=== PATIENT | male | born 1975 | race Hispanic/Latino ===

== ENCOUNTER → 2020-11-17 10:11 | Outpatient (CLI) | payer BC, SELFPAY ==
[2020-11-03 13:02] VITALS: BMI 36.0
--- NOTE | 2020-11-17 10:12 | MRI_ITS ---
STUDY: MRI LUMBAR SPINE WITHOUT CONTRAST REASON FOR EXAM: Male, 45 years old. back pain -- pain low back and bilat legs, feet numb x 2 months TECHNIQUE: Standardized fat and water weighted pulse sequences were obtained in the sagittal and axial planes. COMPARISON: X-ray 11/03/2020, MRI 05/08/2014 FINDINGS: T12-L1: Normal endplates. Normal disc height, hydration and morphology. Normal bilateral facet joints. Normal central canal and bilateral lateral recesses. Normal bilateral intervertebral neural foramina. Normal lumbar lordosis. There is no substantial scoliosis. Normal conus medullaris that terminates at the L1. L1-2: Normal endplates. Normal disc height, hydration and morphology. Normal bilateral facet joints. Normal central canal and bilateral lateral recesses. Normal bilateral intervertebral neural foramina. L2-3: Normal endplates. Normal disc height, hydration and morphology. Normal bilateral facet joints. Normal central canal and bilateral lateral recesses. Normal bilateral intervertebral neural foramina. L3-4: Mild disc desiccation but no disc protrusion, spinal stenosis, or neural foraminal stenosis. L4-5: Mild bilateral facet hypertrophy with fluid in the facet joints consistent with instability. 2 mm retrolisthesis of L4 on L5 but no disc protrusion or extrusion. No spinal stenosis or the neural foraminal stenosis. L5-S1: Moderate bilateral facet hypertrophy and mild ligament flavum hypertrophy. Interval development of a mild broad disc protrusion which produces mild spinal stenosis, moderate right neural foraminal stenosis with abutment of the right L5 nerve root laterally and mild left neural foraminal stenosis. Normal visualized sacral ala. Moderate friction related edema of the posterior subcutaneous fat. MRI/Spine Lumbar (Routine) IMPRESSION: Worsening degenerative disc disease at L4/L5 and L5/S1 as described above. Electronically Signed: Paxton Galloway MD at 12:51 EST Tel , Service support ,
== END ==
PROVIDERS: PCP Preventive Medicine Occupational Medicine; Referring Provider Orthopaedic Surgery; Visit Provider Orthopaedic Surgery
DX: M54.16 Radiculopathy, lumbar region (principal)
CPT/HCPCS: 72148

== ENCOUNTER 2021-10-03 16:55 | Emergency (ER) | payer BC, SELFPAY ==
[2021-10-03 16:56] VITALS: BP 162/98; PULSE 100; RESP 19; TEMP 36.1; O2SAT 92; BMI 43.8
--- NOTE | 2021-10-03 17:16 | EKG12_ITS ---
Test Reason : SOB/PALPS Blood Pressure : / mmHG Vent. Rate : 096 BPM Atrial Rate : 096 BPM P-R Int : 152 ms QRS Dur : 090 ms QT Int : 366 ms P-R-T Axes : 027 007 042 degrees QTc Int : 462 ms Normal sinus rhythm Poor R wave progression Confirmed by SAROJ KIM, JODI ([id number]), continuity editor ELDER MENDOZA ([id number]) on 10/05/2021 10:45:31 AM Referred By: MARY Confirmed By:JODI KYLE MD
--- NOTE | 2021-10-03 17:18 | EDS_ITS ---
HPI History of Present Illness Chief Complaint: Shortness of Breath Informant: patient Narrative Narrative: Patient presents with palpitations and dyspnea that were worse than his normal. He states he normally wakes up in the morning with palpitations. He did this about 11:00 this morning. He took his blood pressure medicine. It is listed as lisinopril/hydrochlorothiazide but it is actually a different medicine that he does not recall. He went back to bed. He was awoken at 3 PM gasping for breath. He had palpitations. He had dyspnea. He states he might of had some sharp chest pain but he is not sure. The symptoms are better now. He also, when specifically asked, does state that he has a history of sleep apnea but because his nose is always congested he cannot use a mask. He has not been sick recently. He has no recent travel surgery immobilization personal or family history of DVT or PE. No family history of early heart disease. He is a smoker. He has high blood pressure. He has had some borderline glucose levels in the past but never been diagnosed diabetic or high cholesterol. Nothing specifically makes his symptoms better other than time. Nothing specifically made them worse. [facility] Medical History HTN (hypertension) Home Medications omeprazole 40 mg PO DAILY 07/06/14 [History Last Taken 08/10/15 05:00] bisoprolol fumarate 5 mg tablet 5 mg PO DAILY tab 11/03/20 [History Last Taken Unknown] diclofenac sodium 75 mg tablet,delayed release 75 mg PO BID tab 11/03/20 [History Last Taken Unknown] valsartan-hydrochlorothiazide 1 tab PO DAILY 10/03/21 [History Last Taken Unknown] Allergy/AdvReac Type Severity Reaction Status Date / Time No Known Allergies Allergy Verified 10/03/21 16:58 Family History Mother Breast cancer Father Hypertension Surgical History H/O arthroscopy of right knee H/O repair of rotator cuff Social History household members: spouse and children housing: house current occupational status: employed Smoking Status: Heavy Smoker (>10/day) Tobacco: How many years used: 9 alcohol intake: current alcohol intake frequency: holidays/special occasions only substance use type: does not use what type of physical activity do you participate in: additional details: stretching seatbelt use: always do you feel safe at home: Yes ROS ROS ED Constitutional Constitutional ED: Denies chills, fever(s) or sweats Eyes Eyes: Denies blurry vision ENT ENT ED: Denies rhinorrhea or sore throat Cardiovascular Cardiovascular: Reports palpitations and racing heartbeat Respiratory/Chest Respiratory/Chest: Reports dyspnea; Denies cough, dyspnea on exertion or sputum Gastrointestinal Gastrointestinal: Denies nausea or vomiting Genitourinary Genitourinary ED: Denies dysuria or hematuria Musculoskeletal Musculoskeletal: Denies arthralgias, back pain, myalgias or neck pain Integumentary Denies rash Neurologic Neurologic: Denies headache(s), paresthesias or weakness Endocrine Endocrinology: Denies polydipsia or polyuria Allergic/Immunologic Allergic/Immunologic ED: Denies mouth swelling or urticaria EXAM Physical Exam Const Vital Signs: 10/03/21 16:56 10/03/21 17:22 10/03/21 17:54 Temperature 97 F L Temperature Source Temporal Pulse Rate 100 Respiratory Rate 19 H 20 H Respiratory Effort Non-Labored Short of Breath Blood Pressure 162/98 H Blood Pressure Mean 119 Pulse Ox 92 96 Oxygen Delivery Method Room Air Room Air 10/03/21 18:00 Temperature Temperature Source Pulse Rate 94 Respiratory Rate 18 Respiratory Effort Blood Pressure 152/114 H Blood Pressure Mean 126 Pulse Ox 97 Oxygen Delivery Method Room Air Patient walked back from triage without difficulty. No obvious dyspnea. Positive well nourished, well developed and obese General Appearance ED: well developed and NAD Nutritional Appearance: obese HEENT Negative for trauma Eyes General Eye ED: Negative for pale conjunctiva or scleral icterus Neck no JVD Chest Wall inspection of chest normal Resp normal respiratory effort and clear to auscultation bilaterally Resp Narrative: No pain with a deep breath. No palpable pain. Effort and Inspection: Negative for pain with movement Auscultation: Negative for rales, rhonchi or wheezes Cardio regular rate, regular rhythm and no murmurs GI normal to inspection, nondistended, normoactive bowel sounds and non-tender Palpation: soft Back/Spine no CVA tenderness Extremity normal to inspection General Extremety ED: Negative for edema or tenderness General Extremity: Negative for edema Neuro Sensorium / Orientation: alert Psych mental status grossly normal Skin no rashes or lesions noted MDM MDM MDM Narrative Medical decision making narrative: Patient's chest x-ray showed no acute process. EKG showed no acute process. Electrolytes were essentially normal other than very minimal elevation of his glucose and very mild decrease of his potassium that should self correct. CBC was normal other than high hemoglobin. He has had this in the past. My suspicion is that this comes from a combination of smoking and likely sleep apnea causing recurrent hypoxia at night. His troponin is negative. He is feeling better now. He has had symptoms like this before but they were a little bit worse. He woke up gasping for air. I think this is likely an episode of sleep apnea. He also had some palpitations but this is not too uncommon for him. I do not think he needs to stay in the hospital. We did discuss weight loss and importance of follow-up. Lab Data Attestation: I reviewed the patient's lab results. Labs: Laboratory Results - last 24 hr 10/03/21 10/03/21 17:30 17:30 WBC 10.8 RBC 5.63 Hgb 17.1 H Hct 50.4 MCV 89.5 MCH 30.4 MCHC 33.9 RDW Std Deviation 46.7 H RDW Coeff of Angel 14.4 Plt Count 264 MPV 8.9 Immature Gran % (Auto) 0.700 Neut % (Auto) 67.7 Lymph % (Auto) 17.1 L Montague % (Auto) 11.5 H Eos % (Auto) 1.9 Baso % (Auto) 1.1 H Absolute Neuts (auto) 7.3 Absolute Lymphs (auto) 1.84 Nucleated RBC % 0 Sodium 140 Potassium 3.3 L Chloride 104 Carbon Dioxide 29.0 Anion Gap 7 BUN 10 Creatinine 0.96 Estim Creat Clear Calc 89.89 Est GFR (MDRD) Af Amer 109 Est GFR (MDRD) Non-Af 90 BUN/Creatinine Ratio 10.5 Glucose 111 H Calcium 9.0 Troponin I High Sens 6 Radiography Diagnostic Testing: Clinical Impression(s) from Imaging Studies Chest X-Ray 10/03/21 17:46 IMPRESSION: Normal x-ray examination of the chest. Electronically Signed: Dalton Mancilla MD at 18:19 EST , Service support , EKG Initial EKG: Comments: EKG done for palpitations dyspnea read by me shows sinus rhythm with a rate of 96. Mild nonspecific baseline changes but no acute ST elevation or depression. No ectopy. NV interval, QRS duration and QTc normal. This is similar to prior in the computer. Discharge Plan Triage Chief Complaint: Shortness of Breath ED Provider: Sam Rashid Dx/Rx/DC Orders Clinical Impression: Heart palpitations, Apnea, sleep Instructions: ED Palpitations, ED Sleep Apnea, Obstructive Prescriptions: No Action diclofenac sodium 75 mg tablet,delayed release (DR/EC) 75 mg PO BID RF: 0 bisoprolol fumarate 5 mg tablet 5 mg PO DAILY RF: 0 omeprazole 40 MG capsule 40 mg PO DAILY RF: 0 valsartan-hydrochlorothiazide 320-25 mg Tablet 1 tab PO DAILY RF: 0 Primary Care Provider: Benoit Benton Referrals: Benoit Benton DO [Primary Care Provider] - As soon as possible Disposition Disposition: Home, Self Care
[2021-10-03 17:22] VITALS: O2SAT 96
[2021-10-03] MEDS: Aspirin 81 MG TAB.CHEW 324 MG PO (17:25)
--- NOTE | 2021-10-03 17:46 | RAD_ITS ---
STUDY: X-RAY CHEST REASON FOR EXAM: Male, 46 years old. Chest pain TECHNIQUE: Single AP portable view of the chest. COMPARISON: 2013 FINDINGS: EKG leads overlie the chest The lungs are clear and expanded. There is no demonstrated pleural abnormality. Normal size heart. Normal mediastinum and ashish. Normal visualized pulmonary arteries. Normal visualized aortic arch and descending thoracic aorta. Normal visualized thoracic spine. Normal visualized ribs, clavicles, and shoulders. There is no demonstrated abnormality of the visualized soft tissue structures of the upper abdomen. RAD/Chest 1 View (Portable) IMPRESSION: Normal x-ray examination of the chest. Electronically Signed: Dalton Mancilla MD at 18:19 EST , Service support ,
[2021-10-03 17:47] LABS: Absolute Lymphocyte Count 1.84 X10^3/uL (0.83-4.51); Absolute Neutrophil Count 7.3 X10^3/uL (2.0-7.7); Basophil# 0.12 X10^3/uL; Basophil% 1.1 % (0-1); Eosinophils% 1.9 % (0-5); Hematocrit 50.4 % (40-54); Hemoglobin 17.1 g/dL (13.0-16.5); Lymphocyte # 1.84 X10^3/ul (0.83-4.51); Lymphocyte % 17.1 % (19-41); Mean Corp Hgb Conc 33.9 g/dL (32-36); Mean Corpuscular Hgb 30.4 pg (27.0-32.0); Mean Corpuscular Volume 89.5 fL (80-94); Mean Platelet Vol. 8.9 fl (6.2-12.0); Monocyte# 1.24 X10^3/uL; Monocyte% 11.5 % (0-10); NRBC Flagged by Analyzer 0 % (0-5); Neutrophil % 67.7 % (47-70); Platelet Count 264 K/mm3 (150-450); RBC Distribution Width CV 14.4 % (11.6-14.6); RBC Distribution Width SD 46.7 fl (35.1-43.9); Red Blood Count 5.63 M/mm3 (4.6-6.2); White Blood Count 10.8 K/mm3 (4.4-11.0)
[2021-10-03 17:54] VITALS: RESP 20; O2SAT 96
[2021-10-03 18:00] VITALS: BP 152/114; PULSE 94; RESP 18; O2SAT 97
[2021-10-03 18:05] LABS: Anion Gap 7 (5-15); BUN 10 mg/dL (7-18); BUN/Creat Ratio 10.5 RATIO (10-20); Chloride 104 mmol/L (98-107); Creatinine, Serum 0.96 mg/dL (0.70-1.30); EST Glomerular Filtration Rate 90 mL/min (>60); Est Glom Filt Rate - Afr Amer 109 mL/min (>60); Estimated Creatinine Clearance 89.89 ml/min; Glucose 111 mg/dL (74-106); Potassium 3.3 mmol/L (3.5-5.1); Sodium Level 140 mmol/L (136-145); Troponin-I HS 6 pg/mL (3.0-78.0)
[2021-10-03 19:18] VITALS: BP 145/89; PULSE 87; RESP 18; O2SAT 98
== END 2021-10-03 19:18 | disposition home or self-care (01) ==
PROVIDERS: Emergency Provider Emergency Medicine; PCP Preventive Medicine Occupational Medicine
DX: R00.2 Palpitations (principal); G47.30 Sleep apnea, unspecified; E66.9 Obesity, unspecified; Z68.41 Body mass index [BMI] 40.0-44.9, adult; I10 Essential (primary) hypertension; Z79.899 Other long term (current) drug therapy; F17.200 Nicotine dependence, unspecified, uncomplicated
CPT/HCPCS: 71045; 80048; 84484; 85025; 93005; 99283; A4216

== ENCOUNTER 2022-06-02 16:46 | Emergency (ER) | payer BC, SELFPAY ==
[2022-06-02 16:47] VITALS: BP 129/97; PULSE 97; RESP 20; TEMP 36.5; O2SAT 95; BMI 43.9
--- NOTE | 2022-06-02 18:42 | EDS_ITS ---
HPI History of Present Illness Chief Complaint: Back Informant: patient Narrative Narrative: 47-year-old male presenting to the emergency department chief complaint of back pain. Patient states that yesterday at work he twisted and immediately felt his back tighten up and have pain. He notes that there is a pain on the right side of his back that travels down into the buttock and down onto his thigh. Is worse with movements. He denies any bowel or bladder dysfunction. No muscle strength loss or sensation changes. No red flag history such as immunocompromise chronic injections or IVDA. No saddle anesthesia. [facility] Medical History Encounter for screening for COVID-19 Encounter for screening for COVID-19 HTN (hypertension) Infected sebaceous cyst of skin URI (upper respiratory infection) Home Medications omeprazole 40 mg capsule,delayed release 40 mg PO DAILY 07/06/14 [History Last Taken 08/10/15 05:00] bisoprolol fumarate 5 mg tablet 5 mg PO DAILY 11/03/20 [History Last Taken Unknown] diclofenac sodium 75 mg tablet,delayed release 75 mg PO BID 11/03/20 [History Last Taken Unknown] valsartan 320 mg-hydrochlorothiazide 25 mg tablet 1 tab PO DAILY 10/03/21 [History Last Taken Unknown] benzonatate 200 mg capsule 200 mg PO TID PRN cough #30 caps 11/02/21 [Rx Last Taken Unknown] doxycycline monohydrate 100 mg capsule 100 mg PO BID #20 caps 12/07/21 [Rx Last Taken Unknown] methylprednisolone 4 mg tablets in a dose pack (Medrol (Kelvin)) 4 mg PO DAILY Pain #21 tabs 02/06/22 [Rx Last Taken Unknown] diazepam 5 mg tablet 5 mg PO Q8 PRN Muscle Spasm #15 tabs 06/02/22 [Rx Last Taken Unknown] oxycodone 10 mg tablet 10 mg PO TID PRN pain 5 days #20 tabs 06/02/22 [Rx Last Taken Unknown] Allergy/AdvReac Type Severity Reaction Status Date / Time lisinopril Allergy throat Verified 06/02/22 16:47 itchy Family History Mother Breast cancer Father Hypertension Surgical History H/O arthroscopy of right knee H/O repair of rotator cuff Social History household members: spouse and children housing: house current occupational status: employed Smoking Status: Heavy Smoker (>10/day) Tobacco: How many years used: 9 alcohol intake: current alcohol intake frequency: holidays/special occasions only substance use type: does not use what type of physical activity do you participate in: additional details: stretching seatbelt use: always do you feel safe at home: Yes ROS ROS ED Constitutional Constitutional ED: Denies chills or weight loss Eyes Eyes: Denies change in vision or diplopia ENT ENT ED: Denies ear pain, rhinorrhea or sore throat Cardiovascular Cardiovascular: Denies chest pain, orthopnea, palpitations or racing heartbeat Respiratory/Chest Respiratory/Chest: Denies cough, dyspnea or orthopnea Gastrointestinal Gastrointestinal: Denies abdominal pain, diarrhea, nausea or vomiting Genitourinary Genitourinary ED: Denies dysuria, hematuria or urinary frequency Musculoskeletal Musculoskeletal: Reports back pain; Denies arthralgias or myalgias Integumentary Denies abscess or rash Neurologic Neurologic: Reports paresthesias; Denies headache(s) or weakness Psychiatric Psychiatric: Denies anxiety, depression, suicidal ideation or suicidal thoughts Endocrine Endocrinology: Denies polydipsia, polyphagia or polyuria Allergic/Immunologic Allergic/Immunologic ED: Denies mouth swelling, tongue swelling or urticaria EXAM Physical Exam Const Vital Signs: 06/02/22 16:47 Temperature 97.7 F L Temperature Source Temporal Pulse Rate 97 Respiratory Rate 20 H Blood Pressure 129/97 H Blood Pressure Mean 107 Pulse Ox 95 Oxygen Delivery Method Room Air Positive well nourished, well developed and obese General Appearance ED: well developed Nutritional Appearance: obese HEENT Reports normocephalic, head/scalp atraumatic and moist mucous membranes Eyes PERRL and EOMs intact bilaterally Neck no lymphadenopathy, supple and no JVD Resp normal respiratory effort and clear to auscultation bilaterally Cardio regular rate, regular rhythm and no murmurs GI normal to inspection, nondistended, normoactive bowel sounds and non-tender Palpation: soft Back/Spine no CVA tenderness Back/Spine Narrative: Patient is tenderness palpation in the right paraspinal lumbar musculature down onto the buttock and over the piriformis muscle. No tissue texture changes to suggest abscess. Lumbar Spine / Lower Back: ROM limited Extremity normal to inspection General Extremety ED: Negative for edema General Extremity: Negative for edema Neuro oriented x3 and CN's II-XII intact bilaterally Sensorium / Orientation: alert Motor Exam: strength 5/5 throughout Deep Tendon Reflexes: Rt Patellar (L4): 2+, Lt Patellar (L4): 2+, Rt Ankle (S1): 2+ and Lt Ankle (S1): 2+ Deep Tendon Reflexes Back: Rt Patellar (L4): 2+, Lt Patellar (L4): 2+, Rt Ankle (S1): 2+ and Lt Ankle (S1): 2+ Psych mental status grossly normal Mood & Affect: Negative for depressed or tearful Skin no rashes or lesions noted and no wounds MDM MDM MDM Narrative Medical decision making narrative: I believe this to be a lumbar myofascial spasm/strain There is a radicular component. Patient will be treated with anti-inflammatories muscle relaxants and pain medicine. I requested he schedule follow-up with his doctor. Discharge Plan Triage Chief Complaint: Back ED Provider: Oscar Brooke Dx/Rx/DC Orders Clinical Impression: Acute left lumbar radiculopathy, Lumbar paraspinal muscle spasm Instructions: ED Sciatica Prescriptions: New diazepam [diazepam] 5 mg tablet 5 mg PO Q8 PRN (Reason: Muscle Spasm) Qty: 15 0RF oxycodone 10 mg tablet 10 mg PO TID PRN (Reason: pain) 5 Days Qty: 20 0RF No Action diclofenac sodium 75 mg tablet,delayed release (DR/EC) 75 mg PO BID Label Comments: TAKE 1 TABLET BY MOUTH TWICE DAILY bisoprolol fumarate 5 mg tablet 5 mg PO DAILY benzonatate 200 mg capsule 200 mg PO TID PRN (Reason: cough) Qty: 30 0RF doxycycline monohydrate 100 mg capsule 100 mg PO BID Qty: 20 0RF methylprednisolone [Medrol (Kelvin)] 4 mg tablets,dose pack 4 mg PO DAILY Qty: 21 0RF omeprazole 40 MG capsule 40 mg PO DAILY valsartan-hydrochlorothiazide 320-25 mg Tablet 1 tab PO DAILY Primary Care Provider: Benoit Benton Referrals: Benoit Benton DO [Primary Care Provider] - 1-2 Weeks Disposition Disposition: Home, Self Care
[2022-06-02] MEDS: oxyCODONE 5 MG Tablet 10 MG PO (18:46)
[2022-06-02] MEDS: diazePAM 5 MG Tablet PO (18:46)
[2022-06-02] MEDS: Ketorolac 60 MG/2 ML Vial IM (18:46)
== END 2022-06-02 19:30 | disposition home or self-care (01) ==
PROVIDERS: Emergency Provider Emergency Medicine; PCP Preventive Medicine Occupational Medicine; Visit Provider Emergency Medicine
DX: M54.16 Radiculopathy, lumbar region (principal); Z68.41 Body mass index [BMI] 40.0-44.9, adult; I10 Essential (primary) hypertension; Z79.899 Other long term (current) drug therapy; F17.200 Nicotine dependence, unspecified, uncomplicated; X50.1XXA Overexertion from prolonged static or awkward postures, initial encounter; E66.9 Obesity, unspecified; M62.830 Muscle spasm of back
CPT/HCPCS: 96372; 99283

== ENCOUNTER → 2023-08-27 | Outpatient (CLI) | payer BC, SELFPAY ==
--- NOTE | 2023-08-27 16:15 | MRI_ITS ---
STUDY: MRI LUMBAR SPINE WITHOUT CONTRAST REASON FOR EXAM: Male, 48 years old. Chronic low back pain. TECHNIQUE: Standardized fat and water weighted pulse sequences were obtained in the sagittal and axial planes. COMPARISON: MRI lumbar spine without contrast 11/17/2020. Lumbar spine radiographs 08/01/2023. FINDINGS: T11-T12 and T12-L1: (Sagittal only). Normal endplates. Normal disc height, hydration and morphology. No ventral extradural defects. Normal central canal and bilateral intervertebral neural foramina. Normal lumbar lordosis. There is no substantial scoliosis. Normal conus medullaris that terminates at the T12-L1 disc space level. L1-2: Normal endplates. Normal disc height, hydration and morphology. Normal bilateral facet joints. Normal central canal and bilateral lateral recesses. Normal bilateral intervertebral neural foramina. L2-3: Normal endplates. Normal disc height, hydration and morphology. Normal bilateral facet joints. Normal central canal and bilateral lateral recesses. Normal bilateral intervertebral neural foramina. L3-4: Normal endplates. Normal disc height, hydration and morphology. Normal bilateral facet joints. Normal central canal and bilateral lateral recesses. Normal bilateral intervertebral neural foramina. L4-5: Normal endplates. Normal disc height, hydration and morphology. Normal bilateral facet joints. Normal central canal and bilateral lateral recesses. Normal bilateral intervertebral neural foramina. L5-S1: Normal endplates. Normal disc height. Small posterior bulging annulus without ventral extradural defect due to presence of ventral epidural fat. Moderately pronounced bilateral degenerative facet arthropathy. Moderate central canal stenosis with an AP canal diameter of 7.4 mm is identified epidural lipomatosis. Normal left lateral recess. Moderate stenosis of the right lateral recess due to Normal visualized sacral ala mild stenosis of the right intervertebral neural foramen. Normal left intervertebral neural foramen. Normal visualized paraspinous soft tissue structures. MRI/Spine Lumbar (Routine) IMPRESSION: 1. Moderately pronounced bilateral L5-S1 degenerative facet arthropathy, moderate central canal stenosis with an AP canal diameter of 7.4 mm surrounded by epidural lipomatosis, mild stenosis of the right lateral recess due to osteophyte arising from the right facet joint and mild stenosis of the right intervertebral neural foramen. This level is unchanged. 2. No MRI evidence of lumbar extruded disc fragment, disc protrusion or nerve root displacement. 3. No significant interval change when compared to 11/17/2020. Electronically Signed: Fredo Johnson MD at 8:43 EDT ,
== END | disposition home or self-care (01) ==
PROVIDERS: PCP Preventive Medicine Occupational Medicine; Referring Provider Orthopaedic Surgery; Visit Provider Orthopaedic Surgery
DX: M51.26 Other intervertebral disc displacement, lumbar region (principal)
CPT/HCPCS: 72148

== ENCOUNTER 2023-10-25 14:51 | Outpatient (RCR) | payer BC, SELFPAY ==
--- NOTE | 2023-10-26 09:08 | HP.FCE ---
Task Lift Floor (Occasional 1-33% of Day): max weight 15# Floor (Frequent 34-66% of Day): max weight 7.5# Floor (Constant 67-100% of Day): max weight 3.15# Floor PDL: Sedentary Knee (Occasional 1-33% of Day): max weight 15# Knee (Frequent 34-66% of Day): max weight 7.5# Knee (Constant 67-100% of Day): max weight 3.15# Knee PDL: Sedentary Waist (Occasional 1-33% of Day): max weight 15# Waist (Frequent 34-66% of Day): max weight 7.5# Waist (Constant 67-100% of Day): max weight 3.15# Waist PDL: Sedentary Shoulder (Occasional 1-33% of Day): max weight 15# Shoulder (Frequent 34-66% of Day): max weight 7.5# Shoulder (Constant 67-100% of Day): max weight 3.15# Shoulder PDL: Sedentary Overhead (Occasional 1-33% of Day): max weight 15# Overhead (Frequent 34-66% of Day): max weight 7.5# Overhead (Constant 67-100% of Day): max weight 3.15# Overhead PDL: Sedentary Comments: increased pain throughout, patient trying to push through and complete the task but wincing and holding breath. Poor lifting mechanics, needing breaks between lifts. Pt reports 06/07 pain Work Activity/Posture Bending: Occasional Ability (1-33% of day) Squatting: Occasional Ability (1-33% of day) Kneeling: No Ablility (0% of day) Reaching out: Occasional Ability (1-33% of day) Reaching up: Occasional Ability (1-33% of day) Sitting: Occasional Ability (1-33% of day) Walking: Occasional Ability (1-33% of day) Standing: Occasional Ability (1-33% of day) Comments: constant need to reposition, unable to kneel. Incr pain with squat 06/07 Reference Reference: Duration Sedentary Sedentary Light Light Light Medium Medium Medium Heavy Very Heavy Heavy Occasional (0-33% of day) Frequent (34-66% of day) Constant (67-100% of day) 10 # Negligible Negligible 15 # 8 # Negligible 20 # 10# Negli. 35 # 18 # 7 # 50 # 25 # 10 # 75 # 100 # >100 # 38 # 50 # >50 # 15 # 20 # >20 # Patient Information Height: 1.7 m Weight:: 127.139 kg Hand Dominance: right Medical History Medical History Including Restrictions: Patient reports he has had back pain and nerve pain for more than ten years but started seeking medical treatment 2009. At that time, he had MRI's done which resulted in pinched nerves. He participated in physical therapy but then went to pain management. Reports pain mgmt and PT didn't help much at the time. Patient reports he had a procedure 2020 to burn nerves/nerve blockers which relief lasted less than a year. Patient had an MRI Jun 2023, results indicated he has arthritis in his spine, meaning he cannot have surgery. He has most issues in his lumbar spine but also some pain in his thoracic and cervical spine. Patient had shoulder surgery ~5 years ago after tearing rotator cuff and biceps, physical therapy after the surgery. Patient had a R knee meniscal tear ~2009, resulting in surgery and physical therapy. Patient has a history of high blood pressure. Patient has history of arthritis and reports feeling more arthritis in knees and elbows. Patient recently rolled ankle at work. Patient reports at times he will trip/fumble over things at home due to numbness in feet and has fallen to his knees in the past. medication: muscle relaxor, blood pressure medication, anxiety med Diagnoses Diagnoses: high blood pressure lower back pain arthritis Symptoms Symptoms: pain burning sensation in back tightening in back tingling in bilateral feet some numbness in the feet some tingling and numbness in hands, pain in L elbow Pain Pain: at rest 4-5/10 at it's worst its 09/07 Work History Work History: Patient has been working for [employer] since 2011. 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 Patient is required to lift 75 pounds from the floor, sometimes overhead lifting. Patient reports he was working five 10 hour days and standing about 75% of the time. When sitting, it would just be for rest periods. Patient reports he has to do multiple stairs throughout the day and bending down/up. He's been on medical leave since Jul 17 2023. Behavioral Behavioral: Patient is alert and cooperative, good historian of medical history. Patient reports he wants to work but is having a hard time with work. He reports his back pain and debility because of it is affecting his mental health overall. He is the type of person that likes to stay busy and work. ADLS ADLS: Patient lives with and sons at home. Patient is able to complete basic self-care independently. Patient is able to complete shower/step over tub independently. Patient indep with functional transfers but needs assistance getting up from the ground. He cannot sit for prolonged periods of time in a car. Patient has 3 ALISE, no hand rail. He will use support from his for the stairs. Single level home with basement but patient does not go to basement. Patient participates in housecare things but is limited by the back pain. For example, cannot stand prolonged periods of time for washing dishes. And the vibration from a conference services coordinator hurts his back. Physical Examination Physical Examination: Ambulated around rehab department without assistive device or assistance but required to sit after walking short distances due to increased pain in his back. Patient demonstrates functional range of motion with stiffness noted when moving due to pain in his back and right shoulder. 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 Average: 61.00 Right [employer] Middleware Developer Strength Percentile: between 1-2 percentile Left [employer] Middleware Developer Strength Average: 59.00 Left [employer] Middleware Developer Strength Percentile: less than 1 percentile Right Lateral Pinch Average: 14.66 Right Lateral Pinch Percentile: less than 10th percentile Left Lateral Pinch Average: 12.66 Left Lateral Pinch Percentile: less than 10th percentile Right Tripod Pinch Average: 12.66 Right Tripod Pinch Percentile: less than 10th percentile Left Tripod Pinch Average: 12.00 Left Tripod Pinch Percentile: less than 10th percentile Comments: 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 Sensation: monofilament test indicating normal sensation bilateral hands at level 3.84. He reports he will have some numbness and tingling in his hands that comes and goes. He feels it is related to the increased pain in his back. Fine Motor: 9 hole peg test L 34.6 (tripod grasp) <1 percentile R 24.8 (tripod grasp) - between 0 - 10th percentile Balance: Patient's balance is good overall. His gait will be affected by the level of back pain, more of a wide base of support and antalgic gait. He has fallen to knees in the past due to severe back pain. Non Material Handling Activities Bending: Able to complete 2x then increased pain 7-8/10 Squatting: Able to complete 2x then increased pain Kneeling: unable to kneel Reaching out/up: completed reaching up and out x 10 while standing increased pain in R shoulder and back 7/10, needing a break after this. Wincing and holding his breath. Walking: Able to walk ~3 min at a time before needing seated rest break. Standing: able to stand for 1 min at a time while doing functional tests before needing to sit, then standing again a few minutes later. Needing to constantly reposition due to pain in his back Sitting: able to sit ~10 min at a time before needing to stand to reposition due to increased pain in his back Climbing Stairs: able to go up/down flight of stairs using bilateral hand rails, increased pain after to 8/10. Patient wincing and holding breath, having difficulty verbally answering questions. Provided patient with ice pack after this. Dynamic Occasional Lifting Capacity Floor Lift: 15# max lift, holding breath and wincing in pain during this lift Knee Lift: 15# max lift Waist Lift: 15# max lift Shoulder Lift: 15# max lift Overhead Lift: 15# max lift Carryin# max lift - needing to sit immediately after for a rest break due to increased back pain Comments: increased pain throughout, holding breath, trying to complete tasks, antalgic gait
--- NOTE | 2023-10-26 09:08 | HP.OTFCE.D ---
FCE D/C Summary Discharge text: CAROL POLLARD was seen for a one time visit for an FCE on 10/25/23 and is discharged.
== END 2023-10-25 19:00 | disposition home or self-care (01) ==
LOC: OT 14:51
PROVIDERS: PCP Preventive Medicine Occupational Medicine; Referring Provider Anesthesiology Pain Medicine; Visit Provider Anesthesiology Pain Medicine
DX: M47.817 Spondylosis without myelopathy or radiculopathy, lumbosacral region (principal)
CPT/HCPCS: 97750

== ENCOUNTER → 2024-06-09 | Outpatient (CLI) | payer MEDICAID, SELFPAY ==
--- NOTE | 2024-06-09 13:59 | VDLE_ITS ---
Reason For Study: Bilateral leg pain/swelling RIGHT LEFT GSV is normal. GSV is normal. CFV is compressible, spontaneous, phasic, CFV is compressible, spontaneous, phasic, competent and demonstrates normal competent, and demonstrates normal augmentation. augmentation. FV is compressible, spontaneous, phasic, FV is compressible, spontaneous, phasic, competent and demonstrates normal competent and demonstrates normal augmentation. augmentation. POP V is compressible, spontaneous, phasic, POP V is compressible, spontaneous, phasic, competent and demonstrates normal competent and demonstrates normal augmentation. augmentation. T/P Trunk is compressible. T/P Trunk is compressible. PTV is compressible. PTV is compressible. RT PerV is compressible. LT PerV is compressible. Procedure This is a venous duplex using B-mode, color flow and spectral Doppler. Exam performed in department. A preliminary report was called and/or faxed to Dr. Novak. VL/Venous Duplex US - Dani Extrem Interpretation Summary Deep veins of the bilateral lower extremities are patent and compressible segme ntally. There is no evidence of bilateral lower extremity deep vein thrombosis. The bilateral great saphenous veins appear patent and compressible segmentally. Ordering Physician: Oscar Novak Referring Physician: Benoit Benton Performed By: Kaylyn Kemp RVT
== END | disposition home or self-care (01) ==
LOC: CVS 13:58
PROVIDERS: PCP Preventive Medicine Occupational Medicine; Referring Provider Podiatrist; Visit Provider Podiatrist
DX: M79.604 Pain in right leg (principal); M79.605 Pain in left leg; R22.41 Localized swelling, mass and lump, right lower limb; R22.42 Localized swelling, mass and lump, left lower limb
CPT/HCPCS: 93970

== ENCOUNTER 2024-07-16 10:39 | Emergency (ER) | payer MEDICAID, SELFPAY ==
[2024-07-16 10:40] VITALS: BP 141/94; PULSE 98; RESP 22; TEMP 36.9; O2SAT 91
--- NOTE | 2024-07-16 11:04 | VDLE_ITS ---
Reason For Study: Left leg swelling Procedure LEFT This is a venous duplex using B-mode, color GSV is normal. flow and spectral Doppler. CFV is compressible, spontaneous, phasic, Exam performed portable in ED. competent, and demonstrates normal Calf veins technically difficult to augmentation. visualize due to pt body habitus and edema. FV is compressible, spontaneous, phasic, A preliminary report was called and/or faxed competent and demonstrates normal to Dr. Dinero. augmentation. POP V is compressible, spontaneous, phasic, competent and demonstrates normal augmentation. T/P Trunk is compressible. PTV is compressible. LT PerV is compressible. VL/Venous Duplex US, Unilateral Interpretation Summary Deep veins of the left lower extremity are patent and compressible segmentally. There is no evidence of left lower extremity deep vein thrombosis. The left great saphenous vein severo ears patent and compressible segmentally. Ordering Physician: Farzad Dinero Referring Physician: Benoit Benton Performed By: Kaylyn Kemp RVT
[2024-07-16 11:06] VITALS: BMI 51.6
--- NOTE | 2024-07-16 11:12 | EX.ED.DYSGE1 ---
HPI History of Present Illness Chief Complaint: Lower Extremity Injury Narrative Narrative: Patient is a 49-year-old male past medical history of hypertension, BMI of 51.7 who presents to the emergency department with chief complaint of left lower extremity swelling and redness. Patient states that he followed up with his patient assistant/foot and ankle physician today and noted that he needs a ultrasound of his left lower extremity to rule out a blood clot. According to the patient he had not had any new injuries he states that he had old injury a year ago where he rolled his ankle and that is why he was following up with this particular provider in the outpatient setting today. Patient denies any history of blood clots denies any recent travel history. According to significant other at bedside they noted that his left lower leg has been red for the past 2 to 3 days now. [facility] Medical History Acute myofascial strain of lumbar region Bee sting reaction Acute conjunctivitis, left eye COVID-19 Contact with and (suspected) exposure to other viral communicable diseases Infected sebaceous cyst of skin Encounter for screening for COVID-19 Encounter for screening for COVID-19 URI (upper respiratory infection) HTN (hypertension) Home Medications ?Medication ?Instructions ?Recorded ?Last Taken ?Type omeprazole 40 mg capsule,delayed 40 mg PO DAILY 07/06/14 08/10/15 05:00 History release bisoprolol fumarate 5 mg tablet 5 mg PO DAILY 11/03/20 Unknown History valsartan 320 1 tab PO DAILY 10/03/21 Unknown History mg-hydrochlorothiazide 25 mg tablet tizanidine 6 mg capsule 6 mg PO QHS PRN muscle spasticity 07/17/23 Unknown Rx #30 caps furosemide 20 mg tablet 20 mg PO DAILY PRN swelling 07/16/24 Unknown History sertraline 100 mg tablet 100 mg PO DAILY 07/16/24 Unknown History Allergy/AdvReac Type Severity Reaction Status Date / Time lisinopril Allergy throat Verified 07/16/24 10:40 itchy Family History Mother Breast cancer Father Hypertension Surgical History H/O arthroscopy of right knee H/O repair of rotator cuff Social History household members: spouse and children housing: house current occupational status: employed Smoking Status: Current every day smoker tobacco type: cigarettes Tobacco: How many years used: 9 alcohol intake: current alcohol intake frequency: holidays/special occasions only substance use type: does not use what type of physical activity do you participate in: additional details: stretching seatbelt use: always do you feel safe at home: Yes ROS ROS ED ROS Narrative Constitutional: Denies any fevers, chills, headaches, lightness, dizziness Eyes: Denies any change in vision double vision blurry vision Cardiovascular: Denies chest pain or palpitations Respiratory: Denies coughing wheezing shortness of breath Abdomen: Denies abdominal pain nausea vomit diarrhea : Denies any urinary symptoms Neurological: Denies numbness, weakness, tingling Musculoskeletal: Complains of left lower extremity swelling as noted above Skin: Complains of redness of the left lower extremity as noted above EXAM Physical Exam Narrative Exam Narrative: General: Patient lying in bed rest comfortably did not appear to be in acute distress Head: Atraumatic, normocephalic Eyes: PERRL bilaterally, EOMI bilateral, no conjunctival injection noted Neck: Soft, supple, trachea midline Cardiovascular: Regular rate and rhythm no murmurs gallops rubs noted Respiratory: Clear to auscultation bilaterally Musculoskeletal: Left lower extremity compartments are soft and compressible Extremities: +5/5 strength noted in the bilateral upper and lower extremities, patient has increased swelling on the left lower extremity when compared to the right lower extremity, no pedal edema neuroexam Neurological: Patient following commands knew that he was at [facility] year is 2023, sensation grossly intact Skin: Warm, dry, patient does have erythema to the left lower extremity is warm to the touch Const Vital Signs: 07/16/24 10:40 Temperature 98.4 F Temperature Source Oral Pulse Rate 98 Respiratory Rate 22 H Blood Pressure 141/94 H Blood Pressure Mean 109 Pulse Ox 91 Oxygen Delivery Method Room Air MDM MDM MDM Narrative Medical decision making narrative: Patient is a 49-year-old male who presents to the emergency department with chief complaint of left lower extremity swelling and redness. Patient was at work performed here on the differential diagnose includes but not limited to DVT, cellulitis. Once workup is obtained reviewed he will be reevaluated. Patient be given IV fluids for hydration based on ideal body weight as BMI is greater than 30. Discharge Plan Triage Chief Complaint: Lower Extremity Injury ED Provider: Farzad Dinero Dx/Rx/DC Orders Prescriptions: No Action bisoprolol fumarate 5 mg tablet 5 mg PO DAILY tizanidine 6 mg capsule 6 mg PO QHS PRN (Reason: muscle spasticity) Qty: 30 0RF omeprazole 40 MG capsule 40 mg PO DAILY valsartan-hydrochlorothiazide 320-25 mg Tablet 1 tab PO DAILY furosemide 20 mg tablet 20 mg PO DAILY PRN (Reason: swelling) sertraline 100 mg tablet 100 mg PO DAILY Primary Care Provider: Benoit Benton Referrals: Benoit Benton DO [Primary Care Provider] - Print Language: Macedonian
[2024-07-16] MEDS: 0.9% Normal Saline (1000mL) 1,000 ML 999 ML IV (11:24)
[2024-07-16 12:07] LABS: Absolute Lymphocyte Count 2.29 X10^3/uL (0.83-4.51); Basophil# 0.11 X10^3/uL; Basophil% 1.1 % (0-1); Eosinophil# 0.27 X10^3/uL; Eosinophils% 2.7 % (0-5); Hematocrit 48.1 % (40-54); Hemoglobin 15.6 g/dL (13.0-16.5); Lymphocyte # 2.29 X10^3/ul (0.83-4.51); Lymphocyte % 22.9 % (19-41); Mean Corp Hgb Conc 32.4 g/dL (32-36); Mean Corpuscular Hgb 28.7 pg (27.0-32.0); Mean Corpuscular Volume 88.6 fL (80-94); NRBC Flagged by Analyzer 0 % (0-5); Neutrophil # 6.04 X10^3/uL (2.7-7.7); Neutrophil % 60.3 % (47-70); Platelet Count 241 K/mm3 (150-450); RBC Distribution Width CV 15.3 % (11.6-14.6); RBC Distribution Width SD 49.2 fl (35.1-43.9); Red Blood Count 5.43 M/mm3 (4.6-6.2)
[2024-07-16 12:24] LABS: Anion Gap 8 (5-15); BUN 13 mg/dL (7-18); BUN/Creat Ratio 12.5 RATIO (10-20); Calcium,Total 8.9 mg/dL (8.5-10.1); Chloride 92 mmol/L (98-107); Creatinine, Serum 1.04 mg/dL (0.70-1.30); EST Glomerular Filtration Rate 81 mL/min (>60); Est Glom Filt Rate - Afr Amer 98 mL/min (>60); Estimated Creatinine Clearance 120.92 ml/min; Glucose 183 mg/dL (74-106); Potassium 3.5 mmol/L (3.5-5.1); Sodium Level 132 mmol/L (136-145)
--- NOTE | 2024-07-16 12:30 | RAD_ITS ---
STUDY: X-RAY - LEFT TIBIA AND FIBULA REASON FOR EXAM: Male, 49 years old. Redness and pain TECHNIQUE: 2 view(s) of the tibia and fibula were obtained. COMPARISON: None. FINDINGS: Normal visualized tibia. Normal visualized fibula. Diffuse soft tissue swelling. RAD/Tibia & Fibula 2 Views IMPRESSION: Diffuse soft tissue swelling. Electronically Signed: Juve Bowens MD at 12:48 EDT ,
[2024-07-16 12:36] LABS: Lactic Acid 1.4 mmol/L (0.4-1.9)
[2024-07-16 12:40] VITALS: BP 121/70; PULSE 62; RESP 20; TEMP 36.9; O2SAT 93
[2024-07-16 13:33] VITALS: BP 132/91; PULSE 69; RESP 18; TEMP 36.9; O2SAT 93
== END 2024-07-16 13:34 | disposition home or self-care (01) ==
PROVIDERS: Emergency Provider Emergency Medicine; PCP Preventive Medicine Occupational Medicine; Visit Provider Emergency Medicine
DX: M79.89 Other specified soft tissue disorders (principal); I10 Essential (primary) hypertension; F17.210 Nicotine dependence, cigarettes, uncomplicated; Z79.899 Other long term (current) drug therapy
CPT/HCPCS: 73590; 80048; 83605; 85025; 87040; 93971; 96360; 99283; J7030; A4216

== ENCOUNTER 2024-08-26 09:58 | Outpatient (RCR) | payer MEDICAID, SELFPAY | END 2024-08-28 23:59 | LOC: NS 09:58 | PROVIDERS: PCP Family Medicine; Referring Provider Orthopaedic Surgery; Visit Provider Orthopaedic Surgery | DX: Z71.3 Dietary counseling and surveillance (principal); E66.01 Morbid (severe) obesity due to excess calories; Z68.43 Body mass index [BMI] 50.0-59.9, adult | CPT/HCPCS: 97802 ==

== ENCOUNTER 2024-08-27 23:05 | Observation (INO) | payer MEDICAID, SELFPAY ==
[2024-08-27 23:06] VITALS: BP 129/104; PULSE 87; RESP 20; TEMP 37.3; O2SAT 98
[2024-08-27 23:07] VITALS: BMI 55.7
[2024-08-28] VITALS (29 sets, daily range): BP systolic 118–178; BP diastolic 43–136; PULSE 64–98; RESP 12–29; TEMP 36.1–37.3; O2SAT 80–96; BMI 54.6; BMI 54.8
--- NOTE | 2024-08-28 01:06 | CT_ITS ---
EXAM: CT NECK WITH INTRAVENOUS CONTRAST CLINICAL INDICATION: ? right peritonsillar abscess TECHNIQUE: Helically acquired images were obtained of the neck with intravenous contrast. CTDIvol = ( 31.28 ) mGy, DLP = ( 991.96 ) mGycm This CT exam was performed using one or more of the following dose reduction techniques: automated exposure control, adjustment of the mA and/or kV according to patient size, and/or use of iterative reconstruction technique. CONTRAST: IV 75mL [id number] COMPARISON: No relevant prior studies available. FINDINGS: NASOPHARYNX: Unremarkable. SUPRAHYOID NECK: Fullness of the tonsillar beds may represent inflammation/tonsillitis, bilaterally symmetric. There is associated marked oropharyngeal airway narrowing (image 71 series 2). No peritonsillar or retropharyngeal abscess identified. INFRAHYOID NECK: Unremarkable. The larynx, hypopharynx and supraglottis are unremarkable. SUBMANDIBULAR/PAROTID GLANDS: Unremarkable. Glands are normal in size. THYROID: Unremarkable. No enlarged or calcified nodules. BONES/JOINTS: No acute fracture. SOFT TISSUES: Unremarkable. VASCULATURE: No acute findings. LYMPH NODES: Unremarkable. No lymphadenopathy. LUNG APICES: Unremarkable as visualized. CT/Soft Tissue Neck WITH Contrast IMPRESSION: Fullness of the tonsillar beds may represent inflammation/tonsillitis, bilaterally symmetric. There is associated marked oropharyngeal airway narrowing (image 71 series 2). Electronically Signed: Levar Adan MD at 3:18 EDT ,
[2024-08-28] MEDS: dexAMETHasone 10 MG/ML Vial IV (01:27)
[2024-08-28] MEDS: Ketorolac 30 MG/ML Syringe IV (01:27)
[2024-08-28] MEDS: 0.9% Normal Saline (1000mL) 1,000 ML 999 ML IV (01:27)
[2024-08-28 01:33] LABS: Absolute Lymphocyte Count 1.78 X10^3/uL (0.83-4.51); Absolute Neutrophil Count 10.8 X10^3/uL (2.0-7.7); Basophil% 0.7 % (0-1); Eosinophil# 0.19 X10^3/uL; Eosinophils% 1.3 % (0-5); Hematocrit 44.6 % (40-54); Hemoglobin 14.5 g/dL (13.0-16.5); Lymphocyte # 1.78 X10^3/ul (0.83-4.51); Lymphocyte % 12.5 % (19-41); Mean Corp Hgb Conc 32.5 g/dL (32-36); Mean Corpuscular Hgb 29.2 pg (27.0-32.0); Mean Corpuscular Volume 89.7 fL (80-94); Mean Platelet Vol. 8.6 fl (6.2-12.0); Monocyte# 1.18 X10^3/uL; Monocyte% 8.3 % (0-10); NRBC Flagged by Analyzer 0.2 % (0-5); Neutrophil # 10.81 X10^3/uL (2.7-7.7); Neutrophil % 76.1 % (47-70); Platelet Count 265 K/mm3 (150-450); RBC Distribution Width CV 15.6 % (11.6-14.6); RBC Distribution Width SD 49.8 fl (35.1-43.9); Red Blood Count 4.97 M/mm3 (4.6-6.2); White Blood Count 14.2 K/mm3 (4.4-11.0)
[2024-08-28] MEDS: Piperacil/Tazobactam 3.375 GM in 0.9% Normal Saline (50mL MB+) 50 ML IV (01:45)
[2024-08-28 01:53] LABS: Anion Gap 7 (5-15); BUN 11 mg/dL (7-18); Calcium,Total 8.9 mg/dL (8.5-10.1); Chloride 94 mmol/L (98-107); Creatinine, Serum 0.85 mg/dL (0.70-1.30); EST Glomerular Filtration Rate 102 mL/min (>60); Est Glom Filt Rate - Afr Amer 123 mL/min (>60); Estimated Creatinine Clearance 154.97 ml/min; Glucose 125 mg/dL (74-106); Potassium 3.8 mmol/L (3.5-5.1); Sodium Level 132 mmol/L (136-145)
[2024-08-28 01:55] LABS: Lactic Acid 1.2 mmol/L (0.4-1.9)
--- NOTE | 2024-08-28 03:48 | EDS_ITS ---
HPI History of Present Illness Chief Complaint: Sore Throat Informant: patient and spouse/S.O. Narrative Narrative: Patient is a 49-year-old male with past medical history of hypertension GERD and [id number] diabetes. He states for the past 2 weeks he has had cold- like symptoms with congestion and sore throat. He states however in the last 2 to 3 days his sore throat has worsened and he now has difficulty swallowing his saliva and a change in voice. With the worsening symptoms he is concern for potential infection and therefore comes in for evaluation [facility] Medical History GERD (gastroesophageal reflux disease) IBS (irritable bowel syndrome) Hearing problem Back problem Asthma Arthritis Acute myofascial strain of lumbar region Bee sting reaction Acute conjunctivitis, left eye COVID-19 Contact with and (suspected) exposure to other viral communicable diseases Infected sebaceous cyst of skin Encounter for screening for COVID-19 Encounter for screening for COVID-19 URI (upper respiratory infection) HTN (hypertension) Home Medications ?Medication ?Instructions ?Recorded ?Last Taken ?Type omeprazole 40 mg capsule,delayed 40 mg PO DAILY PRN stomach upset 07/06/14 08/10/15 05:00 History release furosemide 20 mg tablet 20 mg PO DAILY PRN swelling 07/16/24 Unknown History sertraline 100 mg tablet 50 mg PO DAILY 07/16/24 Unknown History albuterol sulfate 90 mcg/actuation 2 puff inhalation Q6H PRN 08/13/24 Unknown History aerosol inhaler shortness of breath or wheezing fluticasone 250 mcg-salmeterol 50 1 inh inhalation BID 08/13/24 Unknown History mcg/dose blistr powdr for inhalation (Advair Diskus) handicap placard #1 ea 08/13/24 Unknown Rx hydroxyzine pamoate 25 mg capsule 25 mg PO QHS 08/13/24 Unknown History metformin 500 mg tablet 500 mg PO BID #180 tabs 08/13/24 Unknown Rx tizanidine 6 mg capsule 4 mg PO QHS PRN muscle spasticity 08/13/24 Unknown History valsartan 320 1 tab PO DAILY 08/28/24 Unknown History mg-hydrochlorothiazide 25 mg tablet valsartan 40 mg tablet 25 mg PO ONCE 08/28/24 Unknown History Allergy/AdvReac Type Severity Reaction Status Date / Time lisinopril Allergy throat Verified 08/27/24 23:06 itchy Family History Mother Breast cancer Angina at rest Father Hypertension Alcoholism Surgical History H/O arthroscopy of right knee H/O repair of rotator cuff Social History household members: spouse and children housing: house current occupational status: disabled Smoking Status: Current every day smoker tobacco type: cigarettes Tobacco: How many years used: 9 alcohol intake: current alcohol intake frequency: 0-2 drinks per day Alcohol type: beer substance use type: does not use what type of physical activity do you participate in: additional details: stretching seatbelt use: always do you feel safe at home: Yes ROS ROS ED Constitutional Constitutional ED: Denies chills or fever(s) Eyes Eyes: Denies blurry vision or change in vision ENT ENT ED: Reports rhinorrhea and sore throat Cardiovascular Cardiovascular: Denies chest pain Respiratory/Chest Respiratory/Chest: Denies cough or dyspnea Gastrointestinal Gastrointestinal: Reports nausea; Denies abdominal pain, diarrhea or vomiting Genitourinary Genitourinary ED: Denies dysuria Musculoskeletal Musculoskeletal: Reports neck pain Integumentary Denies rash Neurologic Neurologic: Denies headache(s) Hematologic/Lymphatic Hematologic/Lymphatic: Denies easy bleeding or easy bruising Allergic/Immunologic Allergic/Immunologic ED: Denies mouth swelling or tongue swelling EXAM Physical Exam Const Vital Signs: 08/27/24 23:06 08/28/24 01:30 08/28/24 01:40 Temperature 99.2 F H Temperature Source Oral Pulse Rate 87 95 Respiratory Rate 20 H 22 H Blood Pressure 129/104 H 164/78 H Blood Pressure Mean 112 106 Pulse Ox 98 94 80 Oxygen Delivery Method Room Air Nasal Cannula Oxygen Flow Rate (L/min) 4 08/28/24 01:47 08/28/24 03:30 Temperature Temperature Source Pulse Rate 88 95 Respiratory Rate 18 18 Blood Pressure Blood Pressure Mean Pulse Ox 91 93 Oxygen Delivery Method Nasal Cannula Nasal Cannula Oxygen Flow Rate (L/min) 4 4 Positive well nourished, well developed and obese General Appearance ED: well developed; Negative for pallor Nutritional Appearance: obese HEENT HEENT Narrative: No tongue or lip swelling noted Patient has erythema in the posterior pharynx with bilateral tonsillar for trophy at +2 slightly greater on the right. No obvious exudates or hard palate petechiae noted. No trismus present. However patient does have a muffled/change in voice and difficulty with secretions. Eyes PERRL and EOMs intact bilaterally General Eye ED: Negative for scleral icterus Neck supple Neck Narrative: No brawny edema in the submental space to suggest Odin's angina Resp normal respiratory effort and clear to auscultation bilaterally Resp Narrative: Breath sounds are diminished throughout but overall clear to auscultation without nasal flaring retractions tachypnea or accessory muscle use Cardio regular rate and regular rhythm Extremity normal to inspection Neuro oriented x3, CN's II-XII intact bilaterally and no sensory deficits noted Sensorium / Orientation: alert Motor Exam: strength 5/5 throughout Psych mental status grossly normal Skin no rashes or lesions noted General Skin Exam: Negative for jaundice or pallor MDM MDM MDM Narrative Medical decision making narrative: Patient arrived to the ER with low-grade fever and was hypertensive but has a past medical history of this. Symptoms are concerning for viral URI that could have been caused by COVID versus influenza versus RSV. However now with the muffled/change in voice and difficulty of secretions there is concern for perito nsillar abscess versus strep pharyngitis. Therefore basic labs were obtained and patient underwent a CT of the neck to check for potential peritonsillar abscess versus epiglottitis. The patient's labs showed elevation to his white blood cell count of 14.2 but no lactic acidosis. CT scan showed bilateral tonsil hypertrophy consistent with tonsillitis without obvious abscess formation. However it did document severe airway narrowing. The patient did drop his pulse ox to 80 to 85% on room air while in the ER and states he does not have a history or need for supplemental oxygen. Therefore at this time with the patient's hypoxia and CT scan documenting airway narrowing I do have concern that if sent home the airway compromise could worsen. Therefore the case was discussed with the hospitalist in order that the patient watch in the hospital to ensure there is no worsening of his airway compromise or respiratory drive. The hospitalist agrees with observation at this time. The patient was given a dose of Zosyn in order to cover for potential bacterial infection as well as Decadron to help reduce inflammation. History & Record Review Discussion w/independent historian: Patient and Significant other Lab Data Attestation: I reviewed the patient's lab results. Labs: Laboratory Results - last 24 hr 08/28/24 01:22 WBC 14.2 H RBC 4.97 Hgb 14.5 Hct 44.6 MCV 89.7 MCH 29.2 MCHC 32.5 RDW Std Deviation 49.8 H RDW Coeff of Angel 15.6 H Plt Count 265 MPV 8.6 Immature Gran % (Auto) 1.100 H Neut % (Auto) 76.1 H Lymph % (Auto) 12.5 L [place] % (Auto) 8.3 Eos % (Auto) 1.3 Baso % (Auto) 0.7 Absolute Neuts (auto) 10.8 H Absolute Lymphs (auto) 1.78 Nucleated RBC % 0.2 Sodium 132 L Potassium 3.8 Chloride 94 L Carbon Dioxide 32.0 Anion Gap 7 BUN 11 Creatinine 0.85 Estim Creat Clear Calc 154.97 Est GFR (MDRD) Af Amer 123 Est GFR (MDRD) Non-Af 102 BUN/Creatinine Ratio 13.0 Glucose 125 H Lactic Acid 1.2 Calcium 8.9 Radiography Diagnostic Testing: Clinical Impression(s) from Imaging Studies Soft Tissue Neck CT 08/28/24 01:06 IMPRESSION: Fullness of the tonsillar beds may represent inflammation/tonsillitis, bilaterally symmetric. There is associated marked oropharyngeal airway narrowing (image 71 series 2). Electronically Signed: Levar Adan MD at 3:18 EDT , Management Discussion w/another healthcare provider: Hospitalist Discharge Plan Dx/Rx/DC Orders Clinical Impression: Acute tonsillitis, Hypoxia, Hypertension, Non-insulin dependent diabetes mellitus Disposition Disposition: Acute Care [facility] Discharge Date/Time: 08/28/24 04:13
--- NOTE | 2024-08-28 03:48 | PCM.HP.STD ---
HPI - General General Date of Admission: 08/28/24 Date of Service: 08/28/24 Chief Complaint: Sore throat for 2 weeks with instances of choking and difficulty swallowing, cough HPI Narrative CAROL POLLARD, is a 49 M came to ED with sore throat for about 2 weeks. Patient also has fever and chills for last 2 to 3 days. Symptoms started with sore throat, intermittent cough 2 weeks ago. This worsened with difficulty in swallowing or delayed swallowing water or solid food and change in voice, raspy voice difficult to understand. Patient has history of snoring chronic from sleep apnea but is getting more loud snoring last 2 weeks. Patient also felt sometimes difficulty in swallowing saliva. He has history of sleep apnea and was prescribed CPAP but is not using it. Sometimes he states he wakes up feeling like cold or difficulty breathing. In ED, patient had CT soft tissue throat which shows compromised airway with moderate oropharyngeal airway narrowing. Patient further admitted. [facility] Medical History GERD (gastroesophageal reflux disease) IBS (irritable bowel syndrome) Hearing problem Back problem Asthma Arthritis Acute myofascial strain of lumbar region Bee sting reaction Acute conjunctivitis, left eye COVID-19 Contact with and (suspected) exposure to other viral communicable diseases Infected sebaceous cyst of skin Encounter for screening for COVID-19 Encounter for screening for COVID-19 URI (upper respiratory infection) HTN (hypertension) Home Medications ?Medication ?Instructions ?Recorded ?Last Taken ?Type omeprazole 40 mg capsule,delayed 40 mg PO DAILY PRN stomach upset 07/06/14 08/10/15 05:00 History release furosemide 20 mg tablet 20 mg PO DAILY PRN swelling 07/16/24 Unknown History sertraline 100 mg tablet 50 mg PO DAILY 07/16/24 Unknown History albuterol sulfate 90 mcg/actuation 2 puff inhalation Q6H PRN 08/13/24 Unknown History aerosol inhaler shortness of breath or wheezing fluticasone 250 mcg-salmeterol 50 1 inh inhalation BID 08/13/24 Unknown History mcg/dose blistr powdr for inhalation (Advair Diskus) handicap placard #1 ea 08/13/24 Unknown Rx hydroxyzine pamoate 25 mg capsule 25 mg PO QHS 08/13/24 Unknown History metformin 500 mg tablet 500 mg PO BID #180 tabs 08/13/24 Unknown Rx tizanidine 6 mg capsule 4 mg PO QHS PRN muscle spasticity 08/13/24 Unknown History valsartan 320 1 tab PO DAILY 08/28/24 Unknown History mg-hydrochlorothiazide 25 mg tablet valsartan 40 mg tablet 25 mg PO ONCE 08/28/24 Unknown History Allergy/AdvReac Type Severity Reaction Status Date / Time lisinopril Allergy throat Verified 08/27/24 23:06 itchy Family History Mother Breast cancer Angina at rest Father Hypertension Alcoholism Surgical History H/O arthroscopy of right knee H/O repair of rotator cuff Social History household members: spouse and children housing: house current occupational status: disabled Smoking Status: Current every day smoker tobacco type: cigarettes Tobacco: How many years used: 9 alcohol intake: current alcohol intake frequency: 0-2 drinks per day Alcohol type: beer substance use type: does not use what type of physical activity do you participate in: additional details: stretching seatbelt use: always do you feel safe at home: Yes ROS ROS Narrative Constitutional: Reports fatigue and weakness. No fever. HEENT: Reports systems reviewed and no addt'l complaints, except as documented Respiratory/Chest: As described in HPI CVS: Denies history of [place]. No chest pain. Gastrointestinal: Denies coffee ground emesis, hematemesis or vomiting Genitourinary: Denies burning urination or new urinary tract symptoms Musculoskeletal: Denies acute joint pain or limited range of motion. No acute injury Neurologic: Denies seizure-like symptoms. skin: No ulcer. No rash Endocrinology: Reports systems reviewed and no addt'l complaints, except as documented Hematologic/Lymphatic: Reports systems reviewed and no addt'l complaints, except as documented Rest 14 ROS are negative except as mentioned in HPI Vital Signs Vital Signs Vital Signs: 08/27/24 23:06 08/28/24 01:30 08/28/24 01:40 Temperature 99.2 F H Temperature Source Oral Pulse Rate 87 95 Respiratory Rate 20 H 22 H Blood Pressure 129/104 H 164/78 H Blood Pressure Mean 112 106 Pulse Ox 98 94 80 Oxygen Delivery Method Room Air Nasal Cannula Oxygen Flow Rate (L/min) 4 08/28/24 01:47 Temperature Temperature Source Pulse Rate 88 Respiratory Rate 18 Blood Pressure Blood Pressure Mean Pulse Ox 91 Oxygen Delivery Method Nasal Cannula Oxygen Flow Rate (L/min) 4 Weight Weight: 355 lb 13.217 oz Body Mass Index (BMI) 55.7 Physical Exam Narrative General: Alert, Oriented x3, Cooperative, morbid obesity BMI 54.7 kg/m? HEENT: Atraumatic, PERRLA, EOMI, Normocephalic Oral: Base of tongue, uvula not visualized. With tongue depressor, uvula is visualized on deep in breathing. Redness, tenderness and induration on the right more than left angle of mandible. Neck: Right upper neck cervical lymphadenopathy. Supple, No JVD, Negative Carotid Bruits Chest wall/Lungs: Air entry diminished in bilateral lung bases. No crepitation/rhonchi Cardiovascular: Regular rate, Regular Rhythm, Normal S1, Normal S2, No M/G/R Abdomen: Bowel Sounds Present, Soft, Non Tender, Non-Distended : No dysuria. No renal angle tenderness. No suprapubic tenderness. Extremities: Mild pedal edema edema, Capillary Refill Less than 3 Seconds Skin: No rashes, No breakdown Musculoskeletal: No Tenderness to Palpation of Joints or Extremities Neurological: Cranial nerves II-XII grossly intact, DTR 2+/4. No acute focal neurological deficit. Psych/Mental Status: Flat affect Results Lab / Micro Data 08/28/24 01:22 08/28/24 01:22 Labs: Laboratory Results - last 24 hr 08/28/24 01:22: WBC 14.2 H, RBC 4.97, Hgb 14.5, Hct 44.6, MCV 89.7, MCH 29.2, MCHC 32.5, RDW Std Deviation 49.8 H, RDW Coeff of Angel 15.6 H, Plt Count 265, MPV 8.6, Immature Gran % (Auto) 1.100 H, Neut % (Auto) 76.1 H, Lymph % (Auto) 12.5 L, [place] % (Auto) 8.3, Eos % (Auto) 1.3, Baso % (Auto) 0.7, Absolute Neuts (auto) 10.8 H, Absolute Lymphs (auto) 1.78, Nucleated RBC % 0.2, Sodium 132 L, Potassium 3.8, Chloride 94 L, Carbon Dioxide 32.0, Anion Gap 7, BUN 11, Creatinine 0.85, Estim Creat Clear Calc 154.97, Est GFR (MDRD) Af Amer 123, Est GFR (MDRD) Non-Af 102, BUN/Creatinine Ratio 13.0, Glucose 125 H, Lactic Acid 1.2, Calcium 8.9 Micro: Microbiology 08/28/24 01:22 Mucosa - Throat Streptococcus pyogenes (PCR) - Final 08/27/24 23:15 Mucosa - Nose SARS-CoV-2, Influenza & RSV (PCR) - Final Imaging Radiology Impression Soft Tissue Neck CT 08/28/24 01:06 IMPRESSION: Fullness of the tonsillar beds may represent inflammation/tonsillitis, bilaterally symmetric. There is associated marked oropharyngeal airway narrowing (image 71 series 2). Electronically Signed: Levar Adan MD at 3:18 EDT Reading Location ID and State: [facility] / [place] Tel , Service support , Assessment & Plan Assessment/Plan (1) Narrow pharyngeal airway: PLAN: Plan This is 49-year-old gentleman with morbid obesity came to ED with worsening cough, voice and bilateral throat pain right worse than left. 1. Bilateral tonsillitis right worse than left with fullness of tonsillar beds resulting into mild oropharyngeal airway narrowing: Patient is admitted in the ICU. CT soft tissue neck initially reviewed and shows fullness of tonsillar bed and mild oropharyngeal airway narrowing. Patient started on IV antibiotic Unasyn after 1 dose of Zosyn in ED. On dexamethasone 4 mg every [address] Grant consult. BiPAP ordered. [facility] consulted for further opinion. Speech therapy evaluation. N.p.o. ordered until evaluated by speech therapist. 2. Obstructive sleep apnea possible obesity hypoventilation syndrome: Patient was prescribed CPAP many years ago but not using it. BiPAP ordered as patient desaturate when he falls asleep. 3. Hypertension: Blood pressure in variable 129/104, 160/78. Monitor BP. Home medication continued with holding parameters. 4. GERD: On PPI 5. Multiple other comorbidities which include IBS, hearing problem, degenerative arthritis: No acute issues. 6. Morbid obesity: BMI 54.7 kg/m?. [employer] consult. Living will/advanced directive/end of life care: Patient does not have living will or advanced directive. He does not have dated power of deputy county attorney for health. After discussion of benefits/risks procedures involved with full code, DNR CC arrest and DNR CC, the patient opted for full code. Patient does want artificial life support including intubation, tube feed, ventilator and/chest compression, central venous catheter, vasopressor and DC shock if needed Total time spent in [id number] encounter in discussion of advanced directive 17 minutes. Clinical Impression(s) from Imaging Studies Soft Tissue Neck CT 08/28/24 01:06 IMPRESSION: Fullness of the tonsillar beds may represent inflammation/tonsillitis, bilaterally symmetric. There is associated marked oropharyngeal airway narrowing (image 71 series 2). Electronically Signed: Levar Adan MD at 3:18 EDT Reading Location ID and State: [facility] / [place] Tel , Service support , Charges/Coding Visit Charges Inpatient E&M: 06277 Init Hosp L3 Procedures Hospitalists Procedures: 49860 Advncd Care Plan 30 Min
[2024-08-28] MEDS: Ampicillin/Sulbactam 3 GM in 0.9% Normal Saline (100mL MB+) 100 ML IV ×3 (06:18→18:38)
[2024-08-28] MEDS: dexAMETHasone 4 MG/ML Vial IV ×3 (06:18→20:39)
[2024-08-28] MEDS: 0.9% Saline Lock 10 ML Syringe IV (06:19)
[2024-08-28 06:24] LABS: Absolute Lymphocyte Count 1.06 X10^3/uL (0.83-4.51); Absolute Neutrophil Count 12.3 X10^3/uL (2.0-7.7); Basophil# 0.06 X10^3/uL; Basophil% 0.4 % (0-1); Eosinophil# 0.02 X10^3/uL; Eosinophils% 0.1 % (0-5); Hematocrit 45.2 % (40-54); Hemoglobin 14.7 g/dL (13.0-16.5); Lymphocyte # 1.06 X10^3/ul (0.83-4.51); Lymphocyte % 7.6 % (19-41); Mean Corp Hgb Conc 32.5 g/dL (32-36); Mean Corpuscular Hgb 29.2 pg (27.0-32.0); Mean Corpuscular Volume 89.7 fL (80-94); Mean Platelet Vol. 9.2 fl (6.2-12.0); Monocyte% 2.2 % (0-10); NRBC Flagged by Analyzer 0.1 % (0-5); Neutrophil # 12.26 X10^3/uL (2.7-7.7); Neutrophil % 88.5 % (47-70); Platelet Count 259 K/mm3 (150-450); RBC Distribution Width CV 15.7 % (11.6-14.6); RBC Distribution Width SD 49.9 fl (35.1-43.9); Red Blood Count 5.04 M/mm3 (4.6-6.2); White Blood Count 13.9 K/mm3 (4.4-11.0)
[2024-08-28 06:57] LABS: Anion Gap 6 (5-15); BUN 13 mg/dL (7-18); Calcium,Total 8.4 mg/dL (8.5-10.1); Chloride 93 mmol/L (98-107); Creatinine, Serum 1.08 mg/dL (0.70-1.30); EST Glomerular Filtration Rate 77 mL/min (>60); Est Glom Filt Rate - Afr Amer 93 mL/min (>60); Estimated Creatinine Clearance 120.51 ml/min; Glucose 229 mg/dL (74-106); Potassium 4.5 mmol/L (3.5-5.1); Sodium Level 128 mmol/L (136-145)
[2024-08-28] MEDS: Ipratropium/Albuterol Sulfate 3 ML AMPUL.NEB INHALATION (07:33)
--- NOTE | 2024-08-28 07:36 | PN.HOSP_ITS ---
Reason for Visit Reason for Visit: Diagnoses Other diseases of pharynx (08/28/24) Subjective Subjective Patient is a 49-year-old gentleman who presented with sore throat. Patient was diagnosed with bilateral tonsillitis with mild oropharyngeal airway narrowing. Admitted to the intensive care unit with consultation placed to ENT Objective Data Objective Data Vital Signs: Vital Signs Temp Pulse Resp BP Pulse Ox O2 Del Method O2 Flow Rate 99.1 F 73 22 H 126/71 H 93 Bi-pap 4 08/28/24 07:00 08/28/24 07:31 08/28/24 07:31 08/28/24 07:00 08/28/24 07:31 08/28/24 07:00 08/28/24 04:30 FiO2 40 08/28/24 07:31 Oxygen Flow Rate (L/min) 4 Oxygen Delivery Method Bi-pap Weight: 158.3 kg Body Mass Index (BMI) 54.8 Intake & Output: Intake and Output for Last 24 Hours 08/26/24 08/27/24 08/28/24 23:59 23:59 23:59 Intake Total 1050 / 1050 Output Total 0 / 0 Balance 1050 / 1050 Lab / Micro Data 08/28/24 06:12 08/28/24 06:12 Labs: Laboratory Results - last 24 hr 08/28/24 01:22: WBC 14.2 H, RBC 4.97, Hgb 14.5, Hct 44.6, MCV 89.7, MCH 29.2, MCHC 32.5, RDW Std Deviation 49.8 H, RDW Coeff of Angel 15.6 H, Plt Count 265, MPV 8.6, Immature Gran % (Auto) 1.100 H, Neut % (Auto) 76.1 H, Lymph % (Auto) 12.5 L , [place] % (Auto) 8.3, Eos % (Auto) 1.3, Baso % (Auto) 0.7, Absolute Neuts (auto) 10.8 H, Absolute Lymphs (auto) 1.78, Nucleated RBC % 0.2, Sodium 132 L, Potassium 3.8, Chloride 94 L, Carbon Dioxide 32.0, Anion Gap 7, BUN 11, Creatinine 0.85, Estim Creat Clear Calc 154.97, Est GFR (MDRD) Af Amer 123, Est GFR (MDRD) Non-Af 102, BUN/Creatinine Ratio 13.0, Glucose 125 H, Lactic Acid 1.2, Calcium 8.9 08/28/24 06:12: WBC 13.9 H, RBC 5.04, Hgb 14.7, Hct 45.2, MCV 89.7, MCH 29.2, MCHC 32.5, RDW Std Deviation 49.9 H, RDW Coeff of Angel 15.7 H, Plt Count 259, MPV 9.2, Immature Gran % (Auto) 1.200 H, Neut % (Auto) 88.5 H, Lymph % (Auto) 7.6 L, [place] % (Auto) 2.2, Eos % (Auto) 0.1, Baso % (Auto) 0.4, Absolute Neuts (auto) 12.3 H, Absolute Lymphs (auto) 1.06, Nucleated RBC % 0.1, Sodium 128 L, Potassium 4.5, Chloride 93 L, Carbon Dioxide 29.0, Anion Gap 6, BUN 13, Creatinine 1.08, Estim Creat Clear Calc 120.51, Est GFR (MDRD) Af Amer 93, Est GFR (MDRD) Non-Af 77, BUN/Creatinine Ratio 12.0, Glucose 229 H, Calcium 8.4 L, TSH 0.440 Micro: Microbiology 08/28/24 01:22 Mucosa - Throat Streptococcus pyogenes (PCR) - Final 08/27/24 23:15 Mucosa - Nose SARS-CoV-2, Influenza & RSV (PCR) - Final Radiography Diagnostic Testing: Radiology Impression Soft Tissue Neck CT 08/28/24 01:06 IMPRESSION: Fullness of the tonsillar beds may represent inflammation/tonsillitis, bilaterally symmetric. There is associated marked oropharyngeal airway narrowing (image 71 series 2). Electronically Signed: Levar Adan MD at 3:18 EDT , Physical Exam Narrative GENERAL: cooperative HEENT: Atraumatic; enlarged and erythematous tonsils EYES; Anicteric, Normal Conjunctiva NECK; supple, normal thyroid, RESPIRATORY: Diminished to auscultation CARDIOVASCULAR: Regular S1 S2, GI: soft, normoactive bowel sounds, : No Renal angle tenderness; EXTREMITIES: No edema, no clubbing, MUSCULOSKELETAL: no muscle wasting NEURO: Awake; no lateralizing signs. SKIN: No Rash PSYCH; Flat affect Assessment & Plan Assessment/Plan (1) Narrow pharyngeal airway: PLAN: Plan Patient is a 49-year-old gentleman who presented with sore throat. Patient was diagnosed with bilateral tonsillitis with mild oropharyngeal airway narrowing. Admitted to the intensive care unit with consultation placed to ENT 1. Bilateral tonsillitis ? With compromised airway CT of the neck obtained did show Fullness of the tonsillar beds may represent inflammation/tonsillitis, bilaterally symmetric. There is associated marked oropharyngeal airway narrowing. Patient was started on Unasyn steroids and admitted to the intensive care unit with consultation placed to ENT 2. Obstructive sleep apnea ? Consistent use of PAP therapy encourage 4. Obesity hypoventilation syndrome ? Complicating care 4. Hypertension ? Blood pressure controlled, home medications continued with dose adjustment as needed 5. Class III obesity with BMI of 54.7 ? Weight loss advised 6. GERD ? On PPI 7. Depression with anxiety ? Patient is on sertraline as well as hydroxyzine as needed 8. Diabetes mellitus type II -patient's oral hypoglycemics held. Placed on long acting insulin, Accu-Cheks a.c. and at bedtime and covered with sliding scale insulin 9.DVT prophylaxis ? On enoxaparin
[2024-08-28] MEDS: Enoxaparin 40 MG/0.4 ML Syringe SC ×2 (09:42→20:38)
--- NOTE | 2024-08-28 10:36 | CASEMGMT ---
RIRI LIEBERMAN Assessment Face to Face with patient for initial transition planning/care coordination assessment. RIRI LIEBERMAN introduced self and role at [facility], pt voices understanding. Pt is A&Ox4 and is resting comfortably in bed and is calm. Care providers, pharmacy, and demographics verified. Admitting dx: Bilateral Tonsillitis LACE Strata: 2 PCP: Artur Pena Specialists: Pt states that he sees a yoga coordinator in [place] but is unsure of the name. Pt also sees Dr. Garcia with [facility] Preferred Pharmacy: [email or web address] Insurance: [employer] Prescription Benefit: Yes LNOK: Lorelei Roberts (W) Living Arrangements: Pt lives with his and 3 adult children in a 2 story home with 3 steps to enter ADLs/IADLs: Pt reports that he has back pain/issues at this time and that his has been needing to assist the pt Transportation: Pt states that if he drives it is short distances. Pt drives DME: Pt denies all oxygen/ PAP use at home. Pt is currently requiring additional oxygen and may qualify for home oxygen needs. A verbal list of local in-network DME companies provided to the pt at this time. Pt prefers [employer]. Pt also states that he is a new diabetic and found out about a week ago. Pt states that he does not have a glucometer or supplies. CM to follow and provided Rx. Pt reports that he has a cane at home. HHC/SNF: Denies history. Pt has been to in the past for OP Tx Pt?s goal: Home Plan: Anticipate DC home with family once medically ready. Follow for oxygen needs as well as BGM and supplies. Follow therapy recommendations for potential HHC or OP Tx. PT/OT evaluations are pending. CM to follow. Sharlene Sheridan RN, CM
[2024-08-28] MEDS: Insulin Lispro 100 UNIT/ML INSULN.PEN SC ×3 (11:51→20:42)
--- NOTE | 2024-08-28 13:46 | CON.PCM.CC_ITS ---
HPI Consult Data Date of Consult: 08/28/24 HPI Narrative HPI Narrative: CAROL POLLARD, is a 49 M who presents [facility] Medical History GERD (gastroesophageal reflux disease) IBS (irritable bowel syndrome) Hearing problem Back problem Asthma Arthritis Acute myofascial strain of lumbar region Bee sting reaction Acute conjunctivitis, left eye COVID-19 Contact with and (suspected) exposure to other viral communicable diseases Infected sebaceous cyst of skin Encounter for screening for COVID-19 Encounter for screening for COVID-19 URI (upper respiratory infection) HTN (hypertension) Home Medications ?Medication ?Instructions ?Recorded ?Last Taken ?Type omeprazole 40 mg capsule,delayed 40 mg PO DAILY PRN stomach upset 07/06/14 08/10/15 05:00 History release furosemide 20 mg tablet 20 mg PO DAILY PRN swelling 07/16/24 Unknown History sertraline 100 mg tablet 50 mg PO DAILY 07/16/24 Unknown History albuterol sulfate 90 mcg/actuation 2 puff inhalation Q6H PRN 08/13/24 Unknown History aerosol inhaler shortness of breath or wheezing fluticasone 250 mcg-salmeterol 50 1 inh inhalation BID 08/13/24 Unknown History mcg/dose blistr powdr for inhalation (Advair Diskus) handicap placard #1 ea 08/13/24 Unknown Rx hydroxyzine pamoate 25 mg capsule 25 mg PO QHS 08/13/24 Unknown History metformin 500 mg tablet 500 mg PO BID #180 tabs 08/13/24 Unknown Rx tizanidine 6 mg capsule 4 mg PO QHS PRN muscle spasticity 08/13/24 Unknown History valsartan 320 1 tab PO DAILY 08/28/24 Unknown History mg-hydrochlorothiazide 25 mg tablet valsartan 40 mg tablet 25 mg PO ONCE 08/28/24 Unknown History Allergy/AdvReac Type Severity Reaction Status Date / Time lisinopril Allergy throat Verified 08/27/24 23:06 itchy Family History Mother Breast cancer Angina at rest Father Hypertension Alcoholism Surgical History H/O arthroscopy of right knee H/O repair of rotator cuff Social History household members: spouse and children housing: house current occupational status: disabled Smoking Status: Current every day smoker tobacco type: cigarettes Tobacco: How many years used: 9 alcohol intake: current alcohol intake frequency: 0-2 drinks per day Alcohol type: beer substance use type: does not use what type of physical activity do you participate in: additional details: stretching seatbelt use: always do you feel safe at home: Yes Objective Data Objective Data Vital Signs: Vital Signs Last response 3 Temperature 36.4 C L 08/28/24 13:00 Temperature Source Temporal 08/28/24 13:00 Pulse Rate 78 08/28/24 13:00 Pulse Strength Normal (2+) 08/28/24 10:00 Respiratory Rate 19 H 08/28/24 13:00 Respiratory Effort Normal, Non-Labored 08/28/24 12:00 Respiratory Depth Normal 08/28/24 12:00 Respiratory Pattern Normal 08/28/24 12:00 Blood Pressure 152/79 H 08/28/24 13:00 Blood Pressure Mean 103 08/28/24 13:00 Blood Pressure Source Monitor 08/28/24 12:00 Blood Pressure Position Semi-Fowlers 08/28/24 12:00 Blood Pressure Location Right Forearm 08/28/24 12:00 Pulse Ox 94 08/28/24 13:00 Oxygen Delivery Method Nasal Cannula 08/28/24 13:00 Oxygen Flow Rate (L/min) 5 08/28/24 13:00 Fraction of Inspired Oxygen (FIO2) 40 08/28/24 09:00 I&O: I&O Last 24 Hours 3 08/27/24 08/28/24 08/28/24 23:59 11:59 23:59 Intake Total 1162 / 1274 112 / 1274 Output Total 500 / 500 Balance 662 / 774 112 / 774 I&O: Total Stay 3 08/27/24 23:05 thru 08/28/24 12:50 Intake Total 1274 Output Total 500 Balance 774 Current Meds Ordered / Administered: Current meds ordered / Administered 3 Generic Name Dose Route Start Last Admin Trade Name Freq PRN Reason Stop Dose Admin Acetaminophen 650 mg 08/28/24 05:48 Acetaminophen 325 Mg Tablet PO Q6H PRN PRN Pain 1-10 Or Fever>100.7 Albuterol/Ipratropium 3 ml 08/28/24 06:08 08/28/24 07:33 Ipratropium/Albuterol Sulfate 3 Ml Ampul.Neb INHALATION 3 ml Q4H.RT PRN Administration SHORTNESS OF BREATH Dexamethasone Sodium Phosphate 4 mg 08/28/24 06:00 08/28/24 06:18 Dexamethasone 4 Mg/Ml Vial IV 4 mg Q8 LIBBY Administration Enoxaparin Sodium 40 mg 08/28/24 10:00 08/28/24 09:42 Enoxaparin 40 Mg/0.4 Ml Syringe SC 40 mg BID LIBBY Administration Furosemide 20 mg 08/28/24 13:41 Furosemide 20 Mg Tablet PO DAILY PRN swelling Protocol Glucagon 1 mg 08/28/24 07:40 Glucagon 1 Mg/Ml Syringe IM X1 PRN Hypoglycemia Protocol Hydroxyzine Pamoate 25 mg 08/28/24 22:00 Hydroxyzine Audra 25 Mg Capsule PO QHS LIBBY Sodium Chloride 500 mls @ 15 mls/hr 08/28/24 04:33 IV .[id number] PRN Saline Flush Sodium Chloride 500 mls @ 15 mls/hr 08/28/24 04:33 IV .[id number] PRN Additional IVPB Infusion Ampicillin Sodium/Sulbactam 112 mls @ 150 mls/hr 08/28/24 06:00 08/28/24 12:50 Sodium 3 gm/ Sodium Chloride IV Infused Q6 LIBBY Infusion Dextrose 250 mls @ 0 mls/hr 08/28/24 07:40 Dextrose 10%-Water IV .Q0M PRN HYPOGLYCEMIA Protocol As Directed Influenza Virus Vaccine 45 mcg 08/29/24 10:00 Flu Vacc (6mos Up)/Pf 45 Mcg/0.5 Ml Syringe IM 08/29/24 10:01 .ONCE ONE Insulin Human Lispro 0 unit 08/28/24 11:00 08/28/24 11:51 Insulin Lispro 100 Unit/Ml Insuln.Pen SC 4 u ACHS LIBBY Administration Protocol Morphine Sulfate 2 mg 08/28/24 05:48 Morphine 2 Mg/Ml Syringe IV Q3H PRN PRN Pain Score 4-10 or Pre PT/OT Non-Formulary Medication 1 tablet 08/28/24 13:45 Valsartan-Hydrochlorothiazide PO DAILY LIBBY Ondansetron HCl 4 mg 08/28/24 05:48 Ondansetron 4 Mg/2 Ml Vial IV Q8H PRN PRN NAUSEA/VOMITING Pantoprazole Sodium 40 mg 08/28/24 13:45 Pantoprazole Sodium 40 Mg Tablet PO DAILY LIBBY Fluticasone/Salmeterol 1 puff 08/28/24 22:00 Fluticasone Propion/Salmeterol 250-50 Inhaler INHALATION BID LIBBY Senna/Docusate Sodium 2 tablet 08/28/24 05:48 Senna/Docusate Sodium 1 Tablet PO BID PRN PRN Constipation Sertraline HCl 50 mg 08/28/24 13:45 Sertraline 50 Mg Tablet PO DAILY LIBBY Sodium Chloride 10 - 40 ml 08/28/24 04:33 08/28/24 06:19 0.9% Saline Lock 10 Ml Syringe IV 10 ml UD PRN Administration SALINE FLUSH Tizanidine HCl 4 mg 08/28/24 13:45 Tizanidine Hcl 2 Mg Tablet PO QHS PRN muscle spasticity Lab / Micro Data 08/28/24 06:12 08/28/24 06:12 Labs: Laboratory Results - last 24 hr 08/28/24 01:22: WBC 14.2 H, RBC 4.97, Hgb 14.5, Hct 44.6, MCV 89.7, MCH 29.2, MCHC 32.5, RDW Std Deviation 49.8 H, RDW Coeff of Angel 15.6 H, Plt Count 265, MPV 8.6, Immature Gran % (Auto) 1.100 H, Neut % (Auto) 76.1 H, Lymph % (Auto) 12.5 L , [place] % (Auto) 8.3, Eos % (Auto) 1.3, Baso % (Auto) 0.7, Absolute Neuts (auto) 10.8 H, Absolute Lymphs (auto) 1.78, Nucleated RBC % 0.2, Sodium 132 L, Potassium 3.8, Chloride 94 L, Carbon Dioxide 32.0, Anion Gap 7, BUN 11, Creatinine 0.85, Estim Creat Clear Calc 154.97, Est GFR (MDRD) Af Amer 123, Est GFR (MDRD) Non-Af 102, BUN/Creatinine Ratio 13.0, Glucose 125 H, Lactic Acid 1.2, Calcium 8.9 08/28/24 06:12: WBC 13.9 H, RBC 5.04, Hgb 14.7, Hct 45.2, MCV 89.7, MCH 29.2, MCHC 32.5, RDW Std Deviation 49.9 H, RDW Coeff of Angel 15.7 H, Plt Count 259, MPV 9.2, Immature Gran % (Auto) 1.200 H, Neut % (Auto) 88.5 H, Lymph % (Auto) 7.6 L, [place] % (Auto) 2.2, Eos % (Auto) 0.1, Baso % (Auto) 0.4, Absolute Neuts (auto) 12.3 H, Absolute Lymphs (auto) 1.06, Nucleated RBC % 0.1, Sodium 128 L, Potassium 4.5, Chloride 93 L, Carbon Dioxide 29.0, Anion Gap 6, BUN 13, Creatinine 1.08, Estim Creat Clear Calc 120.51, Est GFR (MDRD) Af Amer 93, Est GFR (MDRD) Non-Af 77, BUN/Creatinine Ratio 12.0, Glucose 229 H, Calcium 8.4 L, TSH 0.440 Micro: Microbiology 08/28/24 06:05 Mucosa - Nasopharyngeal Respiratory Panel (PCR) - Final 08/28/24 01:22 Mucosa - Throat Streptococcus pyogenes (PCR) - Final 08/27/24 23:15 Mucosa - Nose SARS-CoV-2, Influenza & RSV (PCR) - Final Imaging Radiology Impression Soft Tissue Neck CT 08/28/24 01:06 IMPRESSION: Fullness of the tonsillar beds may represent inflammation/tonsillitis, bilaterally symmetric. There is associated marked oropharyngeal airway narrowing (image 71 series 2). Electronically Signed: Levar Adan MD at 3:18 EDT , Assessment and Plan . Assessment and plan: 49 yo morbidly obese male smoker admitted 08/28/24 w/ sore throat and dysphagia. He required O2 via N/C in ED. CT neck revealed enlarged tonsillar tissue as well as narrowed pharyngeal airway. He has received steroids and ABX. Admitted to ICU for observation. ENT evaluation noted - no airway compromise noted He appears comfortable - no stridor or e/o upper airway compromise EXAM Gen: Awake and alert, NAD Eyes: PERRL ENT: MMM, no stridor CV: S1S2 reg Pulm: diminished Abd: Soft/nt/nd Extrem: minimal edema GRACE: NF ASSESSMENT 1. Likely infectious pharyngitis 2. Morbid obesity w/ INDRA 3. Tobacco use PLAN -supplemental O2 as needed -course of ABX and steroids reasonable -VTE ppx -CPAP for chronic INDRA We will be available as needed. The entirety of this encounter was done via Telemedicine
[2024-08-28] MEDS: Pantoprazole Sodium 40 MG Tablet PO (14:42)
[2024-08-28] MEDS: Sertraline 50 MG Tablet PO (14:42)
--- NOTE | 2024-08-28 15:50 | CON.PCM_ITS ---
Assessment & Plan Assessment/Plan (1) Tonsillitis: PLAN: 49 year old male admitted for pharyngeal infectious concerns -likely has routine tonsillitis. WBC 14k. fell asleep in ED and desaturated due to severe morbid obesity, smoking and known INDRA. -pulmonary / INDRA management by primary team. may follow up with ENT after discharge. HPI Consult Data Date of Consult: 08/28/24 HPI Narrative Reason for Consultation: tonsillitis HPI Narrative: CAROL POLLARD, is a 49 M who presents with tonsillitis. Presented to the ED last night with sore thorat / chills. WBC 14k. CT was obtained which showed tonsillitis and concern for pharyngeal narrowing. BMI 55, history of smoking and noncompliant INDRA. desaturated (while sleeping) in ED into the 80s, deemed appropriate to watch overnight. feels well currently, mild sore throat, normal voice per family, tolerating clear liquids. [facility] Medical History GERD (gastroesophageal reflux disease) IBS (irritable bowel syndrome) Hearing problem Back problem Asthma Arthritis Acute myofascial strain of lumbar region Bee sting reaction Acute conjunctivitis, left eye COVID-19 Contact with and (suspected) exposure to other viral communicable diseases Infected sebaceous cyst of skin Encounter for screening for COVID-19 Encounter for screening for COVID-19 URI (upper respiratory infection) HTN (hypertension) Home Medications ?Medication ?Instructions ?Recorded ?Last Taken ?Type omeprazole 40 mg capsule,delayed 40 mg PO DAILY PRN stomach upset 07/06/14 08/10/15 05:00 History release furosemide 20 mg tablet 20 mg PO DAILY PRN swelling 07/16/24 Unknown History sertraline 100 mg tablet 50 mg PO DAILY 07/16/24 Unknown History albuterol sulfate 90 mcg/actuation 2 puff inhalation Q6H PRN 08/13/24 Unknown History aerosol inhaler shortness of breath or wheezing fluticasone 250 mcg-salmeterol 50 1 inh inhalation BID 08/13/24 Unknown History mcg/dose blistr powdr for inhalation (Advair Diskus) handicap placard #1 ea 08/13/24 Unknown Rx hydroxyzine pamoate 25 mg capsule 25 mg PO QHS 08/13/24 Unknown History metformin 500 mg tablet 500 mg PO BID #180 tabs 08/13/24 Unknown Rx tizanidine 6 mg capsule 4 mg PO QHS PRN muscle spasticity 08/13/24 Unknown History valsartan 320 1 tab PO DAILY 08/28/24 Unknown History mg-hydrochlorothiazide 25 mg tablet valsartan 40 mg tablet 25 mg PO ONCE 08/28/24 Unknown History Allergy/AdvReac Type Severity Reaction Status Date / Time lisinopril Allergy throat Verified 08/27/24 23:06 itchy Family History Mother Breast cancer Angina at rest Father Hypertension Alcoholism Surgical History H/O arthroscopy of right knee H/O repair of rotator cuff Social History household members: spouse and children housing: house current occupational status: disabled Smoking Status: Current every day smoker tobacco type: cigarettes Tobacco: How many years used: 9 alcohol intake: current alcohol intake frequency: 0-2 drinks per day Alcohol type: beer substance use type: does not use what type of physical activity do you participate in: additional details: stretching seatbelt use: always do you feel safe at home: Yes ROS Constitutional Constitutional: Reports systems reviewed and no addt'l complaints, except as documented Physical Exam Const alert and oriented x3 General Appearance: cooperative Orientation / Consciousness: awake HEENT normocephalic HEENT Narrative: 2+ tonsils, symmetric. Lab / Micro Data 08/28/24 06:12 08/28/24 06:12 Labs: Laboratory Results - last 24 hr 08/28/24 01:22: WBC 14.2 H, RBC 4.97, Hgb 14.5, Hct 44.6, MCV 89.7, MCH 29.2, MCHC 32.5, RDW Std Deviation 49.8 H, RDW Coeff of Angel 15.6 H, Plt Count 265, MPV 8.6, Immature Gran % (Auto) 1.100 H, Neut % (Auto) 76.1 H, Lymph % (Auto) 12.5 L , [place] % (Auto) 8.3, Eos % (Auto) 1.3, Baso % (Auto) 0.7, Absolute Neuts (auto) 10.8 H, Absolute Lymphs (auto) 1.78, Nucleated RBC % 0.2, Sodium 132 L, Potassium 3.8, Chloride 94 L, Carbon Dioxide 32.0, Anion Gap 7, BUN 11, Creatinine 0.85, Estim Creat Clear Calc 154.97, Est GFR (MDRD) Af Amer 123, Est GFR (MDRD) Non-Af 102, BUN/Creatinine Ratio 13.0, Glucose 125 H, Lactic Acid 1.2, Calcium 8.9 08/28/24 06:12: WBC 13.9 H, RBC 5.04, Hgb 14.7, Hct 45.2, MCV 89.7, MCH 29.2, MCHC 32.5, RDW Std Deviation 49.9 H, RDW Coeff of Angel 15.7 H, Plt Count 259, MPV 9.2, Immature Gran % (Auto) 1.200 H, Neut % (Auto) 88.5 H, Lymph % (Auto) 7.6 L, [place] % (Auto) 2.2, Eos % (Auto) 0.1, Baso % (Auto) 0.4, Absolute Neuts (auto) 12.3 H, Absolute Lymphs (auto) 1.06, Nucleated RBC % 0.1, Sodium 128 L, Potassium 4.5, Chloride 93 L, Carbon Dioxide 29.0, Anion Gap 6, BUN 13, Creatinine 1.08, Estim Creat Clear Calc 120.51, Est GFR (MDRD) Af Amer 93, Est GFR (MDRD) Non-Af 77, BUN/Creatinine Ratio 12.0, Glucose 229 H, Calcium 8.4 L, TSH 0.440 Micro: Microbiology 08/28/24 06:05 Mucosa - Nasopharyngeal Respiratory Panel (PCR) - Final 08/28/24 01:22 Mucosa - Throat Streptococcus pyogenes (PCR) - Final 08/27/24 23:15 Mucosa - Nose SARS-CoV-2, Influenza & RSV (PCR) - Final Imaging Radiology Impression Soft Tissue Neck CT 08/28/24 01:06 IMPRESSION: Fullness of the tonsillar beds may represent inflammation/tonsillitis, bilaterally symmetric. There is associated marked oropharyngeal airway narrowing (image 71 series 2). Electronically Signed: Levar Adan MD at 3:18 EDT ,
[2024-08-28] MEDS: Losartan Potassium 100 MG Tablet PO (16:47)
[2024-08-28 17:11] LABS: Bedside Glucose 268 mg/dL (74-106)
[2024-08-28] MEDS: Albuterol 2.5 MG/3 ML VIAL.NEB. INHALATION (18:59)
[2024-08-28] MEDS: hydrOXYzine PAM 25 MG Capsule PO (20:38)
[2024-08-28 21:06] LABS: Bedside Glucose 261 mg/dL (74-106)
[2024-08-29] VITALS (20 sets, daily range): BP systolic 110–143; BP diastolic 57–105; PULSE 55–91; RESP 12–28; TEMP 35.9–36.5; O2SAT 91–97; BMI 55.0
[2024-08-29] MEDS: Ampicillin/Sulbactam 3 GM in 0.9% Normal Saline (100mL MB+) 100 ML IV ×2 (00:06→06:16)
[2024-08-29 03:26] LABS: Absolute Lymphocyte Count 1.33 X10^3/uL (0.83-4.51); Absolute Neutrophil Count 14.4 X10^3/uL (2.0-7.7); Basophil# 0.04 X10^3/uL; Basophil% 0.2 % (0-1); Hematocrit 45.8 % (40-54); Hemoglobin 14.5 g/dL (13.0-16.5); Lymphocyte # 1.33 X10^3/ul (0.83-4.51); Lymphocyte % 7.8 % (19-41); Mean Corp Hgb Conc 31.7 g/dL (32-36); Mean Corpuscular Hgb 28.9 pg (27.0-32.0); Mean Corpuscular Volume 91.4 fL (80-94); Mean Platelet Vol. 9.1 fl (6.2-12.0); Monocyte# 1.03 X10^3/uL; Monocyte% 6.1 % (0-10); NRBC Flagged by Analyzer 0 % (0-5); Neutrophil # 14.39 X10^3/uL (2.7-7.7); Neutrophil % 84.8 % (47-70); Platelet Count 251 K/mm3 (150-450); RBC Distribution Width CV 15.6 % (11.6-14.6); RBC Distribution Width SD 51.2 fl (35.1-43.9); Red Blood Count 5.01 M/mm3 (4.6-6.2)
[2024-08-29 03:58] LABS: Anion Gap 5 (5-15); BUN 11 mg/dL (7-18); BUN/Creat Ratio 14.1 RATIO (10-20); Calcium,Total 8.6 mg/dL (8.5-10.1); Chloride 99 mmol/L (98-107); Creatinine, Serum 0.78 mg/dL (0.70-1.30); EST Glomerular Filtration Rate 112 mL/min (>60); Est Glom Filt Rate - Afr Amer 136 mL/min (>60); Estimated Creatinine Clearance 167.25 ml/min; Glucose 217 mg/dL (74-106); Magnesium 2.4 mg/dL (1.6-2.6); Sodium Level 132 mmol/L (136-145); Thyroid Stim Hormone (TSH) 0.197 uIU/mL (0.358-3.740)
[2024-08-29 04:04] LABS: Phosphorus 2.9 mg/dL (2.5-4.9)
[2024-08-29] MEDS: dexAMETHasone 4 MG/ML Vial IV (06:16)
[2024-08-29] MEDS: Albuterol 2.5 MG/3 ML VIAL.NEB. INHALATION ×2 (06:38→13:54)
[2024-08-29 06:46] LABS: Bedside Glucose 247 mg/dL (74-106)
--- NOTE | 2024-08-29 07:14 | PCM.PN.HOSP ---
Reason for Visit Reason for Visit: Diagnoses Acute tonsillitis, unspecified (08/28/24) Other diseases of pharynx (08/28/24) Subjective Subjective Patient seen had a relatively uneventful night. Plan is for patient to be assessed for possible discharge. Case was discussed with ENT Dr. Brooks today Objective Data Objective Data Vital Signs: Vital Signs Temp Pulse Resp BP Pulse Ox O2 Del Method O2 Flow Rate 96.7 F L 55 L 19 H 143/75 H 96 Bi-pap 4 08/29/24 07:00 08/29/24 07:00 08/29/24 07:00 08/29/24 07:00 08/29/24 07:00 08/29/24 07:00 08/29/24 03:00 FiO2 40 08/29/24 07:00 Oxygen Flow Rate (L/min) 4 Oxygen Delivery Method Bi-pap Weight: 158.9 kg Body Mass Index (BMI) 55.0 Intake & Output: Intake and Output for Last 24 Hours 08/27/24 08/28/24 08/29/24 23:59 23:59 23:59 Intake Total 1586 / 1586 312 / 312 Output Total 2550 / 2550 1000 / 1000 Balance -964 / -964 -688 / -688 Lab / Micro Data 08/29/24 03:13 08/29/24 03:13 Labs: Laboratory Results - last 24 hr 08/28/24 11:49: POC Glucose 247 H 08/28/24 16:49: POC Glucose 268 H 08/28/24 20:41: POC Glucose 261 H 08/29/24 03:13: WBC 17.0 H, RBC 5.01, Hgb 14.5, Hct 45.8, MCV 91.4, MCH 28.9, MCHC 31.7 L, RDW Std Deviation 51.2 H, RDW Coeff of Angel 15.6 H, Plt Count 251, MPV 9.1, Immature Gran % (Auto) 1.100 H, Neut % (Auto) 84.8 H, Lymph % (Auto) 7.8 L, [place] % (Auto) 6.1, Eos % (Auto) 0.0, Baso % (Auto) 0.2, Absolute Neuts (auto) 14.4 H, Absolute Lymphs (auto) 1.33, Nucleated RBC % 0, Sodium 132 L, Potassium 4.0, Chloride 99, Carbon Dioxide 28.0, Anion Gap 5, BUN 11, Creatinine 0.78, Estim Creat Clear Calc 167.25, Est GFR (MDRD) Af Amer 136, Est GFR (MDRD) Non-Af 112, BUN/Creatinine Ratio 14.1, Glucose 217 H, Calcium 8.6, Phosphorus 2.9, Magnesium 2.4, TSH 0.197 L Micro: Microbiology 08/28/24 06:05 Mucosa - Nasopharyngeal Respiratory Panel (PCR) - Final 08/28/24 01:22 Mucosa - Throat Streptococcus pyogenes (PCR) - Final 08/27/24 23:15 Mucosa - Nose SARS-CoV-2, Influenza & RSV (PCR) - Final Physical Exam Narrative GENERAL: cooperative HEENT: Atraumatic; enlarged and erythematous tonsils EYES; Anicteric, Normal Conjunctiva NECK; supple, normal thyroid, RESPIRATORY: Diminished to auscultation CARDIOVASCULAR: Regular S1 S2, GI: soft, normoactive bowel sounds, : No Renal angle tenderness; EXTREMITIES: No edema, no clubbing, MUSCULOSKELETAL: no muscle wasting NEURO: Awake; no lateralizing signs. SKIN: No Rash PSYCH; Flat affect Assessment & Plan Assessment/Plan (1) Narrow pharyngeal airway: PLAN: Plan Patient is a 49-year-old gentleman who presented with sore throat. Patient was diagnosed with bilateral tonsillitis with mild oropharyngeal airway narrowing. Admitted to the intensive care unit with consultation placed to ENT 1. Bilateral tonsillitis ? With compromised airway CT of the neck obtained did show Fullness of the tonsillar beds may represent inflammation/tonsillitis, bilaterally symmetric. There is associated marked oropharyngeal airway narrowing. Patient was started on Unasyn steroids and admitted to the intensive care unit with consultation placed to ENT ? 08/29/2024 Case was discussed with Dr. Brooks with the ENT was of the opinion that supposedly narrowing of the oropharyngeal airway was due to patient habitus. He recommended for patient to be discharged home on oral antibiotics for patient to follow-up with him as 2. Obstructive sleep apnea ? Consistent use of PAP therapy encourage 4. Obesity hypoventilation syndrome ? Complicating care 4. Hypertension ? Blood pressure controlled, home medications continued with dose adjustment as needed 5. Class III obesity with BMI of 54.7 ? Weight loss advised 6. GERD ? On PPI 7. Depression with anxiety ? Patient is on sertraline as well as hydroxyzine as needed 8. Diabetes mellitus type II -patient's oral hypoglycemics held. Placed on long acting insulin, Accu-Cheks a.c. and at bedtime and covered with sliding scale insulin 9.DVT prophylaxis ? On enoxaparin
--- NOTE | 2024-08-29 08:02 | PCM.DC.SUM ---
Providers Date of Admission: 08/28/24 Date of Discharge: 08/29/24 Primary Care Physician: Dr. Artur Pena, DO Consultations 08/28/24 05:48 Consult: ENT Routine Consulting Provider: Antonio Grant Reason for Consult: Bilateral tonsillitis with narrow airway EMERGENT Consult: No Notified: Yes Date Notified: 08/28/24 Time Notified: 05:53 Method of Notification: ED Physician Initiated 08/28/24 05:54 Consult: Environmental Quality Analyst / Pulmonary Medicine Routine Consulting Provider: Intensivists/Pulmonary Med Reason for Consult: Intermittent hypoxia on sleep EMERGENT Consult: No Notified: Yes Date Notified: 08/28/24 Time Notified: 05:54 Method of Notification: Text Reason For Visit: BILATERAL TONSILITIS Diagnosis Discharge Diagnosis (1) Narrow pharyngeal airway: Status: Acute Code(s): J39.2 - Other diseases of pharynx Plan Patient is a 49-year-old gentleman who presented with sore throat. Patient was diagnosed with bilateral tonsillitis with mild oropharyngeal airway narrowing. Admitted to the intensive care unit with consultation placed to ENT 1. Bilateral tonsillitis ? With compromised airway CT of the neck obtained did show Fullness of the tonsillar beds may represent inflammation/tonsillitis, bilaterally symmetric. There is associated marked oropharyngeal airway narrowing. Patient was started on Unasyn steroids and admitted to the intensive care unit with consultation placed to ENT ? 08/29/2024 Case was discussed with Dr. Brooks with the ENT was of the opinion that supposedly narrowing of the oropharyngeal airway was due to patient habitus. He recommended for patient to be discharged home on oral antibiotics for patient to follow-up with him as outpatient 2. Obstructive sleep apnea ? Consistent use of PAP therapy encourage. Patient states that he currently does not have any CPAP machine he did not like the one he was previously prescribed. He was instructed to schedule an appointment with his primary care physician for a sleep study as outpatient as soon as possible. Patient was assessed for home oxygen he did not qualify 4. Obesity hypoventilation syndrome ? Complicating care 4. Hypertension ? Blood pressure controlled, home medications continued with dose adjustment as needed 5. Class III obesity with BMI of 54.7 ? Weight loss advised 6. GERD ? On PPI 7. Depression with anxiety ? Patient is on sertraline as well as hydroxyzine as needed 8. Diabetes mellitus type II -patient's oral hypoglycemics held. Placed on long acting insulin, Accu-Cheks a.c. and at bedtime and covered with sliding scale insulin 9.DVT prophylaxis ? On enoxaparin Medications at Discharge Home Medications omeprazole 40 mg capsule,delayed release 40 mg PO DAILY PRN stomach upset 07/06/14 furosemide 20 mg tablet 20 mg PO DAILY PRN swelling 07/16/24 sertraline 100 mg tablet 50 mg PO DAILY 07/16/24 albuterol sulfate 90 mcg/actuation aerosol inhaler 2 puff inhalation Q6H PRN shortness of breath or wheezing 08/13/24 fluticasone 250 mcg-salmeterol 50 mcg/dose blistr powdr for inhalation (Advair Diskus) 1 inh inhalation BID 08/13/24 handicap placard #1 ea 08/13/24 hydroxyzine pamoate 25 mg capsule 25 mg PO QHS 08/13/24 metformin 500 mg tablet 500 mg PO BID #180 tabs 08/13/24 tizanidine 6 mg capsule 4 mg PO QHS PRN muscle spasticity 08/13/24 valsartan 320 mg-hydrochlorothiazide 25 mg tablet 1 tab PO DAILY 08/28/24 valsartan 40 mg tablet 25 mg PO ONCE 08/28/24 acetaminophen 325 mg tablet 650 mg (2 x 325 mg) PO Q6H PRN PRN Pain 1-10 Or Fever>100.7 #0 tabs 08/29/24 amoxicillin 875 mg-potassium clavulanate 125 mg tablet 1 tab PO BID #28 tabs 08/29/24 prednisone 20 mg tablet 20 mg PO BID #10 tabs 08/29/24 Hospital Course Summary of Care Provided Minutes Spent on Discharge: 35 Physical Exam Narrative GENERAL: cooperative HEENT: Atraumatic; EYES; Anicteric, Normal Conjunctiva NECK; supple, normal thyroid, RESPIRATORY: Diminished to auscultation CARDIOVASCULAR: Regular S1 S2, GI: soft, normoactive bowel sounds, : No Renal angle tenderness; EXTREMITIES: No edema, no clubbing, MUSCULOSKELETAL: no muscle wasting NEURO: Awake; no lateralizing signs. SKIN: No Rash PSYCH; Flat affect Weight / BMI Weight Weight: 158.9 kg Body Mass Index (BMI) 55.0 ABG / Lab / Microbiology Data 08/29/24 03:13 08/29/24 03:13 Laboratory: Laboratory Results - last 24 hr 08/28/24 11:49: POC Glucose 247 H 08/28/24 16:49: POC Glucose 268 H 08/28/24 20:41: POC Glucose 261 H 08/29/24 03:13: WBC 17.0 H, RBC 5.01, Hgb 14.5, Hct 45.8, MCV 91.4, MCH 28.9, MCHC 31.7 L, RDW Std Deviation 51.2 H, RDW Coeff of Angel 15.6 H, Plt Count 251, MPV 9.1, Immature Gran % (Auto) 1.100 H, Neut % (Auto) 84.8 H, Lymph % (Auto) 7.8 L, [place] % (Auto) 6.1, Eos % (Auto) 0.0, Baso % (Auto) 0.2, Absolute Neuts (auto) 14.4 H, Absolute Lymphs (auto) 1.33, Nucleated RBC % 0, Sodium 132 L, Potassium 4.0, Chloride 99, Carbon Dioxide 28.0, Anion Gap 5, BUN 11, Creatinine 0.78, Estim Creat Clear Calc 167.25, Est GFR (MDRD) Af Amer 136, Est GFR (MDRD) Non-Af 112, BUN/Creatinine Ratio 14.1, Glucose 217 H, Calcium 8.6, Phosphorus 2.9, Magnesium 2.4, TSH 0.197 L Microbiology: Microbiology 08/28/24 06:05 Mucosa - Nasopharyngeal Respiratory Panel (PCR) - Final 08/28/24 01:22 Mucosa - Throat Streptococcus pyogenes (PCR) - Final 08/27/24 23:15 Mucosa - Nose SARS-CoV-2, Influenza & RSV (PCR) - Final D/C Instructions Discharge Diet: 1800 Calorie Control Diet Discharge Activity: Return to Normal Activity Call your doctor if you observe: Fever of 101 or Higher, Shortness of breath, Fainting spells and Chest pain Meaningful Use Info Meaningful Use Meaningful Use Diagnoses (Choose all that apply): None applicable Ischemic Stroke Statin Dosing Therapy Reference: STATIN DOSE THERAPY REFERENCE: * Patients > 75 years receive moderate or high dose statin therapy. * Patients 75 years or YOUNGER should receive HIGH intensity statin dose unless contraindicated. You will be required to document reason for non-treatment if statin daily dose does not meet guidelines. HIGH DOSE STATIN THERAPY DAILY Atorvastatin > than or = to 40 mg Rosuvastatin > than or = to 20 mg Amlodipine + Atorvastatin > than or = to 2.5/40 mg Ezetimibe + Simvastatin 10/80 mg Simvastatin 80mg Discharge Plan Admission Admit Date/Time: 08/28/24 03:47 Attending Provider: Duane Bruce Primary Care Provider: Artur Pena Consulting Providers: Antonio Grant; Tone Breaux; Arsenio Valencia; Kyle Sidhu; Shaun Pena; Duane Brunson; Roberto Ferraro; Marcelo Duarte; Nadege Fonseca; Nicholas Berger; Charly Garcia; Cayla Castillo; Vivek Mcfarland; Thai Muniz; Alcides Franco; Jos Anton; Darius Palma; Angel Saeed; Myke Christianson; Anthony Luong Discharge Orders/Prescriptions Prescriptions: New prednisone 20 mg tablet 20 mg PO BID Qty: 10 0RF amoxicillin-pot clavulanate 875-125 mg tablet 1 tab PO BID Qty: 28 0RF acetaminophen 325 mg Tablet 650 mg PO Q6H PRN PRN (Reason: Pain 1-10 Or Fever>100.7) Qty: 0 0RF Continued tizanidine 6 mg capsule 4 mg PO QHS PRN (Reason: muscle spasticity) hydroxyzine pamoate 25 mg capsule 25 mg PO QHS fluticasone propion-salmeterol [Advair Diskus] 250-50 mcg/dose blister with device 1 inh inhalation BID albuterol sulfate 90 mcg/actuation HFA aerosol inhaler 2 puff inhalation Q6H PRN (Reason: shortness of breath or wheezing) (DME) handicap placard See Rx Instructions .ROUTE .MEDSUPPLY Qty: 1 0RF Rx Instructions: 5 Years duration metformin 500 mg tablet 500 mg PO BID Qty: 180 0RF omeprazole 40 MG capsule 40 mg PO DAILY PRN (Reason: stomach upset) furosemide 20 mg tablet 20 mg PO DAILY PRN (Reason: swelling) sertraline 100 mg tablet 50 mg PO DAILY valsartan 40 mg tablet 25 mg PO ONCE valsartan-hydrochlorothiazide 320-25 mg tablet 1 tab PO DAILY Referrals / Follow Up: Rudi Brooks MD [Med Staff - Active Staff] - Within 1 Week Artur Pena DO [Primary Care Provider] - Within 1 Week (To set up an outpatient sleep study for his severe sleep apnea) Disposition Disposition (needs filled in before D/C Order can be placed): Home, Self Care Charges/Coding Visit Charges Inpatient E&M: 75188 Disch Hosp >30min
[2024-08-29 08:06] LABS: Hemoglobin A1c 8.1 % (3.8-5.6)
[2024-08-29] MEDS: Insulin Lispro 100 UNIT/ML INSULN.PEN SC ×2 (08:10→12:00)
[2024-08-29 08:29] LABS: Bedside Glucose 241 mg/dL (74-106)
[2024-08-29] MEDS: Losartan Potassium 100 MG Tablet PO (09:49)
[2024-08-29] MEDS: Sertraline 50 MG Tablet PO (09:50)
[2024-08-29] MEDS: Pantoprazole Sodium 40 MG Tablet PO (09:50)
[2024-08-29] MEDS: Enoxaparin 40 MG/0.4 ML Syringe SC (09:50)
--- NOTE | 2024-08-29 10:53 | CASEMGMT ---
Dr. Bruce states that the pt will be getting discharged today. Per the mail reader, pt does not qualify for home oxygen. Pt also did well with therapy. Rx for BGM and supplies signed by Dr. Bruce. RN CM to pt room at this time. BGM Rx handed to pt. Pt states that he feels safe discharging home today with his family. Pt denies the need for HHC, OP Tx, CCN, or Pt Link. Pt states that he may need a sleep study competed and a CPAP potentially. Pt states that he plans to f/u with his PCP to complete this. Pt denies further questions or concerns at this time.
[2024-08-29 12:20] LABS: Bedside Glucose 228 mg/dL (74-106)
== END 2024-08-29 15:00 | disposition home or self-care (01) | DRG 153 ==
LOC: ED 08-28 03:48 → ICU 08-28 07:00
PROVIDERS: Admitting Provider Internal Medicine; Emergency Provider Emergency Medicine; PCP Family Medicine; Visit Provider Internal Medicine
DX: J03.90 Acute tonsillitis, unspecified (principal); E66.2 Morbid (severe) obesity with alveolar hypoventilation; Z68.43 Body mass index [BMI] 50.0-59.9, adult; E11.9 Type 2 diabetes mellitus without complications; I10 Essential (primary) hypertension; F17.210 Nicotine dependence, cigarettes, uncomplicated; F41.8 Other specified anxiety disorders; K21.9 Gastro-esophageal reflux disease without esophagitis; M48.02 Spinal stenosis, cervical region; G47.33 Obstructive sleep apnea (adult) (pediatric); Z79.84 Long term (current) use of oral hypoglycemic drugs; Z79.51 Long term (current) use of inhaled steroids; R09.02 Hypoxemia; Z86.16 Personal history of COVID-19; E66.813 Obesity, class 3; Z79.899 Other long term (current) drug therapy
CPT/HCPCS: 70491; 80048; 82962; 83036; 83605; 83735; 84100; 84443; 85025; 87631; 87633; 87651; 92526; 92610; 94002; 94003; 94640; 94668; 94762; 96365; 96366; 96372; 96375; 99221; 99283; Q9967; A4216; G0378; J0295

== ENCOUNTER → 2024-09-03 | Outpatient (CLI) | payer MEDICAID, SELFPAY | END | disposition home or self-care (01) | LOC: MRI 06:41 | PROVIDERS: PCP Family Medicine; Referring Provider Podiatrist; Visit Provider Podiatrist | DX: M25.372 Other instability, left ankle (principal) | CPT/HCPCS: 73721 ==

== ENCOUNTER 2024-09-24 03:17 | Emergency (ER) | payer MEDICAID, SELFPAY ==
[2024-09-24] VITALS (14 sets, daily range): BP systolic 144–181; BP diastolic 66–102; PULSE 65–101; RESP 17–29; TEMP 36.5–37.4; O2SAT 82–96; BMI 54.5
--- NOTE | 2024-09-24 03:43 | RAD_ITS ---
EXAM: XR CHEST, 2 VIEWS CLINICAL INDICATION: cough sob fever TECHNIQUE: Frontal and lateral views of the chest. COMPARISON: October 03, 2021. FINDINGS: LUNGS AND PLEURAL SPACES: Unremarkable. No pneumothorax. No effusion. No acute cardiopulmonary disease. HEART: Unremarkable. Cardiac silhouette not enlarged. MEDIASTINUM: Central airways and mediastinal contour are unremarkable. BONES/JOINTS: Degenerative changes of the spine. No acute fracture. SOFT TISSUES: Unremarkable. RAD/Chest PA and Lateral IMPRESSION: No acute findings in the chest. Electronically Signed: Lvear Adan MD at 5:12 EST ,
--- NOTE | 2024-09-24 03:44 | EX.ED.DYSGE1 ---
HPI History of Present Illness Chief Complaint: General Illness Informant: patient and spouse/S.O. Narrative Narrative: 49-year-old male has had URI symptoms for the past several days, 3-5, cough, runny nose and congestion, now with sore throat and bilateral earache worse on the left, a little bit of dyspnea, with subjective fevers and chills this morning. Son currently has COVID. [facility] Medical History GERD (gastroesophageal reflux disease) IBS (irritable bowel syndrome) Hearing problem Back problem Asthma Arthritis Acute myofascial strain of lumbar region Bee sting reaction Acute conjunctivitis, left eye COVID-19 Contact with and (suspected) exposure to other viral communicable diseases Infected sebaceous cyst of skin Encounter for screening for COVID-19 Encounter for screening for COVID-19 URI (upper respiratory infection) HTN (hypertension) Home Medications ?Medication ?Instructions ?Recorded ?Last Taken ?Type omeprazole 40 mg capsule,delayed 40 mg PO DAILY PRN stomach upset 07/06/14 08/10/15 05:00 History release furosemide 20 mg tablet 20 mg PO DAILY swelling 07/16/24 Unknown History sertraline 100 mg tablet 50 mg PO DAILY 07/16/24 Unknown History albuterol sulfate 90 mcg/actuation 2 puff inhalation Q6H PRN 08/13/24 Unknown History aerosol inhaler shortness of breath or wheezing fluticasone 250 mcg-salmeterol 50 1 inh inhalation BID 08/13/24 Unknown History mcg/dose blistr powdr for inhalation (Advair Diskus) handicap placard #1 ea 08/13/24 Unknown Rx hydroxyzine pamoate 25 mg capsule 25 mg PO QHS 08/13/24 Unknown History metformin 500 mg tablet 500 mg PO BID #180 tabs 08/13/24 Unknown Rx acetaminophen 325 mg tablet 650 mg (2 x 325 mg) PO Q6H PRN PRN 08/29/24 Unknown Rx Pain 1-10 Or Fever>100.7 #0 tabs valsartan 320 1 tab PO DAILY #90 tabs 09/09/24 Unknown Rx mg-hydrochlorothiazide 25 mg tablet dexamethasone 6 mg tablet 6 mg PO DAILY #4 tabs 09/24/24 Unknown Rx Allergy/AdvReac Type Severity Reaction Status Date / Time lisinopril Allergy throat Verified 09/24/24 03:17 itchy Family History Mother Breast cancer Angina at rest Father Hypertension Alcoholism Surgical History H/O arthroscopy of right knee H/O repair of rotator cuff Social History household members: spouse and children housing: house current occupational status: disabled Smoking Status: Current every day smoker tobacco type: e-cigarettes Tobacco: How many years used: 9 alcohol intake: current alcohol intake frequency: 0-2 drinks per day Alcohol type: beer substance use type: does not use what type of physical activity do you participate in: additional details: stretching seatbelt use: always do you feel safe at home: Yes ROS ROS ED Constitutional Constitutional ED: Reports chills, fever(s) and subjective ENT ENT ED: Reports ear pain bilateral, nasal congestion, rhinorrhea and sore throat Cardiovascular Cardiovascular: Denies chest pain or palpitations Respiratory/Chest Respiratory/Chest: Reports cough and dyspnea Gastrointestinal Gastrointestinal: Denies abdominal pain, diarrhea, nausea or vomiting Genitourinary Genitourinary ED: Denies dysuria or hematuria Musculoskeletal Musculoskeletal: Denies myalgias or neck pain Integumentary Denies abscess or rash Neurologic Neurologic: Reports headache(s); Denies paresthesias or weakness Endocrine Endocrinology: Denies polydipsia or polyuria EXAM Physical Exam Const Vital Signs: 09/24/24 03:17 09/24/24 03:17 09/24/24 03:22 Temperature 97.7 F L 97.7 F L Temperature Source Oral Oral Pulse Rate 98 94 Respiratory Rate 22 H 20 H Respiratory Effort Short of Breath Respiratory Pattern Tachypnea Blood Pressure 181/102 H 181/102 H Blood Pressure Mean 128 128 Pulse Ox 88 95 Oxygen Delivery Method Room Air Nasal Cannula Oxygen Flow Rate (L/min) 2 09/24/24 03:48 09/24/24 04:03 09/24/24 04:05 Temperature Temperature Source Pulse Rate 99 Respiratory Rate 28 H Respiratory Effort Respiratory Pattern Tachypnea Blood Pressure Blood Pressure Mean Pulse Ox 95 96 Oxygen Delivery Method Room Air Nasal Cannula Oxygen Flow Rate (L/min) 2 2 09/24/24 04:22 09/24/24 04:52 09/24/24 04:55 Temperature 99.3 F H Temperature Source Oral Pulse Rate 97 Respiratory Rate 25 H Respiratory Effort Respiratory Pattern Blood Pressure 144/66 H Blood Pressure Mean 92 Pulse Ox 94 82 92 Oxygen Delivery Method Room Air Room Air Nasal Cannula Oxygen Flow Rate (L/min) 2 09/24/24 05:00 09/24/24 06:00 Temperature 99.3 F H 99.3 F H Temperature Source Oral Oral Pulse Rate 82 101 H Respiratory Rate 25 H 29 H Respiratory Effort Respiratory Pattern Blood Pressure 171/95 H 152/93 H Blood Pressure Mean 120 112 Pulse Ox 93 95 Oxygen Delivery Method Nasal Cannula Nasal Cannula Oxygen Flow Rate (L/min) 2 2 Positive well nourished, well developed and obese General Appearance ED: well developed and NAD Nutritional Appearance: obese HEENT Reports moist mucous membranes HEENT Narrative: Right TM erythema without bulging or abnormal light reflex. Normal left. Normal EAC bilaterally. No otorrhea. normocephalic and atraumatic Throat: Negative for posterior oropharynx abnormal Eyes PERRL and EOMs intact bilaterally Neck no lymphadenopathy, supple and no meningeal signs Resp normal respiratory effort Resp Narrative: Slight end expiratory wheezes, otherwise clear but diffusely diminished due to body habitus. Cardio no murmurs Rate: regular rate Rhythm: regular rhythm GI normal to inspection, nondistended, normoactive bowel sounds and non-tender Palpation: soft Back/Spine no CVA tenderness Extremity normal to inspection General Extremety ED: Yes edema; Negative for tenderness General Extremity: edema Neuro oriented x3, CN's II-XII intact bilaterally and no sensory deficits noted Sensorium / Orientation: alert Motor Exam: strength 5/5 throughout Psych mental status grossly normal Skin Lesions: no lesions Rashes: no rashes MDM MDM MDM Narrative Medical decision making narrative: Patient states he has a history of asthma, he has some very slight end expiratory wheezes but based on the history he is given me really has not been having much in the way of chest symptoms. He states he is feeling a little dyspneic but thinks it may be because of nasal congestion. He is hypoxic. However he is fairly obese and is diabetic and has a very high blood pressure 181/102 without a fever so also considering congestive heart failure or other noninfectious etiology so in addition to a chest x-ray obtaining labs and an EKG and given the patient a breathing treatment while he is on oxygen at this time. He is at 95% on O2 liter nasal cannula but after multiple attempts to get him off of it before treatment, he went on the 87-88% on room air. After the treatment later we tried again, and the patient ended up desatting down to 83% on room air. He states he has a sleep study scheduled and may have sleep apnea but he does not have a machine or oxygen at home for any reason right now. His COVID test came back positive. With this degree of hypoxemia, CTA indicated to rule out pulmonary embolus and/or occult infiltrate. This was done. I reviewed the images and the result which I agree with, it is negative for PE. Given this, we will discharge patient home on Decadron, first dose given here, and oxygen; he is only requiring 2 L nasal cannula to keep his saturations in the 90s. Lab Data Attestation: I reviewed the patient's lab results. Labs: Laboratory Results - last 24 hr 09/24/24 03:51 WBC 8.3 RBC 5.17 Hgb 14.9 Hct 45.9 MCV 88.8 MCH 28.8 MCHC 32.5 RDW Std Deviation 47.6 H RDW Coeff of Angel 14.6 Plt Count 208 MPV 9.0 Immature Gran % (Auto) 0.800 Neut % (Auto) 77.1 H Lymph % (Auto) 7.2 L [place] % (Auto) 11.4 H Eos % (Auto) 2.7 Baso % (Auto) 0.8 Absolute Neuts (auto) 6.4 Absolute Lymphs (auto) 0.60 L Nucleated RBC % 0 Sodium 137 Potassium 3.4 L Chloride 97 L Carbon Dioxide 33.0 H Anion Gap 6 BUN 12 Creatinine 1.00 Estim Creat Clear Calc 130.00 Est GFR (MDRD) Af Amer 102 Est GFR (MDRD) Non-Af 85 BUN/Creatinine Ratio 12.0 Glucose 172 H Calcium 8.6 Troponin I High Sens 10 B-Natriuretic Peptide 44.6 Radiography Diagnostic Testing: Clinical Impression(s) from Imaging Studies Chest X-Ray 09/24/24 03:43 IMPRESSION: No acute findings in the chest. Electronically Signed: Levar Adan MD at 5:12 EST , Chest CTA 09/24/24 05:35 IMPRESSION: 1. No pulmonary embolism. 2. No evidence of cardiopulmonary disease. Electronically Signed: Remington Molina, at 6:28 EST , Rhythm Strip Rhythm Strip: Sinus Rhythm Rate: 95 Ectopy: None EKG Initial EKG: Attestation: I personally reviewed and interpreted this EKG as follows: Interpretation: Sinus Rhythm and No Acute Injury Pattern Comments: Nml axis & intervals; nml EKG Discharge Plan Triage Chief Complaint: General Illness ED Provider: Mesfin Dunham Dx/Rx/DC Orders Clinical Impression: COVID-19, Hypoxemia Instructions: Coronavirus Disease 2019 (COVID-19): Caring for Yourself or Others Prescriptions: New dexamethasone 6 mg tablet 6 mg PO DAILY Qty: 4 0RF Rx Instructions: start AM of 09/25 Continued hydroxyzine pamoate 25 mg capsule 25 mg PO QHS fluticasone propion-salmeterol [Advair Diskus] 250-50 mcg/dose blister with device 1 inh inhalation BID albuterol sulfate 90 mcg/actuation HFA aerosol inhaler 2 puff inhalation Q6H PRN (Reason: shortness of breath or wheezing) (DME) handicap placard See Rx Instructions .ROUTE .MEDSUPPLY Qty: 1 0RF Rx Instructions: 5 Years duration metformin 500 mg tablet 500 mg PO BID Qty: 180 0RF omeprazole 40 MG capsule 40 mg PO DAILY PRN (Reason: stomach upset) furosemide 20 mg tablet 20 mg PO DAILY sertraline 100 mg tablet 50 mg PO DAILY acetaminophen 325 mg Tablet 650 mg PO Q6H PRN PRN (Reason: Pain 1-10 Or Fever>100.7) Qty: 0 0RF valsartan-hydrochlorothiazide 320-25 mg tablet 1 tab PO DAILY Qty: 90 1RF Discontinued prednisone 20 mg tablet 20 mg PO BID Qty: 10 0RF Primary Care Provider: Artur Pena Referrals: Artur Pena, DO [Primary Care Provider] - 1 Week if not improving Activity Restrictions/Additional Instructions: Try to get a home portable pulse oximeter and closely watch your oxygen levels periodically. If you stay below 90% for more than a minute or so, and/or you are feeling like your breathing is getting worse despite turning your oxygen at maximum up to 4 L, return to the emergency department for further evaluation. Currently, CDC recommendations state that you should stay home through day 5 of symptoms, then as long as symptoms are improving, if you need to go to work or somewhere else you may for days 6-10 as long as you are wearing a mask the entire time. If you are feeling better after day 10 you may resume life is normal. Print Language: Nigerian Disposition Disposition: Home, Self Care
[2024-09-24] MEDS: Ipratropium/Albuterol Sulfate 3 ML AMPUL.NEB INHALATION (04:02)
[2024-09-24 04:10] LABS: Absolute Neutrophil Count 6.4 X10^3/uL (2.0-7.7); Basophil# 0.07 X10^3/uL; Basophil% 0.8 % (0-1); Eosinophil# 0.22 X10^3/uL; Eosinophils% 2.7 % (0-5); Hematocrit 45.9 % (40-54); Hemoglobin 14.9 g/dL (13.0-16.5); Lymphocyte % 7.2 % (19-41); Mean Corp Hgb Conc 32.5 g/dL (32-36); Mean Corpuscular Hgb 28.8 pg (27.0-32.0); Mean Corpuscular Volume 88.8 fL (80-94); Monocyte# 0.95 X10^3/uL; Monocyte% 11.4 % (0-10); NRBC Flagged by Analyzer 0 % (0-5); Neutrophil # 6.39 X10^3/uL (2.7-7.7); Neutrophil % 77.1 % (47-70); POSITIVE DIFFERENTIAL YES; Platelet Count 208 K/mm3 (150-450); RBC Distribution Width CV 14.6 % (11.6-14.6); RBC Distribution Width SD 47.6 fl (35.1-43.9); Red Blood Count 5.17 M/mm3 (4.6-6.2); White Blood Count 8.3 K/mm3 (4.4-11.0)
[2024-09-24 04:27] LABS: Anion Gap 6 (5-15); BUN 12 mg/dL (7-18); Calcium,Total 8.6 mg/dL (8.5-10.1); Chloride 97 mmol/L (98-107); EST Glomerular Filtration Rate 85 mL/min (>60); Est Glom Filt Rate - Afr Amer 102 mL/min (>60); Glucose 172 mg/dL (74-106); Potassium 3.4 mmol/L (3.5-5.1); Sodium Level 137 mmol/L (136-145); Troponin-I HS 10 pg/mL (3.0-78.0)
[2024-09-24 05:04] LABS: BNP,B-Type NATRIURETIC PEPTIDE 44.6 pg/mL (0-100)
--- NOTE | 2024-09-24 05:35 | CT_ITS ---
INDICATION: cough, hypoxia, leg edema, nml CXR EXAMINATION: CT CHEST WITH CONTRAST - CTA Chest WO/W Contrast Injection TECHNIQUE: Helically acquired images were obtained of the chest following IV contrast timed in the pulmonary arterial phase with sagittal and coronal reconstructed images. Post-processing of the angiographic images was performed with multiplanar reformation and 3D reconstruction. Individualized dose optimization techniques were used for this CT. IV contrast dosage and agent: 100 mL of Isovue-370. COMPARISON: None. FINDINGS: LUNGS, PLEURA AND LARGE AIRWAYS: No consolidation or edema. No pulmonary nodule. No pleural effusion. No pneumothorax. THYROID: Unremarkable. HEART AND PERICARDIUM: No evidence of coronary artery calcification. No pericardial effusion. No evidence of right heart strain. Right ventricle to left ventricle ratio measures less than 1. MEDIASTINUM AND JOSE L: No mediastinal or hilar adenopathy. Esophagus is unremarkable. No hiatal hernia. VESSELS: No pulmonary embolism. No thoracic aortic aneurysm. Bovine arch. UPPER ABDOMEN: The visualized upper abdomen is unremarkable. BONES: No acute abnormality. CT/CTA Chest W/WO Contrast IMPRESSION: 1. No pulmonary embolism. 2. No evidence of cardiopulmonary disease. Electronically Signed: Remington Molina DO at 6:28 EST ,
[2024-09-24] MEDS: dexAMETHasone 10 MG/ML Vial 6 MG IV (06:01)
--- NOTE | 2024-09-24 10:48 | ED.RN ---
PT IS NOT NORMALLY ON HOME O2. AT REST ON ROOM AIR PULSE OX IS 88%. AT REST ON 2L NC PULSE OX IS 95%. WITH AMBULATION ON 2L NC PULSE OX IS 93%.
--- NOTE | 2024-09-24 15:16 | CM.ED ---
Social Work Reason for visit: Home 02 SW received consult for home O2, oxygen services set up for patient through [facility]. Latoya Austin, BIOLOGICAL SCIENCE AIDE, WEARING [employer]PAREL PRESSER
== END 2024-09-24 11:59 | disposition home or self-care (01) ==
PROVIDERS: Emergency Provider Emergency Medicine; PCP Family Medicine; Visit Provider Emergency Medicine
DX: U07.1 COVID-19 (principal); I10 Essential (primary) hypertension; R09.02 Hypoxemia; Z99.81 Dependence on supplemental oxygen; K21.9 Gastro-esophageal reflux disease without esophagitis; J45.909 Unspecified asthma, uncomplicated; F17.290 Nicotine dependence, other tobacco product, uncomplicated; R51.9 Headache, unspecified; E66.9 Obesity, unspecified
CPT/HCPCS: 71046; 71275; 80048; 83880; 84484; 85025; 87631; 93005; 94640; 96374; 99284; Q9967; A4216

== ENCOUNTER → 2024-10-02 | Outpatient (CLI) | payer MEDICAID, SELFPAY | END | disposition home or self-care (01) | PROVIDERS: PCP Family Medicine; Referring Provider Physician Assistant; Visit Provider Physician Assistant | DX: G47.33 Obstructive sleep apnea (adult) (pediatric) (principal) | CPT/HCPCS: 95811 ==

== ENCOUNTER → 2024-10-07 | Outpatient (CLI) | payer MEDICAID, SELFPAY | END | disposition home or self-care (01) | LOC: SL 11:08 | PROVIDERS: PCP Family Medicine; Visit Provider Physician Assistant | DX: G47.33 Obstructive sleep apnea (adult) (pediatric) (principal) ==

== ENCOUNTER → 2024-12-11 | Outpatient (CLI) | payer MEDICAID, SELFPAY ==
[2024-12-11 18:51] LABS: Cholesterol 194 mg/dL (200); High Density Lipoprotein 32 mg/dL; Triglycerides 247 mg/dL; Very Low Density Lipoprotein 49 mg/dL (5-40)
== END | disposition home or self-care (01) ==
LOC: BIMLAB 13:28
PROVIDERS: PCP Family Medicine; Referring Provider Physician Assistant; Visit Provider Physician Assistant
DX: E66.01 Morbid (severe) obesity due to excess calories (principal); Z68.43 Body mass index [BMI] 50.0-59.9, adult
CPT/HCPCS: 36415; 80061

== ENCOUNTER → 2024-12-30 | Outpatient (CLI) | payer MEDICAID, SELFPAY ==
[2024-12-30 09:30] LABS: Allen Test Positive; Base Excess 3 mmol/L (-2 to +2); Bicarbonate 26.7 mmol/L (22-26); Blood Gas Specimen Type ART; Mode Not entered; O2 Delivery Device Room Air; PO2 77 mmHG (75-100); SITE R Radial; SO2 96 % (95-99); Total Carbon Dioxide 28 mmol/L; pCO2 36.4 mmHg (35-45); pH 7.47 (7.35-7.45)
== END | disposition home or self-care (01) ==
PROVIDERS: PCP Family Medicine; Referring Provider Internal Medicine Critical Care Medicine; Visit Provider Internal Medicine Critical Care Medicine
DX: G47.33 Obstructive sleep apnea (adult) (pediatric) (principal)
CPT/HCPCS: 36600; 82803

== ENCOUNTER → 2025-04-23 | Outpatient (CLI) | payer MEDICAID, SELFPAY ==
--- NOTE | 2025-04-23 07:10 | MRI_ITS ---
EXAM: BRAIN W/WO CONTRAST CLINICAL HISTORY: TINNITIS WITH HEADACHE COMPARISON: None. TECHNIQUE: Multiplanar, multisequence MR images of the brain were obtained without and with 20 cc Clariscan gadolinium contrast material with additional high-resolution images through the IAC's. FINDINGS: There is focal encephalomalacia in the left frontal lobe measuring proximally 2.2 by 3.0 cm with gliosis noted at the posterior margin on the FLAIR images. There is focal encephalomalacia in the left upper temporal lobe measuring 1.6 by 1.6 cm with adjacent gliosis. There are no suspicious enhancing components. There is no associated restricted diffusion. No intracranial hemorrhage, mass, mass effect, midline shift or pathologic extra- axial fluid collection. No hydrocephalus. Preservation of the camacho- white parenchymal differentiation. No areas of restricted diffusion to suggest acute ischemia or infarction. No gradient signal blooming artifacts are identified. No cerebellar tonsillar ectopia. No sellar/suprasellar signal abnormalities. The ocular globes and intraorbital soft tissues are symmetrically unremarkable. Paranasal sinuses are essentially clear. IAC's: The 7th and 8th cranial nerves are normal in appearance. There is no cerebellopontine angle mass. The middle ear structures and semicircular canals are normal in appearance. There are no suspicious enhancing lesions following contrast administration. MRI/Brain W/WO Contrast IMPRESSION: There is focal encephalomalacia in the left frontal lobe measuring proximally 2 .2 by 3.0 cm with gliosis noted at the posterior margin on the FLAIR images. There is focal encephalomalacia in the left upper temporal lobe measuring 1.6 by 1.6 cm with adjacent gliosis. There are no suspicious enhancing components. There is no ass ociated restricted diffusion. These lesions likely represent remote infarcts. Normal-appearing IAC's. Reading Location: [facility]
--- OUTSIDE RECORDS SUMMARY | 2025-04-23 07:11 | XMS RPT_ITS | CCD ---
Author Organization [facility] Care Team Providers Care Flarer Name Role Phone AVINASH PACE DO Primary Care Physician [phone] Dr. Avinash Pace Primary Care Provider Dr. Avinash Pace Referring Provider [phone] MARTIN Blank Attending Provider [phone] Dr. Diego Herrmann Attending Provider [phone] AVINASH PACE DO Primary Care Physician [phone] AVINASH PACE DO Attending Unavailable AVINASH PACE DO Primary Care Unavailable [employer] [facility], [facility] Attending AVINASH Dobbs DO Primary Care Unavailable AVINASH PACE DO Consulting Unavailable ADRIEL TEE DO Attending Unavailable ADRIEL TEE DO Primary Care Unavailable ADRIEL TEE DO Admitting Unavailable AVINASH PACE DO Referring Unavailable PROVIDER, UNKNOWN Consulting Unavailable Dr. Avinash Pace Primary Care Provider Dr. Avinash Pace Referring Provider [phone] MARTIN Pinon Attending Provider Dr. Dao Pickett Attending Provider [phone] Dr. Diego Herrmann Attending Provider [phone] Unavailable Primary Care Provider UnavailRICARDO Natarajan Attending Unavailable GIANLUCA PAGAN Referring Unavailable Dr. Artur Mariano DO Primary Care Provider Roly KIM, Dr. Toure Attending Provider Dr. Mesfin Dunham MD Emergency Provider Gianluca Smith Attending Provider [phone] Gianluca Smith Referring Provider [phone] Artur Mariano DO Referring Provider [phone] Dejah RAMIREZ, Dr. Singh Attending Provider Montez KIM, Dr. Cortez Attending Provider [phone] Elise KIM, Dr. Silva Attending Provider Elise KIM, Dr. Silva Referring Provider Jean RAMIREZ, Dr. Artur Kaur Primary Care Provider Jean RAMIREZ, Dr. Artur Kaur Referring Provider [phone] Gianluca Smith Attending Provider [phone] Gianluca Smith Referring Provider [phone] Jean RAMIREZ, Dr. Artur Kaur Attending Provider [phone] Avinash Pace Primary Care Unavailable Farzad Dinero Referring Unavailable Amado Gamboa Attending Unavailable Artur Mariano R Attending Unavailable Avinash Pace Referring Unavailable Brown, Artur R Primary Care Unavailable Gianluca Smith Attending Unavailable Jean, Artur R Primary Care Unavailable Brown, Artur R Referring Unavailable Oscar Novak Attending Unavailable Oscar Novak Referring Unavailable Avinash Pace Primary Care Unavailable Brown, Artur R Primary Care Unavailable Gianluca Smith Attending Unavailable Gianluca Smith Attending Unavailable Gianluca Smith Referring Unavailable Brown, Artur R Primary Care Unavailable Antonio Grant Consulting Unavailable Ag, Anthony Attending Unavailable Ag, Anthony Admitting Unavailable Brown, Artur R Primary Care Unavailable Shravan Breaux Consulting Unavailable Arsenio Valencia Consulting Unavailable Kyle Sidhu Consulting Unavailable Shaun Mariano Consulting Unavailable Adriel Brunson Consulting Unavailable Roberto Ferraro Consulting Unavailable Marcelo Duarte Consulting Unavailable Nadege Fonseca Consulting UnavailNicholas Leslie Consulting Unavailable Charly Garcia Consulting Unavailable Cayla Castillo Consulting Unavailable Vivek Mcfarland Consulting Unavailable Flavio, Thai Consulting Unavailable Alcides Franco Consulting Unavailable Desean, Jos Consulting Unavailable Darius Palma Consulting Unavailable Angel Saeed Consulting Unavailable Myke Christinason Consulting Unavailable Ag, Anthony Consulting Unavailable Brown, Artur R Attending Unavailable Brown, Artur R Primary Care Unavailable Brown, Artur R Referring Unavailable Katelynn, Avinash Referring Unavailable Katelynn, Avinash Primary Care Unavailable Francisco Pond Attending Unavailable Brown, Artur R Attending Unavailable Brown, Artur R Primary Care Unavailable Brown, Artur R Referring Unavailable Mesfin Dunham Attending Unavailable Brown, Artur R Primary Care Unavailable Farzad Dinero Attending Unavailable Katelynn, Avinash Primary Care Unavailable Antonio Grant Consulting Unavailable [facility], Anthony Admitting Unavailable Brown, Artur R Primary Care Unavailable Adriel Bruce Attending Unavailable Shravan Breaux Consulting Unavailable Arsenio Valencia Consulting Unavailable Kyle Sidhu Consulting Unavailable Shaun Mariano Consulting Unavailable Adriel Brunson Consulting Unavailable Roberto Ferraro Consulting Unavailable Marcelo Duarte Consulting Unavailable Nadege Fonseca Consulting UnavailNicholas Leslie Consulting Unavailable Charly Garcia Consulting Unavailable Cayla Castillo Consulting Unavailable Vivek Mcfarland Consulting Unavailable Thai Muniz Consulting Unavailable Alcides Franco Consulting Unavailable Jos Anton Consulting Unavailable Darius Palma Consulting Unavailable Angel Saeed Consulting Unavailable Myke Christianson Consulting Unavailable Ag, Anthony Consulting Unavailable Francisco Pond Attending Unavailable Francisco Pond Referring Unavailable Brown, Artur R Primary Care Unavailable Francisco Pond Attending Unavailable Francisco Pond Referring Unavailable Brown, Artur R Primary Care Unavailable Katelynn, Avinash Primary Care Unavailable Oscar Novak Attending Unavailable Oscar Novak Referring Unavailable Gianluca Smith Attending Unavailable Brown, Artur R Referring Unavailable Brown, Artur R Primary Care Unavailable Francisco Pond Attending Unavailable Brown, Artur R Referring Unavailable Brown, Artur R Primary Care Unavailable Brown, Artur R Primary Care Unavailable Gianluca Smith Attending Unavailable Gianluca Smith Referring Unavailable Magalang, Ricardo Referring Unavailable Magalang, Ricardo Attending Unavailable Brown, Artur R Primary Care Unavailable Oscar Novak Attending Unavailable Brown, Artur R Primary Care Unavailable Oscar Novak Referring Unavailable Brown, Artur R Primary Care Unavailable Gianluca Smith Attending Unavailable Brown, Artur R Referring Unavailable Diego Herrmann Attending Unavailable Brown, Artur R Primary Care Unavailable Brown, Artur R Attending Unavailable Brown, Artur R Primary Care Unavailable Brown, Artur R Referring Unavailable Katelynn, Avinash Primary Care Unavailable Amado Gamboa Attending Unavailable Oscar Novak Referring Unavailable Adriel Bruce Attending Unavailable Adriel Bruce Consulting Unavailable Avinash Pace Primary Care Unavailable Diego Herrmann Attending Unavailable Allergies Allergy Classification Reported Allergen(s) Allergy Type Date of Onset Reaction(s) Facility (11 sources) Lisinopril; Translations: [lisinopril] Drug Allergy 1 Cough (finding) [facility] (1 source) Lisinopril Drug Allergy 5 [facility] Repository Medications Current Medications Medication Drug Class(es) Dates Sig (Normalized) Sig (Original) acetaminophen 325 mg oral tablet (2 sources) Start: 08-29-2024 take 1-10 tablets by mouth every six hours as needed for pain Acetaminophen 325 mg Tablet Active 650 mg PO EVERY 6 HOURS NEEDED as needed for Pain 1-10 Or Fever>100.7 0 August 29, 2024 12:00am acetaminophen 325 mg / HYDROcodone bitartrate 5 mg oral tablet (1 source) Opioid Agonist Start: 12-15-2021 End: 12-20-2021 Ellabell 325- 5 mg oral tablet Dose = 1 tab(s), Oral, q4h, PRN Pain, scale 1-6, X 5 day(s), # 12 tab(s), 0 Refill(s), Acute post-operative pain, 127 Start Date: 12/15/21 Stop Date: 12/20/21 Status: Ordered [id number] 200 actuat albuterol 0.09 mg/actuat metered dose inhaler (9 sources) beta2-Adrenergic Agonist Start: 08-13-2024 Albuterol Sulfate 90 mcg/actuation HFA aerosol inhaler Active 2 NMA INHALATION EVERY 6 HOURS as needed for shortness of breath or wheezing August 13, 2024 12:00am Start: 01-31-2023 take 2 puff(s) by in halation every four hours as needed for wheezing Ventolin HFA MDI (90 mcg/inh) inhalation aerosol 2 puff(s), Inhalation, q4h, PRN as needed for wheezing, # 18 gram(s), 1 Refill(s), Pharmacy: [facility], Mild intermittent asthma, 170, cm, 01/31/23 9:36:00 EDT, Height, kg, 01/31/23 9:36:00 EDT, Dosing Weight Start Date: 01/31/23 Status: Ordered Start: 04-13-2020 take 2 puff(s) by in halation every four hours as needed for wheezing Ventolin HFA MDI (90 mcg/inh) inhalation aerosol 2 puff(s), Inhalation, q4h, PRN as needed for wheezing, # 18 gram(s), 1 Refill(s), Pharmacy: [facility], Mild intermittent asthma, 172, cm, 12/10/19 8:42:00 EST, Height, kg, 12/10/19 8:42:00 EST, Dosing Weight Start Date: 04/13/20 Status: Ordered atorvastatin 10 mg oral tablet (2 sources) HMG-CoA Reductase Inhibitor Start: 12-12-2024 take 1 tablet by mouth once daily Atorvastatin 10 mg tablet Active 10 mg PO daily December 12, 2024 1:00am baclofen 10 mg oral tablet (2 sources) gamma-Aminobutyr ic Acid-ergic Agonist Start: 10-27-2020 take 1-2 tablets by mouth every eight hours as needed for muscle spasms baclofen 10 mg oral tablet 1-2 tabs, Oral, q8hr, PRN Back spasms, # 30 tab(s), 1 Refill(s), Pharmacy: [facility], Back muscle spasm, 174, cm, 10/27/20 11:22:00 EST, Height, kg, 10/27/20 11:22:00 EST, Dosing Weight Start Date: 10/27/20 Status: Ordered Chantix Starter Pack 0.5 mg-1 mg oral tablet (3 sources) Start: 11-02-2021 take 1 tablet by mouth twice daily Chantix Starter Pack 0.5 mg-1 mg oral tablet Dose = 1 tab(s), Oral, BID, # 1 kit(s), 0 Refill(s), Pharmacy: [facility], Tobacco dependence, 171, cm, 11/02/21 8:33:00 EST, Height, kg, 11/02/21 8:33:00 EST, Dosing Weight Start Date: 11/02/21 Status: Ordered diclofenac sodium 75 mg oral delayed release tablet (2 sources) Start: 10-27-2020 diclofenac sod ium 75 mg oral delayed release tablet Dose : 75 mg = 1 tab(s), Oral, BID, # 60 tab(s), 0 Refill(s), Pharmacy: [facility], Lumbar strain, 174, cm, 10/27/20 11:22:00 EST, Height, kg, 10/27/20 11:22:00 EST, Dosing Weight Start Date: 10/27/20 Status: Ordered doxycycline hyclate 100 mg oral capsule (6 sources) Tetracycline-cla ss Drug Start: 01-08-2023 End: 01-18-2023 doxycycline hyclate 100 mg oral capsule Dose : 100 mg = 1 cap(s), Oral, BID, X 10 day(s), # 20 cap(s), 0 Refill(s), 01/18/23 13:25:00 EDT, Pharmacy: [facility], Abscess of right axilla, 171, cm, 01/08/23 12:57:00 EDT, Height, 129 Start Date: 01/08/23 Stop Date: 01/18/23 Status: Ordered Start: 12-15-2021 End: 12-24-2021 doxycycline monohydrate 100 mg oral capsule Dose : 100 mg = 1 cap(s), Oral, BID, # 20 cap(s), 0 Refill(s), 127 Start Date: 12/15/21 Stop Date: 12/24/21 Status: Ordered Start: 12-07-2021 End: 07-16-2024 take 1 capsule by mouth twice daily Doxycycline Monohydrate 100 mg capsule Discontinued 100 mg PO TWICE A DAY December 07, 2021 1:00am July 16, 2024 11:08am Flonase 50 mcg/inh nasal spray (4 sources) Start: 10-03-2021 take 1 dose nasal route twice daily Flonase 50 mcg/inh nasal spray Dose = 2 spray(s), Nostril, each, BID, # 16 gram(s), 10 Refill(s), Pharmacy: [facility], 171, cm, 09/28/21 10:12:00 EST, Height, kg, 09/28/21 10:12:00 EST, Dosing Weight Start Date: 10/03/21 Status: Ordered fluticasone propionate 0.05 mg/actuat metered dose nasal spray (2 sources) Corticosteroid Start: 01-31-2023 take 1 dose nasal route twice daily Flonase 50 mcg/inh nasal spray Dose = 2 spray(s), Nostril, each, BID, # 16 gram(s), 10 Refill(s), Pharmacy: [facility], 170, cm, 01/31/23 9:36:00 EDT, Height, kg, 01/31/23 9:36:00 EDT, Dosing Weight Start Date: 01/31/23 Status: Ordered Start: 10-03-2021 take 1 dose nasal ro francesca twice daily Flonase 50 mcg/inh nasal spray Dose = 2 spray(s), Nostril, each, BID, # 16 gram(s), 10 Refill(s), Pharmacy: [facility], 171, cm, 09/28/21 10:12:00 EST, Height, kg, 09/28/21 10:12:00 EST, Dosing Weight Start Date: 10/03/21 Status: Ordered Fluticasone Propion-Salmeterol (7 sources) Corticosteroid, beta2-Adrenergic Agonist Start: 08-13-2024 Fluticasone Propion-Salmeterol (Advair Diskus) 250-50 mcg/dose blister with device Active 1 NMA INHALATION TWICE A DAY August 13, 2024 12:00am Start: 01-31-2023 End: 01-26-2024 take 1 dose by mouth twice daily fluticasone-salmeterol 250 mcg-50 mcg inhalation powder Dose = 1 puff(s), Inhalation, BID, rinse mouth and throat after use, # 3 EA, 3 Refill(s), Pharmacy: [facility], 170, cm, 01/31/23 9:36:00 EDT, Height, kg, 01/31/23 9:36:00 EDT, Dosing Weight Start Date: 01/31/23 Stop Date: 01/26/24 Status: Ordered Start: 05-10-2022 End: 05-05-2023 fluticasone-salmeterol 250 m cg-50 mcg inhalation powder Dose = 1 puff(s), Inhalation, BID, Replaces previous prescription for Advair 500/50; rinse mouth and throat after use, # 3 EA, 3 Refill(s), Pharmacy: [facility], 171, cm, 05/10/22 8:04:00 EDT, Height Start Date: 05/10/22 Stop Date: 05/05/23 Status: Ordered Start: 11-02-2021 take 1 dose by inhal ation twice daily fluticasone-salmeterol 250 mcg-50 mcg inhalation powder Dose = 1 puff(s), Inhalation, BID, # 3 EA, 3 Refill(s), Pharmacy: [facility], Mild intermittent asthma, 171, cm, 11/02/21 8:33:00 EST, Height, kg, 11/02/21 8:33:00 EST, Dosing Weight Start Date: 11/02/21 Status: Ordered furosemide 20 mg oral tablet (8 sources) Loop Diuretic Start: 07-16-2024 take 1 tablet by mouth once daily Furosemide 20 mg tablet Active 20 mg PO DAILY July 16, 2024 12:00am Start: 01-31-2023 Lasix 20 mg or al tablet Dose : 20 mg = 1 tab(s), Oral, qDay, PRN Swelling, # 90 tab(s), 1 Refill(s), Pharmacy: [facility], 170, cm, 01/31/23 9:36:00 EDT, Height, kg, 01/31/23 9:36:00 EDT, Dosing Weight Start Date: 01/31/23 Status: Ordered Start: 08-23-2022 Lasix 20 mg or al tablet Dose : 20 mg = 1 tab(s), Oral, qDay, PRN Swelling, # 90 tab(s), 1 Refill(s), Pharmacy: [facility], 171, cm, 05/10/22 8:04:00 EDT, Height, kg, 05/10/22 8:04:00 EDT, Dosing Weight Start Date: 08/23/22 Status: Ordered Start: 10-03-2021 Lasix 20 mg or al tablet Dose : 20 mg = 1 tab(s), Oral, qDay, # 30 tab(s), 3 Refill(s), Pharmacy: [facility], 171, cm, 09/28/21 10:12:00 EST, Height, kg, 09/28/21 10:12:00 EST, Dosing Weight Start Date: 10/03/21 Status: Ordered handicap placard (2 sources) Start: 08-13-[address] Active 0 .ROUTE .MEDSUPPLY August 13, 2024 12:00am 5 Years duration hydroCHLOROthiazide 25 mg / valsartan 320 mg oral tablet (16 sources) Thiazide Diuretic, Angiotensin 2 Receptor Gisela Start: 08-28-2024 End: 02-17-2025 Valsartan-Hydrochl orothiazide 320-25 mg tablet Active 1 {tbl} PO DAILY February 17, 2025 8:01am Start: 10-03-2021 take 1 tablet by pretty th once daily Valsartan-Hydrochlorothiazide Active 1 T ABLET PO DAILY October 03, 2021 12:00am Start: 05-03-2021 End: 08-13-2024 Valsartan-Hydrochlorothiazid e 320-25 mg Tablet Discontinued 1 {tbl} PO DAILY October 03, 2021 1:00am August 13, 2024 9:31am hydrOXYzine pamoate 25 mg oral capsule (2 sources) Antihistamine Start: 08-13-2024 take 1 capsule by mouth at bedtime Hydroxyzine Pamoate 25 mg capsule Active 25 mg PO AT BEDTIME August 13, 2024 12:00am Omeprazole 40 mg capsule,delayed release(DR/EC) (1 source) Start: 03-10-2025 take 1 capsule by mouth once daily as needed Omeprazole 40 mg capsule,delayed release(DR/EC) Active 40 mg PO DAILY as needed for for indigestion 60 March 10, 2025 8:19am Semaglutide (Ozempic) 2 mg/dose (8 mg/3 mL) pen injector (4 sources) Start: 12-23-2024 Semaglutide (Ozempic) 2 mg/dose (8 mg/3 mL) pen injector Active 2 mg SC EVERY WEEK December 23, 2024 5:16pm Start: 10-07-2024 End: 12-23-2024 Semaglutide (Ozempic) 2 mg/d ose (8 mg/3 mL) pen injector Discontinued 2 mg SC EVERY WEEK October 07, 2024 1:00am December 23, 2024 5:17pm Symbicort 160 mcg-4.5 mcg/inh Inhaler (2 sources) Start: 01-19-2021 take 1 dose by inhalation twice daily Symbicort 160 mcg-4.5 mcg/inh Inhaler Dose = 2 puff(s), Inhalation, BID, # 3 EA, 3 Refill(s), Pharmacy: [facility], 173, cm, 01/19/21 8:06:00 EDT, Height, kg, 01/19/21 8:06:00 EDT, Dosing Weight Start Date: 01/19/21 Status: Ordered tiZANidine 4 mg oral tablet (7 sources) Central alpha-2 Adrenergic Agonist Start: 02-04-2025 take 1 tablet by mouth at bedtime as needed Tizanidine 4 mg tablet Active 4 mg PO AT BEDTIME as needed for muscle spasticity February 04, 2025 12:00am Start: 08-13-2024 End: 09-24-2024 take 4 mg by mouth at bedtime as needed Tizanidine 6 mg capsule Discontinued 4 mg PO AT BEDTIME as needed for muscle spasticity August 13, 2024 9:31am September 24, 2024 4:26am Start: 07-17-2023 End: 08-13-2024 take 1 capsule by mouth at bedtime as needed Tizanidine 6 mg capsule Discontinued 6 mg PO AT BEDTIME as needed for muscle spasticity July 17, 2023 12:00am August 13, 2024 9:33am Start: 01-31-2023 End: 02-28-2023 tiZANidine 4 mg oral tablet Dose : 4 mg = 1 tab(s), Oral, q8h, PRN Spasm, # 40 tab(s), 1 Refill(s), Pharmacy: [facility], Neck muscle spasm, 170, cm, 01/31/23 9:36:00 EDT, Height Start Date: 01/31/23 Stop Date: 02/28/23 Status: Ordered varenicline 1 mg oral tablet (3 sources) Partial Cholinergic Nicotinic Agonist Start: 11-02-2021 End: 01-25-2022 take 1 tablet by mouth once, then take 1 tablet by mouth twice daily Chantix Continuing Month 1 mg oral tablet Dose : 1 mg = 1 tab(s), Oral, BID, X 28 day(s), # 56 tab(s), 2 Refill(s), 01/25/22 9:16:00 EDT, Pharmacy: [facility], Tobacco dependence, 171, cm, 11/02/21 8:33:00 EST, Height, kg, 11/02/21 8:33:00 EST, Dosing Weight Start Date: 11/02/21 Stop Date: 01/25/22 Status: Ordered Completed/Discontinued Medications Medication Drug Class(es) Dates Sig (Normalized) Sig (Original) amoxicillin 875 mg / clavulanate 125 mg oral tablet (2 sources) Penicillin-class Antibacterial Start: 08-29-2024 End: 09-24-2024 Amoxicillin-Pot Clavulanate 875-125 mg tablet Discontinued 1 {tbl} PO TWICE A DAY August 29, 2024 12:00am September 24, 2024 4:23am benzonatate 200 mg oral capsule (4 sources) Non-narcotic Antitussive Start: 11-02-2021 End: 07-16-2024 take 1 capsule by mouth three times daily as needed for cough Benzonatate 200 mg capsule Discontinued 200 mg PO THREE TIMES A DAY as needed for cough November 02, 2021 1:00am July 16, 2024 11:08am bisoprolol fumarate 5 mg oral tablet (4 sources) beta-Adrenergic Gisela Start: 11-03-2020 End: 07-18-2024 take 1 tablet by mouth once daily Bisoprolol Fumarate 5 mg tablet Discontinued 5 mg PO DAILY November 03, 2020 1:00am July 18, 2024 10:10am cephalexin 500 mg oral capsule (2 sources) Cephalosporin Antibacterial Start: 07-16-2024 End: 08-13-2024 take 1 capsule by mouth twice daily Cephalexin 500 mg capsule Discontinued 500 mg PO TWICE A DAY 14 July 16, 2024 12:00am August 13, 2024 9:30am cyclobenzaprine hydrochloride 10 mg oral tablet (4 sources) Muscle Relaxant Start: 10-29-2017 End: 01-06-2021 take 1 tablet by mouth three times daily as needed for muscle spasms Cyclobenzaprine 10 MG tablet Discontinued 10 mg PO THREE TIMES A DAY as needed for Muscle Spasm October 29, 2017 1:00am November 03, 2020 2:04pm dexamethasone 6 mg oral tablet (5 sources) Corticosteroid Start: 09-24-2024 End: 12-24-2024 take 1 tablet by mouth once daily in the morning Dexamethasone 6 mg tablet Discontinued 6 mg PO DAILY September 24, 2024 1:00am December 24, 2024 11:33am start AM of 09/25 Start: 07-17-2022 End: 08-01-2023 take 1 tablet by mouth once daily Dexamethasone (Decadron) 6 mg tablet Discontinued 6 mg PO DAILY July 17, 2022 12:00am August 01, 2023 8:07am diazePAM 5 mg oral tablet (4 sources) Benzodiazepine Start: 06-02-2022 End: 07-16-2024 take 1 tablet by mouth every eight hours as needed for muscle spasms Diazepam 5 mg tablet Discontinued 5 mg PO EVERY 8 HOURS as needed for Muscle Spasm June 02, 2022 12:00am July 16, 2024 11:08am diclofenac sodium 75 mg delayed release oral tablet (4 sources) Nonsteroidal Anti-inflammatory Drug Start: 11-03-2020 End: 07-16-2024 take 1 tablet by mouth twice daily Diclofenac Sodium 75 mg tablet,delayed release (DR/EC) Discontinued 75 mg PO TWICE A DAY November 03, 2020 1:00am July 16, 2024 11:08am etodolac 500 mg oral tablet (2 sources) Nonsteroidal Anti-inflammatory Drug Start: 07-18-2024 End: 08-13-2024 take 1 tablet by mouth twice daily Etodolac 500 mg tablet Discontinued 500 mg PO TWICE A DAY 60 July 18, 2024 12:00am August 13, 2024 9:31am metFORMIN hydrochloride 500 mg oral tablet (4 sources) Biguanide Start: 08-13-2024 End: 02-04-2025 take 1 tablet by mouth twice daily Metformin 500 mg tablet Discontinued 500 mg PO TWICE A DAY November 03, 2024 10:55am February 04, 2025 11:16am methylPREDNISolone 4 mg oral tablet (4 sources) Corticosteroid Start: 02-06-2022 End: 08-01-2023 take 1 tablet by mouth once daily Methylprednisolone (Medrol (Kelvin)) 4 mg tablets,dose pack Discontinued 4 mg PO DAILY February 06, 2022 12:00am August 01, 2023 8:07am naproxen 500 mg oral tablet (4 sources) Nonsteroidal Anti-inflammatory Drug Start: 10-29-2017 End: 11-03-2020 take 1 tablet by mouth twice daily as needed Naproxen 500 MG tablet Discontinued 500 mg PO TWICE DAILY NEEDED October 29, 2017 1:00am November 03, 2020 2:04pm omeprazole 40 mg delayed release oral capsule (13 sources) Proton Pump Inhibitor Start: 07-06-2014 End: 03-10-2025 take 1 capsule by mouth once daily as needed Omeprazole 40 mg capsule,delayed release(DR/EC) Discontinued 40 mg PO DAILY as needed for stomach upset November 21, 2024 2:48pm March 10, 2025 8:19am oxyCODONE hydrochloride 10 mg oral tablet (4 sources) Opioid Agonist Start: 06-02-2022 End: 08-01-2023 take 1 tablet by mouth three times daily as needed for pain Oxycodone 10 mg tablet Discontinued 10 mg PO THREE TIMES A DAY as needed for pain 17 03June 02, 2022 August 01, 2023 8:08am potassium chloride 20 meq powder for oral solution (2 sources) Start: 08-13-2024 End: 08-28-2024 take 20 mEq by mouth once daily Potassium Chloride 20 mEq packet Discontinued 20 meq PO daily August 13, 2024 12:00am August 28, 2024 1:49am predniSONE 20 mg oral tablet (5 sources) Start: 08-29-2024 End: 09-24-2024 take 1 tablet by mouth twice daily Prednisone 20 mg tablet Discontinued 20 mg PO TWICE A DAY August 29, 2024 12:00am September 24, 2024 7:09am Start: 06-19-2023 End: 08-01-2023 take 1 tablet by mouth once daily Prednisone 10 mg tablet Discontinued 10 mg PO As Directed June 19, 2023 12:00am August 01, 2023 8:07am Was daily x3 days, then 3 tablets daily x3 days, then 2 tablets daily x3 days, then 1 tablet daily x3 days as Semaglutide (4 sources) Start: 12-24-2024 End: 02-04-2025 Semaglutide (Ozempic) 0.25 m g or 0.5 mg (2 mg/3 mL) pen injector Discontinued 0.25 mg SC EVERY WEEK 3 December 24, 2024 3:22pm February 04, 2025 11:11am for 4 weeks Start: 12-24-2024 Semaglutide (O zempic) 0.25 mg or 0.5 mg (2 mg/3 mL) pen injector Active 0.25 mg SC EVERY WEEK 3 December 24, 2024 3:22pm for 4 weeks Start: 08-13-2024 End: 08-28-2024 Semaglutide (Ozempic) 0.25 m g or 0.5 mg (2 mg/3 mL) pen injector Discontinued 0.25 mg SC EVERY WEEK 3 August 13, 2024 12:00am August 28, 2024 1:49am for 4 weeks sertraline 100 mg oral tablet (2 sources) Serotonin Reuptake Inhibitor Start: 07-16-2024 End: 02-04-2025 Sertraline 100 mg tablet Discontinued 50 mg PO DAILY July 16, 2024 12:00am February 04, 2025 11:11am Tirzepatide (Mounjaro) 2.5 mg/0.5 mL pen injector (2 sources) Start: 10-03-2024 End: 10-07-2024 Tirzepatide (Mounjaro) 2.5 mg/0.5 mL pen injector Discontinued 2.5 mg SC EVERY WEEK 2 October 03, 2024 1:00am October 07, 2024 1:54pm for 4 weeks tobramycin 3 mg/ml ophthalmic solution (3 sources) Aminoglycoside Antibacterial Start: 05-15-2023 End: 07-16-2024 take 0.3 drop(s) into the eye(s) every two hours Tobramycin 0.3 % drops Discontinued 1 NMA OPHTHALMIC Q2H 5 May 15, 2023 12:00am July 16, 2024 11:07am to affected eye(s) while awake for 5 days valsartan 40 mg oral tablet (6 sources) Angiotensin 2 Receptor Gisela Start: 08-28-2024 End: 09-09-2024 Valsartan 40 mg tablet Discontinued 25 mg PO ONCE August 28, 2024 12:00am September 09, 2024 1:03pm Start: 08-13-2024 End: 08-28-2024 take 1 tablet by mouth once Valsartan 40 mg tablet Dis continued 40 mg PO ONCE 90 August 13, 2024 9:51am August 28, 2024 1:51am Start: 08-13-2024 End: 08-13-2024 Valsartan 40 mg tablet Disco ntinued 25 mg PO TWICE A DAY August 13, 2024 12:00am August 13, 2024 9:52am Problems Active Problems Problem Classification Problem Date Documented Date Episodic/Chronic Abdominal hernia (3 sources) Umbilical hernia 11-02-2021 Episodic Asthma (7 sources) Mild intermittent asthma 03-24-2020 Chronic Cardiac dysrhythmias (4 sources) Palpitations; Translations: [Palpitations] 10-11-2021 Episodic Diabetes mellitus without complication (9 sources) Diabetes mellitus; Translations: [Diabetes mellitus without mention of complication, type II or unspecified type, not stated as uncontrolled] Onset: 02-04-2025 08-28-2024 Chronic Esophageal disorders (7 sources) Gastroesophageal reflux disease 12-09-2019 Chronic Essential hypertension (13 sources) Essential hypertension; Translations: [Essential (primary) hypertension] 06-14-2020 Chronic Immunizations and screening for infectious disease (14 sources) Patient encounter status; Translations: [Encounter for screening for COVID-19] 11-02-2021 Episodic Inflammation; infection of eye (except that caused by tuberculosis or sexually transmitteddisease) (3 sources) Acute conjunctivitis; Translations: [Unspecified acute conjunctivitis, left eye] 05-15-2023 Episodic Osteoarthritis (7 sources) Primary gonarthrosis, bilateral; Translations: [Bilateral primary osteoarthritis of knee] 10-03-2024 Chronic Other ear and sense organ disorders (2 sources) Tinnitus; Translations: [Tinnitus, right ear] 03-31-2025 Episodic Other ear and sense organ disorders (2 sources) Tinnitus, right ear; Translations: [Tinnitus, right ear] Onset: 03-31-2025 Episodic Other lower respiratory disease (2 sources) Hypoxemia; Translations: [Hypoxemia] 10-02-2024 Episodic Other lower respiratory disease (2 sources) Hypoxia; Translations: [Hypoxemia] 08-28-2024 Episodic Other nervous system disorders (1 source) Postoperative pain ; Translations: [Other acute postprocedural pain] Onset: 12-15-2021 Episodic Other nervous system disorders (1 source) Anesthesia of skin; Translations: [Disturbance of skin sensation] Episodic Other non-traumatic joint disorders (4 sources) Carpal instability; Translations: [Other instability, left wrist] 12-24-2024 Episodic Other nutritional; endocrine; and metabolic disorders (2 sources) Severe obesity 02-01-2022 Chronic Other nutritional; endocrine; and metabolic disorders (1 source) Alveolar hypoventilation; Translations: [Morbid (severe) obesity with alveolar hypoventilation] 12-11-2024 Chronic Other nutritional; endocrine; and metabolic disorders (1 source) Body mass index 40+ - severely obese; Translations: [Morbid (severe) obesity due to excess calories] 12-11-2024 Chronic Other nutritional; endocrine; and metabolic disorders (5 sources) Obesity caused by energy imbalance; Translations: [Other obesity due to excess calories] 07-18-2024 Chronic Other nutritional; endocrine; and metabolic disorders (1 source) Morbid (severe) obesity due to excess calories; Translations: [Morbid (severe) obesity due to excess calories] Onset: 12-25-2024 Chronic Other nutritional; endocrine; and metabolic disorders (1 source) Body mass index (BMI) 50.0-59.9, adult; Translations: [Body mass index [BMI] 50.0-59.9, adult] Onset: 12-11-2024 Chronic Other skin disorders (4 sources) Infection of sebaceous cyst; Translations: [Sebaceous cyst] 12-07-2021 Episodic Other upper respiratory disease (2 sources) Narrow pharyngeal airway; Translations: [Other diseases of pharynx] 09-05-2024 Episodic Poisoning by nonmedicinal substances (3 sources) Bee sting; Translations: [Toxic effect of venom of bees, accidental (unintentional), initial encounter] 06-19-2023 Episodic Residual codes; unclassified (6 sources) Sleep apnea; Translations: [Sleep apnea, unspecified] 10-11-2021 Chronic Residual codes; unclassified (3 sources) Obstructive sleep apnea syndrome; Translations: [Obstructive sleep apnea (adult) (pediatric)] 02-01-2022 Chronic Residual codes; unclassified (1 source) Obstructive sleep apnea (adult) (pediatric); Translations: [Obstructive sleep apnea (adult) (pediatric)] Onset: 01-09-2025 Chronic Residual codes; unclassified (2 sources) Other specified postprocedural states; Translations: [Personal history of surgery to other organs] Episodic Skin and subcutaneous tissue infections (4 sources) Cutaneous abscess of right axilla; Translations: [Cellulitis of left lower limb] Onset: 01-08-2023 Episodic Spondylosis; intervertebral disc disorders; other back problems (14 sources) Degeneration of lumbar intervertebral disc; Translations: [Other intervertebral disc displacement, lumbar region] 11-02-2021 Chronic Spondylosis; intervertebral disc disorders; other back problems (10 sources) Lumbar radiculopathy; Translations: [Radiculopathy, lumbar region] Episodic Sprains and strains (4 sources) Lower back injury; Translations: [Strain of muscle, fascia and tendon of lower back, initial encounter] 07-17-2023 Episodic Substance-related disorders (7 sources) Nicotine dependence 12-10-2019 Chronic Unclassified (8 sources) Patient encounter status 06-14-2020 Unclassified (4 sources) Scapholunate instability of left wrist; Translations: [M25.332 - Other instability, left wrist] Unclassified (2 sources) Z12.11 - Encounter for screening for malignant neoplasm of colon Viral infection (4 sources) Disease caused by 2019-nCoV; Translations: [COVID-19] 07-17-2022 Episodic Viral infection (1 source) COVID-19; Translations: [COVID-19] Onset: 10-24-2024 Past or Other Problems Problem Classification Problem Date Documented Da te Episodic/Chronic Acute and chronic tonsillitis (5 sources) Acute tonsillitis; Translations: [Acute tonsillitis, unspecified] Onset: 08-29-2024 08-28-2024 Episodic Other connective tissue disease (2 sources) Pain in right leg; Translations: [Pain in right leg] Onset: 07-02-2024 Episodic Other connective tissue disease (1 source) Pain in left leg; Translations: [Pain in left leg] Onset: 07-16-2024 Episodic Other connective tissue disease (1 source) Other specified soft tissue disorders; Translations: [Other specified soft tissue disorders] Onset: 08-13-2024 Episodic Other non-traumatic joint disorders (1 source) Pain in left wrist; Translations: [Pain in left wrist] Onset: 12-24-2024 Episodic Other non-traumatic joint disorders (1 source) Other instability, left ankle; Translations: [Other instability, left ankle] Onset: 09-29-2024 Episodic Other non-traumatic joint disorders (1 source) Pain in left knee; Translations: [Pain in left knee] Onset: 07-18-2024 Episodic Other non-traumatic joint disorders (1 source) Pain in right knee; Translations: [Pain in right knee] Onset: 07-18-2024 Episodic Other screening for suspected conditions (not mental disorders or infectious disease) (2 sources) Encounter for screening for malignant neoplasm of prostate; Translations: [Screening for malignant neoplasm done] Onset: 12-11-2024 Episodic Other skin disorders (1 source) Localized swelling, mass and lump, right lower limb; Translations: [Localized swelling, mass and lump, right lower limb] Onset: 07-16-2024 Episodic Other skin disorders (1 source) Localized swelling, mass and lump, left lower limb; Translations: [Localized swelling, mass and lump, left lower limb] Onset: 07-16-2024 Episodic Other upper respiratory disease (1 source) Other diseases of pharynx; Translations: [Other diseases of pharynx] Onset: 09-01-2024 Episodic Other upper respiratory infections (5 sources) Upper respiratory infection; Translations: [Acute upper respiratory infection, unspecified] Onset: 01-21-2025 11-02-2021 Episodic Results Test Name Value Interpretation Reference Range Facility Internal Medicine Office Vis [facility] 03-31-2025 Internal Medicine Office Visit [facility] [place] [address] OFFICE VISIT Date of Service: 03/31/25 MR#: [id number] Acct: [id number] Name: BE ROBERTS Rep #: [id number] : 1975 Provider: Dr. Artur avila, DO Age/Sex: 49/M Location: [facility] [place] Status: Signed Intake Vital Signs 02/04/25 11:06 03/31/25 13:37 Height 5 ft 7 in 5 ft 7 in Weight: 317 lb 311 lb BMI 49.6 48.6 BP 104/72 102/68 Blood Pressure Location Lt brachial Lt brachial Position Sitting Sitting Respiration 18 16 Pulse 110 H 96 Pulse Source Monitor Monitor Temp 98.0 F 96.5 F L Temp Source Temporal Temporal Pulse Oximetry (%) 95 95 Oxygen Delivery Method room air room air Intake Visit Reasons: EAR ISSUES-HIGH PITCH, RINGING Chief Complaint: ear issues and migraines Medical Technician Assistant Required: No Accompanied by: Self Is patient in pain?: Yes (migraine ) Pain scale (1-10): 6 Pain Scale - Faces (1-5): 4 Allergies lisinopril Allergy (Verified 12/24/24 10:32) throat itchy Medications ???Medication ???Instructions ???Recorded ???Confirmed ???Type furosemide 20 mg tablet 20 mg PO DAILY swelling 07/16/24 0 03/31/25 History albuterol sulfate 90 mcg/actuation 2 puff inhalation Q6H PRN 03/31/25 History aerosol inhaler shortness of breath or wheezing fluticasone 250 mcg-salmeterol 50 1 inh inhalation BID 08/13/2401/20 History mcg/dose blistr powdr for inhalation (Advair Diskus) handicap placard #1 ea 08/13/24 03/31/25 Rx hydroxyzine pamoate 25 mg capsule 25 mg PO QHS 08/13/24 03/31/25 Hi story acetaminophen 325 mg tablet 650 mg (2 x 325 mg) PO Q6H PRN PRN 08/29/24 03/31/25 Rx Pain 1-10 Or Fever>100.7 #0 tabs atorvastatin 10 mg tablet 10 mg PO QDAY #90 tabs 12/12/24 Rx semaglutide 2 mg/dose (8 mg/3 mL) 2 mg (0.75 mL) subcut QWEEK #3 mL 12/23/24 03/31/25 Rx subcutaneous pen injector (Ozempic) tizanidine 4 mg tablet 4 mg PO QHS PRN muscle spasticity 02/04/25 03/31/25 Rx #30 tabs valsartan 320 1 tab PO DAILY #90 TABLETS 5 03/31/25 Rx mg-hydrochlorothiazi de 25 mg tablet omeprazole 40 mg capsule,delayed 40 mg PO DAILY PRN for indigestion 03/10/25 03/31/25 Rx release #60 caps Have you fallen in the past year?: No PFSH Medical History GERD (gastroesophageal reflux disease) IBS (irritable bowel syndrome) Hearing problem Back problem Asthma Arthritis Acute myofascial strain of lumbar region Bee sting reaction Acute conjunctivitis, left eye COVID-19 Contact with and (suspected) exposure to other viral communicable diseases Infected sebaceous cyst of skin Encounter for screening for COVID-19 Encounter for screening for COVID-19 URI (upper respiratory infection) HTN (hypertension) Surgical History H/O arthroscopy of right knee H/O repair of rotator cuff Family History Mother Breast cancer Angina at rest Father Hypertension Alcoholism Social History household members: spouse and children housing: house current occupational status: disabled Smoking Status: Current every day smoker tobacco type: e-cigarettes Tobacco: How many years used: 9 alcohol intake: current alcohol intake frequency: a few times a month Alcohol type: beer substance use type: does not use what type of physical activity do you participate in: additional details: stretching seatbelt use: always do you feel safe at home: Yes HPI HPI Chief Complaint: ear issues and migraines Details: BE ROBERTS, is a 49 M who presents to the office today for ringing in his right ear and headaches. He saw an ENT doctor who said he should see a neurologist or go to the emergency room and since this patient has had this for several weeks he did not consider this an emergency so he goes in to see me. 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 His headaches are not unilateral there viselike and they encompass the entire head and are not improved by taking [id number] analgesics or any positional or dietary changes. ROS Const Constitutional: No body ache, excessive sweating, fatigue, fever(s), frequent falls, headache(s), snoring, weakness, weight change, sleep problems or change in appetite Eyes Eyes: No blurry vision, change in vision, eye pain or Light sensitivity ENT ENT: No abnormal hearing, ear or mastoid pain, tinnitus, nasal congestion, headache(s), neck pain or sore throat Resp Respiratory: No cough, shortness of breath, snoring or wheezing Cardio Cardiology: No chest pain at (more content not included)... Normal [facility] Internal Medicine Office Vis [facility] 02-04-2025 Internal Medicine Office Visit [facility] [address] [place] [address] [place] [address] OFFICE VISIT Date of Service: 02/04/25 MR#: [id number] Acct: [id number] Name: BE ROBERTS Rep #: [id number] : 1975 Provider: Dr. Artur avila, DO Age/Sex: 49/M Location: [facility] [place] Status: Signed Intake Vital Signs 12/11/24 12:46 12/24/24 10:42 02/04/25 11:06 Height 5 ft 7 in 5 ft 7 in 5 ft 7 in Weight: 317 lb BMI 49.6 BP 104/72 Blood Pressure Location Lt brachial Position Sitting Respiration 18 Pulse 110 H Pulse Source Monitor Temp 98.0 F Temp Source Temporal Pulse Oximetry (%) 95 Oxygen Delivery Method room air Intake Visit Reasons: 2 M FU Chief Complaint: 2 M FU Is patient in pain?: Yes (6 in lower back ) Allergies lisinopril Allergy (Verified 12/24/24 10:32) throat itchy Medications ???Medication ???Instructions ???Recorded ???Confirmed ???Type furosemide 20 mg tablet 20 mg PO DAILY swelling 07/16/24 0 02/04/25 History albuterol sulfate 90 mcg/actuation 2 puff inhalation Q6H PRN 02/04/25 History aerosol inhaler shortness of breath or wheezing fluticasone 250 mcg-salmeterol 50 1 inh inhalation BID 08/13/2407/23 History mcg/dose blistr powdr for inhalation (Advair Diskus) handicap placard #1 ea 08/13/24 02/04/25 Rx hydroxyzine pamoate 25 mg capsule 25 mg PO QHS 08/13/24 02/04/25 Hi story acetaminophen 325 mg tablet 650 mg (2 x 325 mg) PO Q6H PRN PRN 08/29/24 02/04/25 Rx Pain 1-10 Or Fever>100.7 #0 tabs valsartan 320 1 tab PO DAILY #90 tabs 09/09/24 0 02/04/25 Rx mg-hydrochlorothiazi de 25 mg tablet omeprazole 40 mg capsule,delayed 40 mg PO DAILY PRN stomach upset 0 11/21/24 02/04/25 Rx release #60 caps atorvastatin 10 mg tablet 10 mg PO QDAY #90 tabs 12/12/24 Rx semaglutide 2 mg/dose (8 mg/3 mL) 2 mg (0.75 mL) subcut QWEEK #3 mL 12/23/24 02/04/25 Rx subcutaneous pen injector (Ozempic) tizanidine 4 mg tablet 4 mg PO QHS PRN muscle spasticity 02/04/25 02/04/25 Rx #30 tabs PFSH Medical History GERD (gastroesophageal reflux disease) IBS (irritable bowel syndrome) Hearing problem Back problem Asthma Arthritis Acute myofascial strain of lumbar region Bee sting reaction Acute conjunctivitis, left eye COVID-19 Contact with and (suspected) exposure to other viral communicable diseases Infected sebaceous cyst of skin Encounter for screening for COVID-19 Encounter for screening for COVID-19 URI (upper respiratory infection) HTN (hypertension) Surgical History H/O arthroscopy of right knee H/O repair of rotator cuff Family History Mother Breast cancer Angina at rest Father Hypertension Alcoholism Social History (Updated 12/24/24 @ 10:34 by Jazmine Jackson) household members: spouse and children housing: house current occupational status: disabled Smoking Status: Current every day smoker tobacco type: e-cigarettes Tobacco: How many years used: 9 alcohol intake: current alcohol intake frequency: a few times a month Alcohol type: beer substance use type: does not use what type of physical activity do you participate in: additional details: stretching seatbelt use: always do you feel safe at home: Yes HPI HPI Chief Complaint: 2 M FU Details: BE ROBERTS, is a 49 M who presents to the office today for for a follow-up exam. He continues to lose weight but his rate of weight loss is decreased. He is having problems with upset stomach taking the metformin. He has been having back injections and is seeing the orthopedic surgery for wrist problems. He has a disability hearing next month. Exam Const General: cooperative, comfortable, no acute distress, well developed and well groomed Nutritional Appearance: obese Orientation: alert, awake and oriented x3 Limitations: mental status not altered HENMT Ears: hearing grossly normal bilaterally Resp Effort Inspection: normal respiratory effort, able to speak in complete sentences, symmetric chest movement, normal respiratory pattern, no audible wheezes, no cough and respiratory effort not decreased Auscultation: Bilateral: Clear to Auscultation Cardio Rate: regular rate Rhythm: regular rhythm Heart Sounds: S1 normal, S2 normal and no murmurs Pulses: radial pulses present bilaterally 2+ Musc Thoracic/Lumbar Spine: pain with thoraco-lumbar ROM and thoraco-lumbar spasm Skin General: no rashes or lesions noted Neuro General: patient alert, patient awake and patient oriented x3 Cognition: normal cognition Speech: speech normal Gait: gait assisted Method: walking stick (cane) Psych Appearance: grossly normal Men (more content not included)... Normal [facility] Laboratory - Hematology and Cell countsOrdered By: Artur Mariano on 02-04-2025 HbA1c (Bld) [Mass fraction] 6.9 % High 4.2-6.3 [facility] Arterial patency Wrist arter y --pre arterial punctureOrdered By: Ricardo Olivares on 12-30-2024 Glenn Test Positive [facility] Assessment of wrist artery p atency prior to arterial punctureOrdered By: Ricardo Olivares on 12-30-2024 Arterial patency Wrist artery --pre arterial puncture Positive [facility] Base excess Calc (BldV) [Mol es/Vol]Ordered By: Ricardo Olivares on 12-30-2024 Blood Gas Base Excess 3 mmol/L High -2-2 [facility] Blood Gases by CPSon 025 GLENN TEST Positive Normal [facility] Comment on above: Performed By: #### L 9000.0800 ####[facility] [address] [place], [address] Base excess Calc (Bld) [Moles/Vol] 3 mmol/L High -2 to +2 [facility] Comment on above: Performed By: #### L 0.08 ####[facility] [address] [place], [address] Blood Gas Type ART Normal [facility] Comment on above: Performed By: #### L 8999.08 ####[facility] [address] [place], [address] CO2 [Moles/Vol] 28 mmol/L Normal [facility] Comment on above: Performed By: #### L 0.0800 ####[facility] [address] [place], [address] FI02 21.0 Normal [facility] Comment on above: Performed By: #### L 8999.08 ####[facility] [address] [place], [address] HCO3 (Bld) [Moles/Vol] 26.7 mmol/L High 22-26 [facility] Comment on above: Performed By: #### L 8999.0800 ####[facility] [address] [place], [address] Mode Not entered Normal [facility] Comment on above: Performed By: #### L 8999.08 ####[facility] [address] [place], [address] O2 Delivery Dev Room Air Normal [facility] Comment on above: Performed By: #### L 8999.0800 ####[facility] [address] [place], [address] pCO2 36.4 mmHg Normal 35-45 [facility] Comment on above: Performed By: #### L 8999.0800 ####[facility] [address] [place], [address] pH (Bld) 7.47 [pH] High 7.35-7.45 [facility] Comment on above: Performed By: #### L 9000.0800 ####[facility] [address] [place], [address] PO2 77 mmHG Normal 75-100 [facility] Comment on above: Performed By: #### L 9000.0800 ####[facility] [address] [place], [address] SITE R Radial Normal [facility] Comment on above: Performed By: #### L 9000.0800 ####[facility] [address] [place], [address] SO2 96 Normal 95-99 [facility] Comment on above: Performed By: #### L 9000.0800 ####[facility] [address] [place], [address] Blood base excess determinat ionOrdered By: Ricardo Olivares on 12-30-2024 Base excess Calc (BldV) [Moles/Vol] 3 mmol/L High -2-2 [facility] Blood bicarbonate measuremen tOrdered By: Ricardo Olivares on 12-30-2024 Blood Gas Bicarbonate Actual 26.7 mmol/L [facility] 22- [facility] HCO3 (Bld) [Moles/Vol] 26.7 mmol/L High 22-26 [facility] Determination of fraction of inspired oxygenOrdered By: Ricardo Olivares on 12-30-2024 Blood Gas Oxygen Percent 21.0 [facility] Measurement, pHOrdered By: Katalina Olivares on 12-30-2024 pH (Unsp spec) 7.47 [pH] High 7.35-7.45 [facility] No Panel InformationOrdered By: Ricardo Olivares on 12-30-2024 Blood Gas Sample Site R Radial [facility] Blood Gas Specimen Type [facility] Gas Vent Mode Not entered Wo [facility] Oxygen Delivery Device [facility] Oxygen saturation measuremen tOrdered By: Ricardo Olivares on 12-30-2024 Blood Gas Oxygen Saturation 96 % 95-99 [facility] Partial pressure of carbon d ioxide measurementOrdered By: Ricardo Olivares on 12-30-2024 Arterial Blood Partial Pressure CO2 36.4 mmHg 35-45 [facility] Partial pressure of oxygen m easurementOrdered By: Ricardo Olivares on 12-30-2024 Arterial Blood Partial Pressure O2 77 mmHG 75-100 [facility] Total carbon dioxide measure mentOrdered By: Ricardo Olivares on 12-30-2024 Blood Gas Total CO2 28 mmol/L [facility] CO2 [Moles/Vol] 28 mmol/L [facility] pH (Unsp spec)Ordered By: Sally Olivares on 12-30-2024 Blood Gas pH 7.47 High 7.35-7.45 [facility] Orthopedic Visit Reporton Orthopedic Visit Report [facility] [address] [place] [address] OFFICE VISIT Date of Service: 12/24/24 MR#: [id number] Acct: [id number] Name: BE ROBERTS Rep #: [id number] : 1975 Provider: Dr. Francisco Muhammad so DO Age/Sex: 49/M Location: [facility] Status: Signed Intake Vital Signs 12/11/24 12:46 12/24/24 10:42 Height 5 ft 7 in 5 ft 7 in Weight: 330 lb 323 lb BMI 51.7 50.5 BP 134/78 H Blood Pressure Location Rt brachial Position Sitting Respiration 20 H Pulse 99 Pulse Source Monitor Temp 96.6 F L Temp Source Temporal Pulse Oximetry (%) 94 Oxygen Delivery Method room air Intake Visit Reasons: LEFT WRIST Chief Complaint: Left wrist pain Medical Technician Assistant Required: No Accompanied by: Is patient in pain?: Yes Pain scale (1-10): 7 Allergies lisinopril Allergy (Verified 12/24/24 10:32) throat itchy Medications ???Medication ???Instructions ???Recorded ???Confirmed ???Type furosemide 20 mg tablet 20 mg PO DAILY swelling 07/16/24 0 12/24/24 History sertraline 100 mg tablet 50 mg PO DAILY 07/16/24 12/24/24 H istory albuterol sulfate 90 mcg/actuation 2 puff inhalation Q6H PRN 12/24/24 History aerosol inhaler shortness of breath or wheezing fluticasone 250 mcg-salmeterol 50 1 inh inhalation BID 08/13/24 History mcg/dose blistr powdr for inhalation (Advair Diskus) handicap placard #1 ea 08/13/24 12/11/24 Rx hydroxyzine pamoate 25 mg capsule 25 mg PO QHS 08/13/24 12/24/24 Hi story acetaminophen 325 mg tablet 650 mg (2 x 325 mg) PO Q6H PRN PRN 08/29/24 12/24/24 Rx Pain 1-10 Or Fever>100.7 #0 tabs valsartan 320 1 tab PO DAILY #90 tabs 09/09/24 0 12/24/24 Rx mg-hydrochlorothiazi de 25 mg tablet metformin 500 mg tablet 500 mg PO BID #180 TABLETS 5 12/24/24 Rx omeprazole 40 mg capsule,delayed 40 mg PO DAILY PRN stomach upset 0 11/21/24 12/24/24 Rx release #60 caps atorvastatin 10 mg tablet 10 mg PO QDAY #90 tabs 12/12/24 Rx semaglutide 2 mg/dose (8 mg/3 mL) 2 mg (0.75 mL) subcut QWEEK #3 mL 12/23/24 12/24/24 [facility] History GERD (gastroesophageal reflux disease) IBS (irritable bowel syndrome) Hearing problem Back problem Asthma Arthritis Acute myofascial strain of lumbar region Bee sting reaction Acute conjunctivitis, left eye COVID-19 Contact with and (suspected) exposure to other viral communicable diseases Infected sebaceous cyst of skin Encounter for screening for COVID-19 Encounter for screening for COVID-19 URI (upper respiratory infection) HTN (hypertension) Surgical History H/O arthroscopy of right knee H/O repair of rotator cuff Family History Mother Breast cancer Angina at rest Father Hypertension Alcoholism Social History household members: spouse and children housing: house current occupational status: disabled Smoking Status: Current every day smoker tobacco type: e-cigarettes Tobacco: How many years used: 9 alcohol intake: current alcohol intake frequency: a few times a month Alcohol type: beer substance use type: does not use what type of physical activity do you participate in: additional details: stretching seatbelt use: always do you feel safe at home: Yes HPI LEFT WRIST Details: This documentation accurately reflects the service provided and the decisions made by me, Dr. Francisco Pond, DO 12/24/24 0801. Part of today???s visit was documented by [ ], acting as scribe. BE ROBERTS is a 49 year old M here today for left wrist pain. 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 Following this he had increasing swelling and stiffness . Pain worsened over the last year it has gotten worse. Rates pain 7 out of ten today mostly over the radial side of the wrist with achiness, stiffness, weakness and occasional sharp pain with certain movements he can feel a pop. Occasional numbness that radiates into fingers. Denies recent wrist imaging. Gets pain with gripping, pushing and pulling. ROS Const Denies chills, Denies fatigue, Denies fever(s), Denies frequent falls, Denies headache(s) and Reports weakness ENT Denies headache(s) Card Denies chest pain and Denies dyspnea Resp Denies dyspnea GI Denies abdominal pain, Denies constipation, Denies diarrhea, Denies fecal incontinence, Denies nausea and Denies vomiting Denies urinary incontinence Musc Denies a (more content not included)... Normal [facility] Wrist min 3 Viewson 12-24-19 25 Wrist min 3 Views [facility] [address] [place] [address] Wrist min 3 Views MR#: [id number] Acct: [id number] Name: BE ROBERTS Rep #: [id number] : 1975 M 49 From: Scarlett Frances MD PCP: Dr. Artur Mariano DO Status: DEP AMB Study: Wrist min 3 Views Date of Exam: 12/24/24 Exam# [id number] Ordering Dr: Francisco Pond DO PROCEDURE: WRIST MIN 3 VIEWS REASON FOR EXAM: Left wrist pain. TECHNIQUE: AP, lateral, oblique view(s) of the left wrist COMPARISON: None. FINDINGS: No visible fracture. No suspicious bone lesion. Normal alignment. Soft tissues are unremarkable. RAD/Wrist min 3 Views IMPRESSION: NO ACUTE ABNORMALITY IN THE LEFT WRIST. Reading Location: [facility] CC: Dr. Artur Mariano DO; Dr. Francisco Pond DO C D Reactor Operator: Signed Normal [facility] High density lipoprotein (HD L) measurementOrdered By: Gianluca Pagan on 12-11-2024 Cholesterol in HDL [Mass/Vol] 32 mg/dL Low >40 [facility] Comment on above: The drugs N-Acetylcy steine and Metamizole may falsely depress this assay. Reference Range HDL <40 mg/dL Low HDL Cholesterol HDL >or= 60 mg/dL High HDL Cholesterol Internal Medicine Office Vis iton 12-11-2024 Internal Medicine Office Visit [facility] [address] [place] [address] [address] [place] [address] OFFICE VISIT Date of Service: 12/11/24 MR#: [id number] Acct: [id number] Name: BE ROBERTS Rep #: [id number] : 1975 Provider: MARTIN Wan Age/Sex: 49/M Location: [facility] Status: Signed Intake Vital Signs 10/03/24 09:58 12/11/24 12:46 Height 5 ft 7 in 5 ft 7 in Weight: 340 lb 330 lb BMI 53.2 51.7 BP 140/88 H 134/78 H Blood Pressure Location Lt brachial Rt brachial Position Sitting Sitting Respiration 16 20 H Pulse 111 H 99 Pulse Source Monitor Monitor Temp 97.6 F L 96.6 F L Temp Source Temporal Temporal Pulse Oximetry (%) 94 94 Oxygen Delivery Method room air room air Intake Visit Reasons: 2 M FU Chief Complaint: follow up Medical Technician Assistant Required: No Accompanied by: Is patient in pain?: No Allergies lisinopril Allergy (Verified 12/11/24 12:42) throat itchy Medications ???Medication ???Instructions ???Recorded ???Confirmed ???Type furosemide 20 mg tablet 20 mg PO DAILY swelling 07/16/24 0 12/11/24 History sertraline 100 mg tablet 50 mg PO DAILY 07/16/24 12/11/24 H istory albuterol sulfate 90 mcg/actuation 2 puff inhalation Q6H PRN 12/11/24 History aerosol inhaler shortness of breath or wheezing fluticasone 250 mcg-salmeterol 50 1 inh inhalation BID 08/13/24 History mcg/dose blistr powdr for inhalation (Advair Diskus) handicap placard #1 ea 08/13/24 12/11/24 Rx hydroxyzine pamoate 25 mg capsule 25 mg PO QHS 08/13/24 12/11/24 Hi story acetaminophen 325 mg tablet 650 mg (2 x 325 mg) PO Q6H PRN PRN 08/29/24 12/11/24 Rx Pain 1-10 Or Fever>100.7 #0 tabs valsartan 320 1 tab PO DAILY #90 tabs 09/09/24 0 12/11/24 Rx mg-hydrochlorothiazi de 25 mg tablet dexamethasone 6 mg tablet 6 mg PO DAILY #4 tabs 09/24/24 Rx semaglutide 2 mg/dose (8 mg/3 mL) 2 mg (0.75 mL) subcut QWEEK #3 mL 10/07/24 12/11/24 Rx subcutaneous pen injector (Ozempic) metformin 500 mg tablet 500 mg PO BID #180 TABLETS 5 12/11/24 Rx omeprazole 40 mg capsule,delayed 40 mg PO DAILY PRN stomach upset 0 11/21/24 12/11/24 Rx release #60 caps atorvastatin 10 mg tablet 10 mg PO QDAY #90 tabs 12/12/24 R x Have you fallen in the past year?: No Nurse's Note: back pain PFSH Medical History GERD (gastroesophageal reflux disease) IBS (irritable bowel syndrome) Hearing problem Back problem Asthma Arthritis Acute myofascial strain of lumbar region Bee sting reaction Acute conjunctivitis, left eye COVID-19 Contact with and (suspected) exposure to other viral communicable diseases Infected sebaceous cyst of skin Encounter for screening for COVID-19 Encounter for screening for COVID-19 URI (upper respiratory infection) HTN (hypertension) Surgical History H/O arthroscopy of right knee H/O repair of rotator cuff Family History Mother Breast cancer Angina at rest Father Hypertension Alcoholism Social History household members: spouse and children housing: house current occupational status: disabled Smoking Status: Current every day smoker tobacco type: e-cigarettes Tobacco: How many years used: 9 alcohol intake: current alcohol intake frequency: 0-2 drinks per day Alcohol type: beer substance use type: does not use what type of physical activity do you participate in: additional details: stretching seatbelt use: always do you feel safe at home: Yes HPI HPI Chief Complaint: follow up Details: BE ROBERTS, is a 49 M who presents to the office today for diabetes f/u. Patient did end up getting his Ozempic approved and has been taking this for the past 2 months. He states that he has not had changes in his bowels since starting this. He has always been on the loose side since being on the metformin. They have been trying to watch his weight at home and he has noted some minor weight loss. Patient's states that they have noticed that he is not as hungry as he used to be. He isn't really eating junk and he doesn't eat a whole lot of food. He eats once daily and then has several snacks through the day Patient is taking baby ASA He is not currently exercising regularly stating that his back and knees don't allow him to Patient is currently seeing sleep medicine for his sleep apnea. He is wearing his apnea mask nightly. They do want him to have further sleep studies (monitored) and therefore is going to be following up with these tests. ROS Const Constitutional: No body ache, excessive sweating, fatigue, fever(s), frequent falls, headache(s), snoring, (more content not included)... Normal [facility] Lipid Profileon 12-11-2024 Cholesterol [Mass/Vol] 194 mg/dL Normal 200 [facility] Comment on above: Result Comment: <200 mg/dL Desirable 200-240 mg/dL Borderline >240 mg/dL High Risk Performed By: #### L 100.0100, L501.2300 #### [facility] [address] [place], [address] Cholesterol in HDL [Mass/Vol] 32 mg/dL Low [facility] Comment on above: Result Comment: The drugs N-Acetylcysteine and Metamizole may falsely depress this assay. Reference Range HDL <40 mg/dL Low HDL Cholesterol HDL >or= 60 mg/dL High HDL Cholesterol Performed By: #### L 100.0100, L501.2300 #### [facility] [address] [place], [address] Cholesterol in LDL [Mass/Vol] 113 mg/dL Normal 0-130 [facility] Comment on above: Performed By: #### L 100.0100, L501.2300 #### [facility] [address] [place], [address] Cholesterol in VLDL [Mass/Vol] 49 mg/dL High 5-40 [facility] Comment on above: Performed By: #### L 100.0100, L501.2300 #### [facility] [address] [place], [address] Triglyceride [Mass/Vol] 247 mg/dL High [facility] Comment on above: Result Comment: The drugs N-Acetylcysteine and Metamizole may falsely depress this assay. Serum Triglycerides Reference Interval Normal <150 mg/dL Borderline high 150 - 199 mg/dL High 200 - 499 mg/dL Very High > or = 500 mg/dL Performed By: #### L 100.0100, L501.2300 #### [facility] [address] [place], [address] Low density lipoprotein (LDL ) cholesterol measurementOrdered By: Gianluca Pagan on 12-11-2024 Cholesterol in LDL [Mass/Vol] 113 mg/dL 0-130 [facility] Serum or plasma cholesterol measurement (mass/volume)Ordered By: Gianluca Pagan on 12-11-2024 Cholesterol [Mass/Vol] 194 mg/dL <200 [facility] Comment on above: <200 mg/dL Desirable 200-240 mg/dL Borderline >240 mg/dL High Risk Triglycerides measurementOrd ered By: Gianluca Pagan on 12-11-2024 Triglyceride [Mass/Vol] 247 mg/dL High <199 [facility] Comment on above: The drugs N-Acetylcy steine and Metamizole may falsely depress this assay.Serum Triglycerides Reference Interval Normal <150 mg/dL Borderline high 150 - 199 mg/dL High 200 - 499 mg/dL Very High > or = 500 mg/dL Very low density lipoprotein (VLDL) cholesterol measurementOrdered By: Gianluca Pagan on 12-11-2024 Very low density lipoprotein (VLDL) cholesterol measurement 49 mg/dL High 5-40 [facility] VLDL Cholesterol 49 mg/dL High 5-40 [facility] Internal Medicine Office Vis andreina 10-03-2024 Internal Medicine Office Visit [facility] [address] [place] [address] [place] [address] OFFICE VISIT Date of Service: 10/03/24 MR#: [id number] Acct: [id number] Name: BE ROBERTS Rep #: [id number] : 1975 Provider: MARTIN Wan Age/Sex: 49/M Location: [facility] Status: Signed Intake Vital Signs 09/05/24 09:08 09/24/24 03:17 10/03/24 09:58 Height 5 ft 7 in 5 ft 7 in 5 ft 7 in Weight: 340 lb BMI 53.2 BP 140/88 H Blood Pressure Location Lt brachial Position Sitting Respiration 16 Pulse 111 H Pulse Source Monitor Temp 97.6 F L Temp Source Temporal Pulse Oximetry (%) 94 Oxygen Delivery Method room air Intake Visit Reasons: 4 WK FU Chief Complaint: 4 week f/u Medical Technician Assistant Required: No Accompanied by: Self Is patient in pain?: No Allergies lisinopril Allergy (Verified 10/03/24 09:55) throat itchy Medications ???Medication ???Instructions ???Recorded ???Confirmed ???Type omeprazole 40 mg capsule,delayed 40 mg PO DAILY PRN stomach upset 07/06/14 10/03/24 History release furosemide 20 mg tablet 20 mg PO DAILY swelling 07/16/24 10/03/24 History sertraline 100 mg tablet 50 mg PO DAILY 07/16/24 10/03/24 History albuterol sulfate 90 mcg/actuation 2 puff inhalation Q6H PRN 08/13/24 10/03/24 History aerosol inhaler shortness of breath or wheezing fluticasone 250 mcg-salmeterol 50 1 inh inhalation BID 08/13/24 10/03/24 History mcg/dose blistr powdr for inhalation (Advair Diskus) handicap placard #1 ea 08/13/24 10/03/24 Rx hydroxyzine pamoate 25 mg capsule 25 mg PO QHS 08/13/24 10/03/24 History metformin 500 mg tablet 500 mg PO BID #180 tabs 08/13/24 10/03/24 Rx acetaminophen 325 mg tablet 650 mg (2 x 325 mg) PO Q6H PRN PRN 08/29/24 10/03/24 Rx Pain 1-10 Or Fever>100.7 #0 tabs valsartan 320 1 tab PO DAILY #90 tabs 09/09/24 10/03/24 Rx mg-hydrochlorothiazi de 25 mg tablet dexamethasone 6 mg tablet 6 mg PO DAILY #4 tabs 09/24/24 10/03/24 Rx tirzepatide 2.5 mg/0.5 mL 2.5 mg (0.5 mL) subcut QWEEK #2 mL 10/03/24 10/03/24 Rx subcutaneous pen injector (Mounjaro) [facility] Medical History GERD (gastroesophageal reflux disease) IBS (irritable bowel syndrome) Hearing problem Back problem Asthma Arthritis Acute myofascial strain of lumbar region Bee sting reaction Acute conjunctivitis, left eye COVID-19 Contact with and (suspected) exposure to other viral communicable diseases Infected sebaceous cyst of skin Encounter for screening for COVID-19 Encounter for screening for COVID-19 URI (upper respiratory infection) HTN (hypertension) Surgical History H/O arthroscopy of right knee H/O repair of rotator cuff Family History Mother Breast cancer Angina at rest Father Hypertension Alcoholism Social History household members: spouse and children housing: house current occupational status: disabled Smoking Status: Current every day smoker tobacco type: e-cigarettes Tobacco: How many years used: 9 alcohol intake: current alcohol intake frequency: 0-2 drinks per day Alcohol type: beer substance use type: does not use what type of physical activity do you participate in: additional details: stretching seatbelt use: always do you feel safe at home: Yes HPI HPI Chief Complaint: 4 week f/u Details: BE ROBETRS, is a 49 M who presents to the office today for f/u on a few different things. PAtient had covid on 09-24-24 that he got from his son. He ended up going to the ED and was treated. He was placed on medications at that time. He states that he was pretty rough in his breathing for a while there but has been doing a lot better this past week. HE has a little tickle in the throat and occasional cough but has not noticed wheezing or significant changes in his breathing (he chronically has some SOB / low pulse ox Patient also has questions about a knee brace. He has been seeing orthopedics for this over the years. They wanted to do injections in the knee but he does not want to do that so he wasnts to talk about a brace for the knees Patient had his sleep study yesterday and will have his f/u appt soon He was unable to get the Ozempic approved and thus has only been taking the metformin He does not get ANY physical activity HE does not have a great diet. ROS Const Constitutional: No body ache, chills, excessive sweating, fatigue, fever(s), frequent falls, headache(s), snoring, weakness or change in appetite Eyes Eyes: No blurry vision, change in vision, eye pain or Light sensitivity ENT ENT: No abnormal hearing, ear or mastoid pain, tinnitus, nasal congestion, headache(s), neck (more content not included)... Normal [facility] Absolute neutrophil countOrd ered By: Mesfin Dunham on 09-24-2024 Neutrophils (Bld) [#/Vol] 6.4 10*3/uL 2.0-7.7 [facility] BNP (brain natriuretic pepti de measurement)Ordered By: Mesfin Dunham on 09-24-2024 Natriuretic peptide B (Bld) [Mass/Vol] 44.6 pg/mL 0-100 [facility] BNP,B-Type NATRIURETIC PEPTI Donita 09-24-2024 Natriuretic peptide B (Bld) [Mass/Vol] 44.6 pg/mL Normal 0-100 [facility] Comment on above: Performed By: #### L 100.0100, L501.2300 #### [facility] [address] [place], [address] Basic Metabolic Profile (BMP )on 09-24-2024 BUN/CRE 12.0 RATIO Normal 10-20 [facility] Comment on above: Order Comment: 'TROP ' Serial specimen #1, #2 or #3: 1 Performed By: #### L 100.0100, L501.2300 #### [facility] [address] [place], [address] CA,Total 8.6 mg/dL Normal 8.5-10.1 [facility] Comment on above: Order Comment: 'TROP ' Serial specimen #1, #2 or #3: 1 Performed By: #### L 100.0100, L501.2300 #### [facility] [address] [place], [address] Chloride [Moles/Vol] 97 mmol/L Low 98-107 [facility] Comment on above: Order Comment: 'TROP ' Serial specimen #1, #2 or #3: 1 Performed By: #### L 100.0100, L501.2300 #### [facility] [address] [place], [address] CO2 [Moles/Vol] 33.0 mmol/L High 21.0-32.0 [facility] Comment on above: Order Comment: 'TROP ' Serial specimen #1, #2 or #3: 1 Performed By: #### L 100.0100, L501.2300 #### [facility] [address] [place], [address] Creatinine [Mass/Vol] 1.00 mg/dL Normal 0.70-1.30 [facility] Comment on above: Order Comment: 'TROP ' Serial specimen #1, #2 or #3: 1 Result Comment: The validity of the calculated GFR GFRAA in patients over 70 years has not been determined. Clinical correlation is essential. Performed By: #### L 100.0100, L501.2300 #### [facility] [address] [place], [address] ECRCL 130.00 ml/min Normal [facility] Comment on above: Order Comment: 'TROP ' Serial specimen #1, #2 or #3: 1 Performed By: #### L 100.0100, L501.2300 #### [facility] [address] [place], [address] EST GFR - AA 102 mL/min Normal >60 [facility] Comment on above: Order Comment: 'TROP ' Serial specimen #1, #2 or #3: 1 Result Comment: Afri can Yemeni GFR Calc Performed By: #### L 100.0100, L501.2300 #### [facility] [address] [place], [address] GAP 6 Normal 5-15 [facility] Comment on above: Order Comment: 'TROP ' Serial specimen #1, #2 or #3: 1 Performed By: #### L 100.0100, L501.2300 #### [facility] [address] [place], [address] GFR/1.73 sq M.predicted among non-blacks MDRD (S/P/Bld) [Vol rate/Area] 85 mL/min/{1.73_m2} Normal >60 [facility] Comment on above: Order Comment: 'TROP ' Serial specimen #1, #2 or #3: 1 Result Comment: Non- GFR Calc Performed By: #### L 100.0100, L501.2300 #### [facility] [address] [place], [address] Glucose [Mass/Vol] 172 mg/dL High 74-106 [facility] Comment on above: Order Comment: 'TROP ' Serial specimen #1, #2 or #3: 1 Result Comment: Fast ing Glucose result greater than or equal to 126 mg/dL suggests DIABETES MELLITUS per A.D.A. criteria. Performed By: #### L 100.0100, L501.2300 #### [facility] [address] [place], [address] Potassium [Moles/Vol] 3.4 mmol/L Low 3.5-5.1 [facility] Comment on above: Order Comment: 'TROP ' Serial specimen #1, #2 or #3: 1 Performed By: #### L 100.0100, L501.2300 #### [facility] [address] [place], [address] Sodium [Moles/Vol] 137 mmol/L Normal 136-145 [facility] Comment on above: Order Comment: 'TROP ' Serial specimen #1, #2 or #3: 1 Performed By: #### L 100.0100, L501.2300 #### [facility] [address] [place], [address] Urea nitrogen [Mass/Vol] 12 mg/dL Normal 7-18 [facility] Comment on above: Order Comment: 'TROP ' Serial specimen #1, #2 or #3: 1 Performed By: #### L 100.0100, L501.2300 #### [facility] [address] [place], [address] Basophil percentageOrdered B y: Mesfin Dunham on 09-24-2024 Basophils/100 WBC (Bld) 0.8 % 0-1 [facility] Blood urea nitrogen (BUN)/cr eatinine ratioOrdered By: Mesfin Dunham on 09-24-2024 Urea nitrogen/Creatinine [Mass ratio] 12.0 mg/mg 10- [facility] CBC W/Diff, Automatedon 08-30 Absolute Lymph 0.60 X10 3/uL Low 0.83-4.51 [facility] Comment on above: Performed By: #### L 100.0100, L501.2300 #### [facility] [address] [place], [address] Absolute Neut 6.4 X10 3/uL Normal 2.0-7.7 [facility] Comment on above: Performed By: #### L 100.0100, L501.2300 #### [facility] [address] [place], [address] Basophils/100 WBC (Bld) 0.8 % Normal 0-1 [facility] Comment on above: Performed By: #### L 100.0100, L501.2300 #### [facility] [address] [place], [address] Eosinophils/100 WBC (Bld) 2.7 % Normal 0-5 [facility] Comment on above: Performed By: #### L 100.0100, L501.2300 #### [facility] [address] [place], [address] Erythrocyte distribution width (RBC) [Ratio] 14.6 % Normal 11.6-14.6 [facility] Comment on above: Performed By: #### L 100.0100, L501.2300 #### [facility] [address] [place], [address] Hematocrit (Bld) [Volume fraction] 45.9 % Normal 40-54 [facility] Comment on above: Performed By: #### L 100.0100, L501.2300 #### [facility] [address] [place], [address] Hemoglobin (Bld) [Mass/Vol] 14.9 g/dL Normal 13.0-16.5 [facility] Comment on above: Performed By: #### L 100.0100, L501.2300 #### [facility] [address] [place], [address] IG% 0.800 Normal 0.0-0.9 [facility] Comment on above: Result Comment: IG% - Immature Granulocytes (promyelocytes, myelocytes and metamyelocytes) > 1% indicates that a LEFT SHIFT is Present. Performed By: #### L 100.0100, L501.2300 #### [facility] [address] [place], [address] Lymphocytes/100 WBC (Bld) 7.2 % Low 19-41 [facility] Comment on above: Performed By: #### L 100.0100, L501.2300 #### [facility] [address] [place], [address] MCH (RBC) [Entitic mass] 28.8 pg Normal 27.0-32.0 [facility] Comment on above: Performed By: #### L 100.0100, L501.2300 #### [facility] [address] [place], [address] MCHC (RBC) [Mass/Vol] 32.5 g/dL Normal 32-36 [facility] Comment on above: Performed By: #### L 100.0100, L501.2300 #### [facility] [address] [place], [address] MCV (RBC) [Entitic vol] 88.8 fL Normal 80-94 [facility] Comment on above: Performed By: #### L 100.0100, L501.2300 #### [facility] [address] [place], [address] Monocytes/100 WBC (Bld) 11.4 % High 0-10 [facility] Comment on above: Performed By: #### L 100.0100, L501.2300 #### [facility] [address] [place], [address] Neutrophils/100 WBC (Bld) 77.1 % High 47-70 [facility] Comment on above: Performed By: #### L 100.0100, L501.2300 #### [facility] [address] [place], [address] Nucleated RBC (Bld) [#/Vol] 0 10*3/uL Normal 0-5 [facility] Comment on above: Performed By: #### L 100.0100, L501.2300 #### [facility] [address] [place], [address] Platelet mean volume (Bld) [Entitic vol] 9.0 fL Normal 6.2-12.0 [facility] Comment on above: Performed By: #### L 100.0100, L501.2300 #### [facility] [address] [place], [address] Platelets (Bld) [#/Vol] 208 10*3/uL Normal 150-450 [facility] Comment on above: Performed By: #### L 100.0100, L501.2300 #### [facility] [address] [place], [address] RBC (Bld) [#/Vol] 5.17 10*6/uL Normal 4.6-6.2 [facility] Comment on above: Performed By: #### L 100.0100, L501.2300 #### [facility] [address] [place], [address] RDW SD 47.6 fl High 35.1-43.9 [facility] Comment on above: Performed By: #### L 100.0100, L501.2300 #### [facility] [address] [place], [address] WBC (Bld) [#/Vol] 8.3 10*3/uL Normal 4.4-11.0 [facility] Comment on above: Performed By: #### L 100.0100, L501.2300 #### [facility] [address] [place], [address] CTA Chest W/WO Contraston CTA Chest W/WO Contrast [facility] Imaging Services [address] [address] CTA Chest W/WO Contrast MR#: [id number] Acct: [id number] Name: BE ROBERTS Rep #: [id number] : 1975 M 49 From: Remington Molina MD PCP: Dr. Artur Mariano, DO Status: [facility] Study: CTA Chest W/WO Contrast Date of Exam: 09/24/24 Exam# [id number] Ordering Dr: Mesfin Dunham MD [id number] INDICATION: cough, hypoxia, leg edema, nml CXR EXAMINATION: CT CHEST WITH CONTRAST - CTA Chest WO/W Contrast Injection TECHNIQUE: Helically acquired images were obtained of the chest following IV contrast timed in the pulmonary arterial phase with sagittal and coronal reconstructed images. Post-processing of the angiographic images was performed with multiplanar reformation and 3D reconstruction. Individualized dose optimization techniques were used for this CT. IV contrast dosage and agent: 100 mL of Isovue-370. COMPARISON: None. ____ FINDINGS: LUNGS, PLEURA AND LARGE AIRWAYS: No consolidation or edema. No pulmonary nodule. No pleural effusion. No pneumothorax. THYROID: Unremarkable. HEART AND PERICARDIUM: No evidence of coronary artery calcification. No pericardial effusion. No evidence of right heart strain. Right ventricle to left ventricle ratio measures less than 1. MEDIASTINUM AND JOSE L: No mediastinal or hilar adenopathy. Esophagus is unremarkable. No hiatal hernia. VESSELS: No pulmonary embolism. No thoracic aortic aneurysm. Bovine arch. UPPER ABDOMEN: The visualized upper abdomen is unremarkable. BONES: No acute abnormality. CT/CTA Chest W/WO Contrast IMPRESSION: 1. No pulmonary embolism. 2. No evidence of cardiopulmonary disease. Electronically Signed: Remington Molina DO at 6:28 EST , CC: Dr. Mesfin Dunham MD; Dr. Artur Mariano DO C D Reactor Operator: Signed Normal [facility] Carbon dioxide measurementOr dered By: Mesfin Dunham on 09-24-2024 CO2 [Moles/Vol] 33.0 mmol/L High 21.0-32.0 [facility] Chest PA and Lateralon 09-24 Chest PA and Lateral [facility] Imaging Services [address] [place] [id number] Chest PA and Lateral MR#: [id number] Acct: [id number] Name: BE ROBERTS Rep #: [id number] : 1975 M 49 From: Levar Adan MD PCP: Dr. Artur Mariano DO Status: REG ER Study: Chest PA and Lateral Date of Exam: 09/24/24 Exam# [id number] Ordering Dr: Mesfin Dunham MD [id number] EXAM: XR CHEST, 2 VIEWS CLINICAL INDICATION: cough sob fever TECHNIQUE: Frontal and lateral views of the chest. COMPARISON: October 03, 2021. FINDINGS: LUNGS AND PLEURAL SPACES: Unremarkable. No pneumothorax. No effusion. No acute cardiopulmonary disease. HEART: Unremarkable. Cardiac silhouette not enlarged. MEDIASTINUM: Central airways and mediastinal contour are unremarkable. BONES/JOINTS: Degenerative changes of the spine. No acute fracture. SOFT TISSUES: Unremarkable. RAD/Chest PA and Lateral IMPRESSION: No acute findings in the chest. Electronically Signed: Levar Adan MD at 5:12 EST , CC: Dr. Mesfin Dunham MD; Dr. Artur Mariano DO C D Reactor Operator: Signed Normal [facility] Chloride measurementOrdered By: Mesfin Dunahm on 09-24-2024 Chloride [Moles/Vol] 97 mmol/L Low 98-107 [facility] Emergency Department Summary on 09-24-2024 Emergency Department Summary [facility] Medical Records Department [address] [place] [address] Emergency Department Summary 09/24/24 MR#: [id number] Acct: [id number] Name: BE ROBERTS Rep #: [id number] : 1975 49 From: Mesfin Dunham MD PCP: Dr. Artur Mariano DO Status:REG ER Location: ED ADDENDUM by Dr. Amado Hutton DO on 09/24/24 at 1007 I have reviewed the oxygen testing, and this patient qualifies for the home equipment and portability. The patient is mobile in the home and the community. Patient was given a prescription for continuous home oxygen for 2 L nasal cannula. concrete worker was in to arrange for this. Patient will be discharged home. 09/24/24 1007 Cosigner Signature (if applicable): cc: Dr. Artur Mariano DO * Signed HPI History of Present Illness Chief Complaint: General Illness Informant: patient and spouse/S.O. Narrative Narrative: 49-year-old male has had URI symptoms for the past several days, 3-5, cough, runny nose and congestion, now with sore throat and bilateral earache worse on the left, a little bit of dyspnea, with subjective fevers and chills this morning. Son currently has COVID. [facility] Medical History GERD (gastroesophageal reflux disease) IBS (irritable bowel syndrome) Hearing problem Back problem Asthma Arthritis Acute myofascial strain of lumbar region Bee sting reaction Acute conjunctivitis, left eye COVID-19 Contact with and (suspected) exposure to other viral communicable diseases Infected sebaceous cyst of skin Encounter for screening for COVID-19 Encounter for screening for COVID-19 URI (upper respiratory infection) HTN (hypertension) Home Medications ???Medication ???Instructions ???Recorded ???Last Taken ???Type omeprazole 40 mg capsule,delayed 40 mg PO DAILY PRN stomach upset 07/06/14 08/10/15 05:00 History release furosemide 20 mg tablet 20 mg PO DAILY swelling 07/16/24 Unknown History sertraline 100 mg tablet 50 mg PO DAILY 07/16/24 Unknown History albuterol sulfate 90 mcg/actuation 2 puff inhalation Q6H PRN 08/13/24 Unknown History aerosol inhaler shortness of breath or wheezing fluticasone 250 mcg-salmeterol 50 1 inh inhalation BID 08/13/24 Unknown History mcg/dose blistr powdr for inhalation (Advair Diskus) handicap placard #1 ea 08/13/24 Unknown Rx hydroxyzine pamoate 25 mg capsule 25 mg PO QHS 08/13/24 Unknown History metformin 500 mg tablet 500 mg PO BID #180 tabs 08/13/24 Unknown Rx acetaminophen 325 mg tablet 650 mg (2 x 325 mg) PO Q6H PRN PRN 08/29/24 Unknown Rx Pain 1-10 Or Fever>100.7 #0 tabs valsartan 320 1 tab PO DAILY #90 tabs 09/09/24 Unknown Rx mg-hydrochlorothiazi de 25 mg tablet dexamethasone 6 mg tablet 6 mg PO DAILY #4 tabs 09/24/24 Unknown Rx Allergy/AdvReac Type Severity Reaction Status Date / Time lisinopril Allergy throat Verified 09/24/24 03:17 itchy Family History Mother Breast cancer Angina at rest Father Hypertension Alcoholism Surgical History H/O arthroscopy of right knee H/O repair of rotator cuff Social History household members: spouse and children housing: house current occupational status: disabled Smoking Status: Current every day smoker tobacco type: e-cigarettes Tobacco: How many years used: 9 alcohol intake: current alcohol intake frequency: 0-2 drinks per day Alcohol type: beer substance use type: does not use what type of physical activity do you participate in: additional details: stretching seatbelt use: always do you feel safe at home: Yes ROS ROS ED Constitutional Constitutional ED: Reports chills, fever(s) and subjective ENT ENT ED: Reports ear pain bilateral, nasal congestion, rhinorrhea and sore throat Cardiovascular Cardiovascular: Denies chest pain or palpitations Respiratory/Chest Respiratory/Chest: Reports cough and dyspnea Gastrointestinal Gastrointestinal: Denies abdominal pain, diarrhea, nausea or vomiting Genitourinary Genitourinary ED: Denies dysuria or hematuria Musculoskeletal Musculoskeletal: Denies myalgias or neck pain Integumentary Denies abscess or rash Neurologic Neurologic: Reports headache(s); Denies paresthesias or weakness Endocrine Endocrinology: Denies polydipsia or polyuria EXAM Physical Exam Const Vital Signs: 09/24/24 03:17 09/24/24 03:17 09/24/24 03:22 Temperature 97.7 F L 97.7 F L Temperature Source Oral Oral Pulse Rate 98 94 Respiratory Rate 22 H 20 H Respiratory Effort Short of Breath Respiratory Pattern Tachypnea Blood Pressure 181/102 H 181/102 H Blood P (more content not included)... Normal [facility] Eosinophil percentageOrdered By: Mesfin Dunham on 09-24-2024 Eosinophils/100 WBC (Bld) 2.7 % 0-5 [facility] Erythrocyte distribution wid th ratioOrdered By: Mesfin Dunham on 09-24-2024 Erythrocyte distribution width (RBC) [Ratio] 14.6 % 11.6-14.6 [facility] Erythrocyte distribution wid th standard deviationOrdered By: Mesfin Dunham on 09-24-2024 Erythrocyte distribution width (RBC) [Entitic vol] 47.6 fL High 35.1-43.9 [facility] Estimated glomerular filtrat ion rate (GFR) AmericanOrdered By: Mesfin Dunham on 09-24-2024 Estimated GFR (MDRD) Amer 102 mL/min >60 [facility] Comment on above: GFR Calc Estimation of creatinine milo aranceOrdered By: Mesfin Dunham on 09-24-2024 Estimated Creatinine Clearance Calc 130.00 ml/min [facility] Glomerular filtration rate ( GFR) estimationOrdered By: Mesfin Dunham on 09-24-2024 Estimated GFR (MDRD) Non-Af Amer 85 mL/min >60 [facility] Comment on above: Non- GFR Calc Glucose measurementOrdered B y: Mesfin Dunham on 09-24-2024 Glucose [Mass/Vol] 172 mg/dL High 74-106 [facility] Comment on above: Fasting Glucose resu lt greater than or equal to 126 mg/dL suggests DIABETES MELLITUS per A.D.A. criteria. Hematocrit Auto (Bld) [Volum e fraction]Ordered By: Mesfin Dunham on 09-24-2024 Hematocrit (Bld) [Volume fraction] 45.9 % 40-54 [facility] Hemoglobin measurementOrdere d By: Mesfin Dunham on 09-24-2024 Hemoglobin (Bld) [Mass/Vol] 14.9 g/dL 13.0-16.5 [facility] Immature granulocytes/100 WB C Auto (Bld)Ordered By: Mesfin Dunham on 09-24-2024 Immature granulocytes/100 WBC (Bld) 0.800 % 0.0-0.9 [facility] Comment on above: IG% - Immature Granu locytes (promyelocytes, myelocytes and metamyelocytes) > 1% indicates that a LEFT SHIFT is Present. Influenza virus A and B and SARS-CoV-2 (COVID-19) and Respiratory syncytial virus RNAOrdered By: Mesfin Dunham on 09-24-2024 SARS-CoV-2 (COVID-19) RNA RIVERA+probe Ql (Unsp spec) SARS-CoV-2 (COVID 19 PCR) Abnormal [facility] L501.4020on 09-24-2024 TROPONIN-I HS 10 pg/mL Normal 3.0-78.0 [facility] Comment on above: Order Comment: 'TROP ' Serial specimen #1, #2 or #3: 1 Result Comment: Lisha balderrama Note: New Test Units and Gender Specific Reference Ranges. For more information see Policy Stat Procedure [facility] High Sensitivity Troponin (TNIH) and attachments. Performed By: #### L 100.0100, L501.2300 #### [facility] [address] [place], [address] Lymphocytes Auto (Unsp spec) [#/Vol]Ordered By: Mesfin Dunham on 09-24-2024 Lymphocytes (Bld) [#/Vol] 0.60 10*3/uL Low 0.83-4.51 [facility] Lymphocytes/100 WBC Auto (Un sp spec)Ordered By: Mesfin Dunham on 09-24-2024 Lymphocytes/100 WBC (Bld) 7.2 % Low 19-41 [facility] M100.678on 09-24-2024 SARS-CoV-2 (COVID-19) RNA RIVERA+probe Ql (Unsp spec) Pending SARS-CoV-2 (COVID 19) A Positive A INFLUENZA A Negative INFLUENZA B Negative RSV PCR Negative SARS-CoV-2 (COVID 19 PCR) * This is an amended result. * A prior result that was reported as final has been changed. 09/24/24 0809 by PEARL Normal [facility] Comment on above: Performed By: #### L 501.080 #### [facility] [address] [place], [address] MCV (mean corpuscular volume ) determinationOrdered By: Mesfin Dunham on 09-24-2024 MCV (RBC) [Entitic vol] 88.8 fL 80-94 [facility] Mean corpuscular hemoglobin (MCH) determinationOrdered By: Mesfin Dunham on 09-24-2024 MCH (RBC) [Entitic mass] 28.8 pg 27.0-32.0 [facility] Mean corpuscular hemoglobin concentration (MCHC) determinationOrdered By: Mesfin Dunham on 09-24-2024 MCHC (RBC) [Mass/Vol] 32.5 g/dL 32-36 [facility] Mean platelet volume determi nationOrdered By: Mesfin Dunham on 09-24-2024 Platelet mean volume (Bld) [Entitic vol] 9.0 fL 6.2-12.0 [facility] Monocyte percentageOrdered B y: Mesfin Dunham on 09-24-2024 Monocytes/100 WBC (Bld) 11.4 % High 0-10 [facility] Neutrophil percentageOrdered By: Mesfin Dunham on 09-24-2024 Neutrophils/100 WBC (Bld) 77.1 % High 47-70 [facility] Nucleated red blood cell per centageOrdered By: Mesfin Dunham on 09-24-2024 Nucleated RBC/100 WBC (Bld) [Ratio] 0 % 0-5 [facility] Platelet countOrdered By: Kaylah Dunham on 09-24-2024 Platelets (Bld) [#/Vol] 208 10*3/uL 150-450 [facility] Potassium measurementOrdered By: Mesfin Dunham on 09-24-2024 Potassium [Moles/Vol] 3.4 mmol/L Low 3.5-5.1 [facility] RBC Auto (Bld) [#/Vol]Ordere d By: Mesfin Dunham on 09-24-2024 RBC (Bld) [#/Vol] 5.17 10*6/uL 4.6-6.2 [facility] Serum anion gap measurementO rdered By: Mesfin Dunham on 09-24-2024 Anion gap [Moles/Vol] 6 mmol/L 5-15 [facility] Serum or plasma calcium jennifer urement (mass/volume)Ordered By: Mesfin Dunham on 09-24-2024 Calcium [Mass/Vol] 8.6 mg/dL 8.5-10.1 [facility] Serum or plasma creatinine m easurement (mass/volume)Ordered By: Mesfin Dunham on 09-24-2024 Creatinine [Mass/Vol] 1.00 mg/dL 0.70-1.30 [facility] Comment on above: The validity of the calculated GFR & GFRAA in patients over 70 years has not been determined. Clinical correlation is essential. Serum or plasma urea nitroge n measurement (mass/volume)Ordered By: Mesfin Dunham on 09-24-2024 Urea nitrogen [Mass/Vol] 12 mg/dL 7-18 [facility] Sodium levelOrdered By: Mike Dunham on 09-24-2024 Sodium [Moles/Vol] 137 mmol/L 136-145 [facility] Troponin IOrdered By: Christine Dunham on 09-24-2024 Troponin I High Sensitivity 10 pg/mL 3.0-78.0 [facility] Comment on above: Please Note: New Nguyen t Units and Gender Specific Reference Ranges. For more information see Policy Stat Procedure [facility] High Sensitivity Troponin (TNIH) and attachments. White blood cell (WBC) count Ordered By: Mesfin Dunham on 09-24-2024 WBC (Bld) [#/Vol] 8.3 10*3/uL 4.4-11.0 [facility] Internal Medicine Office Vis iton 09-05-2024 Internal Medicine Office Visit [facility] [address] [place] [address] [address] [place], [place] [address] OFFICE VISIT Date of Service: 09/05/24 MR#: [id number] Acct: [id number] Name: BE ROBERTS Rep #: [id number] : 1975 Provider: MARTIN Wan Age/Sex: 49/M Location: [facility] [place] Status: Signed with Addenda ADDENDUM by MARTIN Wan on 09/18/24 at 1331 HPI Details: BE ROBERTS, is a 49 M who presents to the office today for Assessment and Plan Assessment and Plan (1) Non-insulin dependent diabetes mellitus: Status: Acute (2) Hypertension: Status: Chronic Qualifiers: Hypertension type: primary hypertension Qualified Code(s): I10 - Essential (primary) hypertension (3) Obesity due to excess calories: Status: Acute Qualifiers: Obesity classification: adult class 3 (BMI >= 40) Serious obesity comorbidity presence: with serious comorbidity Body mass index: BMI 50.0-59.9 Qualified Code(s): E66.01 - Morbid (severe) obesity due to excess calories; Z68.43 - Body mass index [BMI] 50.0-59.9, adult (4) Apnea, sleep: Status: Inactive Qualifiers: Sleep apnea type: unspecified type Qualified Code(s): G47.30 - Sleep apnea, unspecified Plan: After evaluation as well as discussion with sleep medicine, repeat sleep study, this time attended, appears medically necessary due to significant weight gain since his initial diagnosis of INDRA back in 2009 Severe INDRA diagnosis(current BMI 52.6 which is an increase from BMI of 38). He has witnessed apneaic events as well as hypoxic readings with activity and therefore also has concern for Obesity Hypoventilation Syndrome (only able to diagnose with an attended Sleep Study). It is also suggested that this syndrome very well could contribute to his inability to tolerate CPAP masks / machine previously. Testing therefore is essential in determining proper diagnosis as well as then treatment options including CPAP vs BiPAP. (5) Tonsillitis: Status: Acute Orders: Orders POC Glucose 09/05/24 E11.9 - Type 2 diabetes mellitus without complications Polysomnography 09/05/24 G47.33 - Obstructive sleep apnea (adult) (pediatric) Referrals Sleep Medicine G47.30 - Sleep apnea, unspecified Medications: Discontinued valsartan Discontinued Reason: Discontinued by PCP/other physicians 25 mg PO ONCE Plan Details Follow Up: 3 Weeks 09/18/24 1331 Date Gianluca Pagan cc: * Signed Intake Vital Signs 08/13/24 09:39 08/29/24 10:12 09/05/24 09:08 Height 5 ft 7 in 5 ft 7 in 5 ft 7 in Weight: 336 lb BMI 52.6 BP 138/80 H Blood Pressure Location Lt brachial Position Sitting Respiration 20 H Pulse 76 Pulse Source Monitor Temp 97.8 F Temp Source Temporal Pulse Oximetry (%) 92 Oxygen Delivery Method room air Intake Visit Reasons: ACUTE 2 WEEK FOLLOW UP PER DR MARIANO Chief Complaint: 2 week f/u Medical Technician Assistant Required: No Accompanied by: Self Is patient in pain?: No Allergies lisinopril Allergy (Verified 09/05/24 09:04) throat itchy Medications ???Medication ???Instructions ???Recorded ???Confirmed ???Type omeprazole 40 mg capsule,delayed 40 mg PO DAILY PRN stomach upset 07/06/14 09/05/24 History release furosemide 20 mg tablet 20 mg PO DAILY PRN swelling 07/16/24 09/05/24 History sertraline 100 mg tablet 50 mg PO DAILY 07/16/24 09/05/24 History albuterol sulfate 90 mcg/actuation 2 puff inhalation Q6H PRN 08/13/24 09/05/24 History aerosol inhaler shortness of breath or wheezing fluticasone 250 mcg-salmeterol 50 1 inh inhalation BID 08/13/24 09/05/24 History mcg/dose blistr powdr for inhalation (Advair Diskus) handicap placard #1 ea 08/13/24 09/05/24 Rx hydroxyzine pamoate 25 mg capsule 25 mg PO QHS 08/13/24 09/05/24 History metformin 500 mg tablet 500 mg PO BID #180 tabs 08/13/24 09/05/24 Rx tizanidine 6 mg capsule 4 mg PO QHS PRN muscle spasticity 08/13/24 09/05/24 History acetaminophen 325 mg tablet 650 mg (2 x 325 mg) PO Q6H PRN PRN 08/29/24 09/05/24 Rx Pain 1-10 Or Fever>100.7 #0 tabs amoxicillin 875 mg-potassium 1 tab PO BID #28 tabs 08/29/24 09/05/24 Rx clavulanate 125 mg tablet prednisone 20 mg tablet 20 mg PO BID #10 tabs 08/29/24 09/05/24 Rx valsartan 320 1 tab PO DAILY #90 tabs 09/09/24 Rx mg-hydrochlorothiazi de 25 mg tablet PFSH Medical History GERD (gastroesophageal reflux disease) IBS (irritable bowel syndrome) Hearing problem Back problem Asthma Arthritis Acute myofascial strain of lumbar region Bee sting reaction Acute conjunctivitis, left eye COVID-19 Contact with and (suspected) exposure to other viral communicable diseases Infected sebaceous cyst of skin Encounter for screening for COVID-19 Encounter for sc (more content not included)... Normal [facility] Lower Ext Joint Only (Routin e)on 09-03-2024 Lower Ext Joint Only (Routine) [facility] Imaging Services [address] [place] [address] Lower Ext Joint Only (Routine) MR#: [id number] Acct: [id number] Name: BE ROBERTS Rep #: [id number] : 1975 M 49 From: Jorgito kaur MD PCP: Dr. Artur Mariano, DO Status: REG CLI Study: Lower Ext Joint Only (Routine) Date of Exam: 11/03/23 Exam# [id number] Ordering Dr: Oscar Novak DPPatricia [id number] STUDY: MRI LEFT ANKLE WITHOUT CONTRAST REASON FOR EXAM: Male, 49 years old. INSTABILITY, rolled ankle 1 yr ago, pain and swelling since TECHNIQUE: Standardized fat and water weighted pulse sequences were obtained in all 3 orthogonal planes. COMPARISON: X-ray of the left tibia and fibula dated July 16, 2024. FINDINGS: Moderate narrowing of the central and lateral side of the tibiotalar articulation is present with mild to moderate subchondral cystic changes and reactive edema on both sides of the articulation. There is also moderate osteoarthritis with associated subchondral cystic changes and reactive edema in the anterolateral of the tibial plafond/tibiotalar articulation. Moderate diffuse subcutaneous edema is present. No visualized focal fluid collection/abscesses . No fracture is present. There is no evidence of osteomyelitis. Several small corticated ossicles are present at the periphery of the lateral malleolus consistent with sequela of previous avulsion injury. Normal posterior tibialis tendon. Normal flexor digitorum longus tendon. Normal flexor hallucis longus tendon. Normal peroneus longus and brevis tendons. Normal tibialis anterior tendon. Normal extensor hallucis longus tendon. Normal extensor digitorum longus tendons. Normal Achilles tendon and teno-osseous insertion. Small to moderate-sized ventral calcaneal spurs associated with mild thickening of the insertional band of the plantar fascia just beneath the spur. The remaining aspects of the facets are normal. Normal plantar calcaneal tubercles. Mild fatty atrophy of the muscles is present. No intramuscular edema is present. Normal distal tibiofibular syndesmotic ligamentous complex. Normal lateral ligamentous complex. Normal subtalar ligaments and sinus tarsi. Normal deltoid ligamentous complexes. Normal plantar calcaneonavicular (spring) ligament. Normal tibiotalar articulation. Normal talar dome. Normal subtalar articulations. Normal talonavicular articulation. Normal calcaneocuboid articulation. Normal navicular-cuneiform articulations. MRI/Lower Ext Joint Only (Routine) IMPRESSION: 1. 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 Artur Mariano DO C D Reactor Operator: Signed Normal [facility] Basic Metabolic Profile (BMP )on 08-31-2024 BUN Normal -18 [facility] Comment on above: Result Comment: Canc elled via OM: Order cancelled - Patient discharged Performed By: #### L 100.0100, L501.2300 #### [facility] [address] [place], [place], [address] BUN/CRE Normal - [facility] Comment on above: Result Comment: Canc elled via OM: Order cancelled - Patient discharged Performed By: #### L 100.0100, L501.2300 #### [facility] [address] [place], [address] CA,Total Normal 8.5-10.1 [facility] Comment on above: Result Comment: Canc elled via OM: Order cancelled - Patient discharged Performed By: #### L 100.0100, L501.2300 #### [facility] [address] [place], [address] CL Normal 98-107 [facility] Comment on above: Result Comment: Canc elled via OM: Order cancelled - Patient discharged Performed By: #### L 100.0100, L501.2300 #### [facility] [address] [place], [address] CO2 Normal 21.0-32.0 [facility] Comment on above: Result Comment: Canc elled via OM: Order cancelled - Patient discharged Performed By: #### L 100.0100, L501.2300 #### [facility] [address] [place], [address] CREAT,SERUM Normal 0.70-1.30 [facility] Comment on above: Result Comment: Canc elled via OM: Order cancelled - Patient discharged Performed By: #### L 100.0100, L501.2300 #### [facility] [address] [place], [address] EST GFR Normal >60 [facility] Comment on above: Result Comment: Canc elled via OM: Order cancelled - Patient discharged Performed By: #### L 100.0100, L501.2300 #### [facility] [address] [place], [address] EST GFR - AA Normal >60 [facility] Comment on above: Result Comment: Canc elled via OM: Order cancelled - Patient discharged Performed By: #### L 100.0100, L501.2300 #### [facility] [address] [place], [address] GAP Normal 5-15 [facility] Comment on above: Result Comment: Canc elled via OM: Order cancelled - Patient discharged Performed By: #### L 100.0100, L501.2300 #### [facility] [address] [place], [address] GLU Normal 74-106 [facility] Comment on above: Result Comment: Canc elled via OM: Order cancelled - Patient discharged Performed By: #### L 100.0100, L501.2300 #### [facility] [address] [place], [address] Potassium Normal 3.5-5.1 [facility] Comment on above: Result Comment: Canc elled via OM: Order cancelled - Patient discharged Performed By: #### L 100.0100, L501.2300 #### [facility] [address] [place], [address] Basic Metabolic Profile (BMP) Normal 136-145 [facility] Comment on above: Result Comment: Canc elled via OM: Order cancelled - Patient discharged Performed By: #### L 100.0100, L501.2300 #### [facility] [address] [place], [address] CBC W/Diff, Automatedon 11-0 -2023 Absolute Neut Normal 2.0-7.7 [facility] Comment on above: Result Comment: Canc elled via OM: Order cancelled - Patient discharged Performed By: #### L 100.0100, L501.2300 #### [facility] [address] [place], [address] HCT Normal 40-54 [facility] Comment on above: Result Comment: Canc elled via OM: Order cancelled - Patient discharged Performed By: #### L 100.0100, L501.2300 #### [facility] [address] [place], [address] HGB Normal 13.0-16.5 [facility] Comment on above: Result Comment: Canc elled via OM: Order cancelled - Patient discharged Performed By: #### L 100.0100, L501.2300 #### [facility] [address] [place], [address] MCH Normal 27.0-32.0 [facility] Comment on above: Result Comment: Canc elled via OM: Order cancelled - Patient discharged Performed By: #### L 100.0100, L501.2300 #### [facility] [address] [place], [address] MCHC Normal 32-36 [facility] Comment on above: Result Comment: Canc elled via OM: Order cancelled - Patient discharged Performed By: #### L 100.0100, L501.2300 #### [facility] [address] [place], [address] MCV Normal 80-94 [facility] Comment on above: Result Comment: Canc elled via OM: Order cancelled - Patient discharged Performed By: #### L 100.0100, L501.2300 #### [facility] [address] [place], [address] NEUT% Normal 47-70 [facility] Comment on above: Result Comment: Canc elled via OM: Order cancelled - Patient discharged Performed By: #### L 100.0100, L501.2300 #### [facility] [address] [place], [address] PLT Normal 150-450 [facility] Comment on above: Result Comment: Canc elled via OM: Order cancelled - Patient discharged Performed By: #### L 100.0100, L501.2300 #### [facility] [address] [place], [address] RBC Normal 4.6-6.2 [facility] Comment on above: Result Comment: Canc elled via OM: Order cancelled - Patient discharged Performed By: #### L 100.0100, L501.2300 #### [facility] [address] [place], [address] RDW CV Normal 11.6-14.6 [facility] Comment on above: Result Comment: Canc elled via OM: Order cancelled - Patient discharged Performed By: #### L 100.0100, L501.2300 #### [facility] [address] [place], [address] RDW SD Normal 35.1-43.9 [facility] Comment on above: Result Comment: Canc elled via OM: Order cancelled - Patient discharged Performed By: #### L 100.0100, L501.2300 #### [facility] [address] [place], [address] WBC Normal 4.4-11.0 [facility] Comment on above: Result Comment: Canc elled via OM: Order cancelled - Patient discharged Performed By: #### L 100.0100, L501.2300 #### [facility] [address] [place], [address] Basic Metabolic Profile (BMP )on 08-30-2024 BUN Normal 7-18 [facility] Comment on above: Result Comment: Canc elled via OM: Order cancelled - Patient discharged Performed By: #### L 500.2500, L100.0100 ####[facility] [address] [place], [address] BUN/CRE Normal 10-20 [facility] Comment on above: Result Comment: Canc elled via OM: Order cancelled - Patient discharged Performed By: #### L 500.2500, L100.0100 ####[facility] [address] [place], [address] CA,Total Normal 8.5-10.1 [facility] Comment on above: Result Comment: Canc elled via OM: Order cancelled - Patient discharged Performed By: #### L 500.2500, L100.0100 ####[facility] [address] [place], [address] CL Normal 98-107 [facility] Comment on above: Result Comment: Canc elled via OM: Order cancelled - Patient discharged Performed By: #### L 500.2500, L100.0100 ####[facility] [address] [place], [address] CO2 Normal 21.0-32.0 [facility] Comment on above: Result Comment: Canc elled via OM: Order cancelled - Patient discharged Performed By: #### L 500.2500, L100.0100 ####[facility] [address] [place], [address] CREAT,SERUM Normal 0.70-1.30 [facility] Comment on above: Result Comment: Canc elled via OM: Order cancelled - Patient discharged Performed By: #### L 500.2500, L100.0100 ####[facility] [address] [place], [address] EST GFR Normal >60 [facility] Comment on above: Result Comment: Canc elled via OM: Order cancelled - Patient discharged Performed By: #### L 500.2500, L100.0100 ####[facility] [address] [place], [address] EST GFR - AA Normal >60 [facility] Comment on above: Result Comment: Canc elled via OM: Order cancelled - Patient discharged Performed By: #### L 500.2500, L100.0100 ####[facility] [address] [place], [address] GAP Normal 5-15 [facility] Comment on above: Result Comment: Canc elled via OM: Order cancelled - Patient discharged Performed By: #### L 500.2500, L100.0100 ####[facility] [address] [place], [address] GLU Normal 74-106 [facility] Comment on above: Result Comment: Canc elled via OM: Order cancelled - Patient discharged Performed By: #### L 500.2500, L100.0100 ####[facility] [address] [place], [address] Potassium Normal 3.5-5.1 [facility] Comment on above: Result Comment: Canc elled via OM: Order cancelled - Patient discharged Performed By: #### L 500.2500, L100.0100 ####[facility] [address] [place], [address] Basic Metabolic Profile (BMP) Normal 136-145 [facility] Comment on above: Result Comment: Canc elled via OM: Order cancelled - Patient discharged Performed By: #### L 500.2500, L100.0100 ####[facility] [address] [place], [address] CBC W/Diff, Automatedon 11-0 2-2023 Absolute Neut Normal 2.0-7.7 [facility] Comment on above: Result Comment: Canc elled via OM: Order cancelled - Patient discharged Performed By: #### L 500.2500, L100.0100 ####[facility] [address] [place], [address] HCT Normal 40-54 [facility] Comment on above: Result Comment: Canc elled via OM: Order cancelled - Patient discharged Performed By: #### L 500.2500, L100.0100 ####[facility] [address] [place], [address] HGB Normal 13.0-16.5 [facility] Comment on above: Result Comment: Canc elled via OM: Order cancelled - Patient discharged Performed By: #### L 500.2500, L100.0100 ####[facility] [address] [place], [address] MCH Normal 27.0-32.0 [facility] Comment on above: Result Comment: Canc elled via OM: Order cancelled - Patient discharged Performed By: #### L 500.2500, L100.0100 ####[facility] [address] [place], [address] MCHC Normal 32-36 [facility] Comment on above: Result Comment: Canc elled via OM: Order cancelled - Patient discharged Performed By: #### L 500.2500, L100.0100 ####[facility] [address] [place], [address] MCV Normal 80-94 [facility] Comment on above: Result Comment: Canc elled via OM: Order cancelled - Patient discharged Performed By: #### L 500.2500, L100.0100 ####[facility] [address] [place], [address] NEUT% Normal 47-70 [facility] Comment on above: Result Comment: Canc elled via OM: Order cancelled - Patient discharged Performed By: #### L 500.2500, L100.0100 ####[facility] [address] [place], [address] PLT Normal 150-450 [facility] Comment on above: Result Comment: Canc elled via OM: Order cancelled - Patient discharged Performed By: #### L 500.2500, L100.0100 ####[facility] [address] [place], [address] RBC Normal 4.6-6.2 [facility] Comment on above: Result Comment: Canc elled via OM: Order cancelled - Patient discharged Performed By: #### L 500.2500, L100.0100 ####[facility] [address] [place], [address] RDW CV Normal 11.6-14.6 [facility] Comment on above: Result Comment: Canc elled via OM: Order cancelled - Patient discharged Performed By: #### L 500.2500, L100.0100 ####[facility] [address] [place], [address] RDW SD Normal 35.1-43.9 [facility] Comment on above: Result Comment: Canc elled via OM: Order cancelled - Patient discharged Performed By: #### L 500.2500, L100.0100 ####[facility] [address] [place], [address] WBC Normal 4.4-11.0 [facility] Comment on above: Result Comment: Canc elled via OM: Order cancelled - Patient discharged Performed By: #### L 500.2500, L100.0100 ####[facility] [address] [place], [address] Basic Metabolic Profile (BMP )on 08-29-2024 BUN/CRE 14.1 RATIO Normal 10-20 [facility] Comment on above: Performed By: #### L 100.0100, L500.2500, L501.5200, L501.9520 #### [facility] [address] [place], [address] CA,Total 8.6 mg/dL Normal 8.5-10.1 [facility] Comment on above: Performed By: #### L 100.0100, L500.2500, L501.5200, L501.9520 #### [facility] [address] [place], [address] Chloride [Moles/Vol] 99 mmol/L Normal 98-107 [facility] Comment on above: Performed By: #### L 100.0100, L500.2500, L501.5200, L501.9520 #### [facility] [address] [place], [address] CO2 [Moles/Vol] 28.0 mmol/L Normal 21.0-32.0 [facility] Comment on above: Performed By: #### L 100.0100, L500.2500, L501.5200, L501.9520 #### [facility] [address] [place], [address] Creatinine [Mass/Vol] 0.78 mg/dL Normal 0.70-1.30 [facility] Comment on above: Result Comment: The validity of the calculated GFR GFRAA in patients over 70 years has not been determined. Clinical correlation is essential. Performed By: #### L 100.0100, L500.2500, L501.5200, L501.9520 #### [facility] [address] [place], [address] ECRCL 167.25 ml/min Normal [facility] Comment on above: Performed By: #### L 100.0100, L500.2500, L501.5200, L501.9520 #### [facility] [address] [place], [address] EST GFR - AA 136 mL/min Normal >60 [facility] Comment on above: Result Comment: Afri can Yemeni GFR Calc Performed By: #### L 100.0100, L500.2500, L501.5200, L501.9520 #### [facility] [address] [place], [address] GAP 5 Normal 5-15 [facility] Comment on above: Performed By: #### L 100.0100, L500.2500, L501.5200, L501.9520 #### [facility] [address] [place], [address] GFR/1.73 sq M.predicted among non-blacks MDRD (S/P/Bld) [Vol rate/Area] 112 mL/min/{1.73_m2} Normal >60 [facility] Comment on above: Result Comment: Non- GFR Calc Performed By: #### L 100.0100, L500.2500, L501.5200, L501.9520 #### [facility] [address] [place], [address] Glucose [Mass/Vol] 217 mg/dL High 74-106 [facility] Comment on above: Result Comment: Gluc ose result greater than or equal to 200 mg/dL suggests DIABETES MELLITUS per A.D.A. criteria. Performed By: #### L 100.0100, L500.2500, L501.5200, L501.9520 #### [facility] [address] [place], [address] Potassium [Moles/Vol] 4.0 mmol/L Normal 3.5-5.1 [facility] Comment on above: Performed By: #### L 100.0100, L500.2500, L501.5200, L501.9520 #### [facility] [address] [place], [address] Sodium [Moles/Vol] 132 mmol/L Low 136-145 [facility] Comment on above: Performed By: #### L 100.0100, L500.2500, L501.5200, L501.9520 #### [facility] [address] [place], [address] Urea nitrogen [Mass/Vol] 11 mg/dL Normal 7-18 [facility] Comment on above: Performed By: #### L 100.0100, L500.2500, L501.5200, L501.9520 #### [facility] [address] [place], [address] Bedside Glucoseon 08-29-2024 FINGERSTICK GLU 228 mg/dL High 74-106 [facility] Comment on above: Result Comment: MAILE MCKEON OF PATIENT CARE PER NURSING PROTOCOL Performed By: #### L 501.080 ####[facility] [address] [place], [address] FINGERSTICK GLU 241 mg/dL High 74-106 [facility] Comment on above: Result Comment: MAILE GEMENT OF PATIENT CARE PER NURSING PROTOCOL Performed By: #### L 501.080 #### [facility] [address] [place], [address] FINGERSTICK GLU 247 mg/dL High 74-106 [facility] Comment on above: Result Comment: MAILE GEMENT OF PATIENT CARE PER NURSING PROTOCOL Performed By: #### L 100.0100, L501.2300 #### [facility] [address] [place], [address] CBC W/Diff, Automatedon 11-0 Absolute Neut Normal 2.0-7.7 [facility] Comment on above: Result Comment: Canc elled via OM: MD Ordered Performed By: #### L 100.0100, L500.2500, L501.5200, L501.9520 #### [facility] [address] [place], [address] HCT Normal 40-54 [facility] Comment on above: Result Comment: Canc elled via OM: MD Ordered Performed By: #### L 100.0100, L500.2500, L501.5200, L501.9520 #### [facility] [address] [place], [address] HGB Normal 13.0-16.5 [facility] Comment on above: Result Comment: Canc elled via OM: MD Ordered Performed By: #### L 100.0100, L500.2500, L501.5200, L501.9520 #### [facility] [address] [place], [address] MCH Normal 27.0-32.0 [facility] Comment on above: Result Comment: Canc elled via OM: MD Ordered Performed By: #### L 100.0100, L500.2500, L501.5200, L501.9520 #### [facility] [address] [place], [address] MCHC Normal 32-36 [facility] Comment on above: Result Comment: Canc elled via OM: MD Ordered Performed By: #### L 100.0100, L500.2500, L501.5200, L501.9520 #### [facility] [address] [place], [address] MCV Normal 80-94 [facility] Comment on above: Result Comment: Canc elled via OM: MD Ordered Performed By: #### L 100.0100, L500.2500, L501.5200, L501.9520 #### [facility] [address] [place], [address] NEUT% Normal 47-70 [facility] Comment on above: Result Comment: Canc elled via OM: MD Ordered Performed By: #### L 100.0100, L500.2500, L501.5200, L501.9520 #### [facility] [address] [place], [address] PLT Normal 150-450 [facility] Comment on above: Result Comment: Canc elled via OM: MD Ordered Performed By: #### L 100.0100, L500.2500, L501.5200, L501.9520 #### [facility] [address] [place], [address] RBC Normal 4.6-6.2 [facility] Comment on above: Result Comment: Canc elled via OM: MD Ordered Performed By: #### L 100.0100, L500.2500, L501.5200, L501.9520 #### [facility] [address] [place], [address] RDW CV Normal 11.6-14.6 [facility] Comment on above: Result Comment: Canc elled via OM: MD Ordered Performed By: #### L 100.0100, L500.2500, L501.5200, L501.9520 #### [facility] [address] [place], [address] RDW SD Normal 35.1-43.9 [facility] Comment on above: Result Comment: Canc elled via OM: MD Ordered Performed By: #### L 100.0100, L500.2500, L501.5200, L501.9520 #### [facility] [address] [place], [address] WBC Normal 4.4-11.0 [facility] Comment on above: Result Comment: Canc elled via OM: MD Ordered Performed By: #### L 100.0100, L500.2500, L501.5200, L501.9520 #### [facility] [address] [place], [address] Absolute Lymph 1.33 X10 3/uL Normal 0.83-4.51 [facility] Comment on above: Performed By: #### L 100.0100, L501.2300 #### [facility] [address] [place], [address] Absolute Neut 14.4 X10 3/uL High 2.0-7.7 [facility] Comment on above: Performed By: #### L 100.0100, L501.2300 #### [facility] [address] [place], [address] Basophils/100 WBC (Bld) 0.2 % Normal 0-1 [facility] Comment on above: Performed By: #### L 100.0100, L501.2300 #### [facility] [address] [place], [address] Eosinophils/100 WBC (Bld) 0.0 % Normal 0-5 [facility] Comment on above: Performed By: #### L 100.0100, L501.2300 #### [facility] [address] [place], [address] Erythrocyte distribution width (RBC) [Ratio] 15.6 % High 11.6-14.6 [facility] Comment on above: Performed By: #### L 100.0100, L501.2300 #### [facility] [address] [place], [address] Hematocrit (Bld) [Volume fraction] 45.8 % Normal 40-54 [facility] Comment on above: Performed By: #### L 100.0100, L501.2300 #### [facility] [address] [place], [address] Hemoglobin (Bld) [Mass/Vol] 14.5 g/dL Normal 13.0-16.5 [facility] Comment on above: Performed By: #### L 100.0100, L501.2300 #### [facility] [address] [place], [address] IG% 1.100 High 0.0-0.9 [facility] Comment on above: Result Comment: IG% - Immature Granulocytes (promyelocytes, myelocytes and metamyelocytes) > 1% indicates that a LEFT SHIFT is Present. Performed By: #### L 100.0100, L501.2300 #### [facility] [address] [place], [address] Lymphocytes/100 WBC (Bld) 7.8 % Low 19-41 [facility] Comment on above: Performed By: #### L 100.0100, L501.2300 #### [facility] [address] [place], [address] MCH (RBC) [Entitic mass] 28.9 pg Normal 27.0-32.0 [facility] Comment on above: Performed By: #### L 100.0100, L501.2300 #### [facility] [address] [place], [address] MCHC (RBC) [Mass/Vol] 31.7 g/dL Low 32-36 [facility] Comment on above: Performed By: #### L 100.0100, L501.2300 #### [facility] [address] [place], [address] MCV (RBC) [Entitic vol] 91.4 fL Normal 80-94 [facility] Comment on above: Performed By: #### L 100.0100, L501.2300 #### [facility] [address] [place], [address] Monocytes/100 WBC (Bld) 6.1 % Normal 0-10 [facility] Comment on above: Performed By: #### L 100.0100, L501.2300 #### [facility] [address] [place], [address] Neutrophils/100 WBC (Bld) 84.8 % High 47-70 [facility] Comment on above: Performed By: #### L 100.0100, L501.2300 #### [facility] [address] [place], [address] Nucleated RBC (Bld) [#/Vol] 0 10*3/uL Normal 0-5 [facility] Comment on above: Performed By: #### L 100.0100, L501.2300 #### [facility] [address] [place], [address] Platelet mean volume (Bld) [Entitic vol] 9.1 fL Normal 6.2-12.0 [facility] Comment on above: Performed By: #### L 100.0100, L501.2300 #### [facility] [address] [place], [address] Platelets (Bld) [#/Vol] 251 10*3/uL Normal 150-450 [facility] Comment on above: Performed By: #### L 100.0100, L501.2300 #### [facility] [address] [place], [address] RBC (Bld) [#/Vol] 5.01 10*6/uL Normal 4.6-6.2 [facility] Comment on above: Performed By: #### L 100.0100, L501.2300 #### [facility] [address] [place], [address] RDW SD 51.2 fl High 35.1-43.9 [facility] Comment on above: Performed By: #### L 100.0100, L501.2300 #### [facility] [address] [place], [address] WBC (Bld) [#/Vol] 17.0 10*3/uL High 4.4-11.0 [facility] Comment on above: Performed By: #### L 100.0100, L501.2300 #### [facility] [address] [place], [address] Hemoglobin A1con 08-29-2024 HbA1c (Bld) [Mass fraction] 8.1 % High 3.8-5.6 [facility] Comment on above: Result Comment: Norm al < 5.7 % Prediabetic 5.7 - 6.4 % Diabetic >or= 6.5 % Please note range changes. Performed By: #### L 100.0100, L501.2300 #### [facility] [address] [place], [address] Magnesiumon 08-29-2024 Magnesium [Mass/Vol] 2.4 mg/dL Normal 1.6-2.6 [facility] Comment on above: Performed By: #### L 100.0100, L500.2500, L501.5200, L501.9520 #### [facility] [address] [place], [address] Phosphoruson 08-29-2024 Phosphate [Mass/Vol] 2.9 mg/dL Normal 2.5-4.9 [facility] Comment on above: Performed By: #### L 100.0100, L501.2300 #### [facility] [address] [place], [address] Thyroid Stim Hormone (TSH)on 08-29-2024 TSH 0.197 uIU/mL Low 0.358-3.740 [facility] Comment on above: Performed By: #### L 100.0100, L500.2500, L501.5200, L501.9520 ####[facility] [address] [place], [address] Basic Metabolic Profile (BMP )on 08-28-2024 BUN/CRE 12.0 RATIO Normal 10-20 [facility] Comment on above: Performed By: #### L 100.0100, L501.2300 #### [facility] [address] [place], [address] CA,Total 8.4 mg/dL Low 8.5-10.1 [facility] Comment on above: Performed By: #### L 100.0100, L501.2300 #### [facility] [address] [place], [address] Chloride [Moles/Vol] 93 mmol/L Low 98-107 [facility] Comment on above: Performed By: #### L 100.0100, L501.2300 #### [facility] [address] [place], [address] CO2 [Moles/Vol] 29.0 mmol/L Normal 21.0-32.0 [facility] Comment on above: Performed By: #### L 100.0100, L501.2300 #### [facility] [address] [place], [address] Creatinine [Mass/Vol] 1.08 mg/dL Normal 0.70-1.30 [facility] Comment on above: Result Comment: The validity of the calculated GFR GFRAA in patients over 70 years has not been determined. Clinical correlation is essential. Performed By: #### L 100.0100, L501.2300 #### [facility] [address] [place], [address] ECRCL 120.51 ml/min Normal [facility] Comment on above: Performed By: #### L 100.0100, L501.2300 #### [facility] [address] [place], [address] EST GFR - AA 93 mL/min Normal >60 [facility] Comment on above: Result Comment: Afri can Yemeni GFR Calc Performed By: #### L 100.0100, L501.2300 #### [facility] [address] [place], [address] GAP 6 Normal 5-15 [facility] Comment on above: Performed By: #### L 100.0100, L501.2300 #### [facility] [address] [place], [address] GFR/1.73 sq M.predicted among non-blacks MDRD (S/P/Bld) [Vol rate/Area] 77 mL/min/{1.73_m2} Normal >60 [facility] Comment on above: Result Comment: Non- GFR Calc Performed By: #### L 100.0100, L501.2300 #### [facility] [address] [place], [address] Glucose [Mass/Vol] 229 mg/dL High 74-106 [facility] Comment on above: Result Comment: Gluc ose result greater than or equal to 200 mg/dL suggests DIABETES MELLITUS per A.D.A. criteria. Performed By: #### L 100.0100, L501.2300 #### [facility] [address] [place], [address] Potassium [Moles/Vol] 4.5 mmol/L Normal 3.5-5.1 [facility] Comment on above: Result Comment: Slig ht Hemolysis, Result may be falsely increased. Performed By: #### L 100.0100, L501.2300 #### [facility] [address] [place], [address] Sodium [Moles/Vol] 128 mmol/L Low 136-145 [facility] Comment on above: Performed By: #### L 100.0100, L501.2300 #### [facility] [address] [place], [address] Urea nitrogen [Mass/Vol] 13 mg/dL Normal 7-18 [facility] Comment on above: Performed By: #### L 100.0100, L501.2300 #### [facility] [address] [place], [address] BUN/CRE 13.0 RATIO Normal 10-20 [facility] Comment on above: Performed By: #### L 100.0100, L501.2300 #### [facility] [address] [place], [address] CA,Total 8.9 mg/dL Normal 8.5-10.1 [facility] Comment on above: Performed By: #### L 100.0100, L501.2300 #### [facility] [address] [place], [address] Chloride [Moles/Vol] 94 mmol/L Low 98-107 [facility] Comment on above: Performed By: #### L 100.0100, L501.2300 #### [facility] [address] [place], [address] CO2 [Moles/Vol] 32.0 mmol/L Normal 21.0-32.0 [facility] Comment on above: Performed By: #### L 100.0100, L501.2300 #### [facility] [address] [place], [address] Creatinine [Mass/Vol] 0.85 mg/dL Normal 0.70-1.30 [facility] Comment on above: Result Comment: The validity of the calculated GFR GFRAA in patients over 70 years has not been determined. Clinical correlation is essential. Performed By: #### L 100.0100, L501.2300 #### [facility] [address] [place], [address] ECRCL 154.97 ml/min Normal [facility] Comment on above: Performed By: #### L 100.0100, L501.2300 #### [facility] [address] [place], [address] EST GFR - AA 123 mL/min Normal >60 [facility] Comment on above: Result Comment: Afri can Yemeni GFR Calc Performed By: #### L 100.0100, L501.2300 #### [facility] [address] [place], [address] GAP 7 Normal 5-15 [facility] Comment on above: Performed By: #### L 100.0100, L501.2300 #### [facility] [address] [place], [address] GFR/1.73 sq M.predicted among non-blacks MDRD (S/P/Bld) [Vol rate/Area] 102 mL/min/{1.73_m2} Normal >60 [facility] Comment on above: Result Comment: Non- GFR Calc Performed By: #### L 100.0100, L501.2300 #### [facility] [address] [place], [address] Glucose [Mass/Vol] 125 mg/dL High 74-106 [facility] Comment on above: Result Comment: Fast ing Glucose result from 100 to 125 mg/dL suggests IMPAIRED HOMEOSTASIS per A.D.A. criteria. Performed By: #### L 100.0100, L501.2300 #### [facility] [address] [place], [address] Potassium [Moles/Vol] 3.8 mmol/L Normal 3.5-5.1 [facility] Comment on above: Performed By: #### L 100.0100, L501.2300 #### [facility] [address] [place], [address] Sodium [Moles/Vol] 132 mmol/L Low 136-145 [facility] Comment on above: Performed By: #### L 100.0100, L501.2300 #### [facility] [address] [place], [address] Urea nitrogen [Mass/Vol] 11 mg/dL Normal 7-18 [facility] Comment on above: Performed By: #### L 100.0100, L501.2300 #### [facility] [address] [place], [address] Bedside Glucoseon 08-28-2024 FINGERSTICK GLU 261 mg/dL High 74-106 [facility] Comment on above: Result Comment: MAILE GEMENT OF PATIENT CARE PER NURSING PROTOCOL Performed By: #### L 501.080 #### [facility] [address] [place], [address] FINGERSTICK GLU 268 mg/dL High 74-106 [facility] Comment on above: Result Comment: MAILE GEMENT OF PATIENT CARE PER NURSING PROTOCOL Performed By: #### L 501.080 #### [facility] [address] [place], [address] CBC W/Diff, Automatedon 10-3 Absolute Lymph 1.06 X10 3/uL Normal 0.83-4.51 [facility] Comment on above: Performed By: #### L 100.0100, L501.2300 #### [facility] [address] [place], [address] Absolute Neut 12.3 X10 3/uL High 2.0-7.7 [facility] Comment on above: Performed By: #### L 100.0100, L501.2300 #### [facility] [address] [place], [address] Basophils/100 WBC (Bld) 0.4 % Normal 0-1 [facility] Comment on above: Performed By: #### L 100.0100, L501.2300 #### [facility] [address] [place], [address] Eosinophils/100 WBC (Bld) 0.1 % Normal 0-5 [facility] Comment on above: Performed By: #### L 100.0100, L501.2300 #### [facility] [address] [place], [address] Erythrocyte distribution width (RBC) [Ratio] 15.7 % High 11.6-14.6 [facility] Comment on above: Performed By: #### L 100.0100, L501.2300 #### [facility] [address] [place], [address] Hematocrit (Bld) [Volume fraction] 45.2 % Normal 40-54 [facility] Comment on above: Performed By: #### L 100.0100, L501.2300 #### [facility] [address] [place], [address] Hemoglobin (Bld) [Mass/Vol] 14.7 g/dL Normal 13.0-16.5 [facility] Comment on above: Performed By: #### L 100.0100, L501.2300 #### [facility] [address] [place], [address] IG% 1.200 High 0.0-0.9 [facility] Comment on above: Result Comment: IG% - Immature Granulocytes (promyelocytes, myelocytes and metamyelocytes) > 1% indicates that a LEFT SHIFT is Present. Performed By: #### L 100.0100, L501.2300 #### [facility] [address] [place], [address] Lymphocytes/100 WBC (Bld) 7.6 % Low 19-41 [facility] Comment on above: Performed By: #### L 100.0100, L501.2300 #### [facility] [address] [place], [address] MCH (RBC) [Entitic mass] 29.2 pg Normal 27.0-32.0 [facility] Comment on above: Performed By: #### L 100.0100, L501.2300 #### [facility] [address] [place], [address] MCHC (RBC) [Mass/Vol] 32.5 g/dL Normal 32-36 [facility] Comment on above: Performed By: #### L 100.0100, L501.2300 #### [facility] [address] [place], [address] MCV (RBC) [Entitic vol] 89.7 fL Normal 80-94 [facility] Comment on above: Performed By: #### L 100.0100, L501.2300 #### [facility] [address] [place], [address] Monocytes/100 WBC (Bld) 2.2 % Normal 0-10 [facility] Comment on above: Performed By: #### L 100.0100, L501.2300 #### [facility] [address] [place], [address] Neutrophils/100 WBC (Bld) 88.5 % High 47-70 [facility] Comment on above: Performed By: #### L 100.0100, L501.2300 #### [facility] [address] [place], [address] Nucleated RBC (Bld) [#/Vol] 0.1 10*3/uL Normal 0-5 [facility] Comment on above: Performed By: #### L 100.0100, L501.2300 #### [facility] [address] [place], [address] Platelet mean volume (Bld) [Entitic vol] 9.2 fL Normal 6.2-12.0 [facility] Comment on above: Performed By: #### L 100.0100, L501.2300 #### [facility] [address] [place], [address] Platelets (Bld) [#/Vol] 259 10*3/uL Normal 150-450 [facility] Comment on above: Performed By: #### L 100.0100, L501.2300 #### [facility] [address] [place], [address] RBC (Bld) [#/Vol] 5.04 10*6/uL Normal 4.6-6.2 [facility] Comment on above: Performed By: #### L 100.0100, L501.2300 #### [facility] [address] [place], [address] RDW SD 49.9 fl High 35.1-43.9 [facility] Comment on above: Performed By: #### L 100.0100, L501.2300 #### [facility] [address] [place], [address] WBC (Bld) [#/Vol] 13.9 10*3/uL High 4.4-11.0 [facility] Comment on above: Performed By: #### L 100.0100, L501.2300 #### [facility] [address] [place], [address] Absolute Lymph 1.78 X10 3/uL Normal 0.83-4.51 [facility] Comment on above: Performed By: #### L 100.0100, L501.2300 #### [facility] [address] [place], [address] Absolute Neut 10.8 X10 3/uL High 2.0-7.7 [facility] Comment on above: Performed By: #### L 100.0100, L501.2300 #### [facility] [address] [place], [address] Basophils/100 WBC (Bld) 0.7 % Normal 0-1 [facility] Comment on above: Performed By: #### L 100.0100, L501.2300 #### [facility] [address] [place], [address] Eosinophils/100 WBC (Bld) 1.3 % Normal 0-5 [facility] Comment on above: Performed By: #### L 100.0100, L501.2300 #### [facility] [address] [place], [address] Erythrocyte distribution width (RBC) [Ratio] 15.6 % High 11.6-14.6 [facility] Comment on above: Performed By: #### L 100.0100, L501.2300 #### [facility] [address] [place], [address] Hematocrit (Bld) [Volume fraction] 44.6 % Normal 40-54 [facility] Comment on above: Performed By: #### L 100.0100, L501.2300 #### [facility] [address] [place], [address] Hemoglobin (Bld) [Mass/Vol] 14.5 g/dL Normal 13.0-16.5 [facility] Comment on above: Performed By: #### L 100.0100, L501.2300 #### [facility] [address] [place], [address] IG% 1.100 High 0.0-0.9 [facility] Comment on above: Result Comment: IG% - Immature Granulocytes (promyelocytes, myelocytes and metamyelocytes) > 1% indicates that a LEFT SHIFT is Present. Performed By: #### L 100.0100, L501.2300 #### [facility] [address] [place], [address] Lymphocytes/100 WBC (Bld) 12.5 % Low 19-41 [facility] Comment on above: Performed By: #### L 100.0100, L501.2300 #### [facility] [address] [place], [address] MCH (RBC) [Entitic mass] 29.2 pg Normal 27.0-32.0 [facility] Comment on above: Performed By: #### L 100.0100, L501.2300 #### [facility] [address] [place], [address] MCHC (RBC) [Mass/Vol] 32.5 g/dL Normal 32-36 [facility] Comment on above: Performed By: #### L 100.0100, L501.2300 #### [facility] [address] [place], [address] MCV (RBC) [Entitic vol] 89.7 fL Normal 80-94 [facility] Comment on above: Performed By: #### L 100.0100, L501.2300 #### [facility] [address] [place], [address] Monocytes/100 WBC (Bld) 8.3 % Normal 0-10 [facility] Comment on above: Performed By: #### L 100.0100, L501.2300 #### [facility] [address] [place], [address] Neutrophils/100 WBC (Bld) 76.1 % High 47-70 [facility] Comment on above: Performed By: #### L 100.0100, L501.2300 #### [facility] [address] [place], [address] Nucleated RBC (Bld) [#/Vol] 0.2 10*3/uL Normal 0-5 [facility] Comment on above: Performed By: #### L 100.0100, L501.2300 #### [facility] [address] [place], [address] Platelet mean volume (Bld) [Entitic vol] 8.6 fL Normal 6.2-12.0 [facility] Comment on above: Performed By: #### L 100.0100, L501.2300 #### [facility] [address] [place], [address] Platelets (Bld) [#/Vol] 265 10*3/uL Normal 150-450 [facility] Comment on above: Performed By: #### L 100.0100, L501.2300 #### [facility] [address] [place], [address] RBC (Bld) [#/Vol] 4.97 10*6/uL Normal 4.6-6.2 [facility] Comment on above: Performed By: #### L 100.0100, L501.2300 #### [facility] [address] [place], [address] RDW SD 49.8 fl High 35.1-43.9 [facility] Comment on above: Performed By: #### L 100.0100, L501.2300 #### [facility] [address] [place], [place], [address] WBC (Bld) [#/Vol] 14.2 10*3/uL High 4.4-11.0 [facility] Comment on above: Performed By: #### L 100.0100, L501.2300 #### [facility] [address] [place], [place], [address] Consultation - Intensiviston 08-28-2024 Consultation - Admissions Officer [facility] Medical Records Department [address] [place] [address] Consultation - Admissions Officer 08/28/24 1346 MR#: [id number] Acct: [id number] Name: BE ROBERTS Rep #: [id number] : 1975 49 From: Myke Christianson MD PCP: Dr. Artur Mariano, DO Status:ADM IN Location: ICU ICU03-1 HPI Consult Data Date of Consult: 08/28/24 HPI Narrative HPI Narrative: BE ROBERTS, is a 49 M who presents [facility] Medical History GERD (gastroesophageal reflux disease) IBS (irritable bowel syndrome) Hearing problem Back problem Asthma Arthritis Acute myofascial strain of lumbar region Bee sting reaction Acute conjunctivitis, left eye COVID-19 Contact with and (suspected) exposure to other viral communicable diseases Infected sebaceous cyst of skin Encounter for screening for COVID-19 Encounter for screening for COVID-19 URI (upper respiratory infection) HTN (hypertension) Home Medications ???Medication ???Instructions ???Recorded ???Last Taken ???Type omeprazole 40 mg capsule,delayed 40 mg PO DAILY PRN stomach upset 07/06/14 08/10/15 05:00 History release furosemide 20 mg tablet 20 mg PO DAILY PRN swelling 07/16/24 Unknown History sertraline 100 mg tablet 50 mg PO DAILY 07/16/24 Unknown History albuterol sulfate 90 mcg/actuation 2 puff inhalation Q6H PRN 08/13/24 Unknown History aerosol inhaler shortness of breath or wheezing fluticasone 250 mcg-salmeterol 50 1 inh inhalation BID 08/13/24 Unknown History mcg/dose blistr powdr for inhalation (Advair Diskus) handicap placard #1 ea 08/13/24 Unknown Rx hydroxyzine pamoate 25 mg capsule 25 mg PO QHS 08/13/24 Unknown History metformin 500 mg tablet 500 mg PO BID #180 tabs 08/13/24 Unknown Rx tizanidine 6 mg capsule 4 mg PO QHS PRN muscle spasticity 08/13/24 Unknown History valsartan 320 1 tab PO DAILY 08/28/24 Unknown History mg-hydrochlorothiazi de 25 mg tablet valsartan 40 mg tablet 25 mg PO ONCE 08/28/24 Unknown History Allergy/AdvReac Type Severity Reaction Status Date / Time lisinopril Allergy throat Verified 08/27/24 23:06 itchy Family History Mother Breast cancer Angina at rest Father Hypertension Alcoholism Surgical History H/O arthroscopy of right knee H/O repair of rotator cuff Social History household members: spouse and children housing: house current occupational status: disabled Smoking Status: Current every day smoker tobacco type: cigarettes Tobacco: How many years used: 9 alcohol intake: current alcohol intake frequency: 0-2 drinks per day Alcohol type: beer substance use type: does not use what type of physical activity do you participate in: additional details: stretching seatbelt use: always do you feel safe at home: Yes Objective Data Objective Data Vital Signs: Vital Signs Last response 3 Temperature 36.4 C L 08/28/24 13:00 Temperature Source Temporal 08/28/24 13:00 Pulse Rate 78 08/28/24 13:00 Pulse Strength Normal (2+) 08/28/24 10:00 Respiratory Rate 19 H 08/28/24 13:00 Respiratory Effort Normal, Non-Labored 08/28/24 12:00 Respiratory Depth Normal 08/28/24 12:00 Respiratory Pattern Normal 08/28/24 12:00 Blood Pressure 152/79 H 08/28/24 13:00 Blood Pressure Mean 103 08/28/24 13:00 Blood Pressure Source Monitor 08/28/24 12:00 Blood Pressure Position Semi-Fowlers 08/28/24 12:00 Blood Pressure Location Right Forearm 08/28/24 12:00 Pulse Ox 94 08/28/24 13:00 Oxygen Delivery Method Nasal Cannula 08/28/24 13:00 Oxygen Flow Rate (L/min) 5 08/28/24 13:00 Fraction of Inspired Oxygen (FIO2) 40 08/28/24 09:00 I O: I O Last 24 Hours 3 08/27/24 08/28/24 08/28/24 23:59 11:59 23:59 Intake Total 1162 / 1274 112 / 1274 Output Total 500 / 500 Balance 662 / 774 112 / 774 I O: Total Stay 3 08/27/24 23:05 thru 08/28/24 12:50 Intake Total 1274 Output Total 500 Balance 774 Current Meds Ordered / Administered: Current meds ordered / Administered 3 Generic Name Dose Route Start Last Admin Trade Name Freq PRN Reason Stop Dose Admin Acetaminophen 650 mg 08/28/24 05:48 Acetaminophen 325 Mg Tablet PO Q6H PRN PRN Pain 1-10 Or Fever>100.7 Albuterol/Ipratropiu m 3 ml 08/28/24 06:08 08/28/24 07:33 Ipratropium/Albutero l Sulfate 3 Ml Ampul.Neb INHALATION 3 ml Q4H.RT PRN Administration SHORTNESS OF BREATH Dexamethasone Sodium Phosphate 4 mg 08/28/24 06:00 08/28/24 06:18 Dexamethasone 4 Mg/Ml Vial IV 4 mg Q8 LIBBY Administration Enoxaparin Sodium 40 mg 08/28/24 10:00 08/28/24 09:42 Enoxaparin (more content not included)... Normal [facility] Emergency Department Summary on 08-28-2024 Emergency Department Summary [facility] Medical Records Department [address] [place] [id number] Emergency Department Summary 08/28/24 MR#: [id number] Acct: [id number] Name: BE ROBERTS Rep #: [id number] : 1975 49 From: Levar Jimenes DO PCP: Dr. Artur Mariano, Status:ADM IN Location: ICU ICU03-1 HPI History of Present Illness Chief Complaint: Sore Throat Informant: patient and spouse/S.O. Narrative Narrative: Patient is a 49-year-old male with past medical history of hypertension GERD and odw-bokufqx-moxgzqbn t diabetes. He states for the past 2 weeks he has had cold-like symptoms with congestion and sore throat. He states however in the last 2 to 3 days his sore throat has worsened and he now has difficulty swallowing his saliva and a change in voice. With the worsening symptoms he is concern for potential infection and therefore comes in for evaluation [facility] Medical History GERD (gastroesophageal reflux disease) IBS (irritable bowel syndrome) Hearing problem Back problem Asthma Arthritis Acute myofascial strain of lumbar region Bee sting reaction Acute conjunctivitis, left eye COVID-19 Contact with and (suspected) exposure to other viral communicable diseases Infected sebaceous cyst of skin Encounter for screening for COVID-19 Encounter for screening for COVID-19 URI (upper respiratory infection) HTN (hypertension) Home Medications ???Medication ???Instructions ???Recorded ???Last Taken ???Type omeprazole 40 mg capsule,delayed 40 mg PO DAILY PRN stomach upset 07/06/14 08/10/15 05:00 History release furosemide 20 mg tablet 20 mg PO DAILY PRN swelling 07/16/24 Unknown History sertraline 100 mg tablet 50 mg PO DAILY 07/16/24 Unknown History albuterol sulfate 90 mcg/actuation 2 puff inhalation Q6H PRN 08/13/24 Unknown History aerosol inhaler shortness of breath or wheezing fluticasone 250 mcg-salmeterol 50 1 inh inhalation BID 08/13/24 Unknown History mcg/dose blistr powdr for inhalation (Advair Diskus) handicap placard #1 ea 08/13/24 Unknown Rx hydroxyzine pamoate 25 mg capsule 25 mg PO QHS 08/13/24 Unknown History metformin 500 mg tablet 500 mg PO BID #180 tabs 08/13/24 Unknown Rx tizanidine 6 mg capsule 4 mg PO QHS PRN muscle spasticity 08/13/24 Unknown History valsartan 320 1 tab PO DAILY 08/28/24 Unknown History mg-hydrochlorothiazi de 25 mg tablet valsartan 40 mg tablet 25 mg PO ONCE 08/28/24 Unknown History Allergy/AdvReac Type Severity Reaction Status Date / Time lisinopril Allergy throat Verified 08/27/24 23:06 itchy Family History Mother Breast cancer Angina at rest Father Hypertension Alcoholism Surgical History H/O arthroscopy of right knee H/O repair of rotator cuff Social History household members: spouse and children housing: house current occupational status: disabled Smoking Status: Current every day smoker tobacco type: cigarettes Tobacco: How many years used: 9 alcohol intake: current alcohol intake frequency: 0-2 drinks per day Alcohol type: beer substance use type: does not use what type of physical activity do you participate in: additional details: stretching seatbelt use: always do you feel safe at home: Yes ROS ROS ED Constitutional Constitutional ED: Denies chills or fever(s) Eyes Eyes: Denies blurry vision or change in vision ENT ENT ED: Reports rhinorrhea and sore throat Cardiovascular Cardiovascular: Denies chest pain Respiratory/Chest Respiratory/Chest: Denies cough or dyspnea Gastrointestinal Gastrointestinal: Reports nausea; Denies abdominal pain, diarrhea or vomiting Genitourinary Genitourinary ED: Denies dysuria Musculoskeletal Musculoskeletal: Reports neck pain Integumentary Denies rash Neurologic Neurologic: Denies headache(s) Hematologic/Lymphati c Hematologic/Lymphati c: Denies easy bleeding or easy bruising Allergic/Immunologic Allergic/Immunologic ED: Denies mouth swelling or tongue swelling EXAM Physical Exam Const Vital Signs: 08/27/24 23:06 08/28/24 01:30 08/28/24 01:40 Temperature 99.2 F H Temperature Source Oral Pulse Rate 87 95 Respiratory Rate 20 H 22 H Blood Pressure 129/104 H 164/78 H Blood Pressure Mean 112 106 Pulse Ox 98 94 80 Oxygen Delivery Method Room Air Nasal Cannula Oxygen Flow Rate (L/min) 4 08/28/24 01:47 08/28/24 03:30 Temperature Temperature Source Pulse Rate 88 95 Respiratory Rate 18 18 Blood Pressure Blood Pressure Mean Pulse Ox 91 93 Oxygen Delivery Method Nasal Cannula Nasal Cannula Oxygen Flow R (more content not included)... Normal [facility] H AND P Exam - Hospitaliston 08-28-2024 H&P Exam - Hospitalist [facility] Medical Records Department [address] [place] [address] H P Exam - Hospitalist 08/28/24 0348 MR#: [id number] Acct: [id number] Name: BE ROBERTS Rep #: [id number] : 1975 49 From: Anthony Luong MD PCP: Dr. Artur Mariano, DO Status:ADM IN Location: ICU ICU03-1 HPI - General General Date of Admission: 08/28/24 Date of Service: 08/28/24 Chief Complaint: Sore throat for 2 weeks with instances of choking and difficulty swallowing, cough HPI Narrative BE ROBERTS, is a 49 M came to ED with sore throat for about 2 weeks. Patient also has fever and chills for last 2 to 3 days. Symptoms started with sore throat, intermittent cough 2 weeks ago. This worsened with difficulty in swallowing or delayed swallowing water or solid food and change in voice, raspy voice difficult to understand. Patient has history of snoring chronic from sleep apnea but is getting more loud snoring last 2 weeks. Patient also felt sometimes difficulty in swallowing saliva. He has history of sleep apnea and was prescribed CPAP but is not using it. Sometimes he states he wakes up feeling like cold or difficulty breathing. In ED, patient had CT soft tissue throat which shows compromised airway with moderate oropharyngeal airway narrowing. Patient further admitted. [facility] Medical History GERD (gastroesophageal reflux disease) IBS (irritable bowel syndrome) Hearing problem Back problem Asthma Arthritis Acute myofascial strain of lumbar region Bee sting reaction Acute conjunctivitis, left eye COVID-19 Contact with and (suspected) exposure to other viral communicable diseases Infected sebaceous cyst of skin Encounter for screening for COVID-19 Encounter for screening for COVID-19 URI (upper respiratory infection) HTN (hypertension) Home Medications ???Medication ???Instructions ???Recorded ???Last Taken ???Type omeprazole 40 mg capsule,delayed 40 mg PO DAILY PRN stomach upset 07/06/14 08/10/15 05:00 History release furosemide 20 mg tablet 20 mg PO DAILY PRN swelling 07/16/24 Unknown History sertraline 100 mg tablet 50 mg PO DAILY 07/16/24 Unknown History albuterol sulfate 90 mcg/actuation 2 puff inhalation Q6H PRN 08/13/24 Unknown History aerosol inhaler shortness of breath or wheezing fluticasone 250 mcg-salmeterol 50 1 inh inhalation BID 08/13/24 Unknown History mcg/dose blistr powdr for inhalation (Advair Diskus) handicap placard #1 ea 08/13/24 Unknown Rx hydroxyzine pamoate 25 mg capsule 25 mg PO QHS 08/13/24 Unknown History metformin 500 mg tablet 500 mg PO BID #180 tabs 08/13/24 Unknown Rx tizanidine 6 mg capsule 4 mg PO QHS PRN muscle spasticity 08/13/24 Unknown History valsartan 320 1 tab PO DAILY 08/28/24 Unknown History mg-hydrochlorothiazi de 25 mg tablet valsartan 40 mg tablet 25 mg PO ONCE 08/28/24 Unknown History Allergy/AdvReac Type Severity Reaction Status Date / Time lisinopril Allergy throat Verified 08/27/24 23:06 itchy Family History Mother Breast cancer Angina at rest Father Hypertension Alcoholism Surgical History H/O arthroscopy of right knee H/O repair of rotator cuff Social History household members: spouse and children housing: house current occupational status: disabled Smoking Status: Current every day smoker tobacco type: cigarettes Tobacco: How many years used: 9 alcohol intake: current alcohol intake frequency: 0-2 drinks per day Alcohol type: beer substance use type: does not use what type of physical activity do you participate in: additional details: stretching seatbelt use: always do you feel safe at home: Yes ROS ROS Narrative Constitutional: Reports fatigue and weakness. No fever. HEENT: Reports systems reviewed and no addt'l complaints, except as documented Respiratory/Chest: As described in HPI CVS: Denies history of MO. No chest pain. Gastrointestinal: Denies coffee ground emesis, hematemesis or vomiting Genitourinary: Denies burning urination or new urinary tract symptoms Musculoskeletal: Denies acute joint pain or limited range of motion. No acute injury Neurologic: Denies seizure-like symptoms. skin: No ulcer. No rash Endocrinology: Reports systems reviewed and no addt'l complaints, except as documented Hematologic/Lymphati c: Reports systems reviewed and no addt'l complaints, except as documented Rest 14 ROS are negative except as mentioned in HPI Vital Signs Vital Signs Vital Signs: 08/27/24 23:06 08/28/24 01:30 08/28/24 01:40 Temperature 99.2 F H Temperature Source Oral Pulse Rate 87 95 Respiratory Rate 20 H 22 H (more content not included)... Normal [facility] Lactic Acidon 08-28-2024 Lactate [Moles/Vol] 1.2 mmol/L Normal 0.4-1.9 [facility] Comment on above: Order Comment: Y Performed By: #### L 100.0100, L501.2300 #### [facility] [address] [place], [address] M100.677on 08-28-2024 M100.677 Negative Normal [facility] Comment on above: Performed By: #### M 100.677 ####[facility] [address] [place], [address] RESPIRATORY PANEL MOLECULARo n 08-28-2024 RP PANEL ADENOVIRUS Not Detected INFLUENZA A Not Detected INFLUENZA A (SUBTYPE H1) Not Detected INFLUENZA A (SUBTYPE H3) Not Detected INFLUENZA B Not Detected HUMAN METAPHNEUMO Not Detected PARAINFLUENZA 1 Not Detected PARAINFLUENZA 2 Not Detected PARAINFLUENZA 3 Not Detected PARAINFLUENZA 4 Not Detected RHINOVIRUS Not Detected RSV A Not Detected RSV B Not Detected Normal [facility] Comment on above: Performed By: #### L 501.080 #### [facility] [address] [place], [address] Soft Tissue Neck WITH Contra ston 08-28-2024 Soft Tissue Neck WITH Contrast [facility] Services [address] [place] [address] Soft Tissue Neck WITH Contrast MR#: [id number] Acct: [id number] Name: BE ROBERTS Rep #: [id number] : 1975 M 49 From: Levar Adan MD PCP: Dr. Artur Mariano DO Status: [facility] Study: Soft Tissue Neck WITH Contrast Date of Exam: Exam# [id number] Ordering Dr: Levar Jimenes DO [id number] EXAM: CT NECK WITH INTRAVENOUS CONTRAST CLINICAL INDICATION: ? right peritonsillar abscess TECHNIQUE: Helically acquired images were obtained of the neck with intravenous contrast. CTDIvol = ( 31.28 ) mGy, DLP = ( 991.96 ) mGycm This CT exam was performed using one or more of the following dose reduction techniques: automated exposure control, adjustment of the mA and/or kV according to patient size, and/or use of iterative reconstruction technique. CONTRAST: IV 75mL [id number] COMPARISON: No relevant prior studies available. FINDINGS: NASOPHARYNX: Unremarkable. SUPRAHYOID NECK: Fullness of the tonsillar beds may represent inflammation/tonsill itis, bilaterally symmetric. There is associated marked oropharyngeal airway narrowing (image 71 series 2). No peritonsillar or retropharyngeal abscess identified. INFRAHYOID NECK: Unremarkable. The larynx, hypopharynx and supraglottis are unremarkable. SUBMANDIBULAR/PAROTI D GLANDS: Unremarkable. Glands are normal in size. THYROID: Unremarkable. No enlarged or calcified nodules. BONES/JOINTS: No acute fracture. SOFT TISSUES: Unremarkable. VASCULATURE: No acute findings. LYMPH NODES: Unremarkable. No lymphadenopathy. LUNG APICES: Unremarkable as visualized. CT/Soft Tissue Neck WITH Contrast IMPRESSION: Fullness of the tonsillar beds may represent inflammation/tonsill itis, bilaterally symmetric. There is associated marked oropharyngeal airway narrowing (image 71 series 2). Electronically Signed: Levar Adan MD at 3:18 EDT , CC: Dr. Artur Mariano DO; Levar Jimenes DO C D Reactor Operator: Signed Normal [facility] Thyroid Stim Hormone (TSH)on 08-28-2024 TSH 0.440 uIU/mL Normal 0.358-3.740 [facility] Comment on above: Performed By: #### L 100.0100, L501.2300 #### [facility] [address] [place], [address] M100.678on 08-27-2024 M100.678 Pending SARS-CoV-2 (COVID 19) Negative INFLUENZA A Negative INFLUENZA B Negative RSV PCR Negative Normal [facility] Comment on above: Performed By: #### L 501.080 #### [facility] [address] [place], [address] Internal Medicine Office Vis iton 08-13-2024 Internal Medicine Office Visit [facility] [address] [place] [address] [place] [address] OFFICE VISIT Date of Service: 08/13/24 MR#: [id number] Acct: [id number] Name: BE ROBERTS Rep #: [id number] : 1975 Provider: Dr. Artru avila DO Age/Sex: 49/M Location: [facility] [place] Status: Signed Intake Vital Signs 10/26/23 09:08 07/18/24 10:07 08/13/24 09:39 Height 5 ft 7 in 5 ft 7 in 5 ft 7 in Weight: 359 lb BMI 56.2 BP 128/84 H Blood Pressure Location Lt brachial Position Sitting Respiration 16 Pulse 90 Pulse Source Monitor Temp 97.6 F L Temp Source Temporal Pulse Oximetry (%) 94 Oxygen Delivery Method room air Intake Visit Reasons: EST NEW PT - PPWK SENT Chief Complaint: est care Medical Technician Assistant Required: No Accompanied by: Self Is patient in pain?: Yes (lower back ) Pain scale (1-10): 5 Allergies lisinopril Allergy (Verified 08/13/24 09:30) throat itchy Medications ???Medication ???Instructions ???Recorded ???Confirmed ???Type omeprazole 40 mg capsule,delayed 40 mg PO DAILY 07/06/14 08/13/24 History release furosemide 20 mg tablet 20 mg PO DAILY PRN swelling 07/16/24 08/13/24 History sertraline 100 mg tablet 100 mg PO DAILY 07/16/24 08/13/24 History albuterol sulfate 90 mcg/actuation 2 puff inhalation Q6H PRN 08/13/24 08/13/24 History aerosol inhaler fluticasone 250 mcg-salmeterol 50 1 inh inhalation BID 08/13/24 08/13/24 History mcg/dose blistr powdr for inhalation (Advair Diskus) handicap placard #1 ea 08/13/24 08/13/24 Rx hydroxyzine pamoate 25 mg capsule 25 mg PO QHS 08/13/24 08/13/24 History metformin 500 mg tablet 500 mg PO BID #180 tabs 08/13/24 08/13/24 Rx potassium chloride 20 mEq oral 20 meq PO QDAY 08/13/24 08/13/24 History packet semaglutide 0.25 mg or 0.5 mg (2 0.25 mg (0.368 mL) subcut QWEEK #3 08/13/24 08/13/24 Rx mg/3 mL) subcutaneous pen injector mL (Ozempic) tizanidine 6 mg capsule 4 mg PO QHS PRN muscle spasticity 08/13/24 History valsartan 40 mg tablet 40 mg PO ONCE #90 tabs 08/13/24 08/13/24 Rx PFSH Medical History (Updated 08/13/24 @ 09:50 by Hortencia Roman MA) GERD (gastroesophageal reflux disease) IBS (irritable bowel syndrome) Hearing problem Back problem Asthma Arthritis Acute myofascial strain of lumbar region Bee sting reaction Acute conjunctivitis, left eye COVID-19 Contact with and (suspected) exposure to other viral communicable diseases Infected sebaceous cyst of skin Encounter for screening for COVID-19 Encounter for screening for COVID-19 URI (upper respiratory infection) HTN (hypertension) Surgical History H/O arthroscopy of right knee H/O repair of rotator cuff Family History (Updated 08/13/24 @ 09:35 by Hortencia Roman MA) Mother Breast cancer Angina at rest Father Hypertension Alcoholism Social History (Updated 10/16/24 @ 09:39 by Hortencia Roman MA) household members: spouse and children housing: house current occupational status: disabled Smoking Status: Current every day smoker tobacco type: cigarettes Tobacco: How many years used: 9 alcohol intake: current alcohol intake frequency: 0-2 drinks per day Alcohol type: beer substance use type: does not use what type of physical activity do you participate in: additional details: stretching seatbelt use: always do you feel safe at home: Yes HPI HPI Chief Complaint: est care Details: BE ROBERTS, is a 49 M who presents to the office today for a visit to establish care. This is a morbidly obese male who is having trouble with severe back pain severe knee pain and chronic cellulitis. He has also had some recent voice changes. He had some blood work drawn in the hospital which showed a random blood sugar of 180 and with his size I suspect he is diabetic. Exam Const General: cooperative Nutritional Appearance: obese morbidly obese [facility] Head: normal to inspection Ears: hearing grossly normal bilaterally Mouth: oral mucosae normal and other (Abnormally thick oral mucous.) Eyes General: appearance normal, both eyes and all related structures Neck Neck: normal visual inspection Neck mass: No Resp Effort Inspection: normal respiratory effort and symmetric chest movement Auscultation: Bilateral: Clear to Auscultation Cardio Rate: regular rate Rhythm: regular rhythm Heart Sounds: no murmurs GI Inspection: large pannus and obesity Musc Musculoskeletal: Yes joint tenderness (Both knees.) Skin General: no rashes or lesions noted Extrem General: edema Laterality: bilateral Severity: non-pitting and 2+ Psych Appearance: grossly normal Mood: congruent mood Affect: normal affect Thought Content: normal Judgment: fair Results POC A1C POC A1C 8.2 % Last Edit by Hortencia Roman MA (more content not included)... Normal [facility] Culture, Blood (WB)on 2023 CUB Blood cultures x2 from two different sites No growth in 5 days. Normal [facility] Comment on above: Performed By: #### L 501.080 #### [facility] [address] [place], [address] Knee 4 or More Viewson 07-18 Knee 4 or More Views [facility] [address] [place] [address] Knee 4 or More Views MR#: [id number] Acct: [id number] Name: BE ROBERTS Rep #: [id number] : 1975 M 49 From: Kris Ruiz MD PCP: Dr. Avinash Pace DO Status: DEP AMB Study: Knee 4 or More Views Date of Exam: 07/18/24 Exam# [id number] Ordering Dr: Francisco Pond DO [id number] STUDY: X-RAY - RIGHT KNEE REASON FOR EXAM: Male, 49 years old. Pain. TECHNIQUE: 4 view(s) of the knee. COMPARISON: October 18, 2009 FINDINGS: Normal visualized distal femur. Normal visualized proximal tibia and fibula. Normal proximal tibiofibular articulation. Mild medial compartmental arthrosis. Normal lateral femorotibial compartment. Slight lateral tilt of the patella. Small joint effusion. RAD/Knee 4 or More Views IMPRESSION: Medial compartmental arthrosis, slight lateral tilt of the patella and small joint effusion. Electronically Signed: Kris Ruiz MD at 11:03 EDT , CC: Dr. Francisco Pond DO; Dr. Avinash Pace DO C D Reactor Operator: Signed Normal [facility] Knee 4 or More Views [facility] [address] [place] [address] Knee 4 or More Views MR#: [id number] Acct: [id number] Name: BE ROBERTS Rep #: [id number] : 1975 M 49 From: Kris Ruiz MD PCP: Dr. Avinash Pace DO Status: DEP AMB Study: Knee 4 or More Views Date of Exam: 07/18/24 Exam# [id number] Ordering Dr: Francisco Pond DO [id number] STUDY: X-RAY - LEFT KNEE REASON FOR EXAM: Male, 49 years old. Pain. TECHNIQUE: 4 view(s) of the knee. COMPARISON: None. FINDINGS: Normal visualized distal femur. Normal visualized proximal tibia and fibula. Normal proximal tibiofibular articulation. Small superior patellar spur. Mild medial compartmental narrowing. Normal lateral femorotibial compartment. Slight lateral tilt of patella with normal patellofemoral compartment. Small joint effusion. RAD/Knee 4 or More Views IMPRESSION: Small superior patellar spur, medial compartmental arthrosis, slight lateral tilt of the patella and small joint effusion. Electronically Signed: Kris Ruiz MD at 11:03 EDT Reading Location ID and State: [address] [place] [address] , Service support , CC: Dr. Francisco Pond DO; Dr. Avinash Pace DO C D Reactor Operator: Signed Normal [facility] Orthopedic Visit Reporton Orthopedic Visit Report [facility] [address] [place] [address] OFFICE VISIT Date of Service: 07/18/24 MR#: [id number] Acct: [id number] Name: BE ROBERTS FAYE AMALIA Rep #: [id number] : 1975 Provider: Dr. Francisco veras DO Age/Sex: 49/M Location: [facility] Status: Signed Intake Vital Signs 10/26/23 09:08 07/16/24 10:40 07/18/24 10:07 Height 5 ft 7 in 5 ft 7 in 5 ft 7 in Weight: 341 lb 6 oz BMI 53.4 Intake Visit Reasons: BL KNEES Accompanied by: Is patient in pain?: Yes Pain scale (1-10): 10 Allergies lisinopril Allergy (Verified 07/18/24 10:09) throat itchy Medications ???Medication ???Instructions ???Recorded ???Confirmed ???Type omeprazole 40 mg capsule,delayed 40 mg PO DAILY 07/06/14 07/18/24 History release valsartan 320 1 tab PO DAILY 10/03/21 07/18/24 History mg-hydrochlorothiazi de 25 mg tablet tizanidine 6 mg capsule 6 mg PO QHS PRN muscle spasticity 07/17/23 07/18/24 Rx #30 caps cephalexin 500 mg capsule 500 mg PO BID 7 days #14 caps 07/16/24 07/18/24 Rx furosemide 20 mg tablet 20 mg PO DAILY PRN swelling 07/16/24 07/18/24 History sertraline 100 mg tablet 100 mg PO DAILY 07/16/24 07/18/24 History etodolac 500 mg tablet 500 mg PO BID #60 tabs 07/18/24 07/18/24 Rx PFSH Medical History Acute myofascial strain of lumbar region Bee sting reaction Acute conjunctivitis, left eye COVID-19 Contact with and (suspected) exposure to other viral communicable diseases Infected sebaceous cyst of skin Encounter for screening for COVID-19 Encounter for screening for COVID-19 URI (upper respiratory infection) HTN (hypertension) Surgical History H/O arthroscopy of right knee H/O repair of rotator cuff Family History Mother Breast cancer Father Hypertension Social History household members: spouse and children housing: house current occupational status: employed Smoking Status: Current every day smoker tobacco type: cigarettes Tobacco: How many years used: 9 alcohol intake: current alcohol intake frequency: holidays/special occasions only substance use type: does not use what type of physical activity do you participate in: additional details: stretching seatbelt use: always do you feel safe at home: Yes HPI BL KNEES Details: This documentation accurately reflects the service provided and the decisions made by me, Dr. Francisco Pond, DO 07/18/24 1007. Part of today???s visit was documented by Gita FALCON, acting as scribe. BE ROBERTS is a 49 year old M here today for Bilateral knee pain. BMI 53.4 patient states his knees have been bothering him for about 2.5 weeks. Patient states no injury to his knees. Patient right knee is sore and hurts all over. Left knee is swollen, hurts. Right knee is worse. Patient states the right knee will give out and he is hearing a popping sound when he walks. Patient left knee will go out on him as well. Patient hasn't had any recent PT for his knees. Patient tries to use ice and heat and it don't help. Patient takes ibuprofen 2-200mg as needed. Patient has had 2 arthroscopic surgeries on the right knee and the last one was 13 years ago and the first surgery was when he was a teenager from a sports injury. He never had an injury or suregry on the left knee. He does have cellulitis in the left ankle that his on antibiotics for that her started yesterday. Ortho Exam General General: Yes no acute distress Neurologic: Yes alert and Yes oriented x3 Psychologic: Yes reasonable and appropriate Right Knee Skin/Wound: No erythema, No ecchymosis and No swelling Homans Sign: No Knee ROM: Yes ROM-Extension -20 to 0 and Yes ROM-Flexion 0-140 (100) Examination: Yes Med jt line tenderness, Yes Lat jt line tenderness, No Jeffrey's Test, Yes TTP Pes Anserine and No Illiotibial band tenderness Stability: NML: Anterior Drawer, NML: Posterior Drawer, NML: Valgus 0, NML: Valgus 30, NML: Varus 0 and NML: Varus 30 Patella Translation: 1 KNEE: no effusion nonpainful arc of motion Left Knee Knee ROM: Yes ROM-Extension -20 to 0 and Yes ROM-Flexion 0-140 (100) Examination: Yes med jt line tenderness, Yes Lat jt line tenderness, No Crepitus, Yes Pain with flexion and No Jeffrey's Test Stability: NML: Anterior Drawer, NML: Posterior Drawer, NML: Valgus 30 and NML: Varus 30 Patella Translation: 1 KNEE: no effusion nonpainful arc of motion He does have swelling and erythema from mid leg down currently being treated for cellulitis Supplemental Info 07/18/2024 x-ray left knee: Mild narrowing of the medial compartment 07/18/2024 (more content not included)... Normal [facility] Basic Metabolic Profile (BMP )on 07-16-2024 BUN/CRE 12.5 RATIO Normal 10-20 [facility] Comment on above: Performed By: #### L 100.0100, L500.2500, L503.6005 ####[facility] [address] [place], [address] CA,Total 8.9 mg/dL Normal 8.5-10.1 [facility] Comment on above: Performed By: #### L 100.0100, L500.2500, L503.6005 ####[facility] [address] [place], [address] Chloride [Moles/Vol] 92 mmol/L Low 98-107 [facility] Comment on above: Performed By: #### L 100.0100, L500.2500, L503.6005 ####[facility] [address] [place], [address] CO2 [Moles/Vol] 32.0 mmol/L Normal 21.0-32.0 [facility] Comment on above: Performed By: #### L 100.0100, L500.2500, L503.6005 ####[facility] [address] [place], [address] Creatinine [Mass/Vol] 1.04 mg/dL Normal 0.70-1.30 [facility] Comment on above: Result Comment: The validity of the calculated GFR GFRAA in patients over 70 years has not been determined. Clinical correlation is essential. Performed By: #### L 100.0100, L500.2500, L503.6005 ####[facility] [address] [place], [address] ECRCL 120.92 ml/min Normal [facility] Comment on above: Performed By: #### L 100.0100, L500.2500, L503.6005 ####[facility] [address] [place], [address] EST GFR - AA 98 mL/min Normal >60 [facility] Comment on above: Result Comment: Afri can Yemeni GFR Calc Performed By: #### L 100.0100, L500.2500, L503.6005 ####[facility] [address] [place], [address] GAP 8 Normal 5-15 [facility] Comment on above: Performed By: #### L 100.0100, L500.2500, L503.6005 ####[facility] [address] [place], [address] GFR/1.73 sq M.predicted among non-blacks MDRD (S/P/Bld) [Vol rate/Area] 81 mL/min/{1.73_m2} Normal >60 [facility] Comment on above: Result Comment: Non- GFR Calc Performed By: #### L 100.0100, L500.2500, L503.6005 ####[facility] [address] [place], [address] Glucose [Mass/Vol] 183 mg/dL High 74-106 [facility] Comment on above: Result Comment: Fast ing Glucose result greater than or equal to 126 mg/dL suggests DIABETES MELLITUS per A.D.A. criteria. Performed By: #### L 100.0100, L500.2500, L503.6005 ####[facility] [address] [place], [address] Potassium [Moles/Vol] 3.5 mmol/L Normal 3.5-5.1 [facility] Comment on above: Performed By: #### L 100.0100, L500.2500, L503.6005 ####[facility] [address] [place], [address] Sodium [Moles/Vol] 132 mmol/L Low 136-145 [facility] Comment on above: Performed By: #### L 100.0100, L500.2500, L503.6005 ####[facility] [address] [place], [address] Urea nitrogen [Mass/Vol] 13 mg/dL Normal 7-18 [facility] Comment on above: Performed By: #### L 100.0100, L500.2500, L503.6005 ####[facility] [address] [place], [address] CBC W/Diff, Automatedon 06-29-2023 Absolute Lymph 2.29 X10 3/uL Normal 0.83-4.51 [facility] Comment on above: Performed By: #### L 100.0100, L500.2500, L503.6005 ####[facility] [address] [place], [address] Absolute Neut 6.0 X10 3/uL Normal 2.0-7.7 [facility] Comment on above: Performed By: #### L 100.0100, L500.2500, L503.6005 ####[facility] [address] [place], [address] Basophils/100 WBC (Bld) 1.1 % High 0-1 [facility] Comment on above: Performed By: #### L 100.0100, L500.2500, L503.6005 ####[facility] [address] [place], [address] Eosinophils/100 WBC (Bld) 2.7 % Normal 0-5 [facility] Comment on above: Performed By: #### L 100.0100, L500.2500, L503.6005 ####[facility] [address] [place], [address] Erythrocyte distribution width (RBC) [Ratio] 15.3 % High 11.6-14.6 [facility] Comment on above: Performed By: #### L 100.0100, L500.2500, L503.6005 ####[facility] [address] [place], [address] Hematocrit (Bld) [Volume fraction] 48.1 % Normal 40-54 [facility] Comment on above: Performed By: #### L 100.0100, L500.2500, L503.6005 ####[facility] [address] [place], [address] Hemoglobin (Bld) [Mass/Vol] 15.6 g/dL Normal 13.0-16.5 [facility] Comment on above: Performed By: #### L 100.0100, L500.2500, L503.6005 ####[facility] [address] [place], [address] IG% 1.000 High 0.0-0.9 [facility] Comment on above: Result Comment: IG% - Immature Granulocytes (promyelocytes, myelocytes and metamyelocytes) > 1% indicates that a LEFT SHIFT is Present. Performed By: #### L 100.0100, L500.2500, L503.6005 ####[facility] [address] [place], [address] Lymphocytes/100 WBC (Bld) 22.9 % Normal 19-41 [facility] Comment on above: Performed By: #### L 100.0100, L500.2500, L503.6005 ####[facility] [address] [place], [address] MCH (RBC) [Entitic mass] 28.7 pg Normal 27.0-32.0 [facility] Comment on above: Performed By: #### L 100.0100, L500.2500, L503.6005 ####[facility] [address] [place], [address] MCHC (RBC) [Mass/Vol] 32.4 g/dL Normal 32-36 [facility] Comment on above: Performed By: #### L 100.0100, L500.2500, L503.6005 ####[facility] [address] [place], [address] MCV (RBC) [Entitic vol] 88.6 fL Normal 80-94 [facility] Comment on above: Performed By: #### L 100.0100, L500.2500, L503.6005 ####[facility] [address] [place], [address] Monocytes/100 WBC (Bld) 12.0 % High 0-10 [facility] Comment on above: Performed By: #### L 100.0100, L500.2500, L503.6005 ####[facility] [address] [place], [address] Neutrophils/100 WBC (Bld) 60.3 % Normal 47-70 [facility] Comment on above: Performed By: #### L 100.0100, L500.2500, L503.6005 ####[facility] [address] [place], [address] Nucleated RBC (Bld) [#/Vol] 0 10*3/uL Normal 0-5 [facility] Comment on above: Performed By: #### L 100.0100, L500.2500, L503.6005 ####[facility] [address] [place], [address] Platelet mean volume (Bld) [Entitic vol] 9.0 fL Normal 6.2-12.0 [facility] Comment on above: Performed By: #### L 100.0100, L500.2500, L503.6005 ####[facility] [address] [place], [address] Platelets (Bld) [#/Vol] 241 10*3/uL Normal 150-450 [facility] Comment on above: Performed By: #### L 100.0100, L500.2500, L503.6005 ####[facility] [address] [place], [address] RBC (Bld) [#/Vol] 5.43 10*6/uL Normal 4.6-6.2 [facility] Comment on above: Performed By: #### L 100.0100, L500.2500, L503.6005 ####[facility] [address] [place], [address] RDW SD 49.2 fl High 35.1-43.9 [facility] Comment on above: Performed By: #### L 100.0100, L500.2500, L503.6005 ####[facility] [address] [place], [address] WBC (Bld) [#/Vol] 10.0 10*3/uL Normal 4.4-11.0 [facility] Comment on above: Performed By: #### L 100.0100, L500.2500, L503.6005 ####[facility] [address] [place], [address] Emergency Department Summary on 07-16-2024 Emergency Department Summary [facility] Medical Records Department [address] [place] [address] Emergency Department Summary 07/16/24 MR#: [id number] Acct: [id number] Name: BE ROBERTS Rep #: [id number] : 1975 49 From: Farzad Dinero DO PCP: Dr. Avinash Pace DO Status:REG ER Location: ED ADDENDUM by Dr. Farzad Dinero DO on 07/16/24 at 1314 Patient CBC reviewed showed no evidence leukocytosis white blood count normal at 10, hemoglobin was 15.6, platelet count normal at 241. Patient sodium was noted 132, potassium normal 3.5, creatinine normal at 1.04. Patient lactic acid normal at 1.4. Patient's venous Doppler was reviewed and showed no evidence of DVT per the preliminary report. Patient's x-ray showed diffuse soft tissue swelling. On reevaluation the patient his compartments remain soft and compressible DP pulses 2+/4 in the bilateral lower extremities. Patient will be placed on Keflex this was sent to his pharmacy. He is advised to return with worsening redness and swelling and pain while on antibiotics. He is advised to follow-up with his primary care physician outpatient setting otherwise. He is agreeable this plan as well as his significant other and for members at bedside. All question concerns answered he is discharged home in stable condition. Well 07/16/24 1314 Cosigner Signature (if applicable): cc: Dr. Avinash Pace DO * Signed HPI History of Present Illness Chief Complaint: Lower Extremity Injury Narrative Narrative: Patient is a 49-year-old male past medical history of hypertension, BMI of 51.7 who presents to the emergency department with chief complaint of left lower extremity swelling and redness. 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 According to the patient he had not had any new injuries he states that he had old injury a year ago where he rolled his ankle and that is why he was following up with this particular provider in the outpatient setting today. Patient denies any history of blood clots denies any recent travel history. According to significant other at bedside they noted that his left lower leg has been red for the past 2 [address] [facility] Medical History Acute myofascial strain of lumbar region Bee sting reaction Acute conjunctivitis, left eye COVID-19 Contact with and (suspected) exposure to other viral communicable diseases Infected sebaceous cyst of skin Encounter for screening for COVID-19 Encounter for screening for COVID-19 URI (upper respiratory infection) HTN (hypertension) Home Medications ???Medication ???Instructions ???Recorded ???Last Taken ???Type omeprazole 40 mg capsule,delayed 40 mg PO DAILY 07/06/14 08/10/15 05:00 History release bisoprolol fumarate 5 mg tablet 5 mg PO DAILY 11/03/20 Unknown History valsartan 320 1 tab PO DAILY 10/03/21 Unknown History mg-hydrochlorothiazi de 25 mg tablet tizanidine 6 mg capsule 6 mg PO QHS PRN muscle spasticity 07/17/23 Unknown Rx #30 caps furosemide 20 mg tablet 20 mg PO DAILY PRN swelling 07/16/24 Unknown History sertraline 100 mg tablet 100 mg PO DAILY 07/16/24 Unknown History Allergy/AdvReac Type Severity Reaction Status Date / Time lisinopril Allergy throat Verified 07/16/24 10:40 itchy Family History Mother Breast cancer Father Hypertension Surgical History H/O arthroscopy of right knee H/O repair of rotator cuff Social History household members: spouse and children housing: house current occupational status: employed Smoking Status: Current every day smoker tobacco type: cigarettes Tobacco: How many years used: 9 alcohol intake: current alcohol intake frequency: holidays/special occasions only substance use type: does not use what type of physical activity do you participate in: additional details: stretching seatbelt use: always do you feel safe at home: Yes ROS ROS ED ROS Narrative Constitutional: Denies any fevers, chills, headaches, lightness, dizziness Eyes: Denies any change in vision double vision blurry vision Cardiovascular: Denies chest pain or palpitations Respiratory: Denies coughing wheezing shortness of breath Abdomen: Denies abdominal pain nausea vomit diarrhea : Denies any urinary symptoms Neurological: Denies numbness, weakness, tingling Musculoskeletal: Complains of left lower extremity swelling as noted above Skin: Complains of redness of the left lower extremity as noted above EXAM Physical Exam Narrative Exam Narrative: (more content not included)... Normal [facility] Lactic Acidon 07-16-2024 Lactate [Moles/Vol] 1.4 mmol/L Normal 0.4-1.9 [facility] Comment on above: Order Comment: Y Performed By: #### L 100.0100, L500.2500, L503.6008 ####[facility] [address] [place], [address] Tibia Fibula 2 Viewson 07-16 Tibia Fibula 2 Views [facility] Imaging Services [address] [place] [address] Tibia Fibula 2 Views MR#: [id number] Acct: [id number] Name: BE ROBERTS Rep #: [id number] : 1975 M 49 From: Juve pendleton MD PCP: Dr. Avinash Pace DO Status: REG ER Study: Tibia Fibula 2 Views Date of Exam: 07/16/24 Exam# [id number] Ordering Dr: Farzad Dinero DO [id number] STUDY: X-RAY - LEFT TIBIA AND FIBULA REASON FOR EXAM: Male, 49 years old. Redness and pain TECHNIQUE: 2 view(s) of the tibia and fibula were obtained. COMPARISON: None. FINDINGS: Normal visualized tibia. Normal visualized fibula. Diffuse soft tissue swelling. RAD/Tibia Fibula 2 Views IMPRESSION: Diffuse soft tissue swelling. Electronically Signed: Juve Bowens MD at 12:48 EDT , CC: Dr. Avinash Pace DO; Dr. Farzad Dinero DO C D Reactor Operator: Signed Normal [facility] Venous Duplex US, Unilateral on 07-16-2024 Venous Duplex US, Unilateral [facility] Cardi[facility] Services [address] [place] [address] Venous Duplex US, Unilateral 07/16/24 1135 MR#: [id number] Acct: [id number] Name: BE ROBERTS Rep #: [id number] : 1975 49 From: Amado Gamboa MD Attending Dr: Status: DEP ER Ordering Dr: Farzad Dinero DO Date: 07/16/24 Location: ED Sex: M H Admitted: Reason For Study: Left leg swelling Procedure LEFT This is a venous duplex using B-mode, color GSV is normal. flow and spectral Doppler. CFV is compressible, spontaneous, phasic, Exam performed portable in ED. competent, and demonstrates normal Calf veins technically difficult to augmentation. visualize due to pt body habitus and edema. FV is compressible, spontaneous, phasic, A preliminary report was called and/or faxed competent and demonstrates normal to Dr. Dinero. augmentation. POP V is compressible, spontaneous, phasic, competent and demonstrates normal augmentation. T/P Trunk is compressible. PTV is compressible. LT PerV is compressible. VL/Venous Duplex US, Unilateral Interpretation Summary Deep veins of the left lower extremity are patent and compressible segmentally. There is no evidence of left lower extremity deep vein thrombosis. The left great saphenous vein appears patent and compressible segmentally. Ordering Physician: Farzad Dinero Referring Physician: Avinash Pace Performed By: Kaylyn Kemp RVT 07/16/24 1520 Date Amado Gamboa MD CC: Dr. Avinash Pace DO; Dr. Farzad Dinero DO Date Dictated: 07/16/24 1135 Date Transcribed: 07/16/24 1520 C D Reactor Operator: Signed Normal [facility] Venous Duplex US - Dani Extre [facility] 06-09-2024 Venous Duplex US - Dani Extrem [facility] Cardiovascular Services [address] [place] [address] Venous Duplex US - Dani Extrem 06/09/24 1410 MR#: [id number] Acct: [id number] Name: BE ROBERTS Rep #: [id number] : 1975 49 From: Amado Gamboa MD Attending Dr: Dr. Oscar Novak, GERI Status: R [facility] Ordering Dr: Oscar Novak DPM Date: 06/09/24 Location: CVS Sex: M H Admitted: Reason For Study: Bilateral leg pain/swelling RIGHT LEFT GSV is normal. GSV is normal. CFV is compressible, spontaneous, phasic, CFV is compressible, spontaneous, phasic, competent and demonstrates normal competent, and demonstrates normal augmentation. augmentation. FV is compressible, spontaneous, phasic, FV is compressible, spontaneous, phasic, competent and demonstrates normal competent and demonstrates normal augmentation. augmentation. POP V is compressible, spontaneous, phasic, POP V is compressible, spontaneous, phasic, competent and demonstrates normal competent and demonstrates normal augmentation. augmentation. T/P Trunk is compressible. T/P Trunk is compressible. PTV is compressible. PTV is compressible. RT PerV is compressible. LT PerV is compressible. Procedure This is a venous duplex using B-mode, color flow and spectral Doppler. Exam performed in department. A preliminary report was called and/or faxed to Dr. Novak. VL/Venous Duplex US - Dani Extrem Interpretation Summary Deep veins of the bilateral lower extremities are patent and compressible segmentally. There is no evidence of bilateral lower extremity deep vein thrombosis. The bilateral great saphenous veins appear patent and compressible segmentally. Ordering Physician: Oscar Novak Referring Physician: Avinash Pace Performed By: Kaylyn Kemp RVT 06/09/24 1511 Date Amado Gamboa MD CC: DPM Dr. Oscar Novak; Dr. Avinash Pace, Date Dictated: 06/09/24 1410 Date Transcribed: 06/09/24 1511 C D Reactor Operator: Signed Normal [facility] EMERGENCY REPORTon 3 EMERGENCY REPORT [facility] EMERGENCY ROOM REPORT NAME ACCOUNT SEX AGE ADMIT DISCHARGE PT MED. RECORD# NUMBER DATE DATE TYPE BE ROBERTS [id number] M 47 04/02/23 04/03/23 3 [id number] ROOM: ER DATE OF : 1975 DICTATING PHYSICIAN: Myke Saab ADDENDUM: I did discuss this case with Dr. Tee who will take care of the patient. He treated the patient appropriately for pneumonitis with steroids, as well as Zithromax antibiotic. Dictated By: Myke Saab DO 04/04/23 20:35 JOB #: [id number] Transcribed By: am 04/05/23 15:41 Electronically signed by: JESSICA Saab DO 04/07/23 23:49 Page 1 of 1 BE ROBERTS Emergency Room Report Normal [facility] EMERGENCY REPORTon 3 EMERGENCY REPORT [facility] EMERGENCY ROOM REPORT NAME ACCOUNT SEX AGE ADMIT DISCHARGE PT MED. RECORD# NUMBER DATE DATE TYPE BE ROBERTS [id number] 04/02/23 04/03/23 3 [id number] ROOM: ER DATE OF : 1975 DICTATING PHYSICIAN: Adriel Tee ADDENDUM: DIAGNOSTIC DATA: White blood cell count was 12.3, hemoglobin 17.6, hematocrit 52.2, and platelet count was 276,000. D-dimer was normal at 163. Sodium was 137, potassium was low at 2.9, chloride 98, CO2 27.2, BUN 13, creatinine 1.08, and glucose 106. AST is 17, ALT 35, alkaline phosphatase 130. Total bilirubin is 0.6. Anion gap is normal at 15. Troponin came back at 8.4. We did repeat a second troponin at 0013 hours, and that was normal at 9.5. BNP was normal at 49. Chest x-ray showed some mild diffuse increased interstitial markings consistent with bronchitis and asthma, but I do not see any acute infiltrate. DIAGNOSES: 1. Acute exacerbation of asthma. 2. Hypokalemia. PLAN/DISPOSITION: We did give the patient Rocephin and Zithromax here, Solu-Medrol 125 mg IV here. I gave him both a DuoNeb and albuterol aerosol treatment here, as well as the DuoNeb aerosol he received by EMS. On reexamination here at 1:10 a.m., his lungs are clear and he states he feels much better. All of his chest tightness has resolved, and he would like to go home. I talked to him about the chest pain/tightness, and he does not feel that it is his heart because it resolved, and all of it was secondary to his wheezing and shortness of breath. He has a history of asthma, and he has had this chest tightness before. The chest tightness did not radiate anywhere, so I do not feel at this point it is cardiac in nature as well. I did offer to admit him for a chest pain workup if he was concerned about this, but at this point he feels much better. He feels it is his asthma, and would like to go home and followup with his primary care physician, Dr. Pace. I did give him 40 mEq of potassium here p.o., and he has kept that down. I wrote him a prescription for K-Dur 20 mEq 1 p.o. b.i.d., dispensed #20 with no refill, albuterol MDI with AeroChamber 2 puffs every 6 hours as needed for shortness of breath and wheezing, dispensed #1 with no refill, Z-Kelvin to take as directed dispensed #1 with no refill, and prednisone 20 mg 1 p.o. b.i.d., dispensed #10 with no refill. I did write him off work for today the , and he may return to work on April 04. In the meantime, he is to rest with no heavy lifting or other exertional activities. He is to take the medication as prescribed, and followup with Dr. Pace in 3 to 4 days for a reevaluation. If his symptoms become worse, return here to the emergency department. The patient was discharged in improved, clinically stable Page 1 of 2 BE ROBERTS Emergency Room Report BE ROBERTS : 1975 condition. Nursing notes reviewed. Dictated By: Adriel Tee DO 04/03/23 01:19 JOB #: [id number] Transcribed By: am 04/03/23 11:14 Electronically signed by: E-Sign: Dr. Adriel Tee D.O. 04/04/23 02:50 Page 2 of 2 BE ROBERTS Emergency Room Report Normal [facility] EMERGENCY REPORT [facility] EMERGENCY ROOM REPORT NAME ACCOUNT SEX AGE ADMIT DISCHARGE PT MED. RECORD# NUMBER DATE DATE TYPE BE ROBERTS [id number] M 47 04/02/23 04/03/23 3 [id number] ROOM: ER DATE OF : 1975 DICTATING PHYSICIAN: Adriel Tee TIME SEEN: 2119 hours. HISTORY OF PRESENT ILLNESS: This is a 47-year-old white male complaining of shortness of breath, cough and wheezing. He does have a history of asthma. 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 They ended up calling an ambulance, and EMS gave him a DuoNeb. He feels somewhat better now, but he is still wheezing, just not as bad as he was. He did have some chest tightness, and he states his chest was gurgling. The chest tightness did not radiate anywhere. He has had a cough productive of some brown sputum but denies any fever. All of this started around 6:30 p.[address]. [address]o. PCP [address] Dr. Mg in [place]. PAST MEDICAL HISTORY: Asthma and hypertension. No history of blood clots. PAST SURGICAL HISTORY: Previous knee and shoulder orthopedic surgery. ALLERGIES: He is allergic to lisinopril. His was at the bedside, and she confirmed that. The triage says no known drug allergies, but he and his are telling me he is allergic to lisinopril. SOCIAL HISTORY: He is a smoker of one pack per day. He does admit to occasional alcohol use. He denies any drug use. He lives at home with family. REVIEW OF SYSTEMS: He denies any fevers, sweats or chills. He does admit to chest pain described as a tightness along with shortness of breath and a cough productive of brown sputum. He does admit to wheezing. He denies any abdominal pain, nausea, vomiting, diarrhea, constipation, melena, hematochezia, headache, numbness, unsteady gait, weakness, neck or back pain, joint pain, skin rash or swelling, hives, hay fever or swollen glands. Further review of systems is negative. PHYSICAL EXAMINATION: VITAL SIGNS: Temperature is 98.1, pulse 85, respirations 16, blood pressure 128/85, and pulse oximetry 91% on room air. GENERAL: The patient is alert and oriented x3. He presently appears in some mild distress secondary to shortness of breath and wheezing, but he is pleasant and cooperative. He makes eye contact. He speaks in full sentences. HEENT: Head appears atraumatic. Pupils are equal and reactive to light. Red reflexes are intact bilaterally. Extraocular muscles are Page 1 of 2 BE ROBERTS Emergency Room Report BE ROBERTS Argenis : 1975 intact. No conjunctival injection. No scleral icterus or lid edema. NOSE: Nose exhibits no rhinorrhea or epistaxis. MOUTH: Mucous membranes are mildly dry. No pharyngeal erythema. Uvula is midline and elevates. NECK: Neck is supple. Trachea is midline. No JVD or lymphadenopathy. No posterior cervical tenderness. No nuchal rigidity. LUNGS: Lungs demonstrate diminished breath sounds anteriorly and posteriorly bilaterally. He does have some expiratory wheezing noted, although he states the wheezing is not as bad as before EMS gave him the DuoNeb. Presently at rest, I do not note any accessory muscle use. He does develop a little bit of conversational dyspnea if you talk to him for awhile, but initially he is able to speak without any shortness of breath. CV: Heart rate and rhythm are regular. No murmur is noted. ABDOMEN: Abdomen is soft, obese and nontender with normoactive bowel sounds x4 quadrants. No guarding or rigidity. No rebound. No palpable abdominal masses. No hepatosplenomegaly. BACK: Back exhibits no midline or paraspinal region tenderness. No increased paraspinal muscle rigidity. Negative Steve's sign. EXTREMITIES: No edema or cyanosis. Peripheral pulses are intact. No motor or sensory deficits are noted. 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 SKIN: Skin is warm and dry. No diaphoresis or rash. NEUROLOGIC: Neurologic examination shows the patient to be alert and oriented x4. No motor or sensory deficits are noted. Hand car runner is strong and symmetric. Some mild conversational dyspnea is noted at rest. No hot potato voice. DIAGNOSTIC DATA: His EKG was done at 2119 hours. It shows a normal sinus rhythm at [address]-segment changes are noted. [place] is approximately 0 degrees. EMERGENCY DEPARTMENT COURSE AND TREATMENT: I did order a DuoNeb and an albuterol aerosol treatment on this gentleman since he is still wheezy. Since he has a productive cough, I am going to give him some Rocephin and Zithromax as well as some Solu-Medrol. I did order a chest x-ray and a d-dimer as well as a cardiac work-up, and then we will reevaluate. Dictated By: Adriel Tee DO 04/02/23 21:50 JOB #: [id number] Transcribed By: carmelo 04/03/23 07:51 Electronically signed b (more content not included)... Normal [facility] CHEST 1 VIEWon 04-03-2023 CHEST 1 VIEW [place] [address] Patient: BE ROBERTS Phone#: : [phone] Age: 47 Gender: M Pt. Type: ER Account: [id number] Location: 052 Ordering: ADRIEL TEE Exam Date: 04/02/2023/21:48 Family Phys: AVINASH KATELYNN Charge Code: 169327 Physician: [place] Order #: [id number] Dose#: PROCEDURE: X-RAY CHEST 1 VIEW COMPARISON: None. INDICATIONS: Asthma exacerbation. FINDINGS: LUNGS: There is mildly prominent interstitium. Possible pneumonitis. VASCULATURE: Normal. Unremarkable pulmonary vasculature. CARDIAC: Normal. No cardiac silhouette abnormality or cardiomegaly. MEDIASTINUM: Normal. No visible mass or adenopathy. PLEURA: Normal. No effusion or pleural thickening. BONES: Normal. No fracture or visible bony lesion. OTHER: Negative. CONCLUSION: 1. Findings suggestive of pneumonitis. Dictated by: Indu Rome MD on 04/03/2023 at 9:17 Approved by: Indu Rome MD on 04/03/2023 at 9:19 Normal [facility] CMP with eGFRon 04-03-2023 AGE 47 years Normal [facility] Comment on above: Performed By: #### 2 [id number] #### [facility],[address] [place] [address]57 Albumin [Mass/Vol] 3.7 g/dL Normal 3.4 - 5.0 [facility] Comment on above: Performed By: #### 2 68095 #### [facility],[address] [place] [address] Albumin/Globulin [Mass ratio] 0.9 {ratio} Normal 0.9 - 1.6 [facility] Comment on above: Performed By: #### 2 15040 #### [address] [address] ALK PHOS 130 U/L High 46 - 116 [facility] Comment on above: Performed By: #### 2 99275 #### [facility],[address] [place] [address] 19582 ALT [Catalytic activity/Vol] 35 U/L Normal 16 - 63 [facility] Comment on above: Performed By: #### 2 71520 #### [facility],[address] [place] [address] Anion gap [Moles/Vol] 15 mmol/L Normal 10 - 20 [facility] Comment on above: Performed By: #### 2 04581 #### [facility],[address] [place] [address] 61574 AST [Catalytic activity/Vol] 17 U/L Normal 15 - 37 [facility] Comment on above: Performed By: #### 2 43503 #### [facility],[address] [place] [address]57 B/C RATIO 12 ratio Normal 0 - 30 [facility] Comment on above: Performed By: #### 2 [id number] #### [facility],[address] [place] [address] 88282 Bilirubin [Mass/Vol] 0.6 mg/dL Normal 0.2 - 1.0 [facility] Comment on above: Performed By: #### 2 74136 #### [facility],[address] [place] [address] 77378 Calcium [Mass/Vol] 9.0 mg/dL Normal 8.5 - 10.1 [facility] Comment on above: Performed By: #### 2 46085 #### [facility],[address] [place] [address] 02666 Chloride [Moles/Vol] 98 mmol/L Normal 98 - 107 [facility] Comment on above: Performed By: #### 2 37261 #### [facility],[address] [place] [address] 26674 CMP with eGFR Normal [facility] Comment on above: Result Comment: COMP REHENSIVE METABOLIC PANEL Performed By: #### 2 49917 #### [facility],[address] [place] [address] 93441 CO2 [Moles/Vol] 27.2 mmol/L Normal 21.0 - 32.0 [facility] Comment on above: Performed By: #### 2 63275 #### [facility],[address] [place] [address] 55142 Creatinine [Mass/Vol] 1.08 mg/dL Normal 0.70 - 1.30 [facility] Comment on above: Performed By: #### 2 90082 #### [facility],[address] [place] [address] 97097 GFR/1.73 sq M.predicted among non-blacks MDRD (S/P/Bld) [Vol rate/Area] mL/min/{1.73_m2} Normal 60 - 999 [facility] Comment on above: Performed By: #### 2 25604 #### [facility],[address] [place] [address] 69558 Result Comment: ACCO RDING TO THE NATIONAL KIDNEY DISEASE EDUCATION PROGRAM(NKDE), A NORMAL eGFR IS A VALUE GREATER THAN OR EQUAL TO 60 ML/MIN/1.73 SQ METERS. CHRONIC KIDNEY DISEASE: <60mL/MIN/1.73 SQ METERS KIDNEY FAILURE: <15mL/MIN/1.73 SQ METERS THIS TEST SHOULD ONLY BE USED FOR PATIENTS 18 YEARS OF AGE AND OLDER. Globulin (S) [Mass/Vol] 4.1 g/dL High 1.5 - 3.8 [facility] Comment on above: Performed By: #### 2 40438 #### [facility],[address] [place] [address] 09590 Glucose [Mass/Vol] 106 mg/dL Normal 74 - 106 [facility] Comment on above: Performed By: #### 2 34315 #### [facility],[address] [place] [address] 37800 Potassium [Moles/Vol] 2.9 mmol/L Critically low 3.5 - 5.1 [facility] Comment on above: Result Comment: { CA LLED TO ER AT 2222 { READ BACK BY NEERAJ TO AEL AT 2222 Performed By: #### 2 57718 #### [facility],[address] [place] [address] 51259 Protein [Mass/Vol] 7.8 g/dL Normal 6.4 - 8.2 [facility] Comment on above: Performed By: #### 2 73459 #### [facility],[address] [place] [address] 57468 Sodium [Moles/Vol] 137 mmol/L Normal 136 - 145 [facility] Comment on above: Performed By: #### 2 55697 #### [facility],[address] [place] [address] 01450 Urea nitrogen [Mass/Vol] 13 mg/dL Normal 7 - 18 [facility] Comment on above: Performed By: #### 2 58415 #### [facility],[address] [place] [address] 77023 D-DIMER, QUANTITATIVEon 06-0 D-DIMER QUANT 163 ng/ml Normal 0 - 230 [facility] Comment on above: Performed By: #### 2 32445 #### [facility],[address] [place] [address] 90842 D-DIMER, QUANTITATIVE Normal [facility] Comment on above: Result Comment: TIFF T D-DIMER Performed By: #### 2 08386 #### [facility],[address] [place] [address] 18570 NT-proBNPon 04-03-2023 Natriuretic peptide B (Bld) [Mass/Vol] 49 pg/mL Normal 0 - 125 [facility] Comment on above: Performed By: #### 2 46378 #### [facility],[address] [place] [address] 24329 TROPONIN I, HIGH SENSITIVITY on 04-03-2023 HS TROPONIN 9.5 pg/mL Normal 0.0 - 76.2 [facility] Comment on above: Performed By: #### 2 19953 #### [facility],[address] [place] [address] 27401 HS TROPONIN 8.4 pg/mL Normal 0.0 - 76.2 [facility] Comment on above: Performed By: #### 2 74454 #### [facility],[address] [place] [address] 78771 CBC + DIFFon 04-02-2023 Baso # 0.10 x10EE3/UL Normal 0.00 - 0.10 [facility] Comment on above: Performed By: #### 2 48719 #### [facility],[address] [place], [place] [id number] Basophils/100 WBC (Bld) 0.6 % Normal 0.0 - 2.0 [facility] Comment on above: Performed By: #### 2 03233 #### [facility],[address] [place] [address] CBC + DIFF Normal [facility] Comment on above: Result Comment: CBC- COMPLETE BLOOD COUNT Performed By: #### 2 01892 #### [facility],[address] [place] [address] EO # 0.10 x10EE3/UL Normal 0.00 - 0.50 [facility] Comment on above: Performed By: #### 2 40851 #### [facility],[address] [place], [place] [id number] Eosinophils/100 WBC (Bld) 0.8 % Normal 0.0 - 7.0 [facility] Comment on above: Performed By: #### 2 89722 #### [facility],[address] [place] [address] Erythrocyte distribution width (RBC) [Ratio] 16.0 % High 12.0 - 15.6 [facility] Comment on above: Performed By: #### 2 94191 #### [facility],[address] [place] [address] Hematocrit (Bld) [Volume fraction] 52.2 % High 40.0 - 52.0 [facility] Comment on above: Performed By: #### 2 54509 #### [facility],[address] [place], [place] [id number] Hemoglobin (Bld) [Mass/Vol] 17.6 g/dL High 13.0 - 17.5 [facility] Comment on above: Performed By: #### 2 86284 #### [facility],[address] [place] [address] 76813 Lymph # 2.30 x10EE3/UL Normal 0.80 - 2.80 [facility] Comment on above: Performed By: #### 2 52307 #### [facility],[address] [place] [address] 16258 Lymphocytes/100 WBC (Bld) 18.3 % Low 20.0 - 45.0 [facility] Comment on above: Performed By: #### 2 07600 #### [facility],[address] [place] [address] 51888 MANUAL DIFF N/A Normal [facility] Comment on above: Performed By: #### 2 48464 #### [facility],[address] [place] [address] 64167 MCH (RBC) [Entitic mass] 31 pg Normal 27 - 33 [facility] Comment on above: Performed By: #### 2 67676 #### [facility],[address] [place] [address] MCHC 34 X10 3 Normal 32 - 36 [facility] Comment on above: Performed By: #### 2 95583 #### [facility],[address] [place] [address] 74140 MCV (RBC) [Entitic vol] 91 fL Normal 81 - 98 [facility] Comment on above: Performed By: #### 2 92791 #### [facility],[address] [place] [address] 58216 [place] # 1.10 x10EE3/UL High 0.20 - 1.00 [facility] Comment on above: Performed By: #### 2 04178 #### [facility],[address] [place] [address] 48402 MONOS % 9.3 % Normal 0.0 - 10.0 [facility] Comment on above: Performed By: #### 2 43275 #### [facility],[address] [place] [address] 52920 Morphology Robert (Bld) [Interp] N/A Normal [facility] Comment on above: Performed By: #### 2 10960 #### [facility],[address] [place] [address] 22638 Neut # 8.70 x10EE3/UL High 1.50 - 7.10 [facility] Comment on above: Performed By: #### 2 50109 #### [facility],[address] [place] [address] 43019 Neutrophils/100 WBC (Bld) 71.0 % Normal 46.0 - 76.0 [facility] Comment on above: Performed By: #### 2 79250 #### [facility],[address] [place] [address] 12209 PLATELET 276 x10EE3/UL Normal 150 - 450 [facility] Comment on above: Performed By: #### 2 24322 #### [facility],[address] [place] [address] 42761 Platelet mean volume (Bld) [Entitic vol] 8.1 fL Normal 6.4 - 10.5 [facility] Comment on above: Result Comment: AUTO MATED DIFFERENTIAL Performed By: #### 2 48365 #### [facility],[address] [place] [address] 51150 RBC 5.77 x 10EE6/UL Normal 4.50 - 6.00 [facility] Comment on above: Performed By: #### 2 28304 #### [facility],[address] [place] [address] 04192 WBC 12.3 x 10EE3/UL High 4.5 - 10.8 [facility] Comment on above: Performed By: #### 2 70319 #### [facility],[address] [place] [address] 86794 XR SPINE CERVICAL AP/LATon 0 02-05-2023 XR SPINE CERVICAL AP/LAT ORIGINAL EXAMINATION: THREE XRAY VIEWS OF THE CERVICAL SPINE 02/02/2023 2:34 pm COMPARISON: None. HISTORY: ORDERING SYSTEM PROVIDED HISTORY: Reason for Exam: pain and crepitance right side of the neck FINDINGS: AP, lateral, and odontoid views were obtained. There is straightening of the normal cervical alignment. Vertebral body heights are maintained. Kqjz-yg-pyaumlke disc space narrowing is present at C5-6 with mild endplate spurring at this and adjacent levels. Posterior elements are intact. Neural foramina are not evaluated absent oblique views. C1-2 articulation appears normal. IMPRESSION: Degenerative disc disease lower cervical spine. Interpreted by: Kris Crowe MD Preliminary Report By: Kris Crowe MD Electronically signed By Kris Crowe MD Dictated Date: 02/05/2023 6:29:06 AM Prelim Date: 02/05/2023 6:31:19 AM Sign Date: 02/05/2023 6:31:19 AM Ordering Provider: AVINASH PACE [facility] ([place]) .GFRon 02-02-2023 GFR 99 ml/min/1.73sqm [facility] ([place]) Comment on above: Result Comment: GFR Population mean for , Non- Americans Ages 20-29 = 116 mL/min/1.73 sq.m. Ages 30-39 = 107 mL/min/1.73 sq.m. Ages 40-49 = 99 mL/min/1.73 sq.m. Ages 50-59 = 93 mL/min/1.73 sq.m. Ages 60-69 = 85 mL/min/1.73 sq.m. Ages 70+ = 75 mL/min/1.73 sq.m. Chronic Kidney Disease: Less than 60 mL/min/1.73 square meters End Stage Renal Disease: Less than 15 mL/min/1.73 square meters Performed By: #### C MP, PSA, GFR #### [address] [address] GFR Non- 82 ml/min/1.73sqm [facility] ([place]) Comment on above: Result Comment: GFR Population mean for , Non- Americans Ages 20-29 = 116 mL/min/1.73 sq.m. Ages 30-39 = 107 mL/min/1.73 sq.m. Ages 40-49 = 99 mL/min/1.73 sq.m. Ages 50-59 = 93 mL/min/1.73 sq.m. Ages 60-69 = 85 mL/min/1.73 sq.m. Ages 70+ = 75 mL/min/1.73 sq.m. Chronic Kidney Disease: Less than 60 mL/min/1.73 square meters End Stage Renal Disease: Less than 15 mL/min/1.73 square meters Performed By: #### C MP, PSA, GFR #### [address] [address] CMPon 02-02-2023 Albumin Level 3.6 G/dL Normal 3.5-5.0 [facility] ([place]) Comment on above: Performed By: #### C MP, PSA, GFR #### [address] [address] Albumin/Globulin [Mass ratio] 1.0 {ratio} Low 1.1-2.5 [facility] ([place]) Comment on above: Performed By: #### C MP, PSA, GFR #### [address] [address] ALP [Catalytic activity/Vol] 130 U/L Normal 40-135 [facility] ([place]) Comment on above: Performed By: #### C MP, PSA, GFR #### [address] [address] ALT [Catalytic activity/Vol] 59 U/L Normal 16-63 [facility] ([place]) Comment on above: Performed By: #### C MP, PSA, GFR #### [address] [address] AST [Catalytic activity/Vol] 30 U/L Normal 10-40 [facility] ([place]) Comment on above: Performed By: #### C MP, PSA, GFR #### [address] [address] Bili Total 0.4 mg/dL Normal 0.2-1.0 [facility] ([place]) Comment on above: Result Comment: Use of this assay is not recommended for patients undergoing treatment with eltrombopag due to the potential for falsely elevated results. Performed By: #### C MP, PSA, GFR #### [address] [address] BUN/Creatinine Ratio 7 ratio Normal 7-27 [facility] ([place]) Comment on above: Performed By: #### C MP, PSA, GFR #### [address] [address] Calcium [Mass/Vol] 8.7 mg/dL Normal 8.4-10.2 [facility] ([place]) Comment on above: Performed By: #### C MP, PSA, GFR #### [place] [id number] Chloride [Moles/Vol] 102 mmol/L Normal 98-107 [facility] ([place]) Comment on above: Performed By: #### C MP, PSA, GFR #### [place] [address] CO2 [Moles/Vol] 29 mmol/L Normal 22-29 [facility] ([place]) Comment on above: Performed By: #### C MP, PSA, GFR #### [place] [id number] Creatinine [Mass/Vol] 0.98 mg/dL Normal 0.70-1.30 [facility] ([place]) Comment on above: Performed By: #### C MP, PSA, GFR #### [address] [address] Electrolyte Balance 8.0 mEq/L Normal 4.0-15.0 [facility] ([place]) Comment on above: Performed By: #### C MP, PSA, GFR #### [address] [address] Globulin 3.5 G/dL Normal [facility] ([place]) Comment on above: Performed By: #### C MP, PSA, GFR #### [address] [address] Glucose [Mass/Vol] 119 mg/dL High 70-105 [facility] ([place]) Comment on above: Performed By: #### C MP, PSA, GFR #### [place] [id number] Potassium [Moles/Vol] 3.9 mmol/L Normal 3.5-5.1 [facility] ([place]) Comment on above: Performed By: #### C MP, PSA, GFR #### [place] [address] [place], [place] [address] Sodium [Moles/Vol] 139 mmol/L Normal 136-145 [facility] ([place]) Comment on above: Performed By: #### C MP, PSA, GFR #### [address] [address] Total Protein 7.1 G/dL Normal 6.4-8.2 [facility] ([place]) Comment on above: Performed By: #### C MP, PSA, GFR #### [address] [address] Urea nitrogen [Mass/Vol] 7 mg/dL Normal 7-18 [facility] ([place]) Comment on above: Performed By: #### C MP, PSA, GFR #### [address] [address] LABORATORYOrdered By: SYSTEM SYSTEM on 02-02-2023 Albumin BCP dye [Mass/Vol] 3.6 G/dL Invalid Interpretation Code 3.5 - 5.0 G/dL AO ADM SS Albumin/Globulin [Mass ratio] 1.0 {ratio} Invalid Interpretation Code 1.1 - 2.5 ratio AO ADM SS ALP [Catalytic activity/Vol] 130 U/L Invalid Interpretation Code 40 - 135 U/L AO ADM SS ALT With P-5'-P [Catalytic activity/Vol] 59 U/L Invalid Interpretation Code 16 - 63 U/L AO ADM SS AST With P-5'-P [Catalytic activity/Vol] 30 U/L Invalid Interpretation Code 10 - 40 U/L AO ADM SS Bilirubin [Mass/Vol] 0.4 mg/dL Invalid Interpretation Code 0.2 - 1.0 mg/dL AO ADM SS Calcium [Mass/Vol] 8.7 mg/dL Invalid Interpretation Code 8.4 - 10.2 mg/dL AO ADM SS Chloride [Moles/Vol] 102 mmol/L Invalid Interpretation Code 98 - 107 mmol/L AO ADM SS CO2 [Moles/Vol] 29 mmol/L Invalid Interpretation Code 22 - 29 mmol/L AO ADM SS Creatinine [Mass/Vol] 0.98 mg/dL Invalid Interpretation Code 0.70 - 1.30 mg/dL AO ADM SS Electrolyte Balance 8.0 mEq/L Invalid Interpretation Code 4.0 - 15.0 mEq/L AO ADM SS GFR 99 ml/min/1.73sqm Invalid Interpretation Code AO Chemistry S GFR Non- 82 ml/min/1.73sqm Invalid Interpretation Code AO Chemistry S Globulin 3.5 G/dL Invalid Interpretation Code AO ADM SS Glucose [Mass/Vol] 119 mg/dL Invalid Interpretation Code 70 - 105 mg/dL AO ADM SS Potassium [Moles/Vol] 3.9 mmol/L Invalid Interpretation Code 3.5 - 5.1 mmol/L AO ADM SS Prostate specific Ag [Mass/Vol] 0.54 ng/mL Invalid Interpretation Code 0.00 - 4.00 ng/mL AO ADM SS Protein [Mass/Vol] 7.1 G/dL Invalid Interpretation Code 6.4 - 8.2 G/dL AO ADM SS Sodium [Moles/Vol] 139 mmol/L Invalid Interpretation Code 136 - 145 mmol/L AO ADM SS Urea nitrogen [Mass/Vol] 7 mg/dL Invalid Interpretation Code 7 - 18 mg/dL AO ADM SS Urea nitrogen/Creatinine [Mass ratio] 7 ratio Invalid Interpretation Code 7 - 27 ratio AO ADM SS PSAon 02-02-2023 Prostate Specific Antigen 0.54 ng/mL Normal 0.00-4.00 [facility] ([place]) Comment on above: Performed By: #### C MP, PSA, GFR #### [place] [address] No Panel Informationon 01-08 Culture Wound Aerobe Light normal skin parag present. Sensitivity testing not indicated. [facility] GS 3+ Gram Positive Cocci [facility] LABORATORYOrdered By: Dusty Dudley on 12-13-2021 Albumin BCP dye [Mass/Vol] 3.4 G/dL Invalid Interpretation Code 3.5 - 5.0 G/dL AO ADM SS Albumin/Globulin [Mass ratio] 0.9 {ratio} Invalid Interpretation Code 1.1 - 2.5 ratio AO ADM SS ALP [Catalytic activity/Vol] 142 U/L Invalid Interpretation Code 40 - 135 U/L AO ADM SS ALT With P-5'-P [Catalytic activity/Vol] 72 U/L Invalid Interpretation Code 16 - 63 U/L AO ADM SS AST With P-5'-P [Catalytic activity/Vol] 36 U/L Invalid Interpretation Code 10 - 40 U/L AO ADM SS Bilirubin [Mass/Vol] 0.6 mg/dL Invalid Interpretation Code 0.2 - 1.0 mg/dL AO ADM SS Calcium [Mass/Vol] 9.2 mg/dL Invalid Interpretation Code 8.4 - 10.2 mg/dL AO ADM SS Chloride [Moles/Vol] 100 mmol/L Invalid Interpretation Code 98 - 107 mmol/L AO ADM SS CO2 [Moles/Vol] 30 mmol/L Invalid Interpretation Code 22 - 29 mmol/L AO ADM SS Creatinine [Mass/Vol] 0.92 mg/dL Invalid Interpretation Code 0.70 - 1.30 mg/dL AO ADM SS Electrolyte Balance 11.0 mEq/L Invalid Interpretation Code 4.0 - 15.0 mEq/L AO ADM SS Globulin 3.7 G/dL Invalid Interpretation Code AO ADM SS Glucose [Mass/Vol] 116 mg/dL Invalid Interpretation Code 70 - 105 mg/dL AO ADM SS Potassium [Moles/Vol] 3.8 mmol/L Invalid Interpretation Code 3.5 - 5.1 mmol/L AO ADM SS Protein [Mass/Vol] 7.1 G/dL Invalid Interpretation Code 6.4 - 8.2 G/dL AO ADM SS Sodium [Moles/Vol] 141 mmol/L Invalid Interpretation Code 136 - 145 mmol/L AO ADM SS Urea nitrogen [Mass/Vol] 7 mg/dL Invalid Interpretation Code 7 - 18 mg/dL AO ADM SS Urea nitrogen/Creatinine [Mass ratio] 8 ratio Invalid Interpretation Code 7 - 27 ratio AO ADM SS LABORATORYOrdered By: SYSTEM SYSTEM on 12-13-2021 GFR 107 ml/min/1.73sqm Invalid Interpretation Code AO Chemistry S GFR Non- 89 ml/min/1.73sqm Invalid Interpretation Code AO Chemistry S LABORATORYOrdered By: Heidy Correa on 09-28-2021 Albumin BCP dye [Mass/Vol] 3.5 G/dL Invalid Interpretation Code 3.5 - 5.0 G/dL AO ADM SS Albumin/Globulin [Mass ratio] 0.9 {ratio} Invalid Interpretation Code 1.1 - 2.5 ratio AO ADM SS ALP [Catalytic activity/Vol] 117 U/L Invalid Interpretation Code 40 - 135 U/L AO ADM SS ALT With P-5'-P [Catalytic activity/Vol] 57 U/L Invalid Interpretation Code 16 - 63 U/L AO ADM SS AST With P-5'-P [Catalytic activity/Vol] 36 U/L Invalid Interpretation Code 10 - 40 U/L AO ADM SS Bilirubin [Mass/Vol] 0.7 mg/dL Invalid Interpretation Code 0.2 - 1.0 mg/dL AO ADM SS Calcium [Mass/Vol] 8.8 mg/dL Invalid Interpretation Code 8.4 - 10.2 mg/dL AO ADM SS Chloride [Moles/Vol] 101 mmol/L Invalid Interpretation Code 98 - 107 mmol/L AO ADM SS Cholesterol [Mass/Vol] 223 mg/dL Invalid Interpretation Code 0 - 200 mg/dL AO ADM SS Cholesterol in HDL [Mass/Vol] 33 mg/dL Invalid Interpretation Code 40 - 60 mg/dL AO ADM SS Cholesterol in LDL [Mass/Vol] 130 mg/dL Invalid Interpretation Code 0 - 130 mg/dL AO ADM SS CO2 [Moles/Vol] 27 mmol/L Invalid Interpretation Code 22 - 29 mmol/L AO ADM SS Creatinine [Mass/Vol] 0.99 mg/dL Invalid Interpretation Code 0.70 - 1.30 mg/dL AO ADM SS Electrolyte Balance 10.0 mEq/L Invalid Interpretation Code AO ADM SS Globulin 3.9 G/dL Invalid Interpretation Code AO ADM SS Glucose [Mass/Vol] 151 mg/dL Invalid Interpretation Code 70 - 105 mg/dL AO ADM SS Potassium [Moles/Vol] 3.4 mmol/L Invalid Interpretation Code 3.5 - 5.1 mmol/L AO ADM SS Protein [Mass/Vol] 7.4 G/dL Invalid Interpretation Code 6.4 - 8.2 G/dL AO ADM SS Sodium [Moles/Vol] 138 mmol/L Invalid Interpretation Code 136 - 145 mmol/L AO ADM SS Triglyceride [Mass/Vol] 301 mg/dL Invalid Interpretation Code 0 - 150 mg/dL AO ADM SS TSH Qn 2.36 m[IU]/L Invalid Interpretation Code 0.36 - 3.74 mcIU/mL AO ADM SS Urea nitrogen [Mass/Vol] 11 mg/dL Invalid Interpretation Code 7 - 18 mg/dL AO ADM SS Urea nitrogen/Creatinine [Mass ratio] 11 ratio Invalid Interpretation Code 7 - 27 ratio AO ADM SS LABORATORYOrdered By: Ramonita Fung on 09-28-2021 Basophil, Absolute 0.10 103/mcL Invalid Interpretation Code 0.00 - 0.19 10^3/mcL AO Auto Heme SS Basophils/100 WBC (Bld) 0.8 % Invalid Interpretation Code 0.0 - 2.5 % AO Auto Heme SS Eosinophil, Absolute 0.30 103/mcL Invalid Interpretation Code 0.00 - 0.40 10^3/mcL AO Auto Heme SS Eosinophils/100 WBC (Bld) 2.7 % Invalid Interpretation Code 0.0 - 7.0 % AO Auto Heme SS Erythrocyte distribution width (RBC) [Ratio] 14.6 % Invalid Interpretation Code 11.5 - 14.5 % AO Auto Heme SS Hematocrit (Bld) [Volume fraction] 48.4 % Invalid Interpretation Code 42.0 - 52.0 % AO Auto Heme SS Hemoglobin (Bld) [Mass/Vol] 16.5 G/dL Invalid Interpretation Code 14.0 - 18.0 G/dL AO Auto Heme SS Lymphocyte, Absolute 1.90 103/mcL Invalid Interpretation Code 0.77 - 3.85 10^3/mcL AO Auto Heme SS Lymphocytes/100 WBC (Bld) 19.1 % Invalid Interpretation Code 10.0 - 50.0 % AO Auto Heme SS MCH (RBC) [Entitic mass] 30.8 pg Invalid Interpretation Code 27.0 - 31.2 pg AO Auto Heme SS MCHC (RBC) [Mass/Vol] 34.0 G/dL Invalid Interpretation Code 31.8 - 35.4 G/dL AO Auto Heme SS MCV (RBC) [Entitic vol] 90.5 fL Invalid Interpretation Code 80.0 - 94.0 fL AO Auto Heme SS Monocyte, Absolute 1.10 103/mcL Invalid Interpretation Code 0.15 - 1.00 10^3/mcL AO Auto Heme SS Monocytes/100 WBC (Bld) 10.9 % Invalid Interpretation Code 1.7 - 13.0 % AO Auto Heme SS Neutrophil, Absolute 6.60 103/mcL Invalid Interpretation Code 2.85 - 6.16 10^3/mcL AO Auto Heme SS Neutrophils/100 WBC (Bld) 66.5 % Invalid Interpretation Code 37.0 - 80.0 % AO Auto Heme SS Platelet mean volume (Bld) [Entitic vol] 7.4 fL Invalid Interpretation Code 7.4 - 10.4 fL AO Auto Heme SS Platelets (Bld) [#/Vol] 279 103/mcL Invalid Interpretation Code 130 - 400 10^3/mcL AO Auto Heme SS RBC (Bld) [#/Vol] 5.35 106/mcL Invalid Interpretation Code 4.04 - 6.13 10^6/mcL AO Auto Heme SS WBC (Bld) [#/Vol] 9.90 103/mcL Invalid Interpretation Code 4.60 - 10.80 10^3/mcL AO Auto Heme SS LABORATORYOrdered By: SYSTEM SYSTEM on 09-28-2021 GFR 99 ml/min/1.73sqm Invalid Interpretation Code AO Chemistry S GFR Non- 81 ml/min/1.73sqm Invalid Interpretation Code AO Chemistry S Vital Signs Date Time Vital Sign Value Performing Clinician Facility 03-31-2025 13:37-0400 Body height 170.[address] Artur Mariano DO Work Phone: [facility] 03-31-2025 13:37-0400 Body mass index (BMI) [Ratio] 48.6 kg/m2 Dr. Artur Mariano DO Work Phone: [facility] 03-31-2025 13:37-0400 Body temperature 96.5 [degF] Dr. Artur Mariano DO Work Phone: [facility] 03-31-2025 13:37-0400 Body weight 141.[address] Artur Mariano DO Work Phone: [facility] 03-31-2025 13:37-0400 Diastolic blood pressure 68 mm[Hg] Dr. Artur Mariano DO Work Phone: [facility] 03-31-2025 13:37-0400 Heart rate 96 /min Dr. Artur Mariano DO Work Phone: [facility] 03-31-2025 13:37-0400 Respiratory rate 16 /min Dr. Artur Mariano DO Work Phone: [facility] 03-31-2025 13:37-0400 SaO2% (BldA) [Mass fraction] 95 % Dr. Artur Mariano DO Work Phone: [facility] 03-31-2025 13:37-0400 Systolic blood pressure 102 mm[Hg] Dr. Artur Mariano DO Work Phone: [facility] 02-04-2025 11:06-0400 Body mass index (BMI) [Ratio] 49.6 kg/m2 Dr. Artur Mariano DO Work Phone: [facility] 02-04-2025 11:06-0400 Body temperature 98 [degF] Dr. Artur Mariano DO Work Phone: [facility] 02-04-2025 11:06-0400 Body weight 143.[address] Artur Mariano DO Work Phone: [facility] 02-04-2025 11:06-0400 Diastolic blood pressure 72 mm[Hg] Dr. Artur Mariano DO Work Phone: [facility] 02-04-2025 11:06-0400 Heart rate 110 /min Dr. Artur Mariano DO Work Phone: [facility] 02-04-2025 11:06-0400 Respiratory rate 18 /min Dr. Artur Mariano DO Work Phone: [facility] 02-04-2025 11:06-0400 SaO2% (BldA) [Mass fraction] 95 % Dr. Artur Mariano DO Work Phone: [facility] 02-04-2025 11:06-0400 Systolic blood pressure 104 mm[Hg] Dr. Artur Mariano DO Work Phone: [facility] 12-24-2024 10:42-0500 Body height 170.18 cm Dr. Artur Mariano DO Work Phone: [facility] 12-24-2024 10:42-0500 Body mass index (BMI) [Ratio] 50.5 kg/m2 Dr. Artur Mariano DO Work Phone: [facility] 12-24-2024 10:42-0500 Body weight 146.[address] Artur Mariano DO Work Phone: [facility] 12-11-2024 12:46-0500 Body mass index (BMI) [Ratio] 51.7 kg/m2 Dr. Artur Mariano DO Work Phone: [facility] 12-11-2024 12:46-0500 Body temperature 96.6 [degF] Dr. Artur Mariano DO Work Phone: [facility] 12-11-2024 12:46-0500 Body weight 149.[address] Artur Mariano DO Work Phone: [facility] 12-11-2024 12:46-0500 Diastolic blood pressure 78 mm[Hg] Dr. Artur Mariano DO Work Phone: [facility] 12-11-2024 12:46-0500 Heart rate 99 /min Dr. Artur Mariano DO Work Phone: [facility] 12-11-2024 12:46-0500 Respiratory rate 20 /min Dr. Artur Mariano DO Work Phone: [facility] 12-11-2024 12:46-0500 SaO2% (BldA) [Mass fraction] 94 % Dr. Artur Mariano DO Work Phone: [facility] 12-11-2024 12:46-0500 Systolic blood pressure 134 mm[Hg] Dr. Artur Mariano DO Work Phone: [facility] 12-11-2024 12:00-0500 Body height 170.2 cm Ricardo Olivares MD Work Phone: [facility] 12-11-2024 12:00-0500 Body mass index (BMI) [Ratio] 52.63 kg/m2 Ricardo Olivares MD Work Phone: [facility] 12-11-2024 12:00-0500 Body weight 152.41 kg Ricardo Olivares MD Work Phone: [facility] 10-03-2024 09:58-0500 Body mass index (BMI) [Ratio] 53.2 kg/m2 Dr. Artur Mariano DO Work Phone: [facility] 10-03-2024 09:58-0500 Body temperature 97.6 [degF] Dr. Artur Mariano DO Work Phone: [facility] 10-03-2024 09:58-0500 Body weight 154.[address] Artur Mariano DO Work Phone: [facility] 10-03-2024 09:58-0500 Diastolic blood pressure 88 mm[Hg] Dr. Artur Maraino DO Work Phone: [facility] 10-03-2024 09:58-0500 Heart rate 111 /min Dr. Artur Mariano DO Work Phone: [facility] 10-03-2024 09:58-0500 Respiratory rate 16 /min Dr. Artur Mariano DO Work Phone: [facility] 10-03-2024 09:58-0500 SaO2% (BldA) [Mass fraction] 94 % Dr. Artur Mariano DO Work Phone: [facility] 10-03-2024 09:58-0500 Systolic blood pressure 140 mm[Hg] Dr. Artur Mariano DO Work Phone: [facility] 09-24-2024 10:12-0500 Body temperature 98 [degF] Dr. Artur Mariano DO Work Phone: [facility] 09-24-2024 10:12-0500 Diastolic blood pressure 87 mm[Hg] Dr. Artur Mariano DO Work Phone: [facility] 09-24-2024 10:12-0500 Heart rate 65 /min Dr. Artur Mariano DO Work Phone: [facility] 09-24-2024 10:12-0500 Respiratory rate 18 /min Dr. Artur Mariano DO Work Phone: [facility] 09-24-2024 10:12-0500 SaO2% (BldA) [Mass fraction] 94 % Dr. Artur Mariano DO Work Phone: [facility] 09-24-2024 10:12-0500 Systolic blood pressure 177 mm[Hg] Dr. Artur Mariano DO Work Phone: [facility] 09-24-2024 10:00-0500 Inhaled oxygen flow rate 2 L/min Dr. Artur Mariano DO Work Phone: [facility] 09-24-2024 03:17-0500 Body mass index (BMI) [Ratio] 54.5 kg/m2 Dr. Artur Mariano DO Work Phone: [facility] 09-24-2024 03:17-0500 Body weight [address] Artur Mariano DO Work Phone: [facility] 10-26-2023 09:08-0500 Body height 170.[address] Avinash Pace Work Phone: [facility] 10-26-2023 09:08-0500 Body weight 127.[address] Avinash Pace Work Phone: [facility] 08-01-2023 08:02-0400 Body weight 123.[address] Avinash Pace Work Phone: [facility] 07-17-2023 17:07-0400 Body temperature 98 [degF] Dr. Avinash Pace Work Phone: [facility] 07-17-2023 17:07-0400 Diastolic blood pressure 82 mm[Hg] Dr. Avinash Pace Work Phone: [facility] 07-17-2023 17:07-0400 Heart rate 80 /min Dr. Avinash Pace Work Phone: [facility] 07-17-2023 17:07-0400 Respiratory rate 14 /min Dr. Avinash Pace Work Phone: [facility] 07-17-2023 17:07-0400 SaO2% (BldA) [Mass fraction] 97 % Dr. Avinash Pace Work Phone: [facility] 07-17-2023 17:07-0400 Systolic blood pressure 134 mm[Hg] Dr. Avinash Pace Work Phone: [facility] 06-02-2022 16:47-0400 Body height 170.[address] Avinash Pace Work Phone: [facility] Work Phone: 06-02-2022 16:47-0400 Body mass index (BMI) [Ratio] 43.9 kg/m2 Dr. Avinash Pace Work Phone: [facility] Work Phone: 06-02-2022 16:47-0400 Body temperature 97.7 [degF] Dr. Avinash Pace Work Phone: [facility] Work Phone: 06-02-2022 16:47-0400 Body weight 127.[address] Avinash Pace Work Phone: [facility] Work Phone: 06-02-2022 16:47-0400 Diastolic blood pressure 97 mm[Hg] Dr. Avinash Pace Work Phone: [facility] Work Phone: 06-02-2022 16:47-0400 Heart rate 97 /min Dr. Avinash Pace Work Phone: [facility] Work Phone: 06-02-2022 16:47-0400 Respiratory rate 20 /min Dr. Avinash Pace Work Phone: [facility] Work Phone: 06-02-2022 16:47-0400 SaO2% (BldA) [Mass fraction] 95 % Dr. Avinash Pace Work Phone: [facility] Work Phone: 06-02-2022 16:47-0400 Systolic blood pressure 129 mm[Hg] Dr. Avinash Pace Work Phone: [facility] Work Phone: 12-15-2021 09:33-0500 Diastolic Blood Pressure NBP 72 1 MINGO CAMRAILLO MD [facility] 12-15-2021 09:33-0500 Heart rate 92 /min MINGO CAMARILLO MD [facility] 12-15-2021 09:33-0500 Respiratory rate 21 /min MINGO CAMARILLO MD [facility] 12-15-2021 09:33-0500 Systolic Blood Pressure NBP 122 1 MINGO CAMARILLO MD [facility] 12-15-2021 09:25-0500 Diastolic Blood Pressure NBP 66 1 MINGO CAMARILLO MD [facility] 12-15-2021 09:25-0500 Heart rate 93 /min MINGO CAMARILLO MD [facility] 12-15-2021 09:25-0500 Respiratory rate 19 /min MINGO CAMARILLO MD [facility] 12-15-2021 09:25-0500 Systolic Blood Pressure NBP 117 1 MINGO CAMARILLO MD [facility] 12-15-2021 09:12-0500 Diastolic Blood Pressure NBP 73 1 MINGO CAMARILLO MD [facility] 12-15-2021 09:12-0500 Heart rate 89 /min MINGO CAMARILLO MD [facility] 12-15-2021 09:12-0500 Respiratory rate 27 /min MINGO CAMARILLO MD [facility] 12-15-2021 09:12-0500 Systolic Blood Pressure NBP 118 1 MINGO CAMARILLO MD [facility] 12-15-2021 08:50-0500 Body temperature 98.42 [degF] MINGO CAMARILLO MD [facility] 12-15-2021 06:39-0500 Body height 170 cm MINGO CAMARILLO MD [facility] 12-15-2021 06:39-0500 Body weight 127 kg MINGO CAMARILLO MD [facility] 12-15-2021 06:39-0500 Body weight 43.94 kg/m2 MINGO CAMARILLO MD [facility] 12-15-2021 06:37-0500 Body height 170 cm MINGO CAMARILLO MD [facility] 12-15-2021 06:37-0500 Body temperature 97.52 [degF] MINGO CAMARILLO MD [facility] 12-15-2021 06:37-0500 Body weight 127 kg MINGO CAMARILLO MD [facility] 12-15-2021 06:37-0500 Heart rate 111 /min MINGO CAMARILLO MD [facility] 12-13-2021 08:55-0500 Body height 170 cm MINGO CAMARILLO MD [facility] 12-13-2021 08:55-0500 Body weight 127 kg MINGO CAMARILLO MD [facility] Encounters Encounter Date Encounter Type Care Provider Facility Start: 04-23-2025 ambulatory Artur Mariano Facilit y:[facility] Start: 03-31-2025 End: 03-31-[address] Artur Kaur DO -[facility] Work Phone: Start: 03-31-2025 End: 03-31-[address] Artur Mariano DO Work Phone: [facility] Work Phone: Start: 02-04-2025 End: 02-04-[address] Artur Kaur DO -[facility] Work Phone: Start: 02-04-2025 End: 02-04-2025 ambulatory Artur Mariano Facility:[facility] Start: 12-30-2024 End: 12-30-[address] Artur Mariano DO Work Phone: [facility] Work Phone: Start: 12-30-2024 End: 12-30-[address] Ricardo Olivares MD -Pulmonary Services/Neurology Work Phone: Start: 12-30-2024 End: 12-30-2024 ambulatory Ricardo Olivares Facility:[facility] Start: 12-24-2024 End: 12-24-[address] Francisco Pond DO -[facility] Work Phone: Start: 12-24-2024 End: 12-24-2024 ambulatory Francisco Pond Facility:[facility] Start: 12-11-2024 End: 12-11-2024 Patient encounter procedure Gianluca SALAZAR -[facility] Work Phone: Start: 12-11-2024 End: 12-11-2024 ambulatory Artur Mariano Facility:[facility] Start: 12-11-2024 End: 12-11-2024 Telemedicine consultation with patient Ricardo Olivares MD Work Phone: Sleep Medicine [facility] Comment on above: INDRA (obstructive sle ep apnea) (Primary Dx); Obesity hypoventilation syndrome; Morbid obesity with BMI of 50.0-59.9, adult Start: 12-11-2024 ambulatory RICARDO OLIVARES Faci lity:[facility] Start: 12-11-2024 End: 12-11-2024 ambulatory Artur Mariano Facility:[facility] Start: 10-07-2024 End: 10-07-2024 Patient encounter procedure Gianluca SALAZAR -Sleep Lab Work Phone: Start: 10-07-2024 End: 10-07-2024 ambulatory Artur Mariano Facility:[facility] Start: 10-03-2024 End: 10-03-2024 Patient encounter procedure Gianluca SALAZAR -[facility] Work Phone: Start: 10-03-2024 End: 10-03-2024 ambulatory Gianluca SALAZAR Facility:[facility] Start: 10-02-2024 End: 10-02-2024 Patient encounter procedure Gianluca SALAZAR -Sleep Lab Work Phone: Start: 10-02-2024 End: 10-02-2024 ambulatory Gianluca SALAZAR Facility:[facility] Start: 09-24-2024 End: 09-24-2024 Emergency department patient visit Dr. Mesfin Dunham MD -Emergency Department Work Phone: Start: 09-08-2024 ambulatory Francisco Pond Facility :[facility] Start: 09-05-2024 End: 09-05-2024 ambulatory Gianluca SALAZAR Facility:[facility] Start: 09-03-2024 End: 09-03-2024 ambulatory Oscar Novak Facility:[facility] Start: 08-28-2024 End: 08-29-2024 ambulatory Antonio Carolinaur Facility:[facility] Start: 08-26-2024 End: 08-28-2024 ambulatory Sagamore Dejah Facility:[facility] Start: 08-13-2024 End: 08-13-2024 ambulatory Artur Vincent Mariano Facility:[facility] Start: 07-18-2024 End: 07-18-2024 ambulatory Avinash Pace Facility:[facility] Start: 07-16-2024 ambulatory Avinash Pace Facility :[facility] Start: 07-16-2024 End: 07-16-2024 Emergency department patient visit Farzad Dinero Facility:[facility] Start: 06-09-2024 ambulatory Avinash Pace Facility :[facility] Start: 06-09-2024 End: 06-09-2024 ambulatory Oscar Novak Facility:[facility] Start: 10-25-2023 End: 10-25-[address] Avinash Pace Work Phone: [facility] Work Phone: Start: 10-25-2023 End: 10-25-[address] Avinash Pace Work Phone: [facility]-Occupational Therapy Work Phone: Start: 08-31-2023 End: 08-31-[address] Avinash Pace Work Phone: [facility] Work Phone: Start: 08-27-2023 End: 08-27-[address] Avinash Pace Work Phone: [facility] Work Phone: Start: 08-01-2023 End: 08-01-[address] Avinash Pace Work Phone: [facility] Work Phone: Start: 07-17-2023 End: 07-17-[address] Avinash Pace Work Phone: [facility] Work Phone: Start: 04-02-2023 End: 04-03-2023 Emergency department patient visit AVINASH DO AKHTARSAY [facility] Start: 02-02-2023 End: 02-03-2023 ambulatory LONDON KATELYNN RAMIREZ Facility:[facility] Start: 02-02-2023 End: 02-02-2023 Patient encounter procedure AVINASH PACE DO [facility] Start: 01-08-2023 End: 01-13-2023 ambulatory [facility] Facility:[facility] Start: 01-08-2023 End: 01-12-2023 Outreach Lab [facility] Start: 06-02-2022 End: 06-02-2022 Emergency department patient visit Dr. Avinash Pace Work Phone: [facility]-Emergency Department Start: 02-06-2022 End: 02-06-[address] Avinash Pace Work Phone: [facility] Start: 12-15-2021 End: 12-15-2021 SAME DAY STAY MINGO CAMARILLO MD [facility] Start: 12-13-2021 End: 12-13-2021 Patient encounter procedure MINGO CAMARILLO MD [facility] Start: 12-13-2021 End: 12-13-2021 Admission to establishment MINGO CAMARILLO MD [facility] Start: 10-20-2021 End: 10-20-2021 Patient encounter procedure SHRAVAN PALACIOS MD [facility] Start: 09-28-2021 End: 09-28-2021 Patient encounter procedure SHRAVAN PALACIOS MD [facility] Procedures Date Procedure Procedure Detail Performing Clinician Start: 12-30-2024 Carbon dioxide measurement, partial pressure Dr. Artur Mariano DO Work Phone: Start: 12-30-2024 Gases blood o2 satur ation only direct jennifer Dr. Artur Mariano DO Work Phone: Start: 12-30-2024 Measurement of parti al pressure of oxygen in blood Dr. Artur Mariano DO Work Phone: Start: 12-30-[address] Artur Mariano DO Work Phone: Start: 12-24-2024 Plain x-ray of wrist Dr Virginia Mariano DO Work Phone: Start: 09-24-2024 SARS-CoV-2, Influenz a & RSV (PCR) Dr. Artur Mariano DO Work Phone: Start: 09-24-2024 CT angiography of ch est with contrast Dr. Artur Mariano DO Work Phone: Start: 09-24-2024 X-ray of chest, PA a nd lateral views Dr. Artur Mariano DO Work Phone: Start: 08-27-2023 MRI of lumbar spine Dr. Avinash Pace Work Phone: Start: 08-01-2023 X-ray of lumbar spin e, two or three views Dr. Avinash Pace Work Phone: Start: 02-06-2022 Plain X-ray of shoulder Dr. Avinash Pace Work Phone: Start: 02-06-2022 X-ray of cervical spine Dr. Avinash Pace Work Phone: Start: 12-15-2021 Hernia of abdominal cavity (disorder) [facility] Comment on above: OPEN UMBILICAL HERNI A REPAIR WITH MESH Start: 08-10-2015 Structure of right shoulder region (body structure) SHRAVAN PALACIOS MD Comment on above: partial labral tear Start: 07-18-2011 Structure of right k nee (body structure) SHRAVAN PALACIOS MD Comment on above: arthroscopy Back structure, excl uding neck (body structure) MINGO CAMARILLO MD Comment on above: NERVES BURNED DURING LOWER BACK PROCEDURE LOWER BACK INJECTION S FROM PAIN MANAGEMENT Plan of Treatment Date Care Activity Detail Author Start: 04-13-2030 Tetanus vaccination TETANUS [facility] Start: 12-24-2024 Patient referral [facility] Work Phone: Start: 12-11-2024 Patient referral [facility] Work Phone: Start: 09-24-2024 [facility] Start: 09-24-2024 [facility] Start: 09-24-2024 [facility] Start: 06-29-2024 COVID-19 VACCINE ( season) COVID-19 VACCINE ( season) [facility] Start: 06-29-2024 Influenza vaccination INFLUENZA VACC INE (#1) [facility] Start: 08-31-2023 Patient referral [facility] Work Phone: Start: 2020 Screening for malign ant neoplasm of colon COLORECTAL CANCER SCREENING DISCUSSION [facility] Start: 2015 Lipid panel LIPID SCREENING [facility] Start: 1994 Hepatitis B vaccination HEP B VACCINE (1 of 3 - 19+ 3-dose series) [facility] Start: 1994 Third diphtheria, tetanus and acellular pertussis (DTaP) vaccination TDAP (ADULT) [facility] Start: 1990 HIV screening HIV SCREENING DISCUSSION [facility] Start: 1975 Hepatitis C screening HEPATITI S C VIRUS SCREENING [facility] Colonoscopy [facility] Hemoglobin A1c/Hemoglobin.total in Blood [facility] MR Brain WO and W contrast IV [facility] Patient Education [facility] Work Phone: Patient referral [facility] Work Phone: Immunizations Immunization Date Immunization Notes Care Provider Fa cility 03-02-2021 Covid (Moderna) Dr. Artur Mariano DO Work Phone: [facility] 02-02-2021 ComQi ([employer]) Dr. Artur Mariano DO Work Phone: [facility] 04-13-2020 tetanus and diphther ia toxoids, adsorbed, preservative free, for adult use (2 Lf of tetanus toxoid and 2 Lf of diphtheria toxoid) Dr. Artur Mariano DO Work Phone: [facility] 07-24-2013 influenza virus vaccine, unspecified formulation SHRAVAN PALACIOS MD [facility] 07-24-2013 influenza, injectabl e, quadrivalent, preservative free Dr. Artur Mariano DO Work Phone: [facility] 10-29-2009 diphtheria, tetanus toxoids and acellular pertussis vaccine Dr. Artur Mariano DO Work Phone: [facility] Payers Date Payer Category Payer Managed Care (unspecified) [employer] [id number] 2024 Self-pay [id number] 2024 Unknown [id number] 2023 Unknown [id number] 1975 Unknown [id number] .627 1975 Unknown [id number] 2.840.1.909638.3.579.2 .627 1975 Unknown [id number] 2.840.1.410136.3.579.2 .651 1975 Unknown [id number] 2.840.1.142970.3.579.2 .594 Unknown [id number] Unknown [id number] 2.16840.1.755840.3.579.2 .462 Unknown [id number] 2.840.1.701542.3.579.2 .462 Unknown [id number] 2.16840.1.639638.3.579.2 .462 Unknown [id number] 2.16.840.1.575293.3.579.2 .462 Unknown [id number] 2.16.840.1.275620.3.579.2 .462 Unknown [id number] 2.16.840.1.555741.3.579.2 .462 Unknown [id number] 2.16840.1.424853.3.579.2 .462 Unknown [id number] 2.840.1.602702.3.579.2 .462 Unknown [id number] 2.840.1.822628.3.579.2 .462 Unknown [id number] 2.840.1.873021.3.579.2 .462 Unknown [id number] 2.840.1.231683.3.579.2 .462 Unknown [id number] 2.840.1.794573.3.579.2 .462 Unknown [id number] .840.1.006942.3.579.2 .462 Unknown [id number] 2.840.1.158705.3.579.2 .462 Unknown [id number] 2.840.1.202761.3.579.2 .462 Unknown [id number] 2.0.1.719131.3.579.2 .462 Unknown [id number] .840.1.348102.3.579.2 .462 Unknown [id number] 2.840.1.868832.3.579.2 .462 Unknown [id number] 2.840.1.500023.3.579.2 .462 Unknown [id number] .840.1.523295.3.579.2 .462 Unknown [id number] .840.1.192129.3.579.2 .462 Unknown [id number] .840.1.114616.3.579.2 .462 Unknown [id number] .840.1.012248.3.579.2 .462 Unknown [id number] 2.840.1.406678.3.579.2 .462 Unknown [id number] 2.840.1.929755.3.579.2 .462 Unknown [id number] 2.840.1.219203.3.579.2 .462 Unknown [id number] 2.16.840.1.770559.3.579.2 .462 Social History Date Type Detail Facility Start: 12-10-2019 Heavy tobacco smoker (finding) [facility] Assigned At [facility] Start: 06-02-2022 End: 08-31-2023 Tobacco smoking status NHIS Unknown if ever smoked [facility] Start: 1975 Sex Assigned At Male [facility] Start: 12-11-2024 Tobacco smoking stat us IAIS Never smoked tobacco [facility] Start: 12-11-2024 History of Social function [facility] Start: 12-11-2024 Tobacco use panel [facility] Start: 1975 Sex assigned at Not on file [facility] Start: 09-30-2024 End: 01-09-2025 Sex Male (finding) [facility] Start: 12-10-2024 Gender identity Identifies as male gender (finding) [facility] Start: 12-10-2024 Sexual orientation Heterosexual (fin ding) [facility] Start: 12-24-2024 Tobacco smoking stat us IAIS Smokes tobacco daily (finding) [facility] Mental Status Date Assessment Result Facility 09-24-2024 Cognitive function Level Of Cons ciousness Awake;Alert;Appropriate;Follow s Commands [facility] Work Phone: Clinical Notes 09-28-2021 to 12-11-2024 Note Date & Type Note Facility 12-11-2024 Evaluation note Diagnosis Onset Date Resolution Non-insulin dependent diabetes mellitus acute December 11, 2024 12:42pm Obesity due to excess calories acute December 11 12:42pm Hypertension chronic November 12:42pm Apnea, sleep inactive November 12:42pm Scapholunate instability of left wrist noneactive December 24 10:28am Colon cancer screening acute Ap 2024 11:00am Facet arthritis, degenerative, L5-S1 level, lumbosacral spine acute February 04, 2025 11:00am Non-insulin dependent diabetes mellitus acute February 04 11:00am Obesity due to excess calories acute February 04, 2025 11:00am Hypertension chronic February 04 025 11:00am Ringing in right ear acute March 31, 2025 1:29pm [facility] Work Phone: [phone]) 469-793302-13-2025 History of Present illness Narrative* Ricardo Olivares MD - 12/11/2024 11:30 AM EST Images from the original note were not included. I have had the pleasure of seeing Mr. Be Roberts for evaluation at the [facility] clinic today. Impression: Severe Obstructive sleep apnea. The patient is adherent to therapy and benefiting from PAP therapy Likely has Obesity Hypoventilation Syndrome No evidence of parasomnia: the sleep history was thoroughly reviewed. No indication of any unusual behavior during sleep that requires intervention. No evidence of restless legs. Plan: Continue bi-level- PAP with O2 bled-in at 3 li/min during sleep. Overnight oximtery while on above. ABG on room air.. Studies will be done at [place] We discussed good sleep hygiene habits. 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 A handout on drowsy driving tips was given to the patient. 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 Previous sleep study: (Patient-Rptd) Yes Positive airway pressure (PAP) device use: (Patient-Rptd) Yes Previous study reviweed by me He goes to bed at (Patient-Rptd) 2330 on weekdays and (Patient-Rptd) 2330 on weekends. He awakens at (Patient-Rptd) 1200 on weekdays and (Patient-Rptd) 1200 on weekends. He estimates a total sleep time of (Patient-Rptd) 5 hours each night. He falls asleep in (Patient-Rptd) 10 minutes, and awakens (Patient-Rptd) 4 times per night. Naps: (Patient-Rptd) No ( [ ] per week for [ ] min). Abnormal work hours (outside 6 am-7 pm): (Patient-Rptd) No. Sleep disordered breathing symptoms (last month) Loud Snoring (Patient-Rptd) 1-2 times a week Snorting or gasping (Patient-Rptd) Rarely (less than once a week) Breathing stops, chokes, or struggles (Patient-Rptd) Rarely (less than once a week) Sleepiness and fatigue frequency (last month) Tired upon awakening (Patient-Rptd) 1-2 times a week Very sleepy during the day (Patient-Rptd) Rarely (less than once a week) Involuntarialy falling asleep (Patient-Rptd) 3-4 times a week Tired or Fatigued (Patient-Rptd) 5-7 times a week Fallen asleep driving (Patient-Rptd) Never Insomnia severity (last month). Currently having any of the following: (Patient- Rptd) Yes Difficulty falling asleep (Patient-Rptd) Severe Difficulty staying asleep (Patient-Rptd) Mild Problems waking up too early (Patient-Rptd) None Abnormal behaviors frequency (last month) Problems disturb bed partner s sleep (Patient-Rptd) 1-2 times a week Unusual behaviors during sleep (Patient-Rptd) 1-2 times a week Kicking while asleep (Patient-Rptd) Never Acting out dreams (Patient-Rptd) 1-2 times a week Violent behaviors while asleep (Patient-Rptd) Never Hypnagogic hallucinations (Patient-Rptd) Rarely (less than once a week) Sleep paralysis (Patient-Rptd) Never Cataplexy (ever experienced) (Patient-Rptd) No Restless Leg Symptoms (Ever had these symptoms) Unpleasant sensations in legs and urge to move (Patient-Rptd) I don't know Feelings in your legs occur mainly or only at rest Feelings in your legs improve with movement Feelings worse in the evening or night than in the morning No past medical history on file. No past surgical history on file. Not on File No current outpatient medications Caffeine intake is [ (Patient-Rptd) 2 ] drinks per day, up until [ (Patient- Rptd) 0 ] hours before bed. No family history on file. Known family history of sleep disorders: None Review of Systems Weight has had [ (Patient-Rptd) 50 lbs gained], [ lbs lost] in the last year. Patient reported positive symptoms in the past month include: (Patient-Rptd) Nasal congestion, Shortness of breath, Heartburn, Environmental allergies, Morning headaches, Depression, Anxiety All other systems are negative. Physical Exam Ht 1.702 m (5' 7) Wt (!) 152.4 kg (336 lb) BMI 52.63 kg/m Body mass index is 52.63 kg/m . Appears the stated age Not in distress, answered questions appropriately, affect is normal Laboratory and others: Previous medical records from [facility] were reviewed. Serum Chemistry:No results found for: SODIUM, POTASSIUM, CHLORIDE, CO2, BUN, CREATSERUM, GLUCOSE HBA1c: No results found for: HGBA1C Thyroid function tests:No results found for: TSH, HKN69MRY, VVY23JIE, TSHBASELINE, TSHULTRASEN, TSHRFT4 Lipid profile: No results found for: CHOLESTEROL, TRIG, HDL, LDLCALC No results found for: FERRITIN ECHO: No results found for this or any previous visit. Diagnostic Review: ESS (Patient-Rptd) 16 FOSQ (Patient-Rptd) 15 MARIANN (Patient-Rptd) 15 IRLS MVAP (Patient-Rptd) 0.027 PAP download reviewed by me with patient My interpretation: Has daytime sleepiness [place] Sleepiness Score (ESS) > 10 indicates daytime sleepiness but should not be the sole criteria for sleepiness. FOSQ-10 < 17.9 indicates decreased of quality of life due to impact sleepiness. This telehealth visit is a real time video visit communication. During the scheduling process, thispatient has verbally consented to the submission of Telehealth visits and the patient is aware of the risks, benefits, and possible coinsurance/copay costs. Patient Location[facility] Inst[facility]* Patient Instructions* Ricardo Olivares MD - 12/11/2024 11:30 AM EST Images from the original note were not included. [facility] * Diagnosis Onset Date Resolution Status Admit Date Bilateral primary osteoarthritis of knee acute October 03, 2024 9:55am COVID-19 acute October 03, 2024 9:55am Non-insulin dependent diabetes mellitus acute October 03, 2024 9:55am Non-insulin dependent diabetes mellitus acute December 11, 2024 12:42pm Obesity due to excess calories acute December 11, 2 025 12:42pm Hypertension chronic November 12:42pm Apnea, sleep inactive November 12:42pm Scapholunate instability of left wrist noneactive December 24, 2 025 10:28am [facility] Work Phone: 1(982) 288-822811-01-2024 [facility] Medical Records Department [address] [place] [id number] Discharge Summary 08/29/24 0802 MR#: [id number] Acct: [id number] Name: BE ROBERTS Rep #: [id number] : 1975 49 From: Adriel Bruce MD PCP: Dr. Artur Mariano, DO Status:ADM IN Location: ICU ICU03-1 Providers Date of Admission: 08/28/24 Date of Discharge: 08/29/24 Primary Care Physician: Dr. Artur Mariano, DO Consultations 08/28/24 05:48 Consult: ENT Routine Consulting Provider: Antonio Grant Reason for Consult: Bilateral tonsillitis with narrow airway EMERGENT Consult: No MD Notified: Yes Date Notified: 08/28/24 Time Notified: 05:53 Method of Notification: ED Physician Initiated 08/28/24 05:54 Consult: Admissions Officer / Pulmonary Medicine Routine Consulting Provider: Intensivists/Pulmonary Med Reason for Consult: Intermittent hypoxia on sleep EMERGENT Consult: No Notified: Yes Date Notified: 08/28/24 Time Notified: 05:54 Method of Notification: Text Reason For Visit: BILATERAL TONSILITIS Diagnosis Discharge Diagnosis (1) Narrow pharyngeal airway: Status: Acute Code(s): J39.2 - Other diseases of pharynx Plan Patient is a 49-year-old gentleman who presented with sore throat. Patient was diagnosed with bilateral tonsillitis with mild oropharyngeal airway narrowing. Admitted to the intensive care unit with consultation placed to ENT 1. Bilateral tonsillitis ??? With compromised airway CT of the neck obtained did show Fullness of the tonsillar beds may represent inflammation/tonsillitis, bilaterally symmetric. There is associated marked oropharyngeal airway narrowing. Patient was started on Unasyn steroids and admitted to the intensive care unit with consultation placed to ENT ??? 08/29/2024 Case was discussed with Dr. Brooks with the ENT was of the opinion that supposedly narrowing of the oropharyngeal airway was due to patient habitus. He recommended for patient to be discharged home on oral antibiotics for patient to follow-up with him as outpatient 2. Obstructive sleep apnea ??? Consistent use of PAP therapy encourage. Patient states that he currently does not have any CPAP machine he did not like the one he was previously prescribed. He was instructed to schedule an appointment with his primary care physician for a sleep study as outpatient as soon as possible. Patient was assessed for home oxygen he did not qualify 4. Obesity hypoventilation syndrome ??? Complicating care 4. Hypertension ??? Blood pressure controlled, home medications continued with dose adjustment as needed 5. Class III obesity with BMI of 54.7 ??? Weight loss advised 6. GERD ??? On PPI 7. Depression with anxiety ??? Patient is on sertraline as well as hydroxyzine as needed 8. Diabetes mellitus type II -patient's oral hypoglycemics held. Placed on long acting insulin, Accu-Cheks a.c. and at bedtime and covered with sliding scale insulin 9.DVT prophylaxis ??? On enoxaparin Medications at Discharge Home Medications omeprazole 40 mg capsule,delayed release 40 mg PO DAILY PRN stomach upset 07/06/14 furosemide 20 mg tablet 20 mg PO DAILY PRN swelling 07/16/24 sertraline 100 mg tablet 50 mg PO DAILY 07/16/24 albuterol sulfate 90 mcg/actuation aerosol inhaler 2 puff inhalation Q6H PRN shortness of breath or wheezing 08/13/24 fluticasone 250 mcg-salmeterol 50 mcg/dose blistr powdr for inhalation (Advair Diskus) 1 inh inhalation BID 08/13/24 handicap placard #1 ea 08/13/24 hydroxyzine pamoate 25 mg capsule 25 mg PO QHS 08/13/24 metformin 500 mg tablet 500 mg PO BID #180 tabs 08/13/24 tizanidine 6 mg capsule 4 mg PO QHS PRN muscle spasticity 08/13/24 valsartan 320 mg-hydrochlorothiazide 25 mg tablet 1 tab PO DAILY 08/28/24 valsartan 40 mg tablet 25 mg PO ONCE 08/28/24 acetaminophen 325 mg tablet 650 mg (2 x 325 mg) PO Q6H PRN PRN Pain 1-10 Or Fever>100.7 #0 tabs 08/29/24 amoxicillin 875 mg-potassium clavulanate 125 mg tablet 1 tab PO BID #28 tabs 08/29/24 prednisone 20 mg tablet 20 mg PO BID #10 tabs 08/29/24 Hospital Course Summary of Care Provided Minutes Spent on Discharge: 35 Physical Exam Narrative GENERAL: cooperative HEENT: Atraumatic; EYES; Anicteric, Normal Conjunctiva NECK; supple, normal thyroid, RESPIRATORY: Diminished to auscultation CARDIOVASCULAR: Regular S1 S2, GI: soft, normoactive bowel sounds, : No Renal angle tenderness; EXTREMITIES: No edema, no clubbing, MUSCULOSKELETAL: no muscle wasting NEURO: Awake; no lateralizing signs. SKIN: No Rash PSYCH; Flat affect Weight / BMI Weight Weight: 158.9 kg Body Mass Index (BMI) 55.0 ABG / Lab / Microbiology Data 08/29/24 03:13 08/29/24 03:13 Laboratory: Laboratory Results - last 24 hr 08/28/24 11:49: POC Glucose 247 H 08/28/24 16:49: POC Glucose 2 (more content not included)...[facility]10-31-2024 [facility] Medical Records Department [address] [place] [address] Consultation 08/28/24 1550 MR#: [id number] Acct: [id number] Name: BE ROBERTS Rep #: [id number] : 1975 49 From: uRdi Brooks MD PCP: Dr. Artur Mariano, DO Status:ADM IN Location: ICU ICU03-1 Assessment Plan Assessment/Plan (1) Tonsillitis: PLAN: 49 year old male admitted for pharyngeal infectious concerns -likely has routine tonsillitis. WBC 14k. fell asleep in ED and desaturated due to severe morbid obesity, smoking and known INDRA. -pulmonary / INDRA management by primary team. may follow up with ENT after discharge. HPI Consult Data Date of Consult: 08/28/24 HPI Narrative Reason for Consultation: tonsillitis HPI Narrative: BE ROBERTS, is a 49 M who presents with tonsillitis. Presented to the ED last night with sore thorat / chills. WBC 14k. CT was obtained which showed tonsillitis and concern for pharyngeal narrowing. BMI 55, history of smoking and noncompliant INDRA. desaturated (while sleeping) in ED into the 80s, deemed appropriate to watch overnight. feels well currently, mild sore throat, normal voice per family, tolerating clear liquids. [facility] Medical History GERD (gastroesophageal reflux disease) IBS (irritable bowel syndrome) Hearing problem Back problem Asthma Arthritis Acute myofascial strain of lumbar region Bee sting reaction Acute conjunctivitis, left eye COVID-19 Contact with and (suspected) exposure to other viral communicable diseases Infected sebaceous cyst of skin Encounter for screening for COVID-19 Encounter for screening for COVID-19 URI (upper respiratory infection) HTN (hypertension) Home Medications ???Medication ???Instructions ???Recorded ???Last Taken ???Type omeprazole 40 mg capsule,delayed 40 mg PO DAILY PRN stomach upset 07/06/14 08/10/15 05:00 History release furosemide 20 mg tablet 20 mg PO DAILY PRN swelling 07/16/24 Unknown History sertraline 100 mg tablet 50 mg PO DAILY 07/16/24 Unknown History albuterol sulfate 90 mcg/actuation 2 puff inhalation Q6H PRN 08/13/24 Unknown History aerosol inhaler shortness of breath or wheezing fluticasone 250 mcg-salmeterol 50 1 inh inhalation BID 08/13/24 Unknown History mcg/dose blistr powdr for inhalation (Advair Diskus) handicap placard #1 ea 08/13/24 Unknown Rx hydroxyzine pamoate 25 mg capsule 25 mg PO QHS 08/13/24 Unknown History metformin 500 mg tablet 500 mg PO BID #180 tabs 08/13/24 Unknown Rx tizanidine 6 mg capsule 4 mg PO QHS PRN muscle spasticity 08/13/24 Unknown History valsartan 320 1 tab PO DAILY 08/28/24 Unknown History mg-hydrochlorothiazide 25 mg tablet valsartan 40 mg tablet 25 mg PO ONCE 08/28/24 Unknown History Allergy/AdvReac Type Severity Reaction Status Date / Time lisinopril Allergy throat Verified 08/27/24 23:06 itchy Family History Mother Breast cancer Angina at rest Father Hypertension Alcoholism Surgical History H/O arthroscopy of right knee H/O repair of rotator cuff Social History household members: spouse and children housing: house current occupational status: disabled Smoking Status: Current every day smoker tobacco type: cigarettes Tobacco: How many years used: 9 alcohol intake: current alcohol intake frequency: 0-2 drinks per day Alcohol type: beer substance use type: does not use what type of physical activity do you participate in: additional details: stretching seatbelt use: always do you feel safe at home: Yes ROS Constitutional Constitutional: Reports systems reviewed and no addt'l complaints, except as documented Physical Exam Const alert and oriented x3 General Appearance: cooperative Orientation / Consciousness: awake HEENT normocephalic HEENT Narrative: 2+ tonsils, symmetric. Lab / Micro Data 08/28/24 06:12 08/28/24 06:12 Labs: Laboratory Results - last 24 hr 08/28/24 01:22: WBC 14.2 H, RBC 4.97, Hgb 14.5, Hct 44.6, MCV 89.7, MCH 29.2, MCHC 32.5, RDW Std Deviation 49.8 H, RDW Coeff of Angel 15.6 H, Plt Count 265, MPV 8.6, Immature Gran % (Auto) 1.100 H, N eut % (Auto) 76.1 H, Lymph % (Auto) 12.5 L, [place] % (Auto) 8.3, Eos % (Auto) 1.3, Baso % (Auto) 0.7, Absolute Neuts (auto) 10.8 H, Absolute Lymphs (auto) 1.78, Nucleated RBC % 0.2, Sodium 132 L, Potassium 3.8, Chloride 94 L, Carbon Dioxide 32.0, Anion Gap 7, BUN 11, Creatinine 0.85, Estim Creat Clear Calc 154.97, Est GFR (MDRD) Af Amer 123, Est GFR (MDRD) Non-Af 102, BUN/Creatinine Ratio 13.0, Glucose 125 H, Lactic Acid 1.2, Calcium 8.9 08/28/24 06:12: WBC 13.9 H, RBC 5.04, Hgb 14.7, H (more content not included)... [facility]12-29-2023 Discharge summary Author Geeta Frey [facility] October 26, 2023 9:09am Note Date/Time October 26, 2023 9:09am [facility] Occupational Therapy [facility] [address] [place] [address]. [address] [place] [address] / REHABILITATION SERVICES DISCHARGE SUMMARY MR#: [id number] Acct: [id number] Name: BE ROBERTS Rep #: [id number] : 1975 48 From: Geeta Frey Referring Dr.: Dr. Remington Browning MD Status: REG RCR Eval Date: Discharge Date: FCE D/C Summary Discharge text: BE ROBERTS was seen for a one time visit for an FCE on 10/25/23 and is discharged. <Electronically signed by Geeta Frey> 10/26/23 0909 CC: Dr. Remington Browning MD; Dr. Avinash Pace, DO ~ TCL Signed [facility] Work Phone: 1(432) 160-789903-16-2023 Note. MICRO - Microbiology PROCEDURE: Culture Wound Aerobic with Gram Stain [*1] SOURCE: Abscess BODY SITE: Arm R COLLECTED DATE/TIME: 01/08/2023 16:30 EDT RECEIVED DATE/TIME: 01/09/2023 15:12 EDT START DATE/TIME: 01/09/2023 15:12 EDT FREE TEXT SOURCE: FINAL REPORTS Final Report [] Verified Date/Time/Personnel: 01/11/2023 08:15 EDT Light normal skin parag present. Sensitivity testing not indicated. PRELIMINARY REPORTS Preliminary Report [] Verified Date/Time/Personnel: 01/10/2023 09:24 EDT No growth to date STAINS GS [] Verified Date/Time/Personnel: 01/10/2023 00:48 EDT 3+ Gram Positive Cocci Performing Locations *1: This test was performed at: [address], [facility] , [facility]12-15-2021 Hospital Discharge instructions Patient Education 12/15/2021 09:23:11 Nausea and Vomiting, Adult, Roue-sl-Qmgj Nausea and Vomiting, Adult Nausea is feeling sick to your stomach or feeling that you are about to throw up (vomit). Vomiting is when food in your stomach is thrown up and out of the mouth. Throwing up can make you feel weak. It can also make you lose too much water in your body (get dehydrated). If you lose too much water in your body, you may: Feel tired. Feel thirsty. Have a dry mouth. Have cracked lips. Go pee (urinate) less often. Older adults and people with other diseases or a weak body defense system (immune system) are at higher risk for losing too much water in the body. If you feel sick to your stomach and you throw up, it is important to follow instructions from your doctor about how to take care of yourself. Follow these instructions at home: Watch your symptoms for any changes. Tell your doctor about them. Follow these instructions to carefor yourself at home. Eating and drinking Take an ORS (oral rehydration solution). This is a drink that is sold at pharmacies and stores. Drink clear fluids in small amounts as you are able, such as: ?Water. ?Ice chips. ?Fruit juice that has water added (diluted fruit juice). ?Low-calorie sports drinks. Eat bland, lvhs-hm-ojkokf foods in small amounts as you are able, such as: ?Bananas. ?Applesauce. ?Rice. ?Low-fat (lean) meats. ?[place]. ?Crackers. Avoid drinking fluids that have a lot of sugar or caffeine in them. This includes energy drinks, sports drinks, and soda. Avoid alcohol. Avoid spicy or fatty foods. General instructions Take zkuo-uzk-pomjrhn and prescription medicines only as told by your doctor. Drink enough fluid to keep your pee (urine) pale yellow. Wash your hands often with soap and water. If you cannot use soap and water, use hand hand stitcher. Make sure that all people in your home wash their hands well and often. Rest at home while you get better. Watch your condition for any changes. Take slow and deep breaths when you feel sick to your stomach. Keep all follow-up visits as told by your doctor. This is important. Contact a doctor if: Your symptoms get worse. You have new symptoms. You have a fever. You cannot drink fluids without throwing up. You feel sick to your stomach for more than 2 days. You feel light-headed or dizzy. You have a headache. You have muscle cramps. You have a rash. You have pain while peeing. Get help right away if: You have pain in your chest, neck, arm, or jaw. You feel very weak or you pass out (faint). You throw up again and again. You have throw up that is bright red or looks like black coffee grounds. You have bloody or black poop (stools) or poop that looks like tar. You have a very bad headache, a stiff neck, or both. You have very bad pain, cramping, or bloating in your belly (abdomen). You have trouble breathing. You are breathing very quickly. Your heart is beating very quickly. Your skin feels cold and clammy. You feel confused. You have signs of losing too much water in your body, such as: ?Dark pee, very little pee, or no pee. ?Cracked lips. ?Dry mouth. ?Sunken eyes. ?Sleepiness. ?Weakness. These symptoms may be an emergency. Do not wait to see if the symptoms will go away. Get medical help right away. Call your local emergency services (911 in the [place] Do not drive yourself to the hospital. Summary Nausea is feeling sick to your stomach or feeling that you are about to throw up (vomit). Vomiting is when food in your stomach is thrown up and out of the mouth. Follow instructions from your doctor about eating and drinking to keep from losing too much water in your body. Take ntnj-kiy-mrsrvhb and prescription medicines only as told by your doctor. Contact your doctor if your symptoms get worse or you have new symptoms. Keep all follow-up visits as told by your doctor. This is important. This information is not intended to replace advice given to you by your health care provider. Make sure you discuss any questions you have with your health care provider. Document Released: 04/02/2009 Document Revised: 02/06/2020 Document Reviewed: 03/25/2019 [employer] Patient Education 2020 [employer]. 12/15/2021 09:23:11 How to Use an Incentive Spirometer How To Use an Incentive Spirometer An incentive spirometer is a tool that measures how well you are filling your lungs with each breath. Learning to take long, deep breaths using this tool can help you keep your lungs clear and active. This may help to reverse or lessen your chance of developing breathing (pulmonary) problems, especially infection. You may be asked to use a spirometer: After a surgery. If you have a lung problem or a history of smoking. After a long period of time when you have been unable to move or be active. If the spirometer includes an indicator to show the highest number that you have reached, your health care provider or respiratory therapist will help you set a goal. Keep a list (log) of your progress as told by your health care provider. What are the risks? Breathing too quickly may cause dizziness or cause you to pass out. Take your time so you do not get dizzy or light-headed. If you are in pain, you may need to take pain medicine before doing incentive spirometry. It is harder to take a deep breath if you are having pain. How to use your incentive spirometer 1.Sit up on the edge of your bed or on a chair. 2.Hold the incentive spirometer so that it is in an upright position. 3.Before you use the spirometer, breathe out normally. 4.Place the mouthpiece in your mouth. Make sure your lips are closed tightly around it. 5.Breathe in slowly and as deeply as you can through your mouth, causing the piston or the ball to rise toward the top of the chamber. 6.Hold your breath for 3 5 seconds, or for as long as possible. If the spirometer includes a other sports coach or instructor indicator, use this to guide you in breathing. Slow down your breathing if the indicator goes above the marked areas. 7.Remove the mouthpiece from your mouth and breathe out normally. The piston or ball will return tothe bottom of the chamber. 8.Rest for a few seconds, then repeat the steps 10 or more times. Take your time and take a few normal breaths between deep breaths so that you do not get dizzy or light-headed. Do this every 1 2 hours when you are awake. 9.If the spirometer includes a goal marker to show the highest number you have reached (best effort), use this as a goal to work toward during each repetition. 10.After each set of 10 deep breaths, cough a few times. This will help to make sure that your lungs are clear. If you have an incision on your chest or abdomen from surgery, place a pillow or a rolled-up towel firmly against the incision when you cough. This can help to reduce pain from coughing. General tips When you become able to get out of bed, walk around often and continue to cough to help clear your lungs. Keep using the incentive spirometer until your health care provider says it is okay to stop using it. If you have been in the hospital, you may be told to keep using the spirometer at home. Contact a health care provider if: You are having difficulty using the spirometer. You have trouble using the spirometer as often as instructed. Your pain medicine is not giving enough relief for you to use the spirometer as told. You have a fever. You develop shortness of breath. Get help right away if: You develop a cough with bloody mucus from the lungs (bloody sputum). You have fluid or blood coming from an incision site after you cough. Summary An incentive spirometer is a tool that can help you learn to take long, deep breaths to keep your lungs clear and active. You may be asked to use a spirometer after a surgery, if you have a lung problem or a history of smoking, or if you have been inactive for a long period of time. Use your incentive spirometer as instructed every 1 2 hours while you are awake. If you have an incision on your chest or abdomen, place a pillow or a rolled-up towel firmly against your incision when you cough. This will help to reduce pain. This information is not intended to replace advice given to you by your health care provider. Make sure you discuss any questions you have with your health care provider. Document Released: 02/25/2008 Document Revised: 11/07/2018 Document Reviewed: 08/28/2018 [employer] Patient Education 2020 [employer]. 12/15/2021 09:23:11 General Anesthesia, Adult, Care After General Anesthesia, Adult, Care After This sheet gives you information about how to care for yourself after your procedure. Your health care provider may also give you more specific instructions. If you have problems or questions, contact your health care provider. What can I expect after the procedure? After the procedure, the following side effects are common: Pain or discomfort at the IV site. Nausea. Vomiting. Sore throat. Trouble concentrating. Feeling cold or chills. Weak or tired. Sleepiness and fatigue. Soreness and body aches. These side effects can affect parts of the body that were not involved in surgery. Follow these instructions at home: For at least 24 hours after the procedure: Have a responsible adult stay with you. It is important to have someone help care for you until youare awake and alert. Rest as needed. Do not: ?Participate in activities in which you could fall or become injured. ?Drive. ?Use heavy machinery. ?Drink alcohol. ?Take sleeping pills or medicines that cause drowsiness. ?Make important decisions or sign legal documents. ?Take care of children on your own. Eating and drinking Follow any instructions from your health care provider about eating or drinking restrictions. When you feel hungry, start by eating small amounts of foods that are soft and easy to digest (bland), such as toast. Gradually return to your regular diet. Drink enough fluid to keep your urine pale yellow. If you vomit, rehydrate by drinking water, juice, or clear broth. General instructions If you have sleep apnea, surgery and certain medicines can increase your risk for breathing problems. Follow instructions from your health care provider about wearing your sleep device: ?Anytime you are sleeping, including during daytime naps. ?While taking prescription pain medicines, sleeping medicines, or medicines that make you drowsy. Return to your normal activities as told by your health care provider. Ask your health care provider what activities are safe for you. Take tuqw-tll-spphesl and prescription medicines only as told by your health care provider. If you smoke, do not smoke without supervision. Keep all follow-up visits as told by your health care provider. This is important. Contact a health care provider if: You have nausea or vomiting that does not get better with medicine. You cannot eat or drink without vomiting. You have pain that does not get better with medicine. You are unable to pass urine. You develop a skin rash. You have a fever. You have redness around your IV site that gets worse. Get help right away if: You have difficulty breathing. You have chest pain. You have blood in your urine or stool, or you vomit blood. Summary After the procedure, it is common to have a sore throat or nausea. It is also common to feel tired. Have a responsible adult stay with you for the first 24 hours after general anesthesia. It is important to have someone help care for you until you are awake and alert. When you feel hungry, start by eating small amounts of foods that are soft and easy to digest (bland), such as toast. Gradually return to your regular diet. Drink enough fluid to keep your urine pale yellow. Return to your normal activities as told by your health care provider. Ask your health care provider what activities are safe for you. This information is not intended to replace advice given to you by your health care provider. Make sure you discuss any questions you have with your health care provider. Document Released: 01/21/2002 Document Revised: 10/18/2018 Document Reviewed: 05/31/2018 [place] Patient Education 2020 [employer]. 12/15/2021 09:23:11 Open Hernia Repair, Adult, Care After Open Hernia Repair, Adult, Care After This sheet gives you information about how to care for yourself after your procedure. Your health care provider may also give you more specific instructions. If you have problems or questions, contact your health care provider. What can I expect after the procedure? After the procedure, it is common to have: Mild discomfort. Slight bruising. Minor swelling. Pain in the abdomen. Follow these instructions at home: Incision care Follow instructions from your health care provider about how to take care of your incision area. Make sure you: ?Wash your hands with soap and water before you change your bandage (dressing). If soap and water are not available, use hand hand stitcher. ?Change your dressing as told by your health care provider. ?Leave stitches (sutures), skin glue, or adhesive strips in place. These skin closures may need to stay in place for 2 weeks or longer. If adhesive strip edges start to loosen and curl up, you may trim the loose edges. Do not remove adhesive strips completely unless your health care provider tells you to do that. Check your incision area every day for signs of infection. Check for: ?More redness, swelling, or pain. ?More fluid or blood. ?Warmth. ?Pus or a bad smell. Activity Do not drive or use heavy machinery while taking prescription pain medicine. Do not drive until your health care provider approves. Until your health care provider approves: ?Do not lift anything that is heavier than 10 lb (4.5 kg). ?Do not play contact sports. Return to your normal activities as told by your health care provider. Ask your health care provider what activities are safe. General instructions To prevent or treat constipation while you are taking prescription pain medicine, your health care provider may recommend that you: ?Drink enough fluid to keep your urine clear or pale yellow. ?Take lshx-whm-orfdwwi or prescription medicines. ?Eat foods that are high in fiber, such as fresh fruits and vegetables, whole grains, and beans. ?Limit foods that are high in fat and processed sugars, such as fried and sweet foods. Take plxo-cxq-hamrwxl and prescription medicines only as told by your health care provider. Do not take tub baths or go swimming until your health care provider approves. Keep all follow-up visits as told by your health care provider. This is important. Contact a health care provider if: You develop a rash. You have more redness, swelling, or pain around your incision. You have more fluid or blood coming from your incision. Your incision feels warm to the touch. You have pus or a bad smell coming from your incision. You have a fever or chills. You have blood in your stool (feces). You have not had a bowel movement in 2 3 days. Your pain is not controlled with medicine. Get help right away if: You have chest pain or shortness of breath. You feel light-headed or feel faint. You have severe pain. You vomit and your pain is worse. This information is not intended to replace advice given to you by your health care provider. Make sure you discuss any questions you have with your health care provider. Document Released: 2006 Document Revised: 09/27/2018 Document Reviewed: 03/28/2017 [place] Patient Education 2020 [employer]. 12/15/2021 09:23:11 Umbilical Hernia, Adult Umbilical Hernia, Adult A hernia is a bulge of tissue that pushes through an opening between muscles. An umbilical hernia happens in the abdomen, near the belly button (umbilicus). The hernia may contain tissues from the small intestine, large intestine, or fatty tissue covering the intestines (omentum). Umbilical herniasin adults tend to get worse over time, and they require surgical treatment. There are several types of umbilical hernias. You may have: A hernia located just above or below the umbilicus (indirect hernia). This is the most common type of umbilical hernia in adults. A hernia that forms through an opening formed by the umbilicus (direct hernia). A hernia that comes and goes (reducible hernia). A reducible hernia may be visible only when you strain, lift something heavy, or cough. This type of hernia can be pushed back into the abdomen (reduced). A hernia that traps abdominal tissue inside the hernia (incarcerated hernia). This type of hernia cannot be reduced. A hernia that cuts off blood flow to the tissues inside the hernia (strangulated hernia). The tissues can start to if this happens. This type of hernia requires emergency treatment. What are the causes? An umbilical hernia happens when tissue inside the abdomen presses on a weak area of the abdominal muscles. What increases the risk? You may have a greater risk of this condition if you: Are obese. Have had several pregnancies. Have a buildup of fluid inside your abdomen (ascites). Have had surgery that weakens the abdominal muscles. What are the signs or symptoms? The main symptom of this condition is a painless bulge at or near the belly button. A reducible hernia may be visible only when you strain, lift something heavy, or cough. Other symptoms may include: Dull pain. A feeling of pressure. Symptoms of a strangulated hernia may include: Pain that gets increasingly worse. Nausea and vomiting. Pain when pressing on the hernia. Skin over the hernia becoming red or purple. Constipation. Blood in the stool. How is this diagnosed? This condition may be diagnosed based on: A physical exam. You may be asked to cough or strain while standing. These actions increase the pressure inside your abdomen and force the hernia through the opening in your muscles. Your health careprovider may try to reduce the hernia by pressing on it. Your symptoms and medical history. How is this treated? Surgery is the only treatment for an umbilical hernia. Surgery for a strangulated hernia is done assoon as possible. If you have a small hernia that is not incarcerated, you may need to lose weight before having surgery. Follow these instructions at home: Lose weight, if told by your health care provider. Do not try to push the hernia back in. Watch your hernia for any changes in color or size. Tell your health care provider if any changes occur. You may need to avoid activities that increase pressure on your hernia. Do not lift anything that is heavier than 10 lb (4.5 kg) until your health care provider says that this is safe. Take sylx-poe-pogvlas and prescription medicines only as told by your health care provider. Keep all follow-up visits as told by your health care provider. This is important. Contact a health care provider if: Your hernia gets larger. Your hernia becomes painful. Get help right away if: You develop sudden, severe pain near the area of your hernia. You have pain as well as nausea or vomiting. You have pain and the skin over your hernia changes color. You develop a fever. This information is not intended to replace advice given to you by your health care provider. Make sure you discuss any questions you have with your health care provider. Document Released: 03/16/2017 Document Revised: 11/27/2018 Document Reviewed: 04/15/2018 [employer] Patient Education 2020 [employer]. Follow Up Care 11/18/2021 10:43:19 With:MINGO CAMARILLO MD, Surgery Address: [phone] When: Unknown Comments:call the office for your 2 week follow up appointment [facility] 12-01-2021 Evaluation + Plan note Future Scheduled Tests Radiology* XR Chest 2 Views (PA & Lateral) 09/28/21 [facility] Evaluation + Plan note Future Appointments Appointment Date:11/02/2021 08:30:00 AM Scheduled Provider:AVINASH PACE DO Location:[facility] Appointment Type:PC OV Future Scheduled Tests Radiology* XR Chest 2 Views (PA & Lateral) 09/28/21 [facility] Evaluation + Plan note Future Appointments Appointment Date:02/01/2022 08:30:00 AM Scheduled Provider:AVINASH PACE DO Location:[facility] Appointment Type:PC OV Diagnostic Tests Pending * Complete Metabolic Panel 12/13/21 Future Scheduled Tests Radiology* XR Chest 2 Views (PA & Lateral) 09/28/21 [facility] evaluation + Plan note Future Appointments Appointment Date:02/01/2022 08:30:00 AM Scheduled Provider:AVINASH PACE DO Location:[facility] Appointment Type:PC OV Future Scheduled Tests Radiology* XR Chest 2 Views (PA & Lateral) 09/28/21 [facility] evaluation + Plan note Future Appointments Appointment Date:08/08/2023 08:30:00 AM Scheduled Provider:AVINASH PACE DO Location:[facility] Appointment Type:PC OV Follow Up Future Scheduled Tests Laboratory* Albumin/Creatinine Ratio, Random Urine 01/31/23 [facility] evaluation note* Diagnosis Onset Date Resolution Status History of repair of right rotator cuff noneactive History of arthroscopy of right shoulder noneactive Numbness and tingling of right upper extremity noneactive Cervicalgia noneactive [facility] Work Phone: evaluation note* Diagnosis Onset Date Resolution Status Acute myofascial strain of lumbar region acute Herniated intervertebral disc of lumbar spine acute Facet arthritis, degenerativ e, L5-S1 level, lumbosacral spine acute [facility] Work Phone: Evaluation note* Diagnosis INDRA (obstructive sleep apnea)- Primary Obstructive sleep apnea (adult) (pediatric) Obesity hypoventilation syndrome Morbid obesity with BMI of 50.0-59.9, adult documented in [facility] N[facility] No data available for this section [facility] Hospital Discharge instructions No data available for this section [facility] Progress note No data available for this section [facility] Chief Complaint and Reason for Visit Chief Complaint BL SHOULDERS xray back, leg pain, numbness Reason for Visit History of repair of right rotator cuff History of arthroscopy of right shoulder Numbness and tingling of right upper extremity Cervicalgia Chief Complaint LOWER BACK PAIN LUMBAR SPINE room 3 HERNIATED DISC LUMBAR SPINE LUMBAR SPINE SPONDYLOSIS PT HAS RX Reason for Visit Acute myofascial str ain of lumbar region Herniated intervertebral disc of lumbar spine Facet arthritis, degenerative, L5-S1 level, lumbosacral spine Chief Complaint Admit Date general illness September 24, 2024 3:17am INDRA October 02, 2024 7 :54pm 4 WK FU October 03, 2024 9 :55am INDRA October 07, 2024 11:07am 2 M FU December 11, 2024 12:42pm LEFT WRIST December 24, 2024 10:28am Room 3 December 24, 2024 10:40am INDRA December 30, 2024 8:50 am Reason for Visit Admit Date Bilateral primary osteoarthritis of knee October 03, 2024 9:55am COVID-19 October 03, 2024 9 :55am Non-insulin dependent diabetes mellitus October 03, 2024 9:55am Non-insulin dependent diabetes mellitus December 11, 2024 12:42pm Obesity due to excess calories December 11, 2024 12:42pm Hypertension December 11, 2024 12:42pm Apnea, sleep December 11, 2024 12:42pm Scapholunate instability of left wrist F ebruary 2024 10:28am Chief Complaint Admit Date 2 M FU December 11, 2024 12:42pm LEFT WRIST December 24, 2024 10:28am Room 3 December 24, 2024 10:40am INDRA December 30, 2024 8:50 am 2 M FU February 04, 2025 11:0 0am EAR ISSUES-HIGH PITCH, RINGING March 31, 2025 1:29pm Reason for Visit Admit Date Non-insulin dependent diabetes mellitus December 11, 2024 12:42pm Obesity due to excess calories December 11, 2024 12:42pm Hypertension December 11, 2024 12:42pm Apnea, sleep December 11, 2024 12:42pm Scapholunate instability of left wrist F ebruary 2024 10:28am Colon cancer screening February 04, 2025 1 1:00am Facet arthritis, degenerativ e, L5-S1 level, lumbosacral spine February 04, 2025 11:00am Non-insulin dependent diabetes mellitus February 04, 2025 11:00am Obesity due to excess calories January 11:00am Hypertension February 04, 2025 11:0 0am Ringing in right ear March 31, 2025 1:29 pm Family History No Family History Records Found Relationship Condition Age at Onset Recorded Date/T roya mother Malignant neoplasm of breast Unknown father Hypertension Unknown Relationship Condition Age at Onset Recorded Date/T roya mother Malignant neoplasm of breast Unknown Angina at rest Unknown father Hypertension Unknown Alcoholism Unknown Advance Directives No Advanced Directives Records Found Advance Directive Response Recorded Date/ Time Advance Directives No August 04, 2015 1:28pm Living Will No June 02, 2022 5:49pm Power of Art Historian No June 02 5:49pm Advance Directive Response Recorded Date/ Time Advance Directives No August 04, 2015 12:28pm Living Will No June 02, 2022 4:49pm Power of Art Historian No June 02 4:49pm Advance Directive Response Recorded Date/ Time Living Will No September 24, 2 024 4:17am Power of Art Historian No September 24, 2024 4:17am Advance Directives No August 04, 2015 1:28pm Advance Directive Response Recorded Date/ Time Advance Directives No August 04, 2015 1:28pm Summary Purpose Additional Source Comments Goals (unrecognized section and content) Goals may be documented in a n alternate section Patient Care team informatio n (unrecognized section and content) Team Status: Active Member Role Status Dates Dr. Avinash Pace , DO Family Provider Active Dr. Avinash Pace , DO Primary Care Provider Active Team Status: Inactive Member Role Status Dates Dr. Avinash Pace , DO Primary Care Provider, Referri ng Provider Active MARTIN Resendez Attending Provider Active Team Status: Inactive Member Role Status Dates Dr. Avinash Pace , DO Primary Care Provider, Referri ng Provider Active Dr. Dao Pickett , DO Attending Provider Active Team Status: Inactive Member Role Status Dates Dr. Avinash Pace , DO Primary Care Provider Active Dr. Diego Herrmann MD Attending Provider Active Team Status: Inactive Member Role Status Dates Dr. Avinash Pace , DO Primary Care Provider Active Dr. Dao Pickett , DO Attending Provider, Referring P rovider Active Team Status: Inactive Member Role Status Dates Dr. Avinash Pace DO Primary Care Provider Active Dr. Remington Browning MD Attending Provider, Referring Provider Active Team Status: Active Member Role Status Dates Dr. Artur Mariano DO Primary Care Provider Active Team Status: Inactive Member Role Status Dates Dr. Artur Mariano DO Primary Care Provider Active Start: September 24, 2024 End: September 24, 2024 Dr. Mesfin Dunham MD Attending Provider Active Start: September 24, 2024 End: September 24, 2024 Dr. Mesfin Dunham MD Emergency Provider Active Start: September 24, 2024 End: September 24, 2024 Team Status: Inactive Member Role Status Dates Dr. Artur Mariano DO Primary Care Provider Active Start: October 02, 2024 End: October 02, 2024 MARTIN Bradley Attending Provider Active St art: October 02, 2024 End: October 02, 2024 MARTIN Bradley Referring Provider Active St art: October 02, 2024 End: October 02, 2024 Team Status: Inactive Member Role Status Dates Dr. Artur Mariano DO Primary Care Provider Active Start: October 03, 2024 End: October 03, 2024 Dr. Artur Mariano DO Referring Provider Active Start: October 03, 2024 End: October 03, 2024 MARTIN Bradley Attending Provider Active St art: October 03, 2024 End: October 03, 2024 Team Status: Inactive Member Role Status Dates Dr. Artur Mariano DO Primary Care Provider Active Start: October 07, 2024 End: October 07, 2024 MARTIN Bradley Attending Provider Active St art: October 07, 2024 End: October 07, 2024 Team Status: Inactive Member Role Status Dates Dr. Artur Mariano DO Primary Care Provider Active Start: December 11, 2024 End: December 11, 2024 Dr. Artur Mariano DO Referring Provider Active Start: December 11, 2024 End: December 11, 2024 MARTIN Bradley Attending Provider Active St art: December 11, 2024 End: December 11, 2024 Team Status: Inactive Member Role Status Dates Dr. Artur Mariano DO Primary Care Provider Active Start: December 11, 2024 End: December 11, 2024 MARTIN Bradley Attending Provider Active St art: December 11, 2024 End: December 11, 2024 MARTIN Bradley Referring Provider Active St art: December 11, 2024 End: December 11, 2024 Team Status: Inactive Member Role Status Dates Dr. Artur Mariano DO Primary Care Provider Active Start: December 24, 2024 End: December 24, 2024 Dr. Artur Mariano DO Referring Provider Active Start: December 24, 2024 End: December 24, 2024 Dr. Francisco Pond DO Attending Provider Active Start: December 24, 2024 End: December 24, 2024 Team Status: Inactive Member Role Status Dates Dr. Artur Mariano DO Primary Care Provider Active Start: December 24, 2024 End: December 24, 2024 Dr. Diego Herrmann MD Attending Provider Active S tart: December 24, 2024 End: December 24, 2024 Team Status: Inactive Member Role Status Dates Dr. Artur Mariano DO Primary Care Provider Active Start: December 30, 2024 End: December 30, 2024 Dr. Ricardo Olivares MD Attending Provider Active Start: December 30, 2024 End: December 30, 2024 Dr. Ricardo Olivares MD Referring Provider Active Start: December 30, 2024 End: December 30, 2024 Team Status: Inactive Member Role Status Dates Dr. Artur Mariano DO Primary Care Provider Active Start: February 04, 2025 End: February 04, 2025 Dr. Artur Mariano DO Attending Provider Active Start: February 04, 2025 End: February 04, 2025 Dr. Artur Mariano DO Referring Provider Active Start: February 04, 2025 End: February 04, 2025 Team Status: Inactive Member Role Status Dates Dr. Artur Mariano DO Primary Care Provider Active Start: March 31, 2025 End: March 31, 2025 Dr. Artur Mariano DO Attending Provider Active Start: March 31, 2025 End: March 31, 2025 Dr. Artur Mariano DO Referring Provider Active Start: March 31, 2025 End: March 31, 2025 (unrecognized sect ion and content) No Status Records FoundNo Status Records FoundNo Status Records FoundNo Status Records Found INFORMATION SOURCE (unrecogn ized section and content) DATE CREATED AUTHOR 04/10/2023 [facility] [place] [facility] [place] DATE CREATED AUTHOR AUTHOR'S ORGANIZ ATION 04/10/2023 [facility] DATE CREATED AUTHOR AUTHOR'S ORGANIZ ATION 12/13/2024 [facility] DATE CREATED AUTHOR AUTHOR'S ORGANIZ ATION 04/23/2025 [facility] Reason for Visit (unrecogniz ed section and content) Reason Comments Obstructive Sleep Apnea Specialty Diagnoses / Procedures Referred By Danilo t Referred To Contact Sleep Medicine Diagnoses INDRA (obstructive sleep apnea) Gianluca Pagan, Andreas Liriano, DO [address] [place] [address] Phone: tel: fax: Referral ID Status Reason Start Date Expiration Date V isits Requested Visits Authorized [id number] New Request 09/30/2024 10/25/2025 1 1 FOR RECORDS PERTAINING TO PATIENTS WHO ARE OR HAVE BEEN ENROLLED IN A CHEMICAL DEPENDENCY/SUBSTANCEABUSE PROGRAM, SOME INFORMATION MAY BE OMITTED. This clinical summary was aggregated from multiple sources. Caution should be exercised in using it in the provision of clinical care. This summary normalizes information from multiple sources, and as a consequence, information in this document may materially change the coding, format and clinical context of patient data. In addition, data may be omitted in some cases. CLINICAL DECISIONS SHOULD BE BASED ON THE PRIMARY CLINICAL RECORDS. [employer] provides no warranty or guarantee of the accuracy or completeness of information in this document.
== END | disposition home or self-care (01) ==
PROVIDERS: PCP Family Medicine; Referring Provider Family Medicine; Visit Provider Family Medicine
DX: H93.11 Tinnitus, right ear (principal)
CPT/HCPCS: 70553; A9575

== ENCOUNTER → 2025-08-31 | Outpatient (CLI) | payer MEDICAID, SELFPAY ==
--- NOTE | 2025-08-31 10:17 | MRI_ITS ---
PROCEDURE: UPPER EXT JOINT ONLY(ROUTINE) 08/31/2025 REASON FOR EXAM: CHRONIC WRIST PAIN TECHNIQUE: Procedure Code: MRIUEJ Modality: MR Procedure: UPPER EXT JOINT ONLY(ROUTINE) T1, T2, stir, multiplanar and multisequence images of the left wrist were obtained without IV contrast administration. COMPARISON: COMPARISON: None FINDINGS: Bone Marrow: There is a 0.3 cm subcortical cyst or erosion in the palmar aspect of the pisiform. 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 The scapholunate articulation appears aligned and intact. Effusion: There is no significant effusion Soft Tissues: In the triangular fibrocartilage appears intact. The carpal tunnel median nerve are within normal limits. Ligaments and Tendons: There is no significant tenosynovitis. 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 There is a 0.3 cm subcortical cyst or erosion in the palmar aspect of the pisif orm. Reading Location: [facility]
== END | disposition home or self-care (01) ==
LOC: MRI 10:13
PROVIDERS: PCP Family Medicine; Referring Provider Family Medicine; Visit Provider Family Medicine
DX: M25.332 Other instability, left wrist (principal)
CPT/HCPCS: 73221